=== PATIENT | female | born 1935 | race African-American/Black ===

== ENCOUNTER 2016-08-24 15:10 | Inpatient (IN) | payer MEDICARE, BC, MEDICAID ==
[2016-08-24] VITALS (8 sets, daily range): BP systolic 84–122; BP diastolic 49–70
[~2016-08-24] VITALS: Ht 162.6 cm; Wt 55.8 kg
[~2016-08-24 15:10] MED LIST: ASPIR 8181 MG ORAL
--- NOTE | 2016-08-24 15:34 | Emergency Room Report ---
History of Present Illness General Chief Complaint: Dyspnea/Respdistress Source: Medical Record Present Illness Allergies: Coded Allergies: No Known Allergies (Unverified , 12/10/15) Nursing Documentation-[facility] Past Medical History: No History, Except For Hx Hypertension: Yes - Hyperlipidemia History Of Psychiatric Problem: Yes - Paranoid Schizophrenia, Bipolar Physical Exam Vital Signs Date Time Temp Pulse Resp B/P Pulse Ox O2 Delivery O2 Flow Rate FiO2 08/24/16 15:10 102.2 125 15 85/64 85 Non-Rebreather 15.0 Procedures Intubation Intubation : Consent: Emergent Intubation Method: orotracheal Tube Size (cm): 7.0 Medications: Etomidate, Succinylcholine Breath Sounds after Intubation: equal Intubation Complications: no complications Post Intubation Xray: Yes Attempts: One Patient Tolerated: Well Complications: None Progress This patient underwent rapid sequence intubation without complication or incident. Medical Decision Making Diagnostic Impression: Primary Impression: Respiratory distress ER Course This patient presented with respiratory distress, low oxygen saturations, hypotension and findings consistent with sepsis. Please see formally history and physical. I did rapid sequence intubation without competition or incident. See my procedure note. Last Vital Signs Date Time Temp Pulse Resp B/P Pulse Ox O2 Delivery O2 Flow Rate FiO2 08/24/16 15:10 102.2 125 15 85/64 85 Non-Rebreather 15.0 ARLYN PEÑA D.O. Aug 24, 2016 15:34
--- NOTE | 2016-08-24 16:20 | Diagnostic Imaging Report ---
Indications: Intubation Technique: Portable AP chest Findings: Comparison: None Endotracheal tube placed, tip 2 cm above melissa. 6 cm multilobulated masslike opacity central aspect right lung. 7 mm nodule immediately peripheral to this. Linear density left lower lung. Aortic arch calcified mildly elongated. Otherwise, no abnormal mediastinal widening. Heart size, pulmonary vasculature within normal limits. No pleural abnormalities. Gaseous distention of stomach. IMPRESSION: Endotracheal tube in good position Right lung masses suspicious for primary lung malignancy Left lower lung subsegmental atelectasis Aortosclerosis and probable chronic hypertensive change Nonspecific gaseous distention of stomach. Consider nasogastric tube placement as clinically indicated.
[2016-08-24] MEDS ORDERED: DEPAKENE250 MG/5 M PO (16:28)
[2016-08-24] MEDS ORDERED: ASCORBIC ACID500 MG ORAL (16:28)
[2016-08-24] MEDS ORDERED: COLACE100 MG ORAL (16:28)
[2016-08-24] MEDS ORDERED: CATAPRES0.1 MG ORAL (16:28)
[2016-08-24] MEDS ORDERED: ATORVASTATIN CA20 MG ORAL (16:28)
[2016-08-24] MEDS ORDERED: FERROUS SULFAT325 MG ORAL (16:28)
[2016-08-24] MEDS ORDERED: LAMICTAL25 MG ORAL (16:30)
[2016-08-24] MEDS ORDERED: MULTIVITAMINS1 EA14 PO (16:30)
[2016-08-24] MEDS ORDERED: METOPROLOL SUCC25 MG ORAL (16:30)
[2016-08-24] MEDS ORDERED: ALUM-MAG HYDRO360 ML PO (16:30)
[2016-08-24] MEDS ORDERED: ZINC SULFATE220 M1 ORAL (16:33)
[2016-08-24] MEDS ORDERED: MIRTAZAPINE15 MG ORAL (16:33)
[2016-08-24] MEDS ORDERED: ZANTAC150 MG ORAL (16:33)
[2016-08-24] MEDS ORDERED: PRO-STAT LIQUID30 ML ORAL (16:33)
[2016-08-24] MEDS ORDERED: NUTREN 2.0250 ML PO (16:33)
[2016-08-24] MEDS ORDERED: ACETAMINOPHEN325 M1 ORAL (16:33)
[2016-08-24] MEDS ORDERED: NAMENDA5 MG ORAL (16:33)
[2016-08-24 16:40] LABS: ABG ALLEN TEST POSITIVE; ABG BASE EXCESS -6.5; ABG PCO2 23.2 mmHg (35.0-45.0)
[2016-08-24 17:14] LABS: BASOPHILS % (AUTO) 1.6 % (0.0-2.0); LYMPHOCYTES % (AUTO) 8.5 % (20.0-45.0); MEAN CORPUSCULAR HEMOGLOBIN 32.1 PG (27.0-31.0); MEAN CORPUSCULAR HGB CONC 34.9 G/DL (32.0-36.0); MEAN CORPUSCULAR VOLUME 92 FL (80-99); NEUTROPHILS % (AUTO) 74.9 % (45.0-75.0); PLATELET COUNT 222 K/UL (150-450); RED CELL DISTRIBUTION WIDTH 13.4 % (11.6-14.8); WHITE BLOOD COUNT 12.6 K/UL (4.8-10.8)
[2016-08-24] MEDS ORDERED: Acetaminophen 650 MG SUPP RECTAL ONE ×2 (17:21→18:45)
[2016-08-24 17:33] LABS: INR 1.3 (0.9-1.1); PROTHROMBIN TIME 12.8 SEC (9.30-11.50)
[2016-08-24 17:40] LABS: TROPONIN I < 0.30 ng/mL (<=0.30)
[2016-08-24 17:41] LABS: REFLEX LACTIC ACID YES OR NO YES
[2016-08-24 17:43] LABS: ALANINE AMINOTRANSFERASE 46 U/L (3-33); ALBUMIN/GLOBULIN RATIO 0.6 (1.0-2.7); ANION GAP 24 (5-15); ASPARTATE AMINO TRANSFERASE 64 U/L (5-40); CALCIUM 8.5 mg/dL (8.6-10.2); CARBON DIOXIDE 16 mEQ/L (20-30); CHLORIDE 110 mEQ/L (98-107); CREATININE 4.1 mg/dL (0.5-0.9); HEMOLYSIS 17; POTASSIUM 5.9 mEQ/L (3.4-4.9); SODIUM 150 mEQ/L (135-145); TOTAL PROTEIN 6.3 g/dL (6.6-8.7)
[2016-08-24 17:52] LABS: CKMB < 1.5 ng/mL (< 3.8)
[2016-08-24] MEDS ORDERED: NS 1000ml 1,400 ML IVLG ONE (18:15)
[2016-08-24] MEDS ORDERED: Piperacillin/Tazobactam 3.375 GM in NS 110 ML IVPB ONE (18:15)
[2016-08-24 18:20] LABS: APPEARANCE,URINE VERY CLOUDY; KETONES,URINE NEGATIVE (NEGATIVE); LEUKOCYTE ESTERASE ,URINE 3+ (NEGATIVE); NITRITE,URINE NEGATIVE (NEGATIVE); PH,URINE 8 (4.5-8.0); PROTEIN,URINE 3+ (NEGATIVE); UROBILINOGEN,URINE NORMAL MG/DL (0.0-1.0)
[2016-08-24] MEDS ORDERED: Zosyn 3.375gm inj ONE (18:21)
[2016-08-24 18:25] LABS: AMORPHOUS SEDIMENT,UR MANY /LPF; BACTERIA,URINE MANY /HPF; WBC,URINE TNTC /HPF (0 - 2)
--- NOTE | 2016-08-24 18:29 | Emergency Room Report ---
History of Present Illness General Chief Complaint: Dyspnea/Respdistress Source: Medical Record Present Illness HPI Patient presents in respiratory failure Patient's from a nursing facility There was a report that the patients breathing worsened acutely Patient is nonverbal No history is obtained from the patient Upon arrival the patient required airway intubation No reports of any recent chest pain or shortness of breath no reports of any recent diarrhea However the history of present illness is significantly limited Allergies: Coded Allergies: No Known Allergies (Unverified , 12/10/15) Patient History Limited by: medical condition Past Medical History: see triage record Pertinent Family History: unable to obtain Reviewed Nursing Documentation: PMH: Agreed, PSxH: Agreed Nursing Documentation-PMH Past Medical History: No History, Except For Hx Hypertension: Yes - Hyperlipidemia History Of Psychiatric Problem: Yes - Paranoid Schizophrenia, Bipolar Review of Systems All Other Systems: limited - Other than the ones mentioned in the history of present illness all others are reviewed however they do stay limited due to the patient's mental status Physical Exam Vital Signs Date Time Temp Pulse Resp B/P Pulse Ox O2 Delivery O2 Flow Rate FiO2 08/24/16 15:10 102.2 125 15 85/64 85 Non-Rebreather 15.0 08/24/16 15:15 100 Sp02 EP Interpretation: reviewed, abnormal - 85% which is a low oxygenation, after intubation patient has a 100 percent which is a normal oxygenation General Appearance: severe distress - respiratory distress Head: normocephalic, atraumatic Eyes: bilateral eye PERRL ENT: uvula midline, dry mucus membranes Neck: full range of motion, thyroid normal Respiratory: other - Decreased breath sounds, retractions respiratory failure Cardiovascular #1: no gallop, no JVD, no murmur, tachycardia Gastrointestinal: non tender, soft Musculoskeletal: other - patient not following commands Neurologic: other - Decreased GCS, unresponsive to stimuli Skin: normal color, no rash Lymphatic: no adenopathy Procedures Critical Care Time Critical Care Time 50 minutes for multiple re\re evaluations initial critical status Respiratory failure Multiple consultants not including any procedural time Medical Decision Making Diagnostic Impression: Primary Impression: Respiratory distress Additional Impressions: Respiratory failure Lung mass Renal failure Hyperkalemia ER Course Patient is a fairly complex patient with multiple differential to consideration including but not limited to cardiac cardiopulmonary and vascular emergencies Patient's presentation is extremity concerning X-ray reveals findings of concerning finding With carcinoma Patient's kidney function is also concerning With evidence of possible acute failure Patient is making urine and is further being aggressively IV hydrated hypokalemia is also being treated And patient admitted to ICU for further care Labs Test 08/24/16 16:30 08/24/16 16:40 08/24/16 17:30 08/24/16 19:44 Arterial Blood pH 7.444 (7.350-7.450) Arterial Blood Partial Pressure CO2 23.2 mmHg (35.0-45.0) Arterial Blood Partial Pressure O2 243.4 mmHg (75.0-100.0) Arterial Blood HCO3 15.5 mmol/L (22.0-26.0) Arterial Blood Oxygen Saturation 99.7 % (92.0-98.0) Arterial Blood Base Excess -6.5 Ed Test Positive White Blood Count 12.6 K/UL (4.8-10.8) Red Blood Count 4.50 M/UL (4.20-5.40) Hemoglobin 14.5 G/DL (12.0-16.0) Hematocrit 41.5 % (37.0-47.0) Mean Corpuscular Volume 92 FL (80-99) Mean Corpuscular Hemoglobin 32.1 PG (27.0-31.0) Mean Corpuscular Hemoglobin Concent 34.9 G/DL (32.0-36.0) Red Cell Distribution Width 13.4 % (11.6-14.8) Platelet Count 222 K/UL (150-450) Mean Platelet Volume 7.0 FL (6.5-10.1) Neutrophils (%) (Auto) 74.9 % (45.0-75.0) Lymphocytes (%) (Auto) 8.5 % (20.0-45.0) Monocytes (%) (Auto) 15.0 % (1.0-10.0) Eosinophils (%) (Auto) 0.0 % (0.0-3.0) Basophils (%) (Auto) 1.6 % (0.0-2.0) Prothrombin Time 12.8 SEC (9.30-11.50) Prothromb Time International Ratio 1.3 (0.9-1.1) Activated Partial Thromboplast Time 29 SEC (23-33) Sodium Level 150 mEQ/L (135-145) Potassium Level 5.9 mEQ/L (3.4-4.9) Chloride Level 110 mEQ/L (98-107) Carbon Dioxide Level 16 mEQ/L (20-30) Anion Gap 24 (5-15) Blood Urea Nitrogen 95 mg/dL (7-23) Creatinine 4.1 mg/dL (0.5-0.9) Estimat Glomerular Filtration Rate mL/min (>60) Glucose Level 134 mg/dL (74-106) Lactic Acid Level 5.10 mmol/L (0.66-2.22) 3.50 mmol/L (0.66-2.22) Calcium Level 8.5 mg/dL (8.6-10.2) Total Bilirubin 0.6 mg/dL (0.0-1.2) Aspartate Amino Transf (AST/SGOT) 64 U/L (5-40) Alanine Aminotransferase (ALT/SGPT) 46 U/L (3-33) Alkaline Phosphatase 48 U/L (35-104) Total Creatine Kinase 76 U/L (26-140) Creatine Kinase MB < 1.5 ng/mL (< 3.8) Creatine Kinase MB Relative Index Troponin I < 0.30 ng/mL (<=0.30) Total Protein 6.3 g/dL (6.6-8.7) Albumin 2.5 g/dL (3.5-5.2) Globulin 3.8 g/dL Albumin/Globulin Ratio 0.6 (1.0-2.7) Urine Color Pale yellow Urine Appearance Very cloudy Urine pH 8 (4.5-8.0) Urine Specific [place] 1.010 (1.005-1.035) Urine Protein 3+ (NEGATIVE) Urine Glucose (UA) Negative (NEGATIVE) Urine Ketones Negative (NEGATIVE) Urine Occult Blood 5+ (NEGATIVE) Urine Nitrite Negative (NEGATIVE) Urine Bilirubin Negative (NEGATIVE) Urine Urobilinogen Normal MG/DL (0.0-1.0) Urine Leukocyte Esterase 3+ (NEGATIVE) Urine RBC 10-15 /HPF (0 - 2) Urine WBC Tntc /HPF (0 - 2) Urine Squamous Epithelial Cells None /LPF (NONE/OCC) Urine Amorphous Sediment Many /LPF (NONE) Urine Bacteria Many /HPF (NONE) EKG Diagnostic Results Rate: normal Rhythm: NSR ST Segments: other - Nonspecific ST and T-wave changes Rhythm Strip Diag. Results EP Interpretation: yes Rate: 89 Rhythm: NSR, no PVC's, no ectopy Chest X-Ray Diagnostic Results EP Interpretation: Yes Findings: no consolidation, no effusion, no pneumothorax, other - Right-sided lung mass Number of Views: 1 Last Vital Signs Date Time Temp Pulse Resp B/P Pulse Ox O2 Delivery O2 Flow Rate FiO2 08/24/16 17:00 130 16 118/70 99 Mechanical Ventilator 130 08/24/16 16:45 50 08/24/16 15:20 10.0 08/24/16 15:10 102.2 Status: improved Disposition: ADMITTED INPATIENT Condition: Critical Referrals: LORNA WHITEHEAD (PCP) GORDY RODRIGES D.O. Aug 24, 2016 18:29
[2016-08-24] MEDS ORDERED: Sodium Polystyrene Sulfonate Enema RECTAL ONE ×2 (20:15→20:30)
[2016-08-24] MEDS ORDERED: Sodium Bicarbonate 8.4% 50ml Carp IV ONE (20:15)
[2016-08-25] VITALS (26 sets, daily range): BP systolic 83–120; BP diastolic 37–61
[2016-08-25] MEDS: DuoNeb 0.5-3(2.5)mg/3ml neb HHN SCH ×4 (02:40→19:04)
[2016-08-25] MEDS ORDERED: Vancomycin 750mg/D5W 275ml IVPB ONE ×2 (04:00)
[2016-08-25] MEDS ORDERED: Vancomycin 750mg/D5W 275ml IVPB SCH ×2 (04:00)
[2016-08-25] MEDS ORDERED: Vancomycin 750mg Inj IVPB ONE (04:06)
--- NOTE | 2016-08-25 04:38 | Consultation ---
DATE OF CONSULTATION: 08/24/2016 CARDIOLOGY CONSULTATION CONSULTING PHYSICIAN: Giuseppe Muir M.D. REQUESTING PHYSICIAN: Rajesh Franco M.D. HISTORY OF PRESENT ILLNESS: This is an 81-year-old female resides at a assisted facility and became acutely short of breath and unresponsive. This morning she was transferred to the emergency room where she was noted to be in respiratory failure. She required intubation and initiation of mechanical ventilation. She was febrile with significant rapid blood pressure noted prompting this consultation. The patient is unable to give any historical data. Records are reviewed. PAST MEDICAL HISTORY: Includes hyperlipidemia, hypertension, cerebrovascular disease, dementia, schizophrenia with bipolar disorder, and type 2 diabetes mellitus. MEDICATIONS: Medications prior to admission reviewed and reconciled. ALLERGIES: None known. SOCIAL HISTORY: No record of smoking, alcohol, or substance abuse. FAMILY HISTORY: Unknown. REVIEW OF SYSTEMS: Not obtainable from the patient, although pertinent data is outlined above based on review of records. PHYSICAL EXAMINATION: GENERAL: Orally intubated, unresponsive. VITAL SIGNS: Temperature 102.2 degrees, blood pressure 85/64, heart rate 125, and respiratory rate 15. HEENT: Temporal wasting. Pale conjunctiva. Orally intubated. NECK: Normal jugular venous pressure. LUNGS: Bilateral rhonchi. HEART: Regular rhythm rate. Normal S1 and S2. No murmur. ABDOMEN: Soft. No guarding or rebound. EXTREMITIES: Pulses are palpable, but capillary refill is decreased. There is no edema. There is no cyanosis and mottling at this time. NEUROLOGIC: The patient is unresponsive, but withdraws to painful stimuli. LABORATORY AND DIAGNOSTIC DATA: Chest x-ray reveals right lung mass. ABG, pH 7.44, 23, 243. White count 12.6, hemoglobin 14.5. Sodium 150, potassium 5.9, chloride 110, bicarbonate 16, BUN 95, creatinine 4.1. Lactic acid 5.1. Glucose 134. Troponin negative. Albumin 2.5. Urinalysis with too numerous to count white cells. EKG with sinus rhythm, nonspecific ST-T wave changes. IMPRESSION: 1. Shock. 2. Sepsis. 3. Hypovolemia. 4. Dehydration. 5. Hypernatremia. 6. Hyperchloremia. 7. Hyperkalemia. 8. Acute renal failure. 9. Right lung mass, possible malignancy. 10. Urinary tract infection. 11. Lactic acidosis. 12. Respiratory failure with hypoxia. PLAN: Condition is critical. Prognosis is guarded. ICU care. Panculture. Ventilator support. Broad-spectrum antibiotics. Hypotonic fluid hydration following initial bolus of isotonic fluids. Serial lactic acid level. DVT prophylaxis. Insulin coverage by sliding scale. Follow up laboratory studies. Giuseppe Muir M.D. DR: Adan JOB#: [id number] CC:
--- NOTE | 2016-08-25 05:49 | Emergency Room Report ---
Physical Exam Vital Signs Date Time Temp Pulse Resp B/P Pulse Ox O2 Delivery O2 Flow Rate FiO2 08/24/16 15:10 102.2 125 15 85/64 85 Non-Rebreather 15.0 08/24/16 15:15 100 Central Line Central Line : Consent: Emergent Central Line Lumen: triple Maximal Sterile Barrier Tech: yes cap, yes mask, yes sterile gown, yes sterile gloves, yes large sterile sheet, yes hand hygiene, yes chlorhexidine prep Central Line Postion: femoral (R) Complications: none Central Line Post Position: sutured, good blood return Attempts: One Patient Tolerated: Well Complications: None Progress Patient was admitted for respiratory failure and was intubated. She had sepsis. She had 2 good IV line that infiltrated. Nursing staff at trouble putting a new IV so I place a central line. This was done under sterile condition using Seldinger technique. No complication. Medical Decision Making Diagnostic Impression: Primary Impression: Respiratory distress Additional Impressions: Renal failure Respiratory failure Lung mass Hyperkalemia Last Vital Signs Date Time Temp Pulse Resp B/P Pulse Ox O2 Delivery O2 Flow Rate FiO2 08/25/16 05:26 84 17 50 08/25/16 03:56 98.4 08/25/16 02:57 100 Mechanical Ventilator 08/25/16 02:00 105/50 08/24/16 15:20 10.0 Disposition: ADMITTED INPATIENT Condition: Critical Referrals: LORNA WHITEHEAD (PCP) PREM SARAVIA M.D. Aug 25, 2016 05:49
[2016-08-25] MEDS ORDERED: NovoLOG Insulin Flexpen SUBQ SCH (06:30)
[2016-08-25 06:31] LABS: REFLEX LACTIC ACID YES OR NO YES
[2016-08-25 06:36] LABS: ALANINE AMINOTRANSFERASE 53 U/L (3-33); ALBUMIN/GLOBULIN RATIO 0.7 (1.0-2.7); ANION GAP 18 (5-15); ASPARTATE AMINO TRANSFERASE 54 U/L (5-40); CALCIUM 7.6 mg/dL (8.6-10.2); CARBON DIOXIDE 20 mEQ/L (20-30); CHLORIDE 117 mEQ/L (98-107); CREATININE 2.1 mg/dL (0.5-0.9); HEMOLYSIS 8; MAGNESIUM 2.2 mg/dL (1.7-2.5); SODIUM 155 mEQ/L (135-145); TOTAL PROTEIN 4.9 g/dL (6.6-8.7)
[2016-08-25 06:41] LABS: ABG ALLEN TEST POSITIVE; ABG BASE EXCESS -4.3; ABG PCO2 29.2 mmHg (35.0-45.0)
[2016-08-25] MEDS ORDERED: Zosyn 3.375gm inj ONE (07:09)
[2016-08-25 07:12] LABS: BASOPHILS % (AUTO) 0.8 % (0.0-2.0); EOSINOPHILS % (AUTO) 0.1 % (0.0-3.0); LYMPHOCYTES % (AUTO) 8.7 % (20.0-45.0); MEAN CORPUSCULAR HEMOGLOBIN 29.5 PG (27.0-31.0); MEAN CORPUSCULAR HGB CONC 32.2 G/DL (32.0-36.0); MEAN CORPUSCULAR VOLUME 92 FL (80-99); MEAN PLATELET VOLUME 7.2 FL (6.5-10.1); MONOCYTES % (AUTO) 11.3 % (1.0-10.0); NEUTROPHILS % (AUTO) 79.1 % (45.0-75.0); PLATELET COUNT 171 K/UL (150-450); RED BLOOD COUNT 3.64 M/UL (4.20-5.40); WHITE BLOOD COUNT 11.5 K/UL (4.8-10.8)
[2016-08-25] MEDS: Piperacillin/Tazobactam 3.375 GM in NS 110 ML IVPB SCH ×2 (07:20→17:32)
[2016-08-25] MEDS ORDERED: Levophed 4mg/4mL Inj IV ONE (07:36)
[2016-08-25] MEDS: NovoLOG Insulin Flexpen SUBQ SCH ×5 (11:30→23:54)
--- NOTE | 2016-08-25 20:16 | Wound Care Consultation ---
Wound Assessment Wound Assessment #1: Wound Present on Admission: Yes New Wound: No Status Change of Wound: No Wound Location Body Site Modif: mid Wound Location Body Site: sacral Wound Type: pressure ulcer Francisco Test: Does not Francisco Pressure Ulcer Stage: III Wound Thickness: Full Thickness Wound Length: 6.0 Wound Width: 3.5 Wound Depth: 0.3 Percent of Wound [place]/Red: 100 Wound Drainage Description: Serosanguineous Wound Drainage Amount: Moderate Wound Drainage Odor: None/Absent Tissue Surrounding Wound: Erythemic Wound General Appearance: Reddened Wound Assessment #2: Wound Number: #2 Wound Present on Admission: Yes New Wound: No Status Change of Wound: No Wound Location Body Site Modif: left Wound Location Body Site: trochanter Wound Type: pressure ulcer Francisco Test: Does not Francisco Wound Thickness: Full Thickness Wound Length: 6.5 Wound Width: 3.5 Wound Depth: utd Percent of Wound Purple/Maroon: 100 Wound Drainage Amount: None Wound Drainage Odor: None/Absent Tissue Surrounding Wound: Intact Wound General Appearance: Reddened Wound Assessment #3: Wound Number: #3 Wound Present on Admission: Yes New Wound: No Status Change of Wound: No Wound Location Body Site Modif: left Wound Location Body Site: temporal region Wound Type: pressure ulcer Francisco Test: Does not Francisco Pressure Ulcer Stage: deep tissue injury Wound Thickness: Full Thickness Wound Length: 2.0 Wound Width: 2.5 Wound Depth: utd Percent of Wound Purple/Maroon: 100 Wound Drainage Amount: None Wound Drainage Odor: None/Absent Tissue Surrounding Wound: Erythemic Wound General Appearance: Reddened Wound Assessment #4: Wound Number: #4 Wound Present on Admission: Yes New Wound: No Status Change of Wound: No Wound Location Body Site Modif: left Wound Location Body Site: ischial tuberosity Wound Type: pressure ulcer Francisco Test: Does not Francisco Wound Thickness: Full Thickness - scar tissue Wound Length: 3.5 Wound Width: 3.5 Wound Depth: utd Percent of Wound [place]/Red: 100 Wound Drainage Amount: None Wound Drainage Odor: None/Absent Tissue Surrounding Wound: Indurated Wound General Appearance: Reddened Wound Assessment #5: Wound Number: #5 Wound Present on Admission: Yes New Wound: No Status Change of Wound: No Wound Location Body Site Modif: left Wound Location Body Site: ear Wound Type: pressure ulcer Francisco Test: Does not Francisco Pressure Ulcer Stage: deep tissue injury Wound Thickness: Full Thickness Wound Length: 0.5 Wound Width: 0.5 Wound Depth: utd Percent of Wound Purple/Maroon: 100 Wound Drainage Amount: None Wound Drainage Odor: None/Absent Tissue Surrounding Wound: Erythemic Wound General Appearance: Reddened Wound Assessment #6: Wound Number: #6 Wound Present on Admission: Yes New Wound: No Status Change of Wound: No Wound Location Body Site Modif: right Wound Location Body Site: ear Wound Type: pressure ulcer Francisco Test: Does not Francisco Pressure Ulcer Stage: deep tissue injury Wound Thickness: Full Thickness Wound Length: 3.0 Wound Width: 1.0 Wound Depth: utd Percent of Wound Purple/Maroon: 100 Wound Drainage Amount: None Wound Drainage Odor: None/Absent Tissue Surrounding Wound: Erythemic Wound General Appearance: Reddened Wound Comment #1 Sacral Stage III pressure ulcer #2 Left trochanter DTI pressure ulcer #3 Left temporal bone area DTI pressure ulcer #4 Left Ischial tuberosity scar tissue hard to touch #5 Left ear DTI pressure ulcer #6 Right ear DTI scar tissue Recommendation -Sacral pressure ulcer Cleanse with saline, pat dry, apply Triad cream, cover with Biatain silicon daily and PRN soiled/dislodged -Keep clean and dry -Turn and reposition -Optimize nutrition -Local wound care per protocol for DTI -Low air loss mattress -Offload both heels -Heel protector on both heels -Assess and f/u accordingly for any changes RUDI BISHOP RN Aug 25, 2016 20:16
[2016-08-25] MEDS ORDERED: Heparin 5000 units/ml inj SUBQ SCH (21:00)
--- NOTE | 2016-08-25 21:38 | History and Physical Report ---
DATE OF ADMISSION: 08/24/2016 CHIEF COMPLAINT: Respiratory failure. HISTORY OF PRESENT ILLNESS: The patient is an 81-year-old female. She has a history of depression, hypertension, hyperlipidemia, and dementia. She was transferred from a half-way facility with complaints of shortness of breath. On evaluation in the emergency room, the patient was in acute respiratory distress and was immediately intubated. She is currently on mechanical ventilatory support. She has had some low blood pressure but it improved with intravenous fluid boluses. X-rays in the emergency room was concerning for possible lung mass. PAST MEDICAL HISTORY: As above. PAST SURGICAL HISTORY: Unknown. CURRENT MEDICATIONS: Reconciled and reviewed. ALLERGIES: None. FAMILY HISTORY: Unknown. SOCIAL HISTORY: There is no known history of tobacco, ethanol, or drugs. REVIEW OF SYSTEMS: Unobtainable, she is currently intubated and poorly responsive. PHYSICAL EXAMINATION: VITAL SIGNS: Temperature 98 degrees, pulse 76, respirations 20, and blood pressure 105/40. GENERAL: The patient is well-developed, no apparent distress. She is orally intubated. NECK: Supple. There is no jugular venous distention. HEART: Regular rate and rhythm. LUNGS: Clear anteriorly. ABDOMEN: soft, nontender, nondistended. EXTREMITIES: Without clubbing, cyanosis, or edema. PERTINENT DATA: UA showed too numerous count WBCs. White count was 13,000. Hemoglobin 14, hematocrit 41, platelets of 322,000. ABG showed pH of 7.43 pCO2 of 29, pO2 148, bicarb of 18, O2 saturation 99%. Sodium is 155, potassium 3, chloride 117, bicarb 20, BUN 73, creatinine 2.1. Lactic acid level is 5. Chest x-ray shows right lung mass. ASSESSMENT: This is a unfortunate female with complaints of respiratory failure, suspect secondary to postobstructive pneumonia from a possible lung cancer. She has acute renal failure and sepsis as well as shock as well as urinary tract infection. PLAN: 1. Vent support. 2. Respiratory treatments. 3. Broad-spectrum IV antibiotics. 4. Pulmonary, cardiology, Infectious Disease consultation will be obtained. 5. DVT and stress ulcer prophylaxis. 6. We will check venous duplex of the lower extremities. 7. Continue hydration. 8. Monitor urine output. 9. Consider renal ultrasound if renal function does not improve. left with the patient's family. We are waiting a call back to update the family on the patient's critical status. She is currently critical and guarded. Rajesh Franco M.D. DR: Lashawn JOB#: [id number] CC:
[2016-08-26] VITALS (24 sets, daily range): BP systolic 97–155; BP diastolic 41–74
[2016-08-26] MEDS: DuoNeb 0.5-3(2.5)mg/3ml neb HHN SCH ×4 (01:14→19:17)
--- NOTE | 2016-08-26 02:38 | Progress Note ---
DATE: 08/25/2016 CARDIOLOGY PROGRESS NOTE SUBJECTIVE: The patient's condition remains critical. Prognosis is guarded. She remains on ventilator support. Poorly responsive. OBJECTIVE: VITAL SIGNS: Blood pressure is tenuous, on exam 95/47, pulse 80, respiratory rate 16 and afebrile. Orally intubated. LUNGS: Coarse breath sounds with rhonchi. HEART: Regular rhythm and rate. Normal S1 and S2. ABDOMEN: Soft. EXTREMITIES: Trace edema. LABORATORY AND DIAGNOSTIC DATA: White count 11.5 and hemoglobin 12.7. Sodium 135, potassium 3.0, chloride 117, bicarbonate 20, BUN 73, and creatinine 2.1. Lactic acid peaked at 5.4 and now 1.8. Magnesium 2.2. Albumin 2.1. TSH 2.6. IMPRESSION: 1. Respiratory failure. 2. Sepsis with shock. 3. Hypovolemia with dehydration. 4. Hypernatremia. 5. Hyperchloremia. 6. Hypokalemia. 7. Acute renal failure. 8. Possible lung mass. 9. Probable pneumonia. 10. Recovering lactic acidosis. 11. Urinary tract infection. PLAN: 1. Hypotonic IV fluids. 2. Replace electrolytes. 3. Broad-spectrum antibiotics. 4. Ventilator support. 5. Await final blood culture report. 6. Insulin coverage by sliding scale. 7. DVT and stress ulcer prophylaxis. 8. Continue intensive care unit care plan. 9. May need pressors for adequate response to IV fluids for distal perfusion. Giuseppe Muir M.D. DR: SUSAN JOB#: [id number] CC:
[2016-08-26] MEDS: NovoLOG Insulin Flexpen SUBQ SCH ×4 (05:35→23:43)
[2016-08-26] MEDS: Piperacillin/Tazobactam 3.375 GM in NS 110 ML IVPB SCH ×2 (05:35→18:05)
[2016-08-26 05:44] LABS: BASOPHILS % (AUTO) 0.7 % (0.0-2.0); EOSINOPHILS % (AUTO) 0.8 % (0.0-3.0); LYMPHOCYTES % (AUTO) 6.4 % (20.0-45.0); MEAN CORPUSCULAR HEMOGLOBIN 29.8 PG (27.0-31.0); MEAN CORPUSCULAR HGB CONC 32.2 G/DL (32.0-36.0); MEAN CORPUSCULAR VOLUME 93 FL (80-99); MEAN PLATELET VOLUME 7.3 FL (6.5-10.1); MONOCYTES % (AUTO) 8.5 % (1.0-10.0); NEUTROPHILS % (AUTO) 83.6 % (45.0-75.0); PLATELET COUNT 140 K/UL (150-450); RED BLOOD COUNT 3.75 M/UL (4.20-5.40); RED CELL DISTRIBUTION WIDTH 14.3 % (11.6-14.8); WHITE BLOOD COUNT 12.1 K/UL (4.8-10.8)
[2016-08-26 06:09] LABS: ALANINE AMINOTRANSFERASE 65 U/L (3-33); ALBUMIN/GLOBULIN RATIO 0.6 (1.0-2.7); ANION GAP 16 (5-15); ASPARTATE AMINO TRANSFERASE 46 U/L (5-40); CALCIUM 8.2 mg/dL (8.6-10.2); CARBON DIOXIDE 20 mEQ/L (20-30); CHLORIDE 117 mEQ/L (98-107); CREATININE 0.9 mg/dL (0.5-0.9); HEMOLYSIS 5; SODIUM 153 mEQ/L (135-145)
[2016-08-26 06:14] LABS: POTASSIUM 2.7 mEQ/L (3.4-4.9)
[2016-08-26] MEDS ORDERED: KCl 10% 40mEq/30ml liquid NG ONE (08:00)
[2016-08-26 08:19] LABS: BASOPHILS % (AUTO) 0.4 % (0.0-2.0); EOSINOPHILS % (AUTO) 0.7 % (0.0-3.0); LYMPHOCYTES % (AUTO) 7.2 % (20.0-45.0); MEAN CORPUSCULAR HEMOGLOBIN 28.9 PG (27.0-31.0); MEAN CORPUSCULAR HGB CONC 31.8 G/DL (32.0-36.0); MEAN CORPUSCULAR VOLUME 91 FL (80-99); MEAN PLATELET VOLUME 6.9 FL (6.5-10.1); MONOCYTES % (AUTO) 8.1 % (1.0-10.0); NEUTROPHILS % (AUTO) 83.7 % (45.0-75.0); PLATELET COUNT 140 K/UL (150-450); RED BLOOD COUNT 3.52 M/UL (4.20-5.40); RED CELL DISTRIBUTION WIDTH 14.2 % (11.6-14.8); WHITE BLOOD COUNT 13.3 K/UL (4.8-10.8)
[2016-08-26] MEDS ORDERED: Heparin 5000 units/ml inj IV ONE (09:00)
[2016-08-26] MEDS ORDERED: Heparin 25,000u/D5W 500ml 500 ML IV SCH (09:00)
--- NOTE | 2016-08-26 14:06 | General Progress Note ---
Assessment/Plan Problem List: (1) Pneumonia ICD Codes: J18.9 - Pneumonia, unspecified organism SNOMED: 794613499 (2) DVT (deep vein thrombosis) in ICD Codes: O22.30 - Deep phlebothrombosis in , unspecified trimester; I82.409 - Acute embolism and thrombosis of unspecified deep veins of unspecified lower extremity SNOMED: 88602706, 824916982, 955091705 (3) Hyperkalemia ICD Codes: E87.5 - Hyperkalemia SNOMED: 53136532 (4) Renal failure ICD Codes: N19 - Unspecified kidney failure SNOMED: 21427142 (5) Respiratory failure ICD Codes: J96.90 - Respiratory failure, unspecified, unspecified whether with hypoxia or hypercapnia SNOMED: 208761992 (6) Lung mass ICD Codes: R91.8 - Other nonspecific abnormal finding of lung field SNOMED: 353338854 Status: stable Assessment/Plan vent support resp rx abx ct chest heparin drip follow up cultures ngt feeds d/w dtr poc Subjective ROS Limited/Unobtainable: Yes Constitutional: Reports: malaise, weakness HEENT: Reports: no symptoms Cardiovascular: Reports: no symptoms Respiratory: Reports: no symptoms Gastrointestinal/Abdominal: Reports: no symptoms Genitourinary: Reports: no symptoms Neurologic/Psychiatric: Reports: no symptoms Endocrine: Reports: no symptoms Hematologic/Lymphatic: Reports: anemia Allergies: Coded Allergies: No Known Allergies (Unverified , 12/10/15) All Systems: reviewed and negative except above Subjective no events.doing better. awake. no pressors. renal fxn better on labs. d/w dtr at the bedside. on heparin drip fo dvt. dtr aware of history of "spot" on lung Objective Last 24 Hour Vital Signs Date Time Temp Pulse Resp B/P Pulse Ox O2 Delivery O2 Flow Rate FiO2 08/26/16 12:59 76 16 128/64 100 Mechanical Ventilator 35 08/26/16 12:42 80 16 35 08/26/16 12:00 35 08/26/16 12:00 98.4 81 17 126/61 100 Mechanical Ventilator 35 08/26/16 12:00 81 08/26/16 11:00 84 15 131/63 100 Mechanical Ventilator 35 08/26/16 10:39 81 15 35 08/26/16 10:00 84 16 122/64 100 Mechanical Ventilator 35 08/26/16 09:11 84 18 35 08/26/16 09:00 86 17 117/70 100 Mechanical Ventilator 35 08/26/16 08:00 90 08/26/16 08:00 97.8 89 17 111/53 100 Mechanical Ventilator 35 08/26/16 08:00 35 08/26/16 07:25 77 16 100 Mechanical Ventilator 08/26/16 07:15 76 16 100 Mechanical Ventilator 35 08/26/16 07:14 78 16 35 08/26/16 07:00 77 14 145/59 100 Mechanical Ventilator 35 08/26/16 06:00 81 20 151/62 100 Mechanical Ventilator 35 08/26/16 05:05 85 18 35 08/26/16 05:00 84 18 145/64 96 Mechanical Ventilator 35 08/26/16 04:00 83 08/26/16 04:00 97.6 83 16 150/74 100 Mechanical Ventilator 35 08/26/16 04:00 35 08/26/16 03:17 84 18 35 08/26/16 03:00 85 16 148/64 99 Mechanical Ventilator 35 08/26/16 02:00 86 14 116/45 99 Mechanical Ventilator 35 08/26/16 01:23 68 16 100 Mechanical Ventilator 40 08/26/16 01:15 66 14 100 Mechanical Ventilator 35 08/26/16 01:14 66 14 35 08/26/16 01:00 65 14 128/52 97 Mechanical Ventilator 35 08/26/16 00:00 35 08/26/16 00:00 97.4 71 14 126/48 99 Mechanical Ventilator 35 08/26/16 00:00 68 08/25/16 23:10 74 14 35 08/25/16 23:00 73 14 117/46 100 Mechanical Ventilator 35 08/25/16 22:00 72 14 113/49 100 Mechanical Ventilator 35 08/25/16 21:10 75 19 35 08/25/16 21:00 76 14 99/47 99 Mechanical Ventilator 35 08/25/16 20:00 97.7 80 16 91/47 99 Mechanical Ventilator 35 08/25/16 20:00 79 08/25/16 20:00 35 08/25/16 19:13 75 15 100 Mechanical Ventilator 40 08/25/16 19:03 74 14 99 Mechanical Ventilator 35 08/25/16 19:01 74 14 35 08/25/16 19:00 80 16 109/42 98 Mechanical Ventilator 35 08/25/16 18:04 78 16 120/42 99 Mechanical Ventilator 50 08/25/16 17:10 74 15 35 08/25/16 17:00 78 16 88/38 99 Mechanical Ventilator 50 08/25/16 16:00 98.0 77 16 91/37 100 Mechanical Ventilator 50 08/25/16 16:00 35 08/25/16 16:00 74 08/25/16 15:00 76 16 90/38 99 Mechanical Ventilator 50 08/25/16 14:52 75 17 35 Intake and Output 08/25/16 08/26/16 19:00 07:00 Intake Total 1540.0 ml 1596.2 ml Output Total 1300 ml 915 ml Balance 240.0 ml 681.2 ml IV Total 1540.0 ml 1596.2 ml Output Urine Total 1300 ml 915 ml Laboratory Tests 08/25/16 18:30: Lactic Acid Level 1.80 08/26/16 05:15: White Blood Count 12.1H, Red Blood Count 3.75L, Hemoglobin 11.2L, Hematocrit 34.7L, Mean Corpuscular Volume 93, Mean Corpuscular Hemoglobin 29.8, Mean Corpuscular Hemoglobin Concent 32.2, Red Cell Distribution Width 14.3, Platelet Count 140L, Mean Platelet Volume 7.3, Neutrophils (%) (Auto) 83.6H, Lymphocytes (%) (Auto) 6.4L, Monocytes (%) (Auto) 8.5, Eosinophils (%) (Auto) 0.8, Basophils (%) (Auto) 0.7, Sodium Level 153H, Potassium Level 2.7*L, Chloride Level 117H, Carbon Dioxide Level 20, Anion Gap 16H, Blood Urea Nitrogen 47#H, Creatinine 0.9#, Estimat Glomerular Filtration Rate , Glucose Level 86, Calcium Level 8.2L, Total Bilirubin 0.4, Aspartate Amino Transf (AST/SGOT) 46H, Alanine Aminotransferase (ALT/SGPT) 65H, Alkaline Phosphatase 54, Total Protein 5.0L, Albumin 2.0L, Globulin 3.0, Albumin/Globulin Ratio 0.6L 08/26/16 07:50: White Blood Count 13.3H, Red Blood Count 3.52L, Hemoglobin 10.2L, Hematocrit 32.0L, Mean Corpuscular Volume 91, Mean Corpuscular Hemoglobin 28.9, Mean Corpuscular Hemoglobin Concent 31.8L, Red Cell Distribution Width 14.2, Platelet Count 140L, Mean Platelet Volume 6.9, Neutrophils (%) (Auto) 83.7H, Lymphocytes (%) (Auto) 7.2L, Monocytes (%) (Auto) 8.1, Eosinophils (%) (Auto) 0.7, Basophils (%) (Auto) 0.4, Activated Partial Thromboplast Time 35H Height (Feet): 5 Height (Inches): 4.00 Weight (Pounds): 124 General Appearance: WD/WN, alert, confused Neck: supple Cardiovascular: regular rhythm Respiratory/Chest: normal breath sounds Abdomen: normal bowel sounds, non tender, soft, no organomegaly Edema: no edema noted Arm (L), no edema noted Arm (R), no edema noted Leg (L), no edema noted Leg (R), no edema noted Pedal (L), no edema noted Pedal (R), no edema noted Generalized JUSTIN IRVIN Aug 26, 2016 14:05
[2016-08-26] MEDS ORDERED: 1/2 NS 1000ml IV ONE ×2 (14:16→15:06)
--- NOTE | 2016-08-26 14:43 | Diagnostic Imaging Report ---
Indication: Dyspnea Technique: One view of the chest Comparison: 08/24/2016 Findings: Interim placement of a nasogastric tube, tip of which projects at the level of the gastric fundus. There is decreased gas within the stomach Interim retraction of endotracheal tube, tip now approximately 4 cm above the melissa. Large right perihilar mass is again demonstrated. There is increasing atelectasis at the left lung base and possibly a small amount of pleural fluid developing. The heart size is normal. There is tortuous and calcified Impression: Improved position of endotracheal tube Interim nasogastric placement, satisfactory Increased left basilar atelectasis. Possible small developing pleural effusion Right perihilar mass is again demonstrated
[2016-08-26] MEDS ORDERED: Tubing IV Secondary IV ONE (15:06)
--- NOTE | 2016-08-26 17:58 | Consultation ---
DATE OF CONSULTATION: 08/26/2016 PULMONARY CONSULTATION REFERRING PHYSICIAN: Rajesh Franco M.D. REASON FOR CONSULTATION: Respiratory failure. HISTORY OF PRESENT ILLNESS: The patient is an 81-year-old female who resented with respiratory failure. The patient presents from a snf facility complaining of acute respiratory distress. In the emergency room, the patient required intubation. The patient is unable to give any history. The patient also noted with hypotension. The patient treated accordingly with IV antibiotics and admitted to ICU. I was consulted to evaluate further and care discussed with nursing staff as well as RT. The patient's findings discussed and reviewed. The patient's [facility] chart was reviewed. PAST MEDICAL HISTORY: Notable for depression, hypertension, hyperlipidemia, and dementia. MEDICATIONS: Reviewed. ALLERGIES: Reviewed. SOCIAL HISTORY: Nonsmoker and nondrinker. custodial patient. FAMILY HISTORY: Not available. REVIEW OF SYSTEMS: Unavailable. PHYSICAL EXAMINATION: GENERAL: The patient is well appearing female. The patient is withdrawn and sedated. VITAL SIGNS: Blood pressure 111/53, respiratory rate 17, saturation 100%, temperature 97.8 degrees, and heart rate is 90. HEENT: Negative. NECK: Supple. The patient is orally intubated. LUNGS: Coarse breath sounds. Symmetric. CARDIAC: S1, S1 slightly irregular without murmurs, rubs, or gallops. ABDOMEN: Soft. Feeding tube in place. No hepatosplenomegaly. EXTREMITIES: No cyanosis or clubbing. There is trace edema. NEUROLOGIC: The patient is responsive, but sedated. LABORATORY AND DIAGNOSTIC DATA: White cell count 13.3, hemoglobin 10.2, hematocrit 32 and platelets 140,000. Chemistry is noted, potassium 3.7 and replaced, BUN 47 and creatinine 0.9. Albumin is 2. Arterial blood gases, 7.43, 29, 48, and 19. X-rays noted and reviewed. IMPRESSION: 1. Respiratory failure. 2. Metabolic acidosis. 3. Evidence of adequate compensation with respiratory alkalosis. 4. Right lung mass, possibly malignancy. 5. Left lower lobe atelectasis. 6. Severe protein-calorie malnutrition. 7. Possible sepsis and shock. 8. Possible postobstructive pneumonia. 9. Acute renal failure. 10. Possible urinary tract infection. RECOMMENDATIONS: Ventilatory management. Monitor clinically . Consider CT of the chest if able. At present no evidence of atelectasis, but there is certainly a 6 cm multilobulated mass like opacity in the central aspect of the right lung. We will discuss with the primary physician as well as with the family as to the plan of care and aggressiveness of care and plan for any type of intervention and if malignancy is found, plan to any type of chemotherapeutic and oncological intervention. Prognosis appears to be fairly poor, but to follow clinically. Gordon Almodovar M.D. DR: FRANDY JOB#: [id number] CC:
[2016-08-26] MEDS: Heparin 25,000u/D5W 500ml 500 ML IV SCH (19:32)
--- NOTE | 2016-08-26 23:17 | Consultation ---
DATE OF CONSULTATION: 08/26/2016 INFECTIOUS DISEASE CONSULTATION This consult is for coverage of Dr. Rose. PRIMARY ATTENDING PHYSICIAN: Giuseppe Muir M.D. REASON FOR CONSULT: Gram-negative sepsis. HISTORY OF PRESENT ILLNESS: The patient is an 81-year-old female, who is a [facility] resident admitted on 08/24/2016 in a state of distress and had decrease in O2 saturation, and hypertension. The patient was intubated in the ER and transferred to ICU. It was found that the patient had acute renal failure. Chest x-ray also showed right lung mass. Blood culture from the day of admission grew gram-negative jerry. PAST MEDICAL HISTORY: Significant for psychiatric disorders, schizophrenia, depression, hypertension, and dyslipidemia. MEDICATIONS: Heparin, insulin, Zosyn, vancomycin, DuoNeb inhaler. ALLERGIES: No known drug allergy. SOCIAL HISTORY: No other history obtainable by the patient. PHYSICAL EXAMINATION: VITAL SIGNS: Temperature 98.4 degrees. The patient had a temperature of 102.2 degrees at the time of admission, pulse 76, blood pressure 128/64. GENERAL APPEARANCE: Opens his eyes. HEAD AND NECK: Orally intubated. HEART: Regular. LUNGS: Clear. The patient is on a mechanical ventilator. There is decreased sound on the right side. ABDOMEN: Soft. EXTREMITIES: No edema. LABORATORY AND DIAGNOSTIC DATA: WBC 13.3, hemoglobin 10.2, hematocrit 32, and platelets 140,000. Sodium 153, potassium 2.7, chloride 117, bicarbonate 20, BUN 47, and creatinine 0.9. AST and ALT are slightly low at 46 and 65 respectively. The patient had lactic acidosis that is improving. UA showed WBC too numerous to count, RBC 10-15, leukocyte esterase 3+, nitrites negative. Blood gas shows decreased pCO2 to 29.2, pO2 is 48. Blood cultures x2 with gram-negative jerry. MRSA screen negative. VRE screen negative. Urine culture is pending. Chest x-ray shows right lung mass. Venous ultrasound of the legs show bilateral deep venous thrombosis. IMPRESSION: Gram-negative sepsis. The patient had early septic shock that responded to IV hydration. The patient had pyuria, likely UTI, had a lung mass, cannot rule out pneumonia, acute renal failure that is improving, acute respiratory failure, deep venous thrombosis of both legs. RECOMMENDATION: Continue with Zosyn. We will discontinue vancomycin. Study of abdominal ultrasound, study of sputum culture. I thank Dr. Muir and Dr. Franco for involving me in the care of this patient. Rylan Santo M.D. DR: Carmen JOB#: [id number] CC:
--- NOTE | 2016-08-26 23:58 | Progress Note ---
DATE: 08/26/2016 CARDIOLOGY PROGRESS NOTE SUBJECTIVE: The patient remains on ventilator support. Blood pressure parameters have improved. She is off pressors. Blood cultures are positive for gram-negative rods. OBJECTIVE: VITAL SIGNS: Blood pressure 128/64, pulse 76, and respirations 16. NECK: Supple. LUNGS: With coarse breath sounds. CARDIAC: Regular rhythm and rate. Normal S1 and S2. ABDOMEN: Soft. EXTREMITIES: Trace edema. LABORATORY AND DIAGNOSTIC DATA: Venous duplex positive for bilateral DVT. White count 13.3 and hemoglobin 10.2. Sodium 153, potassium 3.7, bicarbonate 20, BUN 47, creatinine 0.9, and chloride 117. Albumin 2.0. Chest x-ray today is notable for left basilar atelectasis with small effusion and right perihilar mass. IMPRESSION: 1. Respiratory failure. 2. Right lung mass. 3. Healthcare-acquired pneumonia with small pleural effusion. 4. Sepsis with recovered shock. 5. Gram negative sepsis. 6. Urinary tract infection. 7. Bilateral lower extremity deep venous thrombosis. 8. Acute myocardial ischemia, resolved. 9. Lactic acidosis, resolved. 10. Hypovolemia with dehydration and hypernatremia, improved. 11. Hyperchloremia, improving. 12. Hypokalemia, persisting. PLAN: 1. Hypotonic IV fluids. 2. Potassium replacement. 3. Recheck magnesium and IV antibiotics. 4. Await final blood culture results. 5. A full dose anticoagulation. 6. Stress ulcer prophylaxis. 7. Wean as able. Giuseppe Muir M.D. DR: KILO JOB#: [id number] CC:
[2016-08-27] VITALS (25 sets, daily range): BP systolic 101–149; BP diastolic 45–87
[2016-08-27] MEDS: DuoNeb 0.5-3(2.5)mg/3ml neb HHN SCH ×4 (01:11→18:54)
[2016-08-27 05:30] LABS: ALANINE AMINOTRANSFERASE 58 U/L (3-33); ALBUMIN/GLOBULIN RATIO 0.7 (1.0-2.7); ANION GAP 15 (5-15); ASPARTATE AMINO TRANSFERASE 38 U/L (5-40); CALCIUM 7.8 mg/dL (8.6-10.2); CARBON DIOXIDE 21 mEQ/L (20-30); CHLORIDE 117 mEQ/L (98-107); CREATININE 0.5 mg/dL (0.5-0.9); HEMOLYSIS 2; MAGNESIUM 1.9 mg/dL (1.7-2.5); POTASSIUM 2.9 mEQ/L (3.4-4.9); SODIUM 153 mEQ/L (135-145); TOTAL PROTEIN 4.8 g/dL (6.6-8.7)
[2016-08-27 05:33] LABS: MEAN CORPUSCULAR HEMOGLOBIN 29.5 PG (27.0-31.0); MEAN CORPUSCULAR HGB CONC 32.6 G/DL (32.0-36.0); MEAN CORPUSCULAR VOLUME 91 FL (80-99); MEAN PLATELET VOLUME 7.9 FL (6.5-10.1); PLATELET COUNT 138 K/UL (150-450); RED BLOOD COUNT 3.35 M/UL (4.20-5.40); RED CELL DISTRIBUTION WIDTH 14.1 % (11.6-14.8); WHITE BLOOD COUNT 12.4 K/UL (4.8-10.8)
[2016-08-27] MEDS: NovoLOG Insulin Flexpen SUBQ SCH ×4 (05:47→23:52)
[2016-08-27] MEDS: Piperacillin/Tazobactam 3.375 GM in NS 110 ML IVPB SCH ×2 (06:13→17:23)
[2016-08-27] MEDS ORDERED: KCl 10% 40mEq/30ml liquid GT ONE (07:30)
[2016-08-27 08:15] LABS: ANISOCYTOSIS 1+; BAND NEUTROPHILS % (MANUAL) 0 % (0-8); BASOPHILS % (MANUAL) 0 % (0-2); EOSINOPHILS % (MANUAL) 2 % (0-3); HYPOCHROMASIA 2+; LYMPHOCYTES % (MANUAL) 3 % (20-45); NEUTROPHILS % (MANUAL) 87 % (45-75); PLATELET ESTIMATE DECREASED; PLATELET MORPHOLOGY NORMAL; TOTAL CELLS COUNTED 100
--- NOTE | 2016-08-27 08:32 | Diagnostic Imaging Report ---
Clinical Indication: Coarse breath sounds with rhonchi. Chest mass on chest radiograph Technique: Spiral acquisitions obtained through the chest. No IV contrast utilized, per referring physician request. Multiplanar reconstructions generated. Total dose length product 448 mGycm. CTDIvol(s) 13 mGy. Dose reduction achieved using automated exposure control Comparison: Chest radiographic earlier the same day Findings:There is a large right perihilar mass, involving the posterior right upper lobe. This measures 5.5 cm transverse by 6 cm AP by 5.4 cm craniocaudad. There is some high attenuation peripheral to it, probably representing postobstructive infiltrate but mass extending to the chest wall cannot be excluded. There are also at least 2 small satellite nodules. There is a small right pleural effusion. There is also trace pleural fluid on the left. There is bilateral lower lobe bronchial wall thickening. There is dependent atelectasis of the posterior right upper lobe, as well is likely some associated consolidation. There may be some interstitial infiltrates at both lung bases. Small irregular focus is seen in the medial left upper lobe adjacent to the pulmonary artery, may reflect some scarring, less likely neoplasm. No definite mediastinal or hilar adenopathy demonstrated. There is an endotracheal tube in place, tip terminating just above the melissa. There is a nasogastric tube in place, tip terminating at the level gastric body. The esophagus is otherwise unremarkable. No definite mediastinal or hilar mass or adenopathy. The included portions of the thyroid are unremarkable. No axillary or chest wall mass or adenopathy. The bones are unremarkable. The included upper bowel anatomy demonstrates diffuse bulkiness of the left adrenal and possibly a 15 mm mass. This is not well demonstrated, however. Impression: 5.5 x 6 x 5.4 cm right perihilar mass, within the posterior right upper lobe, with satellite nodules and possibly some adjacent postobstructive pneumonia. Appearance highly suspicious for primary pulmonary malignancy Bilateral basilar pulmonary parenchymal interstitial infiltrates, nonspecific as regards etiology Small bilateral pleural effusions Small focus of scarring versus, less likely, neoplasm in the medial left upper lobe No definite adenopathy. However, evaluation for such is limited in the absence of IV contrast Endotracheal tube in place, tip just above the melissa. Satisfactory position of nasogastric tube Possible 15 mm left adrenal mass nonspecific, could indicate a metastatic lesion. The CT scanner at [facility] is accredited by the [employer] and the scans are performed using protocols designed to limit radiation exposure to as low as reasonably achievable to attain images of sufficient resolution adequate for diagnostic evaluation.
[2016-08-27] MEDS ORDERED: NS 275ml ONE (09:54)
[2016-08-27] MEDS ORDERED: Tubing IV Secondary IV ONE (09:54)
[2016-08-27] MEDS ORDERED: 1/2 NS 1000ml IV ONE (09:54)
--- NOTE | 2016-08-27 11:32 | Infectious Diseases Prog Note ---
Assessment/Plan Assessment/Plan antibiotics : zosyn A 1. proteus sepsis 2. gram negative UTI 3. postobstructive pneumonia 4. leucocytosis improving 5. respiratory failure 6. lung mass P 1. continue zosyn 2. will follow up cultures Subjective ROS Limited/Unobtainable: Yes Allergies: Coded Allergies: No Known Allergies (Unverified , 12/10/15) Objective Vital Signs Last 24 Hour Vital Signs Date Time Temp Pulse Resp B/P Pulse Ox O2 Delivery O2 Flow Rate FiO2 08/27/16 11:20 87 16 35 08/27/16 10:00 92 18 132/58 99 Mechanical Ventilator 35 08/27/16 09:05 91 18 35 08/27/16 09:00 93 16 129/64 99 Mechanical Ventilator 35 08/27/16 08:00 35 08/27/16 08:00 98.6 100 18 119/53 99 Mechanical Ventilator 35 08/27/16 08:00 98 08/27/16 07:10 74 16 100 Mechanical Ventilator 35 08/27/16 07:05 75 16 35 08/27/16 07:05 75 16 100 Mechanical Ventilator 35 08/27/16 07:00 74 18 134/58 99 Mechanical Ventilator 35 08/27/16 06:00 77 18 119/53 99 Mechanical Ventilator 35 08/27/16 05:10 85 18 35 08/27/16 05:00 84 17 144/63 99 Mechanical Ventilator 35 08/27/16 04:00 35 08/27/16 04:00 98.9 86 17 140/74 99 Mechanical Ventilator 35 08/27/16 04:00 94 08/27/16 03:26 87 18 35 08/27/16 03:00 89 17 113/52 99 Mechanical Ventilator 35 08/27/16 02:00 90 17 126/51 99 Mechanical Ventilator 35 08/27/16 01:20 80 16 99 Mechanical Ventilator 35 08/27/16 01:10 79 16 99 Mechanical Ventilator 35 08/27/16 01:09 79 16 35 08/27/16 01:00 82 18 116/54 99 Mechanical Ventilator 35 08/27/16 00:00 99.1 80 16 101/45 99 Mechanical Ventilator 35 08/27/16 00:00 35 08/27/16 00:00 86 08/26/16 23:15 86 23 35 08/26/16 23:00 93 17 127/54 99 Mechanical Ventilator 35 08/26/16 22:00 87 17 117/59 99 Mechanical Ventilator 35 08/26/16 21:14 88 17 35 08/26/16 21:00 89 17 97/46 99 Mechanical Ventilator 35 08/26/16 20:00 93 08/26/16 20:00 35 08/26/16 20:00 98.9 94 16 115/47 98 Mechanical Ventilator 35 08/26/16 19:23 81 16 100 Mechanical Ventilator 35 08/26/16 19:16 79 16 99 Mechanical Ventilator 35 08/26/16 19:14 79 16 35 08/26/16 19:00 79 19 114/41 99 Mechanical Ventilator 35 08/26/16 18:00 84 18 127/55 100 Mechanical Ventilator 35 08/26/16 17:14 86 17 35 08/26/16 17:00 87 17 115/55 100 Mechanical Ventilator 35 08/26/16 16:00 35 08/26/16 16:00 94 08/26/16 16:00 98.6 91 16 109/55 99 Mechanical Ventilator 35 08/26/16 15:00 94 19 109/52 99 Mechanical Ventilator 35 08/26/16 14:31 77 18 35 08/26/16 14:12 78 18 100 Mechanical Ventilator 08/26/16 14:02 77 18 100 Mechanical Ventilator 35 08/26/16 14:00 86 14 155/66 100 Mechanical Ventilator 35 08/26/16 12:59 76 16 128/64 100 Mechanical Ventilator 35 08/26/16 12:42 80 16 35 08/26/16 12:00 35 08/26/16 12:00 98.4 81 17 126/61 100 Mechanical Ventilator 35 08/26/16 12:00 81 Height (Feet): 5 Height (Inches): 4.00 Weight (Pounds): 124 HEENT: other - intubated Respiratory/Chest: lungs clear Cardiovascular: normal rate, regular rhythm, no gallop/murmur Abdomen: soft, non tender Extremities: no edema, other - right groin catheter Microbiology Date/Time Source Procedure Growth Status 08/24/16 16:55 Blood Blood Culture - Final Proteus Mirabilis Complete 08/24/16 16:40 Blood Blood Culture - Final Proteus Mirabilis Complete 08/26/16 09:00 Sputum Gram Stain - Final Resulted 08/26/16 09:00 Sputum Sputum Culture Pending Resulted 08/25/16 03:15 Nasal Nares MRSA Culture - Final NO METHICILLIN RESISTANT STAPH AUREUS... Complete 08/24/16 18:25 Nasal Nares MRSA Culture - Final NO METHICILLIN RESISTANT STAPH AUREUS... Complete 08/24/16 17:30 Urine,Clean Catch Urine Culture - Preliminary Gram Negative Bacillus 1 Gram Negative Bacillus 2 Resulted 08/25/16 03:15 Rectum VRE Culture - Final NO VANCOMYCIN RESISTANT ENTEROCOCCUS ... Complete 08/24/16 18:25 Rectum VRE Culture - Final NO VANCOMYCIN RESISTANT ENTEROCOCCUS ... Complete Laboratory Tests Test 08/26/16 17:30 08/27/16 01:30 08/27/16 03:26 Activated Partial Thromboplast Time 116 SEC (23-33) H 70 SEC (23-33) H White Blood Count 12.4 K/UL (4.8-10.8) H Red Blood Count 3.35 M/UL (4.20-5.40) L Hemoglobin 9.9 G/DL (12.0-16.0) L Hematocrit 30.4 % (37.0-47.0) L Mean Corpuscular Volume 91 FL (80-99) Mean Corpuscular Hemoglobin 29.5 PG (27.0-31.0) Mean Corpuscular Hemoglobin Concent 32.6 G/DL (32.0-36.0) Red Cell Distribution Width 14.1 % (11.6-14.8) Platelet Count 138 K/UL (150-450) L Mean Platelet Volume 7.9 FL (6.5-10.1) Neutrophils (%) (Auto) % (45.0-75.0) Lymphocytes (%) (Auto) % (20.0-45.0) Monocytes (%) (Auto) % (1.0-10.0) Eosinophils (%) (Auto) % (0.0-3.0) Basophils (%) (Auto) % (0.0-2.0) Differential Total Cells Counted 100 Neutrophils % (Manual) 87 % (45-75) H Lymphocytes % (Manual) 3 % (20-45) L Monocytes % (Manual) 8 % (1-10) Eosinophils % (Manual) 2 % (0-3) Basophils % (Manual) 0 % (0-2) Band Neutrophils 0 % (0-8) Platelet Estimate Decreased L Platelet Morphology Normal Hypochromasia 2+ Anisocytosis 1+ Sodium Level 153 mEQ/L (135-145) H Potassium Level 2.9 mEQ/L (3.4-4.9) L Chloride Level 117 mEQ/L (98-107) H Carbon Dioxide Level 21 mEQ/L (20-30) Anion Gap 15 (5-15) Blood Urea Nitrogen 26 mg/dL (7-23) H Creatinine 0.5 mg/dL (0.5-0.9) Estimat Glomerular Filtration Rate mL/min (>60) Glucose Level 138 mg/dL (74-106) H Calcium Level 7.8 mg/dL (8.6-10.2) L Magnesium Level 1.9 mg/dL (1.7-2.5) Total Bilirubin 0.3 mg/dL (0.0-1.2) Aspartate Amino Transf (AST/SGOT) 38 U/L (5-40) Alanine Aminotransferase (ALT/SGPT) 58 U/L (3-33) H Alkaline Phosphatase 66 U/L (35-104) Total Protein 4.8 g/dL (6.6-8.7) L Albumin 2.0 g/dL (3.5-5.2) L Globulin 2.8 g/dL Albumin/Globulin Ratio 0.7 (1.0-2.7) L SHANNON GO Aug 27, 2016 11:32
[2016-08-27] MEDS ORDERED: Heparin 2000 units/Ns 1000ml INJ ONE (12:00)
[2016-08-27] MEDS ORDERED: Lidocaine 1% Plain 30 ml INJ ONE (12:00)
[2016-08-27] MEDS ORDERED: Sodium Bicarbonate 8.4% 50ml Carp IV ONE (12:00)
[2016-08-27 13:26] LABS: INR 1.2 (0.9-1.1)
[2016-08-27 13:36] LABS: ABG ALLEN TEST POSITIVE; ABG BASE EXCESS -1.7; ABG PCO2 27.4 mmHg (35.0-45.0)
[2016-08-27] MEDS: Heparin 25,000u/D5W 500ml 500 ML IV SCH (16:35)
--- NOTE | 2016-08-27 16:44 | Diagnostic Imaging Report ---
Indication: Line placement Comparison: 08/26/16 A single view chest radiograph was obtained. Findings: Left PICC line is noted. The tip is projected over the SVC. The very tip of the catheter may be deflected on the wall and we will reposition the catheter. No change otherwise compared to the previous day. Other tubes and lines are satisfactory. Impression: The PICC line tip is slightly curled and will be repositioned.
--- NOTE | 2016-08-27 17:27 | Diagnostic Imaging Report ---
APPROVED REPORT CPT Code: 66482 Present Symptoms Shortness of breath Comments: HX RESPIRATORY DISTRESS, CHG, PACEMAKER, DIABETES. RIGHT LEG: Venous imaging reveals acute thrombus in the distal superficial femoral vein. Remainder of the deep venous system within normal limits. No evidence of thrombus in the calf veins. Greater saphenous vein also within normal limits. LEFT LEG: Venous imaging reveals acute thrombus in the distal superficial femoral and proximal popliteal veins. The posterior tibial vein is also occluded. Remainder of the deep venous system within normal limits. Greater saphenous vein also within normal limits. TOMI Ross was notified of abnormal results at 18:30 hrs.
--- NOTE | 2016-08-27 17:46 | Critical Care Progress Note ---
Assessment/Plan Assessment/Plan IMPRESSION: 1. Respiratory failure. 2. Metabolic acidosis. 3. Evidence of adequate compensation with respiratory alkalosis. 4. Right lung mass, possibly malignancy. 5. Left lower lobe atelectasis. 6. Severe protein-calorie malnutrition. 7. Possible sepsis and shock. 8. Possible postobstructive pneumonia. 9. Acute renal failure. 10. Possible urinary tract infection. PLAN wean extubate taper oxygen antibiotics supportive care monitor fluid status nutrition maintain meds needs ongoing ICU care reviewed and discussed medications/laboratory data/nursing notes/ICU care reviewed in detail note reviewed and edited care discussed with RN and RT ICU time spent 36 minutes Critical Care - Subjective Interval Events: stable on CPAP extubation order given patient seen earlier ROS Limited/Unobtainable: Yes Condition: critical EKG Rhythm: Sinus Rhythm Residuals: minimal Tube Feeding Tolerated: yes I&O: Intake and Output 08/26/16 08/27/16 19:00 07:00 Intake Total 1442.50 ml 1464.984 ml Output Total 1010 ml 1040 ml Balance 432.50 ml 424.984 ml Intake Free Water 90 ml IV Total 1212.50 ml 1184.984 ml Tube Feeding 80 ml 280 ml Other 60 ml Output Urine Total 1010 ml 1040 ml Critical Care - Objective ET-Tube: 7.0 ET Position: 22 Last 24 Hour Vital Signs Date Time Temp Pulse Resp B/P Pulse Ox O2 Delivery O2 Flow Rate FiO2 08/27/16 17:00 78 19 131/63 99 Nasal Cannula 2.0 08/27/16 16:00 98.7 87 28 120/59 98 Mechanical Ventilator 35 08/27/16 16:00 78 08/27/16 16:00 35 08/27/16 15:15 80 16 30 08/27/16 15:00 84 22 149/79 99 Mechanical Ventilator 35 08/27/16 14:00 82 15 143/66 98 Mechanical Ventilator 35 08/27/16 13:35 84 15 100 Mechanical Ventilator 35 08/27/16 13:30 85 17 100 Mechanical Ventilator 35 08/27/16 13:05 85 17 35 08/27/16 13:00 86 16 133/62 99 Mechanical Ventilator 35 08/27/16 12:00 98.4 89 18 131/64 100 Mechanical Ventilator 35 08/27/16 12:00 35 08/27/16 12:00 88 08/27/16 11:20 87 16 35 08/27/16 11:00 92 15 143/62 100 Mechanical Ventilator 35 08/27/16 10:00 92 18 132/58 99 Mechanical Ventilator 35 08/27/16 09:05 91 18 35 08/27/16 09:00 93 16 129/64 99 Mechanical Ventilator 35 08/27/16 08:00 35 08/27/16 08:00 98.6 100 18 119/53 99 Mechanical Ventilator 35 08/27/16 08:00 98 08/27/16 07:10 74 16 100 Mechanical Ventilator 35 08/27/16 07:05 75 16 35 08/27/16 07:05 75 16 100 Mechanical Ventilator 35 08/27/16 07:00 74 18 134/58 99 Mechanical Ventilator 35 08/27/16 06:00 77 18 119/53 99 Mechanical Ventilator 35 08/27/16 05:10 85 18 35 08/27/16 05:00 84 17 144/63 99 Mechanical Ventilator 35 08/27/16 04:00 35 08/27/16 04:00 98.9 86 17 140/74 99 Mechanical Ventilator 35 08/27/16 04:00 94 08/27/16 03:26 87 18 35 08/27/16 03:00 89 17 113/52 99 Mechanical Ventilator 35 08/27/16 02:00 90 17 126/51 99 Mechanical Ventilator 35 08/27/16 01:20 80 16 99 Mechanical Ventilator 35 08/27/16 01:10 79 16 99 Mechanical Ventilator 35 08/27/16 01:09 79 16 35 08/27/16 01:00 82 18 116/54 99 Mechanical Ventilator 35 08/27/16 00:00 99.1 80 16 101/45 99 Mechanical Ventilator 35 08/27/16 00:00 35 08/27/16 00:00 86 08/26/16 23:15 86 23 35 08/26/16 23:00 93 17 127/54 99 Mechanical Ventilator 35 08/26/16 22:00 87 17 117/59 99 Mechanical Ventilator 35 08/26/16 21:14 88 17 35 08/26/16 21:00 89 17 97/46 99 Mechanical Ventilator 35 08/26/16 20:00 93 08/26/16 20:00 35 08/26/16 20:00 98.9 94 16 115/47 98 Mechanical Ventilator 35 08/26/16 19:23 81 16 100 Mechanical Ventilator 35 08/26/16 19:16 79 16 99 Mechanical Ventilator 35 08/26/16 19:14 79 16 35 08/26/16 19:00 79 19 114/41 99 Mechanical Ventilator 35 08/26/16 18:00 84 18 127/55 100 Mechanical Ventilator 35 Labs: Labs Test 08/24/16 19:44 08/25/16 05:45 08/25/16 06:35 08/25/16 06:40 Lactic Acid Level 3.50 mmol/L (0.66-2.22) 2.60 mmol/L (0.66-2.22) Sodium Level 155 mEQ/L (135-145) Potassium Level 3.0 mEQ/L (3.4-4.9) Chloride Level 117 mEQ/L (98-107) Carbon Dioxide Level 20 mEQ/L (20-30) Anion Gap 18 (5-15) Blood Urea Nitrogen 73 mg/dL (7-23) Creatinine 2.1 mg/dL (0.5-0.9) Estimat Glomerular Filtration Rate mL/min (>60) Glucose Level 116 mg/dL (74-106) Calcium Level 7.6 mg/dL (8.6-10.2) Magnesium Level 2.2 mg/dL (1.7-2.5) Total Bilirubin 0.3 mg/dL (0.0-1.2) Aspartate Amino Transf (AST/SGOT) 54 U/L (5-40) Alanine Aminotransferase (ALT/SGPT) 53 U/L (3-33) Alkaline Phosphatase 38 U/L (35-104) Total Protein 4.9 g/dL (6.6-8.7) Albumin 2.1 g/dL (3.5-5.2) Globulin 2.8 g/dL Albumin/Globulin Ratio 0.7 (1.0-2.7) Thyroid Stimulating Hormone (TSH) 2.610 uIU/mL (0.300-4.500) Arterial Blood pH 7.430 (7.350-7.450) Arterial Blood Partial Pressure CO2 29.2 mmHg (35.0-45.0) Arterial Blood Partial Pressure O2 148.4 mmHg (75.0-100.0) Arterial Blood HCO3 18.9 mmol/L (22.0-26.0) Arterial Blood Oxygen Saturation 99.6 % (92.0-98.0) Arterial Blood Base Excess -4.3 Ed Test Positive White Blood Count 11.5 K/UL (4.8-10.8) Red Blood Count 3.64 M/UL (4.20-5.40) Hemoglobin 10.7 G/DL (12.0-16.0) Hematocrit 33.3 % (37.0-47.0) Mean Corpuscular Volume 92 FL (80-99) Mean Corpuscular Hemoglobin 29.5 PG (27.0-31.0) Mean Corpuscular Hemoglobin Concent 32.2 G/DL (32.0-36.0) Red Cell Distribution Width 14.0 % (11.6-14.8) Platelet Count 171 K/UL (150-450) Mean Platelet Volume 7.2 FL (6.5-10.1) Neutrophils (%) (Auto) 79.1 % (45.0-75.0) Lymphocytes (%) (Auto) 8.7 % (20.0-45.0) Monocytes (%) (Auto) 11.3 % (1.0-10.0) Eosinophils (%) (Auto) 0.1 % (0.0-3.0) Basophils (%) (Auto) 0.8 % (0.0-2.0) Test 08/25/16 10:55 08/25/16 18:30 08/26/16 05:15 08/26/16 07:50 Lactic Acid Level 5.40 mmol/L (0.66-2.22) 1.80 mmol/L (0.66-2.22) White Blood Count 12.1 K/UL (4.8-10.8) 13.3 K/UL (4.8-10.8) Red Blood Count 3.75 M/UL (4.20-5.40) 3.52 M/UL (4.20-5.40) Hemoglobin 11.2 G/DL (12.0-16.0) 10.2 G/DL (12.0-16.0) Hematocrit 34.7 % (37.0-47.0) 32.0 % (37.0-47.0) Mean Corpuscular Volume 93 FL (80-99) 91 FL (80-99) Mean Corpuscular Hemoglobin 29.8 PG (27.0-31.0) 28.9 PG (27.0-31.0) Mean Corpuscular Hemoglobin Concent 32.2 G/DL (32.0-36.0) 31.8 G/DL (32.0-36.0) Red Cell Distribution Width 14.3 % (11.6-14.8) 14.2 % (11.6-14.8) Platelet Count 140 K/UL (150-450) 140 K/UL (150-450) Mean Platelet Volume 7.3 FL (6.5-10.1) 6.9 FL (6.5-10.1) Neutrophils (%) (Auto) 83.6 % (45.0-75.0) 83.7 % (45.0-75.0) Lymphocytes (%) (Auto) 6.4 % (20.0-45.0) 7.2 % (20.0-45.0) Monocytes (%) (Auto) 8.5 % (1.0-10.0) 8.1 % (1.0-10.0) Eosinophils (%) (Auto) 0.8 % (0.0-3.0) 0.7 % (0.0-3.0) Basophils (%) (Auto) 0.7 % (0.0-2.0) 0.4 % (0.0-2.0) Sodium Level 153 mEQ/L (135-145) Potassium Level 2.7 mEQ/L (3.4-4.9) Chloride Level 117 mEQ/L (98-107) Carbon Dioxide Level 20 mEQ/L (20-30) Anion Gap 16 (5-15) Blood Urea Nitrogen 47 mg/dL (7-23) Creatinine 0.9 mg/dL (0.5-0.9) Estimat Glomerular Filtration Rate mL/min (>60) Glucose Level 86 mg/dL (74-106) Calcium Level 8.2 mg/dL (8.6-10.2) Total Bilirubin 0.4 mg/dL (0.0-1.2) Aspartate Amino Transf (AST/SGOT) 46 U/L (5-40) Alanine Aminotransferase (ALT/SGPT) 65 U/L (3-33) Alkaline Phosphatase 54 U/L (35-104) Total Protein 5.0 g/dL (6.6-8.7) Albumin 2.0 g/dL (3.5-5.2) Globulin 3.0 g/dL Albumin/Globulin Ratio 0.6 (1.0-2.7) Activated Partial Thromboplast Time 35 SEC (23-33) Test 08/26/16 17:30 08/27/16 01:30 08/27/16 03:26 08/27/16 12:10 Activated Partial Thromboplast Time 116 SEC (23-33) 70 SEC (23-33) 57 SEC (23-33) White Blood Count 12.4 K/UL (4.8-10.8) Red Blood Count 3.35 M/UL (4.20-5.40) Hemoglobin 9.9 G/DL (12.0-16.0) Hematocrit 30.4 % (37.0-47.0) Mean Corpuscular Volume 91 FL (80-99) Mean Corpuscular Hemoglobin 29.5 PG (27.0-31.0) Mean Corpuscular Hemoglobin Concent 32.6 G/DL (32.0-36.0) Red Cell Distribution Width 14.1 % (11.6-14.8) Platelet Count 138 K/UL (150-450) Mean Platelet Volume 7.9 FL (6.5-10.1) Neutrophils (%) (Auto) % (45.0-75.0) Lymphocytes (%) (Auto) % (20.0-45.0) Monocytes (%) (Auto) % (1.0-10.0) Eosinophils (%) (Auto) % (0.0-3.0) Basophils (%) (Auto) % (0.0-2.0) Differential Total Cells Counted 100 Neutrophils % (Manual) 87 % (45-75) Lymphocytes % (Manual) 3 % (20-45) Monocytes % (Manual) 8 % (1-10) Eosinophils % (Manual) 2 % (0-3) Basophils % (Manual) 0 % (0-2) Band Neutrophils 0 % (0-8) Platelet Estimate Decreased Platelet Morphology Normal Hypochromasia 2+ Anisocytosis 1+ Sodium Level 153 mEQ/L (135-145) Potassium Level 2.9 mEQ/L (3.4-4.9) Chloride Level 117 mEQ/L (98-107) Carbon Dioxide Level 21 mEQ/L (20-30) Anion Gap 15 (5-15) Blood Urea Nitrogen 26 mg/dL (7-23) Creatinine 0.5 mg/dL (0.5-0.9) Estimat Glomerular Filtration Rate mL/min (>60) Glucose Level 138 mg/dL (74-106) Calcium Level 7.8 mg/dL (8.6-10.2) Magnesium Level 1.9 mg/dL (1.7-2.5) Total Bilirubin 0.3 mg/dL (0.0-1.2) Aspartate Amino Transf (AST/SGOT) 38 U/L (5-40) Alanine Aminotransferase (ALT/SGPT) 58 U/L (3-33) Alkaline Phosphatase 66 U/L (35-104) Total Protein 4.8 g/dL (6.6-8.7) Albumin 2.0 g/dL (3.5-5.2) Globulin 2.8 g/dL Albumin/Globulin Ratio 0.7 (1.0-2.7) Prothrombin Time 12.0 SEC (9.30-11.50) Prothromb Time International Ratio 1.2 (0.9-1.1) Test 08/27/16 13:30 Arterial Blood pH 7.496 (7.350-7.450) Arterial Blood Partial Pressure CO2 27.4 mmHg (35.0-45.0) Arterial Blood Partial Pressure O2 149.0 mmHg (75.0-100.0) Arterial Blood HCO3 20.7 mmol/L (22.0-26.0) Arterial Blood Oxygen Saturation 99.8 % (92.0-98.0) Arterial Blood Base Excess -1.7 Ed Test Positive Objective: GENERAL: The patient is well appearing female. The patient is withdrawn and altered HEENT: Negative. NECK: Supple. The patient is orally intubated. LUNGS: Coarse breath sounds. Symmetric. no wheeze CARDIAC: S1, S1 slightly irregular without murmurs, rubs, or gallops. ABDOMEN: Soft. Feeding tube in place. No hepatosplenomegaly. EXTREMITIES: No cyanosis or clubbing. There is trace edema. NEUROLOGIC: The patient is responsive, but remains altered reviewed and edited Micro: Microbiology Date/Time Source Procedure Growth Status 08/26/16 09:00 Sputum Gram Stain - Final Resulted 08/26/16 09:00 Sputum Sputum Culture Pending Resulted 08/25/16 03:15 Nasal Nares MRSA Culture - Final NO METHICILLIN RESISTANT STAPH AUREUS... Complete 08/24/16 18:25 Nasal Nares MRSA Culture - Final NO METHICILLIN RESISTANT STAPH AUREUS... Complete 08/25/16 03:15 Rectum VRE Culture - Final NO VANCOMYCIN RESISTANT ENTEROCOCCUS ... Complete 08/24/16 18:25 Rectum VRE Culture - Final NO VANCOMYCIN RESISTANT ENTEROCOCCUS ... Complete Accucheck: 136 MARI JUAN Aug 27, 2016 17:46
--- NOTE | 2016-08-27 22:38 | Progress Note ---
DATE: 08/27/2016 CARDIOLOGY PROGRESS NOTE SUBJECTIVE: The patient remains in the intensive care unit. PICC line is planned. OBJECTIVE: VITAL SIGNS: Blood pressure 143/66, pulse 82, and respirations 15. HEENT: The patient is orally intubated and mechanically ventilated. LUNGS: Bilateral breath sounds. Scattered rhonchi. HEART: Regular rhythm and rate. Normal S1 and S2. ABDOMEN: Soft. EXTREMITIES: Trace edema. LABORATORY DATA: White count 12.4 and hemoglobin 9.9. ABG, pH 7.49, pCO2 27, and pO2 149. Sodium 153, potassium 2.9, chloride 117, bicarb 21, BUN 26, and creatinine 0.5. Albumin 2.0. Magnesium 1.9. IMPRESSION: 1. Respiratory failure. 2. Sepsis. 3. Urinary tract infection. 4. Recovered shock. 5. Metabolic acidosis. 6. Recovered lactic acidosis. 7. Severe dehydration. 8. Hypernatremia. 9. Hypovolemia. 10. Type 2 diabetes mellitus. 11. Bilateral lower extremity deep venous thrombosis. PLAN: 1. Central venous access. 2. Full anticoagulation. 3. Hypotonic fluid hydration. 4. Antimicrobials per Infectious Disease toy consultant. 5. Stress ulcer prophylaxis. 6. Replace electrolytes as needed. 7. Remains in critical condition and guarded prognosis. Giuseppe Muir M.D. DR: KILO JOB#: [id number] CC:
[2016-08-28] VITALS (20 sets, daily range): BP systolic 117–163; BP diastolic 60–98
[2016-08-28] MEDS: DuoNeb 0.5-3(2.5)mg/3ml neb HHN SCH ×4 (00:44→19:24)
[2016-08-28] MEDS: Heparin 25,000u/D5W 500ml 500 ML IV SCH ×3 (01:23→15:25)
[2016-08-28] MEDS ORDERED: Heparin 5000 units/ml inj IV ONE ×2 (01:30→10:15)
[2016-08-28 05:33] LABS: ALANINE AMINOTRANSFERASE 49 U/L (3-33); ALBUMIN/GLOBULIN RATIO 0.7 (1.0-2.7); ANION GAP 14 (5-15); ASPARTATE AMINO TRANSFERASE 25 U/L (5-40); CALCIUM 7.8 mg/dL (8.6-10.2); CARBON DIOXIDE 23 mEQ/L (20-30); CHLORIDE 112 mEQ/L (98-107); CREATININE 0.5 mg/dL (0.5-0.9); HEMOLYSIS 9; POTASSIUM 3.2 mEQ/L (3.4-4.9); SODIUM 149 mEQ/L (135-145); TOTAL PROTEIN 4.8 g/dL (6.6-8.7)
[2016-08-28] MEDS: Piperacillin/Tazobactam 3.375 GM in NS 110 ML IVPB SCH ×2 (06:00→21:48)
[2016-08-28] MEDS: NovoLOG Insulin Flexpen SUBQ SCH ×3 (06:00→18:00)
[2016-08-28] MEDS ORDERED: KCl 10% 40mEq/30ml liquid NG ONE (08:30)
--- NOTE | 2016-08-28 08:34 | General Progress Note ---
Assessment/Plan Problem List: (1) Pneumonia ICD Codes: J18.9 - Pneumonia, unspecified organism SNOMED: 372671799 (2) DVT (deep vein thrombosis) in ICD Codes: O22.30 - Deep phlebothrombosis in , unspecified trimester; I82.409 - Acute embolism and thrombosis of unspecified deep veins of unspecified lower extremity SNOMED: 71627157, 909871317, 972820662 (3) Hyperkalemia ICD Codes: E87.5 - Hyperkalemia SNOMED: 96340411 (4) Renal failure ICD Codes: N19 - Unspecified kidney failure SNOMED: 49463942 (5) Respiratory failure ICD Codes: J96.90 - Respiratory failure, unspecified, unspecified whether with hypoxia or hypercapnia SNOMED: 649674693 (6) Lung mass ICD Codes: R91.8 - Other nonspecific abnormal finding of lung field SNOMED: 205609433 Status: stable, progressing Assessment/Plan swallow eval resp rx abx heparin drip follow up cultures ngt feeds ?biopsy ?CT surgery eval d/w dtr poc Subjective ROS Limited/Unobtainable: No Constitutional: Reports: malaise, weakness HEENT: Reports: no symptoms Cardiovascular: Reports: no symptoms Respiratory: Reports: no symptoms Gastrointestinal/Abdominal: Reports: no symptoms Genitourinary: Reports: no symptoms Neurologic/Psychiatric: Reports: pre-existing deficit Endocrine: Reports: no symptoms Hematologic/Lymphatic: Reports: no symptoms Allergies: Coded Allergies: No Known Allergies (Unverified , 12/10/15) All Systems: reviewed and negative except above Subjective no events.extubated. doing better. awake. no pressors. renal fxn better on labs. d/w dtr at the bedside. on heparin drip fo dvt. dtr aware of history of "spot" on lung ct chest with 5cm mass Objective Last 24 Hour Vital Signs Date Time Temp Pulse Resp B/P Pulse Ox O2 Delivery O2 Flow Rate FiO2 08/28/16 08:00 76 08/28/16 08:00 98.5 98 15 117/68 95 Nasal Cannula 2.0 08/28/16 07:00 77 20 158/78 100 Nasal Cannula 2.0 08/28/16 06:00 78 16 140/64 100 Nasal Cannula 2.0 08/28/16 05:00 73 14 155/68 99 Nasal Cannula 2.0 08/28/16 04:00 79 08/28/16 04:00 98.2 78 19 145/67 98 Nasal Cannula 2.0 08/28/16 03:00 77 19 148/72 98 Nasal Cannula 2.0 08/28/16 02:00 90 14 129/61 98 Nasal Cannula 2.0 08/28/16 01:00 85 16 152/98 100 Nasal Cannula 2.0 08/28/16 01:00 88 16 100 Nasal Cannula 2.0 28 08/28/16 00:44 72 16 99 Nasal Cannula 2.0 28 08/28/16 00:44 28 08/28/16 00:00 76 08/28/16 00:00 98.8 73 11 152/70 100 Nasal Cannula 2.0 08/27/16 23:00 82 13 126/87 98 Nasal Cannula 2.0 08/27/16 22:00 76 13 136/67 99 Nasal Cannula 2.0 08/27/16 21:00 76 12 117/54 99 Nasal Cannula 2.0 08/27/16 20:00 92 08/27/16 20:00 98.6 89 16 127/62 98 Nasal Cannula 2.0 08/27/16 19:04 81 18 99 Nasal Cannula 2.0 28 08/27/16 19:00 76 17 132/60 100 Nasal Cannula 2.0 08/27/16 18:55 Nasal Cannula 2.0 08/27/16 18:54 28 08/27/16 18:54 99 Nasal Cannula 2.0 28 08/27/16 18:52 77 17 99 Nasal Cannula 2.0 28 08/27/16 18:00 78 22 130/63 98 Nasal Cannula 2.0 08/27/16 17:00 78 19 131/63 99 Nasal Cannula 2.0 08/27/16 16:40 97 Nasal Cannula 2.0 28 08/27/16 16:20 Nasal Cannula 2.0 28 08/27/16 16:00 98.7 87 28 120/59 98 Mechanical Ventilator 35 08/27/16 16:00 78 08/27/16 16:00 35 08/27/16 15:15 80 16 30 08/27/16 15:00 84 22 149/79 99 Mechanical Ventilator 35 08/27/16 14:00 82 15 143/66 98 Mechanical Ventilator 35 08/27/16 13:35 84 15 100 Mechanical Ventilator 35 08/27/16 13:30 85 17 100 Mechanical Ventilator 35 08/27/16 13:05 85 17 35 08/27/16 13:00 86 16 133/62 99 Mechanical Ventilator 35 08/27/16 12:00 98.4 89 18 131/64 100 Mechanical Ventilator 35 08/27/16 12:00 35 08/27/16 12:00 88 08/27/16 11:20 87 16 35 08/27/16 11:00 92 15 143/62 100 Mechanical Ventilator 35 08/27/16 10:00 92 18 132/58 99 Mechanical Ventilator 35 08/27/16 09:05 91 18 35 08/27/16 09:00 93 16 129/64 99 Mechanical Ventilator 35 Intake and Output 08/27/16 08/28/16 19:00 07:00 Intake Total 1949.94 ml 1585.635 ml Output Total 1045 ml 1035 ml Balance 904.94 ml 550.635 ml Intake Free Water 300 ml 250 ml IV Total 1439.94 ml 1155.635 ml Tube Feeding 180 ml 180 ml Other 30 ml Output Urine Total 1045 ml 1035 ml Laboratory Tests 08/27/16 12:10: Prothrombin Time 12.0H, Prothromb Time International Ratio 1.2H, Activated Partial Thromboplast Time 57H 08/27/16 13:30: Arterial Blood pH 7.496H, Arterial Blood Partial Pressure CO2 27.4L, Arterial Blood Partial Pressure O2 149.0H, Arterial Blood HCO3 20.7L, Arterial Blood Oxygen Saturation 99.8H, Arterial Blood Base Excess -1.7, Ed Test Positive 08/28/16 00:00: Activated Partial Thromboplast Time 53H 08/28/16 04:00: Sodium Level 149H, Potassium Level 3.2L, Chloride Level 112H, Carbon Dioxide Level 23, Anion Gap 14, Blood Urea Nitrogen 14, Creatinine 0.5, Estimat Glomerular Filtration Rate , Glucose Level 211H, Calcium Level 7.8L, Total Bilirubin 0.4, Aspartate Amino Transf (AST/SGOT) 25, Alanine Aminotransferase ( ALT/SGPT) 49H, Alkaline Phosphatase 71, Total Protein 4.8L, Albumin 2.0L, Globulin 2.8, Albumin/Globulin Ratio 0.7L Height (Feet): 5 Height (Inches): 4.00 Weight (Pounds): 124 Objective General Appearance: WD/WN, alert, confused Neck: supple Cardiovascular: regular rhythm Respiratory/Chest: normal breath sounds Abdomen: normal bowel sounds, non tender, soft, no organomegaly Edema: no edema noted Arm (L), no edema noted Arm (R), no edema noted Leg (L), no edema noted Leg (R), no edema noted Pedal (L), no edema noted Pedal (R), no edema noted Generalized JUSTIN IRVIN Aug 28, 2016 08:34
--- NOTE | 2016-08-28 08:35 | General Progress Note ---
Assessment/Plan Problem List: (1) Pneumonia ICD Codes: J18.9 - Pneumonia, unspecified organism SNOMED: 540218593 (2) DVT (deep vein thrombosis) in ICD Codes: O22.30 - Deep phlebothrombosis in , unspecified trimester; I82.409 - Acute embolism and thrombosis of unspecified deep veins of unspecified lower extremity SNOMED: 24749466, 857147466, 684221331 (3) Hyperkalemia ICD Codes: E87.5 - Hyperkalemia SNOMED: 12202416 (4) Renal failure ICD Codes: N19 - Unspecified kidney failure SNOMED: 31556706 (5) Respiratory failure ICD Codes: J96.90 - Respiratory failure, unspecified, unspecified whether with hypoxia or hypercapnia SNOMED: 259365560 (6) Lung mass ICD Codes: R91.8 - Other nonspecific abnormal finding of lung field SNOMED: 305936668 Status: stable Assessment/Plan wean vent resp rx abx heparin drip follow up cultures ngt feeds ?biopsy ?CT surgery eval d/w dtr poc Subjective Date patient seen: Aug 27, 2016 ROS Limited/Unobtainable: Yes Constitutional: Reports: no symptoms HEENT: Reports: no symptoms Cardiovascular: Reports: no symptoms Respiratory: Reports: shortness of breath Gastrointestinal/Abdominal: Reports: no symptoms Genitourinary: Reports: no symptoms Neurologic/Psychiatric: Reports: no symptoms Endocrine: Reports: no symptoms Allergies: Coded Allergies: No Known Allergies (Unverified , 12/10/15) All Systems: reviewed and negative except above Subjective remains intubated doing better. awake. no pressors. renal fxn better on labs. d/ w dtr at the bedside. on heparin drip fo dvt. dtr aware of history of "spot" on lung ct chest with 5cm mass Objective Last 24 Hour Vital Signs Date Time Temp Pulse Resp B/P Pulse Ox O2 Delivery O2 Flow Rate FiO2 08/28/16 08:00 76 08/28/16 08:00 98.5 98 15 117/68 95 Nasal Cannula 2.0 08/28/16 07:00 77 20 158/78 100 Nasal Cannula 2.0 08/28/16 06:00 78 16 140/64 100 Nasal Cannula 2.0 08/28/16 05:00 73 14 155/68 99 Nasal Cannula 2.0 08/28/16 04:00 79 08/28/16 04:00 98.2 78 19 145/67 98 Nasal Cannula 2.0 08/28/16 03:00 77 19 148/72 98 Nasal Cannula 2.0 08/28/16 02:00 90 14 129/61 98 Nasal Cannula 2.0 08/28/16 01:00 85 16 152/98 100 Nasal Cannula 2.0 08/28/16 01:00 88 16 100 Nasal Cannula 2.0 08/28/16 00:44 72 16 99 Nasal Cannula 2.0 28 08/28/16 00:44 28 08/28/16 00:00 76 08/28/16 00:00 98.8 73 11 152/70 100 Nasal Cannula 2.0 08/27/16 23:00 82 13 126/87 98 Nasal Cannula 2.0 08/27/16 22:00 76 13 136/67 99 Nasal Cannula 2.0 08/27/16 21:00 76 12 117/54 99 Nasal Cannula 2.0 08/27/16 20:00 92 08/27/16 20:00 98.6 89 16 127/62 98 Nasal Cannula 2.0 08/27/16 19:04 81 18 99 Nasal Cannula 2.0 08/27/16 19:00 76 17 132/60 100 Nasal Cannula 2.0 08/27/16 18:55 Nasal Cannula 2.0 08/27/16 18:54 28 08/27/16 18:54 99 Nasal Cannula 2.0 08/27/16 18:52 77 17 99 Nasal Cannula 2.0 08/27/16 18:00 78 22 130/63 98 Nasal Cannula 2.0 08/27/16 17:00 78 19 131/63 99 Nasal Cannula 2.0 08/27/16 16:40 97 Nasal Cannula 2.0 28 08/27/16 16:20 Nasal Cannula 2.0 28 08/27/16 16:00 98.7 87 28 120/59 98 Mechanical Ventilator 35 08/27/16 16:00 78 08/27/16 16:00 35 08/27/16 15:15 80 16 30 08/27/16 15:00 84 22 149/79 99 Mechanical Ventilator 35 08/27/16 14:00 82 15 143/66 98 Mechanical Ventilator 35 08/27/16 13:35 84 15 100 Mechanical Ventilator 35 08/27/16 13:30 85 17 100 Mechanical Ventilator 35 08/27/16 13:05 85 17 35 08/27/16 13:00 86 16 133/62 99 Mechanical Ventilator 35 08/27/16 12:00 98.4 89 18 131/64 100 Mechanical Ventilator 35 08/27/16 12:00 35 08/27/16 12:00 88 08/27/16 11:20 87 16 35 08/27/16 11:00 92 15 143/62 100 Mechanical Ventilator 35 08/27/16 10:00 92 18 132/58 99 Mechanical Ventilator 35 08/27/16 09:05 91 18 35 08/27/16 09:00 93 16 129/64 99 Mechanical Ventilator 35 Intake and Output 08/27/16 08/28/16 19:00 07:00 Intake Total 1949.94 ml 1585.635 ml Output Total 1045 ml 1035 ml Balance 904.94 ml 550.635 ml Intake Free Water 300 ml 250 ml IV Total 1439.94 ml 1155.635 ml Tube Feeding 180 ml 180 ml Other 30 ml Output Urine Total 1045 ml 1035 ml Laboratory Tests 08/27/16 12:10: Prothrombin Time 12.0H, Prothromb Time International Ratio 1.2H, Activated Partial Thromboplast Time 57H 08/27/16 13:30: Arterial Blood pH 7.496H, Arterial Blood Partial Pressure CO2 27.4L, Arterial Blood Partial Pressure O2 149.0H, Arterial Blood HCO3 20.7L, Arterial Blood Oxygen Saturation 99.8H, Arterial Blood Base Excess -1.7, Ed Test Positive 08/28/16 00:00: Activated Partial Thromboplast Time 53H 08/28/16 04:00: Sodium Level 149H, Potassium Level 3.2L, Chloride Level 112H, Carbon Dioxide Level 23, Anion Gap 14, Blood Urea Nitrogen 14, Creatinine 0.5, Estimat Glomerular Filtration Rate , Glucose Level 211H, Calcium Level 7.8L, Total Bilirubin 0.4, Aspartate Amino Transf (AST/SGOT) 25, Alanine Aminotransferase ( ALT/SGPT) 49H, Alkaline Phosphatase 71, Total Protein 4.8L, Albumin 2.0L, Globulin 2.8, Albumin/Globulin Ratio 0.7L Height (Feet): 5 Height (Inches): 4.00 Weight (Pounds): 124 Objective General Appearance: WD/WN, alert, confused Neck: supple Cardiovascular: regular rhythm Respiratory/Chest: normal breath sounds Abdomen: normal bowel sounds, non tender, soft, no organomegaly Edema: no edema noted Arm (L), no edema noted Arm (R), no edema noted Leg (L), no edema noted Leg (R), no edema noted Pedal (L), no edema noted Pedal (R), no edema noted Generalized JUSTIN IRVIN Aug 28, 2016 08:35
--- NOTE | 2016-08-28 09:29 | Diagnostic Imaging Report ---
Indication: Elevated renal function tests, elevated liver function tests, elevated alkaline phosphatase Technique: Hull-scale and duplex images of the upper abdomen were obtained Comparison: None Findings: Gallbladder is unremarkable, without stones, wall thickening, nor pericholecystic fluid. Common bile duct measures 5 mm in diameter. No intrahepatic biliary ductal dilatation. Liver demonstrates normal echogenicity, no focal abnormality. Portal vein and hepatic veins are patent. Pancreas is unremarkable. Spleen is unremarkable. Left kidney measures 12.4 cm in length. Right kidney measures 11.2 cm length. Both kidneys demonstrate normal echogenicity. There is mild bilateral hydronephrosis. There is a Jones catheter within the bladder which is empty. Debris is noted within the renal collecting systems. No focal renal parenchymal abnormality . Non-aneurysmal abdominal aorta . There is trace right pleural fluid Impression: Mild bilateral hydronephrosis, etiology of obstruction not demonstrated. Debris within the renal collecting systems is nonspecific, could indicate pyelonephritis Jones catheter within empty bladder Trace right pleural effusion, also described on recent chest CT Negative for gallstones or dilated ducts
--- NOTE | 2016-08-28 10:51 | Diagnostic Imaging Report ---
Indication: Status post repositioning of PICC Technique: One view of the chest Comparison: 08/27/2016 Findings: Interim straightening of the tip of the previously kinked PICC, post slight retraction, tip configuration and position now acceptable in the mid superior vena cava. Right lung mass remains. Stable satisfactory position of nasogastric tube. There may be some persistent consolidation at the left lung base. Impression: Improved and now satisfactory position of previously kinked PICC. Other stable findings as described
--- NOTE | 2016-08-28 10:56 | Diagnostic Imaging Report ---
Indication: Status post nasogastric tube placement Technique: Supine view of the abdomen Comparison: none Findings: There is arterial line versus central venous catheter in the right groin. There is a nasogastric tube in place, tip of which projects at level of the gastric body antrum junction. Bowel gas pattern is unremarkable. Calcified uterine fibroids are demonstrated. Impression: Satisfactory nasogastric intubation Other findings as noted
[2016-08-28 11:04] LABS: ABG ALLEN TEST POSITIVE; ABG BASE EXCESS -1.4; ABG PCO2 30.8 mmHg (35.0-45.0)
--- NOTE | 2016-08-28 11:30 | Infectious Diseases Prog Note ---
"Assessment/Plan Assessment/Plan antibiotics : zosyn A 1. proteus sepsis secondary to UTI 2. proteus | providencia UTI 3. postobstructive gram negative pneumonia 4. leucocytosis improving 5. respiratory failure resolved 6. lung mass P 1. continue zosyn 2. will follow up cultures Subjective ROS Limited/Unobtainable: Yes Allergies: Coded Allergies: No Known Allergies (Unverified , 12/10/15) Objective Vital Signs Last 24 Hour Vital Signs Date Time Temp Pulse Resp B/P Pulse Ox O2 Delivery O2 Flow Rate FiO2 08/28/16 10:00 74 16 148/67 98 Nasal Cannula 2.0 08/28/16 08:59 92 18 137/60 98 Nasal Cannula 2.0 08/28/16 08:00 76 08/28/16 08:00 98.5 98 15 117/68 95 Nasal Cannula 2.0 08/28/16 07:00 77 20 158/78 100 Nasal Cannula 2.0 08/28/16 06:00 78 16 140/64 100 Nasal Cannula 2.0 08/28/16 05:00 73 14 155/68 99 Nasal Cannula 2.0 08/28/16 04:00 79 08/28/16 04:00 98.2 78 19 145/67 98 Nasal Cannula 2.0 08/28/16 03:00 77 19 148/72 98 Nasal Cannula 2.0 08/28/16 02:00 90 14 129/61 98 Nasal Cannula 2.0 08/28/16 01:00 85 16 152/98 100 Nasal Cannula 2.0 08/28/16 01:00 88 16 100 Nasal Cannula 2.0 08/28/16 00:44 72 16 99 Nasal Cannula 2.0 08/28/16 00:44 28 08/28/16 00:00 76 08/28/16 00:00 98.8 73 11 152/70 100 Nasal Cannula 2.0 08/27/16 23:00 82 13 126/87 98 Nasal Cannula 2.0 08/27/16 22:00 76 13 136/67 99 Nasal Cannula 2.0 08/27/16 21:00 76 12 117/54 99 Nasal Cannula 2.0 08/27/16 20:00 92 08/27/16 20:00 98.6 89 16 127/62 98 Nasal Cannula 2.0 08/27/16 19:04 81 18 99 Nasal Cannula 2.0 08/27/16 19:00 76 17 132/60 100 Nasal Cannula 2.0 08/27/16 18:55 Nasal Cannula 2.0 08/27/16 18:54 28 08/27/16 18:54 99 Nasal Cannula 2.0 08/27/16 18:52 77 17 99 Nasal Cannula 2.0 28 08/27/16 18:00 78 22 130/63 98 Nasal Cannula 2.0 08/27/16 17:00 78 19 131/63 99 Nasal Cannula 2.0 08/27/16 16:40 97 Nasal Cannula 2.0 28 08/27/16 16:20 Nasal Cannula 2.0 28 08/27/16 16:00 98.7 87 28 120/59 98 Mechanical Ventilator 35 08/27/16 16:00 78 08/27/16 16:00 35 08/27/16 15:15 80 16 30 08/27/16 15:00 84 22 149/79 99 Mechanical Ventilator 35 08/27/16 14:00 82 15 143/66 98 Mechanical Ventilator 35 08/27/16 13:35 84 15 100 Mechanical Ventilator 35 08/27/16 13:30 85 17 100 Mechanical Ventilator 35 08/27/16 13:05 85 17 35 08/27/16 13:00 86 16 133/62 99 Mechanical Ventilator 35 08/27/16 12:00 98.4 89 18 131/64 100 Mechanical Ventilator 35 08/27/16 12:00 35 08/27/16 12:00 88 Height (Feet): 5 Height (Inches): 4.00 Weight (Pounds): 124 Respiratory/Chest: lungs clear Cardiovascular: normal rate, regular rhythm, no gallop/murmur Abdomen: soft, non tender Extremities: no edema, other - left arm PICC line, right groin catheter Microbiology Date/Time Source Procedure Growth Status 08/26/16 09:00 Sputum Gram Stain - Final Resulted 08/26/16 09:00 Sputum Culture - Preliminary Gram Negative Rob Resulted Laboratory Tests Test 08/27/16 12:10 08/27/16 13:30 08/28/16 00:00 08/28/16 04:00 Prothrombin Time 12.0 SEC (9.30-11.50) H Prothromb Time International Ratio 1.2 (0.9-1.1) H Activated Partial Thromboplast Time 57 SEC (23-33) H 53 SEC (23-33) H Arterial Blood pH 7.496 (7.350-7.450) Arterial Blood Partial Pressure CO2 27.4 mmHg (35.0-45.0) L Arterial Blood Partial Pressure O2 149.0 mmHg (75.0-100.0) H Arterial Blood HCO3 20.7 mmol/L (22.0-26.0) L Arterial Blood Oxygen Saturation 99.8 % (92.0-98.0) H Arterial Blood Base Excess -1.7 Ed Test Positive Sodium Level 149 mEQ/L (135-145) H Potassium Level 3.2 mEQ/L (3.4-4.9) L Chloride Level 112 mEQ/L (98-107) H Carbon Dioxide Level 23 mEQ/L (20-30) Anion Gap 14 (5-15) Blood Urea Nitrogen 14 mg/dL (7-23) Creatinine 0.5 mg/dL (0.5-0.9) Estimat Glomerular Filtration Rate mL/min (>60) Glucose Level 211 mg/dL (74-106) H Calcium Level 7.8 mg/dL (8.6-10.2) L Total Bilirubin 0.4 mg/dL (0.0-1.2) Aspartate Amino Transf (AST/SGOT) 25 U/L (5-40) Alanine Aminotransferase (ALT/SGPT) 49 U/L (3-33) H Alkaline Phosphatase 71 U/L (35-104) Total Protein 4.8 g/dL (6.6-8.7) L Albumin 2.0 g/dL (3.5-5.2) L Globulin 2.8 g/dL Albumin/Globulin Ratio 0.7 (1.0-2.7) L Test 08/28/16 07:30 08/28/16 10:57 Activated Partial Thromboplast Time 47 SEC (23-33) H Arterial Blood pH 7.466 (7.350-7.450) Arterial Blood Partial Pressure CO2 30.8 mmHg (35.0-45.0) L Arterial Blood Partial Pressure O2 80.9 mmHg (75.0-100.0) Arterial Blood HCO3 21.7 mmol/L (22.0-26.0) L Arterial Blood Oxygen Saturation 95.6 % (92.0-98.0) Arterial Blood Base Excess -1.4 Ed Test Positive SHANNON GO Aug 28, 2016 11:30"
[2016-08-28] MEDS ORDERED: Piperacillin/Tazobactam 3.375 GM in NS 110 ML IVPB SCH (14:00)
--- NOTE | 2016-08-28 16:58 | Critical Care Progress Note ---
Assessment/Plan Assessment/Plan IMPRESSION: 1. Respiratory failure. 2. Metabolic acidosis. 3. Evidence of adequate compensation with respiratory alkalosis. 4. Right lung mass, possibly malignancy. 5. Left lower lobe atelectasis. 6. Severe protein-calorie malnutrition. 7. Possible sepsis and shock. 8. Possible postobstructive pneumonia. 9. Acute renal failure. 10. Possible urinary tract infection. PLAN weaned off and stable extubated and oxygen needs minimal taper oxygen as able antibiotics supportive care monitor fluid status and avoid positive fluid balance nutrition maintain meds possible transition out of ICU care reviewed and discussed medications/laboratory data/nursing notes/ICU care reviewed in detail note reviewed and edited care discussed with RN and RT ICU time spent 36 minutes Critical Care - Subjective Interval Events: stable and off the ventilator on NC oxygen no distress remains ill ROS Limited/Unobtainable: Yes Condition: critical EKG Rhythm: Sinus Rhythm Residuals: minimal Tube Feeding Tolerated: yes I&O: Intake and Output 08/27/16 08/28/16 19:00 07:00 Intake Total 1949.94 ml 1585.635 ml Output Total 1045 ml 1035 ml Balance 904.94 ml 550.635 ml Intake Free Water 300 ml 250 ml IV Total 1439.94 ml 1155.635 ml Tube Feeding 180 ml 180 ml Other 30 ml Output Urine Total 1045 ml 1035 ml Critical Care - Objective ET-Tube: 7.0 ET Position: 22 Last 24 Hour Vital Signs Date Time Temp Pulse Resp B/P Pulse Ox O2 Delivery O2 Flow Rate FiO2 08/28/16 16:00 94 08/28/16 16:00 98.3 93 18 124/64 100 Nasal Cannula 2.0 08/28/16 15:00 96 21 129/66 97 Nasal Cannula 2.0 08/28/16 14:00 98 20 146/84 97 Nasal Cannula 2.0 08/28/16 13:10 81 20 100 Nasal Cannula 2.0 28 08/28/16 13:05 80 18 99 Nasal Cannula 2.0 28 08/28/16 13:00 74 20 148/76 100 Nasal Cannula 2.0 08/28/16 12:00 79 08/28/16 12:00 98.5 78 17 163/79 100 Nasal Cannula 2.0 08/28/16 11:00 77 20 148/66 99 Nasal Cannula 2.0 08/28/16 10:00 74 16 148/67 98 Nasal Cannula 2.0 08/28/16 08:59 92 18 137/60 98 Nasal Cannula 2.0 08/28/16 08:00 76 08/28/16 08:00 98.5 98 15 117/68 95 Nasal Cannula 2.0 08/28/16 07:25 78 16 100 Nasal Cannula 2.0 28 08/28/16 07:25 98 Nasal Cannula 2.0 28 08/28/16 07:20 Nasal Cannula 2.0 28 08/28/16 07:20 77 18 99 Nasal Cannula 2.0 28 08/28/16 07:00 77 20 158/78 100 Nasal Cannula 2.0 08/28/16 06:00 78 16 140/64 100 Nasal Cannula 2.0 08/28/16 05:00 73 14 155/68 99 Nasal Cannula 2.0 08/28/16 04:00 79 08/28/16 04:00 98.2 78 19 145/67 98 Nasal Cannula 2.0 08/28/16 03:00 77 19 148/72 98 Nasal Cannula 2.0 08/28/16 02:00 90 14 129/61 98 Nasal Cannula 2.0 08/28/16 01:00 85 16 152/98 100 Nasal Cannula 2.0 08/28/16 01:00 88 16 100 Nasal Cannula 2.0 08/28/16 00:44 72 16 99 Nasal Cannula 2.0 08/28/16 00:44 28 08/28/16 00:00 76 08/28/16 00:00 98.8 73 11 152/70 100 Nasal Cannula 2.0 08/27/16 23:00 82 13 126/87 98 Nasal Cannula 2.0 08/27/16 22:00 76 13 136/67 99 Nasal Cannula 2.0 08/27/16 21:00 76 12 117/54 99 Nasal Cannula 2.0 08/27/16 20:00 92 08/27/16 20:00 98.6 89 16 127/62 98 Nasal Cannula 2.0 08/27/16 19:04 81 18 99 Nasal Cannula 2.0 28 08/27/16 19:00 76 17 132/60 100 Nasal Cannula 2.0 08/27/16 18:55 Nasal Cannula 2.0 28 08/27/16 18:54 28 08/27/16 18:54 99 Nasal Cannula 2.0 28 08/27/16 18:52 77 17 99 Nasal Cannula 2.0 28 08/27/16 18:00 78 22 130/63 98 Nasal Cannula 2.0 08/27/16 17:00 78 19 131/63 99 Nasal Cannula 2.0 Labs: Laboratory Tests Test 08/28/16 00:00 08/28/16 04:00 08/28/16 07:30 08/28/16 10:57 Activated Partial Thromboplast Time 53 SEC (23-33) H 47 SEC (23-33) H Sodium Level 149 mEQ/L (135-145) H Potassium Level 3.2 mEQ/L (3.4-4.9) L Chloride Level 112 mEQ/L (98-107) H Carbon Dioxide Level 23 mEQ/L (20-30) Anion Gap 14 (5-15) Blood Urea Nitrogen 14 mg/dL (7-23) Creatinine 0.5 mg/dL (0.5-0.9) Estimat Glomerular Filtration Rate mL/min (>60) Glucose Level 211 mg/dL (74-106) H Calcium Level 7.8 mg/dL (8.6-10.2) L Total Bilirubin 0.4 mg/dL (0.0-1.2) Aspartate Amino Transf (AST/SGOT) 25 U/L (5-40) Alanine Aminotransferase (ALT/SGPT) 49 U/L (3-33) H Alkaline Phosphatase 71 U/L (35-104) Total Protein 4.8 g/dL (6.6-8.7) L Albumin 2.0 g/dL (3.5-5.2) L Globulin 2.8 g/dL Albumin/Globulin Ratio 0.7 (1.0-2.7) L Arterial Blood pH 7.466 (7.350-7.450) Arterial Blood Partial Pressure CO2 30.8 mmHg (35.0-45.0) L Arterial Blood Partial Pressure O2 80.9 mmHg (75.0-100.0) Arterial Blood HCO3 21.7 mmol/L (22.0-26.0) L Arterial Blood Oxygen Saturation 95.6 % (92.0-98.0) Arterial Blood Base Excess -1.4 Ed Test Positive Objective: GENERAL: The patient is well appearing female. The patient is withdrawn and altered HEENT: Negative. NECK: Supple. The patient is off the ventilator LUNGS: Coarse breath sounds. Symmetric. no wheeze CARDIAC: S1, S1 slightly irregular without murmurs, rubs, or gallops. ABDOMEN: Soft. Feeding tube in place. No hepatosplenomegaly. EXTREMITIES: No cyanosis or clubbing. There is trace edema. NEUROLOGIC: The patient is responsive, nonfocal reviewed and edited Micro: Microbiology Date/Time Source Procedure Growth Status 08/26/16 09:00 Sputum Gram Stain - Final Resulted 08/26/16 09:00 Sputum Culture - Preliminary Gram Negative Rob Resulted Accucheck: 186 MARI JUAN Aug 28, 2016 16:58
[2016-08-28] MEDS ORDERED: Heparin 25,000u/D5W 500ml 500 ML IV SCH ×2 (19:45)
[2016-08-29 00:05] VITALS: BP 144/82
[2016-08-29] MEDS: NovoLOG Insulin Flexpen SUBQ SCH ×5 (00:10→23:45)
[2016-08-29] MEDS: DuoNeb 0.5-3(2.5)mg/3ml neb HHN SCH ×4 (01:39→19:11)
[2016-08-29] MEDS ORDERED: Heparin 5000 units/ml inj IV ONE (03:45)
[2016-08-29] MEDS: Heparin 25,000u/D5W 500ml 500 ML IV SCH ×2 (03:46→13:26)
[2016-08-29 04:03] VITALS: BP 141/74
[2016-08-29 06:03] LABS: ALANINE AMINOTRANSFERASE 47 U/L (3-33); ALBUMIN/GLOBULIN RATIO 0.7 (1.0-2.7); ASPARTATE AMINO TRANSFERASE 24 U/L (5-40); CALCIUM 7.5 mg/dL (8.6-10.2); CARBON DIOXIDE 27 mEQ/L (20-30); CHLORIDE 103 mEQ/L (98-107); CREATININE 0.4 mg/dL (0.5-0.9); HEMOLYSIS 3; SODIUM 143 mEQ/L (135-145); TOTAL PROTEIN 4.9 g/dL (6.6-8.7)
[2016-08-29] MEDS: Piperacillin/Tazobactam 3.375 GM in NS 110 ML IVPB SCH (06:06)
[2016-08-29 06:11] LABS: ANION GAP 13 (5-15)
[2016-08-29 06:48] LABS: POTASSIUM 2.7 mEQ/L (3.4-4.9)
[2016-08-29 08:03] VITALS: BP 137/74
--- NOTE | 2016-08-29 08:13 | Infectious Diseases Prog Note ---
Assessment/Plan Assessment/Plan A: 1. Proteus sepsis secondary to UTI 2. Proteus , Providencia UTI 3. postobstructive pneumonia with Klebsiella 4. leucocytosis improving 5. respiratory failure resolved 6. lung mass P 1. change Zosyn to Rocephin Subjective ROS Limited/Unobtainable: Yes Allergies: Coded Allergies: No Known Allergies (Unverified , 12/10/15) Objective Vital Signs Last 24 Hour Vital Signs Date Time Temp Pulse Resp B/P Pulse Ox O2 Delivery O2 Flow Rate FiO2 08/29/16 08:03 97.9 67 18 137/74 87 Nasal Cannula 08/29/16 07:15 86 18 99 Nasal Cannula 2.0 28 08/29/16 07:10 85 18 96 Nasal Cannula 2.0 28 08/29/16 07:10 Nasal Cannula 2.0 28 08/29/16 07:10 96 Nasal Cannula 2.0 28 08/29/16 04:03 98.1 91 18 141/74 99 Nasal Cannula 2.0 08/29/16 04:00 90 08/29/16 01:52 82 18 99 Nasal Cannula 2.0 28 08/29/16 01:41 80 18 97 Nasal Cannula 2.0 28 08/29/16 00:05 97.7 86 19 144/82 98 Nasal Cannula 2.0 08/29/16 00:00 85 08/28/16 20:00 83 08/28/16 20:00 98.1 100 20 125/77 97 Nasal Cannula 2.0 08/28/16 19:30 83 18 99 Nasal Cannula 2.0 28 08/28/16 19:19 Nasal Cannula 2.0 28 08/28/16 19:19 81 20 97 Nasal Cannula 2.0 28 08/28/16 19:19 97 Nasal Cannula 2.0 28 08/28/16 18:00 87 22 140/69 99 Nasal Cannula 2.0 08/28/16 17:00 86 21 126/67 98 Nasal Cannula 2.0 08/28/16 16:00 94 08/28/16 16:00 98.3 93 18 124/64 100 Nasal Cannula 2.0 08/28/16 15:00 96 21 129/66 97 Nasal Cannula 2.0 08/28/16 14:00 98 20 146/84 97 Nasal Cannula 2.0 08/28/16 13:10 81 20 100 Nasal Cannula 2.0 28 08/28/16 13:05 80 18 99 Nasal Cannula 2.0 28 08/28/16 13:00 74 20 148/76 100 Nasal Cannula 2.0 08/28/16 12:00 79 08/28/16 12:00 98.5 78 17 163/79 100 Nasal Cannula 2.0 08/28/16 11:00 77 20 148/66 99 Nasal Cannula 2.0 08/28/16 10:00 74 16 148/67 98 Nasal Cannula 2.0 08/28/16 08:59 92 18 137/60 98 Nasal Cannula 2.0 Height (Feet): 5 Height (Inches): 4.00 Weight (Pounds): 124 General Appearance: no acute distress HEENT: mucous membranes moist Respiratory/Chest: lungs clear Cardiovascular: normal rate Abdomen: other - NG tube Extremities: other - edema more in arms Neurologic/Psychiatric: other - awake Microbiology Date/Time Source Procedure Growth Status 08/26/16 09:00 Sputum Gram Stain - Final Complete 08/26/16 09:00 Sputum Culture - Final Klebsiella Pneumoniae Complete Laboratory Tests Test 08/28/16 10:57 08/28/16 18:00 08/29/16 01:55 08/29/16 04:20 Arterial Blood pH 7.466 (7.350-7.450) Arterial Blood Partial Pressure CO2 30.8 mmHg (35.0-45.0) L Arterial Blood Partial Pressure O2 80.9 mmHg (75.0-100.0) Arterial Blood HCO3 21.7 mmol/L (22.0-26.0) L Arterial Blood Oxygen Saturation 95.6 % (92.0-98.0) Arterial Blood Base Excess -1.4 Ed Test Positive Activated Partial Thromboplast Time 161 SEC (23-33) *H 55 SEC (23-33) H Sodium Level 143 mEQ/L (135-145) Potassium Level 2.7 mEQ/L (3.4-4.9) *L Chloride Level 103 mEQ/L (98-107) Carbon Dioxide Level 27 mEQ/L (20-30) Anion Gap 13 (5-15) Blood Urea Nitrogen 13 mg/dL (7-23) Creatinine 0.4 mg/dL (0.5-0.9) L Estimat Glomerular Filtration Rate mL/min (>60) Glucose Level 202 mg/dL (74-106) H Calcium Level 7.5 mg/dL (8.6-10.2) L Total Bilirubin 0.4 mg/dL (0.0-1.2) Aspartate Amino Transf (AST/SGOT) 24 U/L (5-40) Alanine Aminotransferase (ALT/SGPT) 47 U/L (3-33) H Alkaline Phosphatase 82 U/L (35-104) Total Protein 4.9 g/dL (6.6-8.7) L Albumin 2.1 g/dL (3.5-5.2) L Globulin 2.8 g/dL Albumin/Globulin Ratio 0.7 (1.0-2.7) L Current Medications Medications (Trade) Dose Ordered Sig/Aaron Route PRN Reason Start Time Stop Time Status Last Admin Dose Admin Acetaminophen (Tylenol) 650 mg Q4H PRN ORAL T>100.5/HEADACHE 08/28/16 19:00 09/27/16 18:59 Albuterol/ Ipratropium 3 ml 3 ml Q6HRT HHN 08/28/16 19:00 09/02/16 18:59 08/29/16 07:45 Dextrose 1,000 ml @ 75 mls/hr [id number] IV 08/28/16 19:00 09/27/16 18:59 08/29/16 07:09 Dextrose (Dextrose 50%) STAT PRN IV Hypoglycemia 08/28/16 19:00 09/27/16 18:59 Heparin Sodium/ Dextrose (Heparin) 500 ml @ 21.373 mls/ hr adjust per protocol IV 08/29/16 03:36 09/27/16 19:44 08/29/16 03:46 Insulin Aspart (NovoLOG) EVERY 6 HOURS SUBQ 08/29/16 00:00 09/28/16 00:00 08/29/16 06:21 Piperacillin Sod/ Tazobactam Sod/ Sodium Chloride (Zosyn/Sodium Chloride) 110 ml @ 27.5 mls/hr Q8HR IVPB 08/28/16 22:00 09/04/16 21:59 08/29/16 06:06 LARISSA OATES Aug 29, 2016 08:13
--- NOTE | 2016-08-29 08:43 | General Progress Note ---
Assessment/Plan Problem List: (1) Pneumonia ICD Codes: J18.9 - Pneumonia, unspecified organism SNOMED: 373260357 (2) DVT (deep vein thrombosis) in ICD Codes: O22.30 - Deep phlebothrombosis in , unspecified trimester; I82.409 - Acute embolism and thrombosis of unspecified deep veins of unspecified lower extremity SNOMED: 49042544, 021992828, 916293384 (3) Hyperkalemia ICD Codes: E87.5 - Hyperkalemia SNOMED: 62464603 (4) Renal failure ICD Codes: N19 - Unspecified kidney failure SNOMED: 88142388 (5) Respiratory failure ICD Codes: J96.90 - Respiratory failure, unspecified, unspecified whether with hypoxia or hypercapnia SNOMED: 526874071 (6) Lung mass ICD Codes: R91.8 - Other nonspecific abnormal finding of lung field SNOMED: 098600681 Status: stable, progressing Assessment/Plan o2 resp rx abx heparin drip follow up cultures ngt feeds await swallow eval ?biopsy ?CT surgery eval d/w dtr poc Subjective ROS Limited/Unobtainable: No Constitutional: Reports: malaise, weakness HEENT: Reports: no symptoms Cardiovascular: Reports: no symptoms Respiratory: Reports: cough, shortness of breath Gastrointestinal/Abdominal: Reports: no symptoms Genitourinary: Reports: no symptoms Neurologic/Psychiatric: Reports: pre-existing deficit Endocrine: Reports: no symptoms Hematologic/Lymphatic: Reports: anemia Allergies: Coded Allergies: No Known Allergies (Unverified , 12/10/15) All Systems: reviewed and negative except above Subjective transferred to [facility]. no events. awake. denies sob. currently getting resp rx. Objective Last 24 Hour Vital Signs Date Time Temp Pulse Resp B/P Pulse Ox O2 Delivery O2 Flow Rate FiO2 08/29/16 08:03 97.9 67 18 137/74 87 Nasal Cannula 08/29/16 07:15 86 18 99 Nasal Cannula 2.0 28 08/29/16 07:10 85 18 96 Nasal Cannula 2.0 28 08/29/16 07:10 Nasal Cannula 2.0 28 08/29/16 07:10 96 Nasal Cannula 2.0 28 08/29/16 04:03 98.1 91 18 141/74 99 Nasal Cannula 2.0 08/29/16 04:00 90 08/29/16 01:52 82 18 99 Nasal Cannula 2.0 28 08/29/16 01:41 80 18 97 Nasal Cannula 2.0 28 08/29/16 00:05 97.7 86 19 144/82 98 Nasal Cannula 2.0 08/29/16 00:00 85 08/28/16 20:00 83 08/28/16 20:00 98.1 100 20 125/77 97 Nasal Cannula 2.0 08/28/16 19:30 83 18 99 Nasal Cannula 2.0 28 08/28/16 19:19 Nasal Cannula 2.0 28 08/28/16 19:19 81 20 97 Nasal Cannula 2.0 08/28/16 19:19 97 Nasal Cannula 2.0 28 08/28/16 18:00 87 22 140/69 99 Nasal Cannula 2.0 08/28/16 17:00 86 21 126/67 98 Nasal Cannula 2.0 08/28/16 16:00 94 08/28/16 16:00 98.3 93 18 124/64 100 Nasal Cannula 2.0 08/28/16 15:00 96 21 129/66 97 Nasal Cannula 2.0 08/28/16 14:00 98 20 146/84 97 Nasal Cannula 2.0 08/28/16 13:10 81 20 100 Nasal Cannula 2.0 28 08/28/16 13:05 80 18 99 Nasal Cannula 2.0 28 08/28/16 13:00 74 20 148/76 100 Nasal Cannula 2.0 08/28/16 12:00 79 08/28/16 12:00 98.5 78 17 163/79 100 Nasal Cannula 2.0 08/28/16 11:00 77 20 148/66 99 Nasal Cannula 2.0 08/28/16 10:00 74 16 148/67 98 Nasal Cannula 2.0 08/28/16 08:59 92 18 137/60 98 Nasal Cannula 2.0 Intake and Output 08/28/16 08/29/16 19:00 07:00 Intake Total 2122.653 ml 1809.02 ml Output Total 1345 ml 2300 ml Balance 777.653 ml -490.98 ml Intake Free Water 300 ml 150 ml IV Total 1282.653 ml 1059.02 ml Tube Feeding 540 ml 600 ml Output Urine Total 1345 ml 2300 ml Laboratory Tests 08/28/16 10:57: Arterial Blood pH 7.466H, Arterial Blood Partial Pressure CO2 30.8L, Arterial Blood Partial Pressure O2 80.9, Arterial Blood HCO3 21.7L, Arterial Blood Oxygen Saturation 95.6, Arterial Blood Base Excess -1.4, Ed Test Positive 08/28/16 18:00: Activated Partial Thromboplast Time 161*H 08/29/16 01:55: Activated Partial Thromboplast Time 55H 08/29/16 04:20: Sodium Level 143, Potassium Level 2.7*L, Chloride Level 103, Carbon Dioxide Level 27, Anion Gap 13, Blood Urea Nitrogen 13, Creatinine 0.4L, Estimat Glomerular Filtration Rate , Glucose Level 202H, Calcium Level 7.5L, Total Bilirubin 0.4, Aspartate Amino Transf (AST/SGOT) 24, Alanine Aminotransferase ( ALT/SGPT) 47H, Alkaline Phosphatase 82, Total Protein 4.9L, Albumin 2.1L, Globulin 2.8, Albumin/Globulin Ratio 0.7L Height (Feet): 5 Height (Inches): 4.00 Weight (Pounds): 124 General Appearance: WD/WN, alert Neck: supple Cardiovascular: regular rhythm Respiratory/Chest: rhonchi - bilaterally Abdomen: normal bowel sounds, non tender, soft, no organomegaly Edema: no edema noted Arm (L), no edema noted Arm (R), no edema noted Leg (L), no edema noted Leg (R), no edema noted Pedal (L), no edema noted Pedal (R), no edema noted Generalized Objective General Appearance: WD/WN, alert, confused Neck: supple Cardiovascular: regular rhythm Respiratory/Chest: normal breath sounds Abdomen: normal bowel sounds, non tender, soft, no organomegaly Edema: no edema noted Arm (L), no edema noted Arm (R), no edema noted Leg (L), no edema noted Leg (R), no edema noted Pedal (L), no edema noted Pedal (R), no edema noted Generalized JUSTIN IRVIN Aug 29, 2016 08:43
[2016-08-29] MEDS ORDERED: KCl 10% 40mEq/30ml liquid NG ONE ×2 (09:00→18:00)
[2016-08-29] MEDS ORDERED: NS 275ml ONE ×2 (09:50→09:53)
[2016-08-29] MEDS ORDERED: Tubing IV Secondary IV ONE (09:53)
[2016-08-29 12:01] VITALS: BP 134/71
[2016-08-29] MEDS: cefTRIAXone 2 GM in D5W 110 ML IVPB SCH (13:29)
[2016-08-29 16:14] VITALS: BP 128/65
--- NOTE | 2016-08-29 18:13 | Critical Care Progress Note ---
Assessment/Plan Assessment/Plan IMPRESSION: 1. Respiratory failure. 2. Metabolic acidosis. 3. Evidence of adequate compensation with respiratory alkalosis. 4. Right lung mass, possibly malignancy. 5. Left lower lobe atelectasis. 6. Severe protein-calorie malnutrition. 7. Possible sepsis and shock. 8. Possible postobstructive pneumonia. 9. Acute renal failure. 10. Possible urinary tract infection. PLAN RANDELL care extubated and oxygen needs minimal taper oxygen as able antibiotics per ID supportive care monitor fluid status and avoid positive fluid balance nutrition maintain meds too ill for any malignancy work up reviewed and discussed medications/laboratory data/nursing notes reviewed in detail note reviewed and edited care discussed with RN and RT Critical Care - Subjective Interval Events: t/f out of ICU care noted nad ROS Limited/Unobtainable: Yes Condition: improving EKG Rhythm: Sinus Rhythm I&O: Intake and Output 08/28/16 08/29/16 19:00 07:00 Intake Total 2122.653 ml 1830.32 ml Output Total 1345 ml 2300 ml Balance 777.653 ml -469.68 ml Intake Free Water 300 ml 150 ml IV Total 1282.653 ml 1080.32 ml Tube Feeding 540 ml 600 ml Output Urine Total 1345 ml 2300 ml Critical Care - Objective ET-Tube: 7.0 ET Position: 22 Last 24 Hour Vital Signs Date Time Temp Pulse Resp B/P Pulse Ox O2 Delivery O2 Flow Rate FiO2 08/29/16 16:14 98.1 69 19 128/65 87 Nasal Cannula 08/29/16 15:57 98 08/29/16 13:29 107 20 97 Nasal Cannula 2.0 08/29/16 13:29 99 20 96 Nasal Cannula 2.0 08/29/16 12:01 97.8 72 19 134/71 88 Nasal Cannula 08/29/16 11:47 85 08/29/16 08:03 97.9 67 18 137/74 87 Nasal Cannula 08/29/16 08:00 87 08/29/16 07:15 86 18 99 Nasal Cannula 2.0 28 08/29/16 07:10 85 18 96 Nasal Cannula 2.0 28 08/29/16 07:10 Nasal Cannula 2.0 28 08/29/16 07:10 96 Nasal Cannula 2.0 08/29/16 04:03 98.1 91 18 141/74 99 Nasal Cannula 2.0 08/29/16 04:00 90 08/29/16 01:52 82 18 99 Nasal Cannula 2.0 08/29/16 01:41 80 18 97 Nasal Cannula 2.0 08/29/16 00:05 97.7 86 19 144/82 98 Nasal Cannula 2.0 08/29/16 00:00 85 08/28/16 20:00 83 08/28/16 20:00 98.1 100 20 125/77 97 Nasal Cannula 2.0 08/28/16 19:30 83 18 99 Nasal Cannula 2.0 28 08/28/16 19:19 Nasal Cannula 2.0 08/28/16 19:19 81 20 97 Nasal Cannula 2.0 08/28/16 19:19 97 Nasal Cannula 2.0 28 Labs: Labs Test 08/27/16 01:30 08/27/16 03:26 08/27/16 12:10 08/27/16 13:30 Activated Partial Thromboplast Time 70 SEC (23-33) 57 SEC (23-33) White Blood Count 12.4 K/UL (4.8-10.8) Red Blood Count 3.35 M/UL (4.20-5.40) Hemoglobin 9.9 G/DL (12.0-16.0) Hematocrit 30.4 % (37.0-47.0) Mean Corpuscular Volume 91 FL (80-99) Mean Corpuscular Hemoglobin 29.5 PG (27.0-31.0) Mean Corpuscular Hemoglobin Concent 32.6 G/DL (32.0-36.0) Red Cell Distribution Width 14.1 % (11.6-14.8) Platelet Count 138 K/UL (150-450) Mean Platelet Volume 7.9 FL (6.5-10.1) Neutrophils (%) (Auto) % (45.0-75.0) Lymphocytes (%) (Auto) % (20.0-45.0) Monocytes (%) (Auto) % (1.0-10.0) Eosinophils (%) (Auto) % (0.0-3.0) Basophils (%) (Auto) % (0.0-2.0) Differential Total Cells Counted 100 Neutrophils % (Manual) 87 % (45-75) Lymphocytes % (Manual) 3 % (20-45) Monocytes % (Manual) 8 % (1-10) Eosinophils % (Manual) 2 % (0-3) Basophils % (Manual) 0 % (0-2) Band Neutrophils 0 % (0-8) Platelet Estimate Decreased Platelet Morphology Normal Hypochromasia 2+ Anisocytosis 1+ Sodium Level 153 mEQ/L (135-145) Potassium Level 2.9 mEQ/L (3.4-4.9) Chloride Level 117 mEQ/L (98-107) Carbon Dioxide Level 21 mEQ/L (20-30) Anion Gap 15 (5-15) Blood Urea Nitrogen 26 mg/dL (7-23) Creatinine 0.5 mg/dL (0.5-0.9) Estimat Glomerular Filtration Rate mL/min (>60) Glucose Level 138 mg/dL (74-106) Calcium Level 7.8 mg/dL (8.6-10.2) Magnesium Level 1.9 mg/dL (1.7-2.5) Total Bilirubin 0.3 mg/dL (0.0-1.2) Aspartate Amino Transf (AST/SGOT) 38 U/L (5-40) Alanine Aminotransferase (ALT/SGPT) 58 U/L (3-33) Alkaline Phosphatase 66 U/L (35-104) Total Protein 4.8 g/dL (6.6-8.7) Albumin 2.0 g/dL (3.5-5.2) Globulin 2.8 g/dL Albumin/Globulin Ratio 0.7 (1.0-2.7) Prothrombin Time 12.0 SEC (9.30-11.50) Prothromb Time International Ratio 1.2 (0.9-1.1) Arterial Blood pH 7.496 (7.350-7.450) Arterial Blood Partial Pressure CO2 27.4 mmHg (35.0-45.0) Arterial Blood Partial Pressure O2 149.0 mmHg (75.0-100.0) Arterial Blood HCO3 20.7 mmol/L (22.0-26.0) Arterial Blood Oxygen Saturation 99.8 % (92.0-98.0) Arterial Blood Base Excess -1.7 Ed Test Positive Test 08/28/16 00:00 08/28/16 04:00 08/28/16 07:30 08/28/16 10:57 Activated Partial Thromboplast Time 53 SEC (23-33) 47 SEC (23-33) Sodium Level 149 mEQ/L (135-145) Potassium Level 3.2 mEQ/L (3.4-4.9) Chloride Level 112 mEQ/L (98-107) Carbon Dioxide Level 23 mEQ/L (20-30) Anion Gap 14 (5-15) Blood Urea Nitrogen 14 mg/dL (7-23) Creatinine 0.5 mg/dL (0.5-0.9) Estimat Glomerular Filtration Rate mL/min (>60) Glucose Level 211 mg/dL (74-106) Calcium Level 7.8 mg/dL (8.6-10.2) Total Bilirubin 0.4 mg/dL (0.0-1.2) Aspartate Amino Transf (AST/SGOT) 25 U/L (5-40) Alanine Aminotransferase (ALT/SGPT) 49 U/L (3-33) Alkaline Phosphatase 71 U/L (35-104) Total Protein 4.8 g/dL (6.6-8.7) Albumin 2.0 g/dL (3.5-5.2) Globulin 2.8 g/dL Albumin/Globulin Ratio 0.7 (1.0-2.7) Arterial Blood pH 7.466 (7.350-7.450) Arterial Blood Partial Pressure CO2 30.8 mmHg (35.0-45.0) Arterial Blood Partial Pressure O2 80.9 mmHg (75.0-100.0) Arterial Blood HCO3 21.7 mmol/L (22.0-26.0) Arterial Blood Oxygen Saturation 95.6 % (92.0-98.0) Arterial Blood Base Excess -1.4 Ed Test Positive Test 08/28/16 18:00 08/29/16 01:55 08/29/16 04:20 08/29/16 10:00 Activated Partial Thromboplast Time 161 SEC (23-33) 55 SEC (23-33) 79 SEC (23-33) Sodium Level 143 mEQ/L (135-145) Potassium Level 2.7 mEQ/L (3.4-4.9) Chloride Level 103 mEQ/L (98-107) Carbon Dioxide Level 27 mEQ/L (20-30) Anion Gap 13 (5-15) Blood Urea Nitrogen 13 mg/dL (7-23) Creatinine 0.4 mg/dL (0.5-0.9) Estimat Glomerular Filtration Rate mL/min (>60) Glucose Level 202 mg/dL (74-106) Calcium Level 7.5 mg/dL (8.6-10.2) Total Bilirubin 0.4 mg/dL (0.0-1.2) Aspartate Amino Transf (AST/SGOT) 24 U/L (5-40) Alanine Aminotransferase (ALT/SGPT) 47 U/L (3-33) Alkaline Phosphatase 82 U/L (35-104) Total Protein 4.9 g/dL (6.6-8.7) Albumin 2.1 g/dL (3.5-5.2) Globulin 2.8 g/dL Albumin/Globulin Ratio 0.7 (1.0-2.7) Objective: GENERAL: The patient is well appearing female. The patient is altered HEENT: Negative. NECK: Supple. The patient is without meningismus LUNGS: Coarse breath sounds. Symmetric. no wheeze CARDIAC: S1, S1 slightly irregular without murmurs, rubs, or gallops. ABDOMEN: Soft. Feeding tube in place. No hepatosplenomegaly. EXTREMITIES: No cyanosis or clubbing. There is trace edema. NEUROLOGIC: The patient is responsive, nonfocal reviewed and edited Accucheck: 168 MARI JUAN Aug 29, 2016 18:13
[2016-08-29 20:02] VITALS: BP 124/67
[2016-08-30] VITALS: BP 144/67
[2016-08-30] MEDS ORDERED: KCl 10% 20 mEq/15ml liquid NG ONE (01:00)
[2016-08-30] MEDS: DuoNeb 0.5-3(2.5)mg/3ml neb HHN SCH ×4 (01:07→19:23)
[2016-08-30 04:00] VITALS: BP 129/77
[2016-08-30 05:05] LABS: BASOPHILS % (AUTO) 0.5 % (0.0-2.0); EOSINOPHILS % (AUTO) 3.1 % (0.0-3.0); LYMPHOCYTES % (AUTO) 16.1 % (20.0-45.0); MEAN CORPUSCULAR HEMOGLOBIN 29.1 PG (27.0-31.0); MEAN CORPUSCULAR HGB CONC 32.3 G/DL (32.0-36.0); MEAN CORPUSCULAR VOLUME 90 FL (80-99); MEAN PLATELET VOLUME 7.9 FL (6.5-10.1); MONOCYTES % (AUTO) 12.5 % (1.0-10.0); NEUTROPHILS % (AUTO) 67.8 % (45.0-75.0); PLATELET COUNT 164 K/UL (150-450); RED BLOOD COUNT 3.19 M/UL (4.20-5.40); WHITE BLOOD COUNT 12.5 K/UL (4.8-10.8)
[2016-08-30 05:26] LABS: ALANINE AMINOTRANSFERASE 41 U/L (3-33); ALBUMIN/GLOBULIN RATIO 0.6 (1.0-2.7); ANION GAP 11 (5-15); ASPARTATE AMINO TRANSFERASE 22 U/L (5-40); CALCIUM 7.7 mg/dL (8.6-10.2); CARBON DIOXIDE 29 mEQ/L (20-30); CHLORIDE 101 mEQ/L (98-107); CREATININE 0.4 mg/dL (0.5-0.9); HEMOLYSIS 5; MAGNESIUM 1.6 mg/dL (1.7-2.5); POTASSIUM 3.5 mEQ/L (3.4-4.9); SODIUM 141 mEQ/L (135-145)
--- NOTE | 2016-08-30 05:48 | Progress Note ---
DATE: 08/29/2016 CARDIOLOGY PROGRESS NOTE SUBJECTIVE: The patient has been extubated. She is on minimal oxygen and in no respiratory distress. OBJECTIVE: VITAL SIGNS: Blood pressure 128/65, heart rate 69, and respiratory rate 19. GENERAL: Afebrile. HEENT: Conjunctivae are pink. NECK: Supple. LUNGS: With coarse breath sounds. Rhonchi at the right. CARDIAC: Regular rhythm and rate. Normal S1 and S2 with a fourth heart sound. ABDOMEN: Soft and nontender. EXTREMITIES: With trace dependent edema. LABORATORY AND DIAGNOSTIC DATA: Sodium 143, potassium 2.7, bicarbonate 27, BUN 13, and creatinine 0.4. Albumin is 2.1. Sputum culture is positive for Klebsiella. Urine culture is positive for Proteus and Providencia. IMPRESSION: 1. Status post respiratory failure. 2. Hypokalemia. 3. Lung mass. 4. Healthcare-acquired pneumonia. 5. Urinary tract infection, recovered. 6. Sepsis with shock. 7. Bilateral deep venous thrombosis. PLAN: 1. Full anticoagulation. 2. Bronchodilators. 3. Respiratory hygiene. 4. Antimicrobials per Infectious Disease event management consultant. 5. Replace potassium. 6. Check magnesium. 7. Aspiration precautions. 8. Negative fluid. 9. Balance with diuresis, based on clinical parameters and trending of natriuretic peptide assay. 10. Follow up chest x-rays will be obtained as well. Giuseppe Muir M.D. DR: BURKE JOB#: [id number] CC:
[2016-08-30] MEDS: NovoLOG Insulin Flexpen SUBQ SCH ×3 (06:10→17:48)
[2016-08-30 08:00] VITALS: BP_SYST 100; BP_SYST 112; BP_DIAS 53; BP_DIAS 55
--- NOTE | 2016-08-30 08:55 | Infectious Diseases Prog Note ---
Assessment/Plan Assessment/Plan A: 1. Proteus sepsis secondary to UTI 2. Proteus , Providencia UTI 3. postobstructive pneumonia with Klebsiella 4. leucocytosis improving 5. respiratory failure resolved 6. lung mass P 1. continue Rocephin Subjective ROS Limited/Unobtainable: Yes Allergies: Coded Allergies: No Known Allergies (Unverified , 12/10/15) Objective Vital Signs Last 24 Hour Vital Signs Date Time Temp Pulse Resp B/P Pulse Ox O2 Delivery O2 Flow Rate FiO2 08/30/16 08:07 88 08/30/16 07:38 87 18 100 Nasal Cannula 3.0 32 08/30/16 07:29 86 18 99 Nasal Cannula 3.0 32 08/30/16 07:29 100 Nasal Cannula 3.0 32 08/30/16 07:29 Nasal Cannula 3.0 32 08/30/16 04:00 89 08/30/16 04:00 96.4 90 19 129/77 98 Nasal Cannula 08/30/16 01:20 94 18 97 Nasal Cannula 3.0 32 08/30/16 01:07 94 18 97 Nasal Cannula 3.0 32 08/30/16 00:00 98.1 121 20 144/67 98 08/30/16 00:00 91 08/29/16 20:02 98.4 67 17 124/67 98 Nasal Cannula 2.0 08/29/16 20:00 109 08/29/16 19:20 98 18 97 Nasal Cannula 3.0 32 08/29/16 19:11 97 18 97 Nasal Cannula 3.0 32 08/29/16 19:11 95 Nasal Cannula 3.0 32 08/29/16 19:11 Nasal Cannula 3.0 32 08/29/16 16:14 98.1 69 19 128/65 87 Nasal Cannula 08/29/16 15:57 98 08/29/16 13:29 107 20 97 Nasal Cannula 2.0 28 08/29/16 13:29 99 20 96 Nasal Cannula 2.0 28 08/29/16 12:01 97.8 72 19 134/71 88 Nasal Cannula 08/29/16 11:47 85 Height (Feet): 5 Height (Inches): 4.00 Weight (Pounds): 124 HEENT: mucous membranes moist Respiratory/Chest: lungs clear Cardiovascular: normal rate Abdomen: soft, non tender, other - NG tube Extremities: other - edema of arms, left arm PICC line Neurologic/Psychiatric: alert, responsive Laboratory Tests Test 08/29/16 10:00 08/30/16 04:00 Activated Partial Thromboplast Time 79 SEC (23-33) H 68 SEC (23-33) H White Blood Count 12.5 K/UL (4.8-10.8) H Red Blood Count 3.19 M/UL (4.20-5.40) L Hemoglobin 9.3 G/DL (12.0-16.0) L Hematocrit 28.7 % (37.0-47.0) L Mean Corpuscular Volume 90 FL (80-99) Mean Corpuscular Hemoglobin 29.1 PG (27.0-31.0) Mean Corpuscular Hemoglobin Concent 32.3 G/DL (32.0-36.0) Red Cell Distribution Width 14.0 % (11.6-14.8) Platelet Count 164 K/UL (150-450) Mean Platelet Volume 7.9 FL (6.5-10.1) Neutrophils (%) (Auto) 67.8 % (45.0-75.0) Lymphocytes (%) (Auto) 16.1 % (20.0-45.0) L Monocytes (%) (Auto) 12.5 % (1.0-10.0) H Eosinophils (%) (Auto) 3.1 % (0.0-3.0) H Basophils (%) (Auto) 0.5 % (0.0-2.0) Sodium Level 141 mEQ/L (135-145) Potassium Level 3.5 mEQ/L (3.4-4.9) Chloride Level 101 mEQ/L (98-107) Carbon Dioxide Level 29 mEQ/L (20-30) Anion Gap 11 (5-15) Blood Urea Nitrogen 10 mg/dL (7-23) Creatinine 0.4 mg/dL (0.5-0.9) L Estimat Glomerular Filtration Rate mL/min (>60) Glucose Level 198 mg/dL (74-106) H Calcium Level 7.7 mg/dL (8.6-10.2) L Magnesium Level 1.6 mg/dL (1.7-2.5) L Total Bilirubin 0.3 mg/dL (0.0-1.2) Aspartate Amino Transf (AST/SGOT) 22 U/L (5-40) Alanine Aminotransferase (ALT/SGPT) 41 U/L (3-33) H Alkaline Phosphatase 75 U/L (35-104) Pro-B-Type Natriuretic Peptide 2642 pg/mL (0-450) H Total Protein 5.0 g/dL (6.6-8.7) L Albumin 2.0 g/dL (3.5-5.2) L Globulin 3.0 g/dL Albumin/Globulin Ratio 0.6 (1.0-2.7) L Current Medications Medications (Trade) Dose Ordered Sig/Aaron Route PRN Reason Start Time Stop Time Status Last Admin Dose Admin Acetaminophen (Tylenol) 650 mg Q4H PRN ORAL T>100.5/HEADACHE 08/28/16 19:00 09/27/16 18:59 Albuterol/ Ipratropium 3 ml 3 ml Q6HRT HHN 08/28/16 19:00 09/02/16 18:59 08/30/16 07:28 Ceftriaxone Sodium/Dextrose (Rocephin/D5W) 110 ml @ 220 mls/hr Q24H IVPB 08/29/16 14:00 09/05/16 13:59 08/29/16 13:29 Dextrose (D5W 1000ml) 1,000 ml @ 75 mls/hr [id number] IV 08/28/16 19:00 09/27/16 18:59 08/29/16 21:10 Dextrose (Dextrose 50%) STAT PRN IV Hypoglycemia 08/28/16 19:00 09/27/16 18:59 Heparin Sodium/ Dextrose 500 ml @ 21.373 mls/ hr adjust per protocol IV 08/29/16 03:36 09/27/16 19:44 08/29/16 13:26 Insulin Aspart (NovoLOG) EVERY 6 HOURS SUBQ 08/29/16 00:00 09/28/16 00:00 08/30/16 06:10 LARISSA OATES August 30, 2016 08:55
--- NOTE | 2016-08-30 09:03 | Critical Care Progress Note ---
Assessment/Plan Assessment/Plan IMPRESSION: 1. Respiratory failure. 2. Metabolic acidosis. 3. Evidence of adequate compensation with respiratory alkalosis. 4. Right lung mass, possibly malignancy. 5. Left lower lobe atelectasis. 6. Severe protein-calorie malnutrition. 7. Possible sepsis and shock. 8. Possible postobstructive pneumonia. 9. Acute renal failure. 10. Possible urinary tract infection. PLAN RANDELL care stable off the ventilator taper oxygen as able antibiotics per ID and monitor supportive care monitor fluid status nutrition maintain meds too ill for any malignancy work up reviewed and discussed defer work up once improved would need biopsy ? bronch medications/laboratory data/nursing notes reviewed in detail note reviewed and edited care discussed with RN and RT Critical Care - Subjective ROS Limited/Unobtainable: Yes Condition: improving EKG Rhythm: Sinus Rhythm I&O: Intake and Output 08/29/16 08/30/16 19:00 07:00 Intake Total 1954.4 ml 1734.3 ml Output Total 1500 ml 2075 ml Balance 454.4 ml -340.7 ml Intake Free Water 150 ml 200 ml IV Total 1204.4 ml 984.3 ml Tube Feeding 600 ml 550 ml Output Urine Total 1500 ml 2075 ml # Bowel Movements 1 Critical Care - Objective ET-Tube: 7.0 ET Position: 22 Last 24 Hour Vital Signs Date Time Temp Pulse Resp B/P Pulse Ox O2 Delivery O2 Flow Rate FiO2 08/30/16 08:07 88 08/30/16 07:38 87 18 100 Nasal Cannula 3.0 32 08/30/16 07:29 86 18 99 Nasal Cannula 3.0 32 08/30/16 07:29 100 Nasal Cannula 3.0 32 08/30/16 07:29 Nasal Cannula 3.0 32 08/30/16 04:00 89 08/30/16 04:00 96.4 90 19 129/77 98 Nasal Cannula 08/30/16 01:20 94 18 97 Nasal Cannula 3.0 32 08/30/16 01:07 94 18 97 Nasal Cannula 3.0 32 08/30/16 00:00 98.1 121 20 144/67 98 08/30/16 00:00 91 08/29/16 20:02 98.4 67 17 124/67 98 Nasal Cannula 2.0 08/29/16 20:00 109 08/29/16 19:20 98 18 97 Nasal Cannula 3.0 32 08/29/16 19:11 97 18 97 Nasal Cannula 3.0 32 08/29/16 19:11 95 Nasal Cannula 3.0 32 08/29/16 19:11 Nasal Cannula 3.0 32 08/29/16 16:14 98.1 69 19 128/65 87 Nasal Cannula 08/29/16 15:57 98 08/29/16 13:29 107 20 97 Nasal Cannula 2.0 28 08/29/16 13:29 99 20 96 Nasal Cannula 2.0 28 08/29/16 12:01 97.8 72 19 134/71 88 Nasal Cannula 08/29/16 11:47 85 Labs: Laboratory Tests Test 08/29/16 10:00 08/30/16 04:00 Activated Partial Thromboplast Time 79 SEC (23-33) H 68 SEC (23-33) H White Blood Count 12.5 K/UL (4.8-10.8) H Red Blood Count 3.19 M/UL (4.20-5.40) L Hemoglobin 9.3 G/DL (12.0-16.0) L Hematocrit 28.7 % (37.0-47.0) L Mean Corpuscular Volume 90 FL (80-99) Mean Corpuscular Hemoglobin 29.1 PG (27.0-31.0) Mean Corpuscular Hemoglobin Concent 32.3 G/DL (32.0-36.0) Red Cell Distribution Width 14.0 % (11.6-14.8) Platelet Count 164 K/UL (150-450) Mean Platelet Volume 7.9 FL (6.5-10.1) Neutrophils (%) (Auto) 67.8 % (45.0-75.0) Lymphocytes (%) (Auto) 16.1 % (20.0-45.0) L Monocytes (%) (Auto) 12.5 % (1.0-10.0) H Eosinophils (%) (Auto) 3.1 % (0.0-3.0) H Basophils (%) (Auto) 0.5 % (0.0-2.0) Sodium Level 141 mEQ/L (135-145) Potassium Level 3.5 mEQ/L (3.4-4.9) Chloride Level 101 mEQ/L (98-107) Carbon Dioxide Level 29 mEQ/L (20-30) Anion Gap 11 (5-15) Blood Urea Nitrogen 10 mg/dL (7-23) Creatinine 0.4 mg/dL (0.5-0.9) L Estimat Glomerular Filtration Rate mL/min (>60) Glucose Level 198 mg/dL (74-106) H Calcium Level 7.7 mg/dL (8.6-10.2) L Magnesium Level 1.6 mg/dL (1.7-2.5) L Total Bilirubin 0.3 mg/dL (0.0-1.2) Aspartate Amino Transf (AST/SGOT) 22 U/L (5-40) Alanine Aminotransferase (ALT/SGPT) 41 U/L (3-33) H Alkaline Phosphatase 75 U/L (35-104) Pro-B-Type Natriuretic Peptide 2642 pg/mL (0-450) H Total Protein 5.0 g/dL (6.6-8.7) L Albumin 2.0 g/dL (3.5-5.2) L Globulin 3.0 g/dL Albumin/Globulin Ratio 0.6 (1.0-2.7) L Objective: GENERAL: The patient is well appearing female. The patient is altered HEENT: Negative. NECK: Supple. The patient is without meningismus LUNGS: Coarse breath sounds. Symmetric. no wheeze or change CARDIAC: S1, S1 irregular without murmurs, rubs, or gallops. ABDOMEN: Soft. Feeding tube in place. No hepatosplenomegaly. EXTREMITIES: No cyanosis or clubbing. There is trace edema. NEUROLOGIC: The patient is responsive, nonfocal reviewed and edited Accucheck: 180 MARI JUAN August 30, 2016 09:03
[2016-08-30] MEDS: Heparin 25,000u/D5W 500ml 500 ML IV SCH (11:27)
[2016-08-30 12:00] VITALS: BP 122/78
--- NOTE | 2016-08-30 12:51 | Anethesia Preoperative Eval ---
Anesthesia Pre-op PMH/ROS General Date of Evaluation: August 30, 2016 Time of Evaluation: 12:19 Anesthesiologist: Melyssa ASA Score: ASA 4 Mallampati Score Class I : Soft palate, uvula, fauces, pillars visible Class II: Soft palate, uvula, fauces visible Class III: Soft palate, base of uvula visible Class IV: Only hard plate visible Mallampati Classification: Class II Surgeon: [place] Diagnosis: Ventilatory Failure Surgical Procedure: VATS, Bronchoscopy Anesthesia History: none Family History: no anesthesia problems Allergies: Coded Allergies: No Known Allergies (Unverified , 12/10/15) Medications: see eMAR Past Medical History Cardiovascular: Reports: HTN, other - HL, CHF Pulmonary: Reports: other - Encephalitis Neurologic/Psychiatric: Reports: depression/anxiety, other - Bipolar Endocrine: Reports: DM Hematology/Immune: Reports: anemia Anesthesia Pre-op Phys. Exam Physician Exam Last Vital Signs Date Time Temp Pulse Resp B/P Pulse Ox O2 Delivery O2 Flow Rate FiO2 08/30/16 11:27 84 08/30/16 08:00 98.1 20 112/55 100 Nasal Cannula 08/30/16 07:38 3.0 32 Constitutional: NAD Neurologic: CN 2-12 intact Cardiovascular: RRR Respiratory: CTA Gastrointestinal: S/NT/ND Airway Exam Mallampati Score: Class II MO: limited ROM: limited Teeth: missing, intact Anesthesia Pre-op A/P Labs Hematology Test 08/30/16 04:00 White Blood Count 12.5 K/UL (4.8-10.8) H Red Blood Count 3.19 M/UL (4.20-5.40) L Hemoglobin 9.3 G/DL (12.0-16.0) L Hematocrit 28.7 % (37.0-47.0) L Mean Corpuscular Volume 90 FL (80-99) Mean Corpuscular Hemoglobin 29.1 PG (27.0-31.0) Mean Corpuscular Hemoglobin Concent 32.3 G/DL (32.0-36.0) Red Cell Distribution Width 14.0 % (11.6-14.8) Platelet Count 164 K/UL (150-450) Mean Platelet Volume 7.9 FL (6.5-10.1) Neutrophils (%) (Auto) 67.8 % (45.0-75.0) Lymphocytes (%) (Auto) 16.1 % (20.0-45.0) L Monocytes (%) (Auto) 12.5 % (1.0-10.0) H Eosinophils (%) (Auto) 3.1 % (0.0-3.0) H Basophils (%) (Auto) 0.5 % (0.0-2.0) Coagulation Test 08/30/16 04:00 Activated Partial Thromboplast Time 68 SEC (23-33) H Chemistry Test 08/30/16 04:00 Sodium Level 141 mEQ/L (135-145) Potassium Level 3.5 mEQ/L (3.4-4.9) Chloride Level 101 mEQ/L (98-107) Carbon Dioxide Level 29 mEQ/L (20-30) Anion Gap 11 (5-15) Blood Urea Nitrogen 10 mg/dL (7-23) Creatinine 0.4 mg/dL (0.5-0.9) L Estimat Glomerular Filtration Rate mL/min (>60) Glucose Level 198 mg/dL (74-106) H Calcium Level 7.7 mg/dL (8.6-10.2) L Magnesium Level 1.6 mg/dL (1.7-2.5) L Total Bilirubin 0.3 mg/dL (0.0-1.2) Aspartate Amino Transf (AST/SGOT) 22 U/L (5-40) Alanine Aminotransferase (ALT/SGPT) 41 U/L (3-33) H Alkaline Phosphatase 75 U/L (35-104) Pro-B-Type Natriuretic Peptide 2642 pg/mL (0-450) H Total Protein 5.0 g/dL (6.6-8.7) L Albumin 2.0 g/dL (3.5-5.2) L Globulin 3.0 g/dL Albumin/Globulin Ratio 0.6 (1.0-2.7) L Risk Assessment & Plan Assessment: ASA 4 Plan: GA Status Change Before Surgery: No Pre-Antibiotics Drug: Phoenix Roman MD August 30, 2016 12:51
[2016-08-30] MEDS: cefTRIAXone 2 GM in D5W 110 ML IVPB SCH (13:38)
--- NOTE | 2016-08-30 14:12 | General Progress Note ---
Assessment/Plan Problem List: (1) Pneumonia ICD Codes: J18.9 - Pneumonia, unspecified organism SNOMED: 828857764 (2) DVT (deep vein thrombosis) in ICD Codes: O22.30 - Deep phlebothrombosis in , unspecified trimester; I82.409 - Acute embolism and thrombosis of unspecified deep veins of unspecified lower extremity SNOMED: 04848859, 993472351, 766784228 (3) Hyperkalemia ICD Codes: E87.5 - Hyperkalemia SNOMED: 75738672 (4) Renal failure ICD Codes: N19 - Unspecified kidney failure SNOMED: 64441685 (5) Respiratory failure ICD Codes: J96.90 - Respiratory failure, unspecified, unspecified whether with hypoxia or hypercapnia SNOMED: 382579666 (6) Lung mass ICD Codes: R91.8 - Other nonspecific abnormal finding of lung field SNOMED: 233733713 Status: stable Assessment/Plan o2 resp rx abx heparin drip follow up cultures ngt feeds await swallow eval ?biopsy ?CT surgery eval d/w dtr poc Subjective ROS Limited/Unobtainable: No Constitutional: Reports: malaise, weakness HEENT: Reports: no symptoms Cardiovascular: Reports: no symptoms Respiratory: Reports: cough Gastrointestinal/Abdominal: Reports: difficulty swallowing Genitourinary: Reports: no symptoms Neurologic/Psychiatric: Reports: no symptoms Endocrine: Reports: no symptoms Hematologic/Lymphatic: Reports: no symptoms Allergies: Coded Allergies: No Known Allergies (Unverified , 12/10/15) All Systems: reviewed and negative except above Subjective in [place]. no events. awake. denies sob. more alert. stil confused. able to follow commands Objective Last 24 Hour Vital Signs Date Time Temp Pulse Resp B/P Pulse Ox O2 Delivery O2 Flow Rate FiO2 08/30/16 13:37 89 18 100 Nasal Cannula 3.0 32 08/30/16 13:29 80 18 98 Nasal Cannula 3.0 32 08/30/16 11:27 84 08/30/16 08:07 88 08/30/16 08:00 98.1 92 20 112/55 100 Nasal Cannula 08/30/16 07:38 87 18 100 Nasal Cannula 3.0 32 08/30/16 07:29 86 18 99 Nasal Cannula 3.0 32 08/30/16 07:29 100 Nasal Cannula 3.0 32 08/30/16 07:29 Nasal Cannula 3.0 32 08/30/16 04:00 89 08/30/16 04:00 96.4 90 19 129/77 98 Nasal Cannula 08/30/16 01:20 94 18 97 Nasal Cannula 3.0 32 08/30/16 01:07 94 18 97 Nasal Cannula 3.0 32 08/30/16 00:00 98.1 121 20 144/67 98 08/30/16 00:00 91 08/29/16 20:02 98.4 67 17 124/67 98 Nasal Cannula 2.0 08/29/16 20:00 109 08/29/16 19:20 98 18 97 Nasal Cannula 3.0 32 08/29/16 19:11 97 18 97 Nasal Cannula 3.0 32 08/29/16 19:11 95 Nasal Cannula 3.0 32 08/29/16 19:11 Nasal Cannula 3.0 32 08/29/16 16:14 98.1 69 19 128/65 87 Nasal Cannula 08/29/16 15:57 98 Intake and Output 08/29/16 08/30/16 19:00 07:00 Intake Total 1954.4 ml 1734.3 ml Output Total 1500 ml 2075 ml Balance 454.4 ml -340.7 ml Intake Free Water 150 ml 200 ml IV Total 1204.4 ml 984.3 ml Tube Feeding 600 ml 550 ml Output Urine Total 1500 ml 2075 ml # Bowel Movements 1 Laboratory Tests 08/30/16 04:00: White Blood Count 12.5H, Red Blood Count 3.19L, Hemoglobin 9.3L, Hematocrit 28.7L, Mean Corpuscular Volume 90, Mean Corpuscular Hemoglobin 29.1, Mean Corpuscular Hemoglobin Concent 32.3, Red Cell Distribution Width 14.0, Platelet Count 164, Mean Platelet Volume 7.9, Neutrophils (%) (Auto) 67.8, Lymphocytes (% ) (Auto) 16.1L, Monocytes (%) (Auto) 12.5H, Eosinophils (%) (Auto) 3.1H, Basophils (%) (Auto) 0.5, Activated Partial Thromboplast Time 68H, Sodium Level 141, Potassium Level 3.5, Chloride Level 101, Carbon Dioxide Level 29, Anion Gap 11, Blood Urea Nitrogen 10, Creatinine 0.4L, Estimat Glomerular Filtration Rate , Glucose Level 198H, Calcium Level 7.7L, Magnesium Level 1.6L, Total Bilirubin 0.3, Aspartate Amino Transf (AST/SGOT) 22, Alanine Aminotransferase ( ALT/SGPT) 41H, Alkaline Phosphatase 75, Pro-B-Type Natriuretic Peptide 2642H, Total Protein 5.0L, Albumin 2.0L, Globulin 3.0, Albumin/Globulin Ratio 0.6L Height (Feet): 5 Height (Inches): 4.00 Weight (Pounds): 124 Objective General Appearance: WD/WN, alert, confused Neck: supple Cardiovascular: regular rhythm Respiratory/Chest: normal breath sounds Abdomen: normal bowel sounds, non tender, soft, no organomegaly Edema: no edema noted Arm (L), no edema noted Arm (R), no edema noted Leg (L), no edema noted Leg (R), no edema noted Pedal (L), no edema noted Pedal (R), no edema noted Generalized JUSTIN IRVIN August 30, 2016 14:12
[2016-08-30 16:00] VITALS: BP 138/60
[2016-08-30 20:42] VITALS: BP 124/59
[2016-08-30] MEDS ORDERED: Heparin 25,000u/D5W 500ml 500 ML IV SCH ×2 (22:00)
--- NOTE | 2016-08-30 23:58 | Consultation ---
DATE OF CONSULTATION: 08/30/2016 SURGEON: Rod Haynes M.D., Thoracic Surgery. REFERRING PHYSICIAN: Gordon Almodovar M.D. HISTORY OF PRESENT ILLNESS: The patient is an 81-year-old female at a [facility] home facility who was admitted to [facility] with acute respiratory failure requiring intubation. She subsequently was extubated and underwent a chest CT scan which demonstrated a right hilar mass with satellite nodule suspicious for underlying malignancy. Thoracic surgery was then consulted for further evaluation. PAST MEDICAL HISTORY: Notable for, 1. Hypertension. 2. Diabetes. 3. Cerebrovascular disease. 4. Hyperlipidemia. 5. Dementia. 6. Schizophrenia with bipolar disorder. PAST SURGICAL HISTORY: None. MEDICATIONS: Reviewed. ALLERGIES: The patient has no known drug allergies. SOCIAL HISTORY: Noncontributory. The patient has had a 30 to 35 pack years of smoking history. No alcohol or illicit drug use. FAMILY HISTORY: Noncontributory. PHYSICAL EXAMINATION: GENERAL: She is noted to be afebrile. VITAL SIGNS: Her vitals are within normal limits. CARDIAC: Regular rate and rhythm. No gallops or murmur. RESPIRATORY: Clear to auscultation. On the left with some decreased sounds and crackles noted on the right. ABDOMEN: Soft, nondistended, nontender with normoactive bowel sounds. EXTREMITIES: No evidence of cyanosis, clubbing, or edema. LABORATORY AND DIAGNOSTIC DATA: Laboratory study performed on 08/30/2016 showed WBC of 12.5, hemoglobin 9.3, hematocrit of 28.7, and platelet count of 164,000. Sodium is 145, potassium 3.5, chloride 101, bicarb 29, BUN 10, creatinine 0.4, and glucose 198. A chest CT scan was performed on 08/26/2016 demonstrated a 6 x 5 right hilar mass with satellite nodules and associated with pleural effusion. ASSESSMENT AND PLAN: This is an 81-year-old, -[place] female, who was found to have a right hilar mass associated with pleural effusion. The patient was evaluated at bedside. After reviewing her clinical database, I recommend that she undergo a right video-assisted thoracoscopic surgery with a tissue biopsy as well as pleurodesis. The risks and benefits of the proposed operation were explained to the patient's family in detail and they understood and wished to proceed without reservation. All questions were answered to their satisfaction. I want to thank you for referring this patient to my attention. If there are any questions in regards to this patient's clinical care, please do not hesitate to contact me. Nguyen M.D. DR: Zenaida JOB#: [id number] CC: LAUREN
[2016-08-31] VITALS (22 sets, daily range): BP systolic 79–138; BP diastolic 40–90
[2016-08-31] MEDS: DuoNeb 0.5-3(2.5)mg/3ml neb HHN SCH ×2 (01:46→07:30)
--- NOTE | 2016-08-31 05:38 | Progress Note ---
DATE: 08/30/2016 CARDIOLOGY PROGRESS NOTE SUBJECTIVE: The patient is on nasal oxygen, in no distress following relatively prolonged course of respiratory failure. She surgery consultation on VATS was recommended. OBJECTIVE: VITAL SIGNS: Blood pressure 138/90, pulse 92, respirations 18, and afebrile. GENERAL: Monitored rhythm is sinus and sinus tachycardia. LUNGS: Rhonchi and diminished breath sounds, right greater than left. HEART: Regular rhythm and rate. Normal S1, S2 with a fourth heart sound. ABDOMEN: Soft. G-tube is intact. EXTREMITIES: Trace dependent edema. LABORATORY DATA: White count 12.5, hemoglobin 9.3. Sodium 141, potassium 3.5, bicarbonate 29, BUN 10, and creatinine 0.4. Magnesium 1.6. Pro-natriuretic peptide is 2600. Albumin is 3.0. IMPRESSION: 1. Lung mass. 2. Acute bilateral deep venous thrombosis of the lower extremities. 3. Status post respiratory failure. 4. Postobstructive pneumonia. 5. Hypertensive heart disease. 6. Acute and chronic diastolic congestive heart failure. 7. Hypomagnesemia. 8. Insulin-requiring diabetes mellitus. PLAN: 1. VATS procedure plans. 2. Full anticoagulation. 3. Antimicrobials. 4. IV magnesium. 5. Cautious diuresis. 6. We will follow. 7. The patient is high risk. Giuseppe Muir M.D. DR: Kevin JOB#: [id number] CC:
[2016-08-31] MEDS: NovoLOG Insulin Flexpen SUBQ SCH ×4 (06:00→17:23)
[2016-08-31] MEDS ORDERED: Bupivacaine 0.5% Inj 30 ml vial INJ ONE (06:41)
[2016-08-31] MEDS ORDERED: Lidocaine 1% Plain 30 ml INJ ONE (06:41)
[2016-08-31 06:49] LABS: BASOPHILS % (AUTO) 0.6 % (0.0-2.0); EOSINOPHILS % (AUTO) 1.9 % (0.0-3.0); LYMPHOCYTES % (AUTO) 17.5 % (20.0-45.0); MEAN CORPUSCULAR HEMOGLOBIN 28.9 PG (27.0-31.0); MEAN CORPUSCULAR HGB CONC 32.8 G/DL (32.0-36.0); MEAN CORPUSCULAR VOLUME 88 FL (80-99); MONOCYTES % (AUTO) 9.6 % (1.0-10.0); NEUTROPHILS % (AUTO) 70.5 % (45.0-75.0); PLATELET COUNT 200 K/UL (150-450); RED BLOOD COUNT 3.07 M/UL (4.20-5.40); RED CELL DISTRIBUTION WIDTH 13.3 % (11.6-14.8); WHITE BLOOD COUNT 13.8 K/UL (4.8-10.8)
[2016-08-31 06:59] LABS: INR 1.1 (0.9-1.1); PROTHROMBIN TIME 11.1 SEC (9.30-11.50)
[2016-08-31 07:00] LABS: ANION GAP 10 (5-15); CARBON DIOXIDE 30 mEQ/L (20-30); CHLORIDE 100 mEQ/L (98-107); CREATININE 0.3 mg/dL (0.5-0.9); HEMOLYSIS 0; POTASSIUM 3.2 mEQ/L (3.4-4.9); SODIUM 140 mEQ/L (135-145)
[2016-08-31] MEDS ORDERED: NS Irrig 4000ml IRRIG ONE (07:00)
[2016-08-31] MEDS ORDERED: Zemuron 50mg/5ml Inj IV ONE (07:00)
[2016-08-31] MEDS ORDERED: LR 1000ml ONE (07:00)
[2016-08-31] MEDS ORDERED: Sterile Water Irrig 1000ml IRRIG ONE (07:00)
[2016-08-31] MEDS ORDERED: Midazolam 2mg/2ml Inj ONE (07:00)
[2016-08-31] MEDS ORDERED: Propofol 10mg/ml 100ml btl IV ONE (07:00)
[2016-08-31] MEDS ORDERED: fentaNYL 100 mcg/2 mL IV ONE (07:00)
[2016-08-31] MEDS ORDERED: Lidocaine 1% MPF 10mg/ml 5ml ONE (07:00)
[2016-08-31] MEDS ORDERED: LR 1000ml 1,000 ML IVLG SCH (07:14)
[2016-08-31] MEDS ORDERED: Hydromorphone 0.5mg/0.5ml inj IVP PRN (07:15)
[2016-08-31] MEDS ORDERED: Atropine Inj 1mg/10ml Syr IV PRN (07:15)
[2016-08-31] MEDS ORDERED: Sterile Talc Powder 4gm spray IPLEURAL ONE (07:15)
[2016-08-31] MEDS ORDERED: Ketorolac 60mg Inj IV PRN (07:15)
[2016-08-31] MEDS ORDERED: LORazepam Inj 2mg/ml 1ml IV PRN (07:15)
[2016-08-31] MEDS ORDERED: Metoclopramide 10mg/2ml Inj IVP PRN (07:15)
[2016-08-31] MEDS ORDERED: Oxycodone/Acetaminophen 5-325 ORAL PRN (07:15)
[2016-08-31] MEDS ORDERED: Norco 5mg/325mg tab ORAL PRN (07:15)
[2016-08-31] MEDS ORDERED: Meperidine 25mg/0.5ml Inj IV PRN (07:15)
[2016-08-31] MEDS ORDERED: Ketorolac 30mg Inj IV PRN (07:15)
[2016-08-31] MEDS ORDERED: fentaNYL 100 mcg/2 mL IV PRN (07:15)
[2016-08-31] MEDS ORDERED: Norco 7.5mg/325mg tab ORAL PRN (07:15)
[2016-08-31] MEDS ORDERED: DiphenhydrAMINE 50mg/ml Inj IVP PRN (07:15)
[2016-08-31] MEDS ORDERED: Midazolam 2mg/2ml Inj IVP PRN (07:15)
--- NOTE | 2016-08-31 07:37 | Pre-Procedure Note/Attestation ---
Pre-Procedure Note/Attestation Complete Prior to Procedure Planned Procedure: right Procedure Narrative: Bronchoscopy, right exploratory video-assisted thoracoscopic surgery Indications for Procedure Pre-Operative Diagnosis: Right hilar mass with effusion Attestation I attest that I discussed the nature of the procedure; its benefits; risks and complications; and alternatives (and the risks and benefits of such alternatives ), prior to the procedure, with the patient (or the patient's legal apprenticeship representative). I attest that, if there was a reasonable possibility of needing a blood transfusion, the patient (or the patient's legal apprenticeship representative) was given the [facility] standardized written summary, pursuant to the [place] Blood Safety Act ([place] Health and Safety Code # 1645, as amended). I attest that I re-evaluated the patient just prior to the surgery and that there has been no change in the patient's H&P, except as documented below: RAZA NEWMAN M.D. August 31, 2016 07:37
[2016-08-31] MEDS ORDERED: Acetaminophen (Non formulary) 100 ML IV ONE (08:00)
--- NOTE | 2016-08-31 08:39 | Critical Care Progress Note ---
Assessment/Plan Assessment/Plan IMPRESSION: 1. Respiratory failure. 2. Metabolic acidosis. 3. Evidence of adequate compensation with respiratory alkalosis. 4. Right lung mass, possibly malignancy. 5. Left lower lobe atelectasis. 6. Severe protein-calorie malnutrition. 7. Possible sepsis and shock. 8. Possible postobstructive pneumonia. 9. Acute renal failure. 10. Possible urinary tract infection. PLAN RANDELL care stable off the ventilator taper oxygen as able antibiotics per ID and monitor supportive care monitor fluid status nutrition maintain meds plan for thoracic surgery and biopsy; family wants evaluation and therapy will need oncology follow up reviewed and discussed d/w Dr. Franco and thoracic surgery medications/laboratory data/nursing notes reviewed in detail note reviewed and edited care discussed with RN and RT Critical Care - Subjective Interval Events: no distress care noted and reviewed ROS Limited/Unobtainable: Yes Condition: improving EKG Rhythm: Sinus Rhythm I&O: Intake and Output 08/30/16 08/31/16 19:00 07:00 Intake Total 1905.9 ml 1263.9 ml Output Total 1600 ml 1300 ml Balance 305.9 ml -36.1 ml Intake Free Water 150 ml 150 ml IV Total 1155.9 ml 913.9 ml Tube Feeding 600 ml 200 ml Output Urine Total 1600 ml 1300 ml Critical Care - Objective ET-Tube: 7.0 ET Position: 22 Last 24 Hour Vital Signs Date Time Temp Pulse Resp B/P Pulse Ox O2 Delivery O2 Flow Rate FiO2 08/31/16 07:30 Nasal Cannula 2.0 08/31/16 07:30 96 Nasal Cannula 3.0 08/31/16 07:30 Nasal Cannula 2.0 08/31/16 07:30 Nasal Cannula 3.0 08/31/16 04:00 98.1 95 20 123/74 95 Room Air 08/31/16 04:00 93 08/31/16 02:55 102 08/31/16 01:54 84 20 98 Nasal Cannula 2.0 28 08/31/16 01:45 82 20 96 Nasal Cannula 2.0 28 08/31/16 00:00 97.7 92 18 138/90 96 Room Air 08/31/16 00:00 93 08/30/16 20:42 98.2 102 20 124/59 97 Nasal Cannula 3.0 08/30/16 20:00 101 08/30/16 19:40 84 20 98 Nasal Cannula 3.0 32 08/30/16 19:22 96 Nasal Cannula 3.0 32 08/30/16 19:22 Nasal Cannula 3.0 32 08/30/16 19:22 86 20 96 Nasal Cannula 3.0 32 08/30/16 16:13 82 08/30/16 16:00 97.9 89 24 138/60 98 Nasal Cannula 08/30/16 13:37 89 18 100 Nasal Cannula 3.0 32 08/30/16 13:29 80 18 98 Nasal Cannula 3.0 32 08/30/16 12:00 97.7 87 22 122/78 100 Nasal Cannula 3.0 08/30/16 11:27 84 Labs: Labs Test 08/28/16 10:57 08/28/16 18:00 08/29/16 01:55 08/29/16 04:20 Arterial Blood pH 7.466 (7.350-7.450) Arterial Blood Partial Pressure CO2 30.8 mmHg (35.0-45.0) Arterial Blood Partial Pressure O2 80.9 mmHg (75.0-100.0) Arterial Blood HCO3 21.7 mmol/L (22.0-26.0) Arterial Blood Oxygen Saturation 95.6 % (92.0-98.0) Arterial Blood Base Excess -1.4 Ed Test Positive Activated Partial Thromboplast Time 161 SEC (23-33) 55 SEC (23-33) Sodium Level 143 mEQ/L (135-145) Potassium Level 2.7 mEQ/L (3.4-4.9) Chloride Level 103 mEQ/L (98-107) Carbon Dioxide Level 27 mEQ/L (20-30) Anion Gap 13 (5-15) Blood Urea Nitrogen 13 mg/dL (7-23) Creatinine 0.4 mg/dL (0.5-0.9) Estimat Glomerular Filtration Rate mL/min (>60) Glucose Level 202 mg/dL (74-106) Calcium Level 7.5 mg/dL (8.6-10.2) Total Bilirubin 0.4 mg/dL (0.0-1.2) Aspartate Amino Transf (AST/SGOT) 24 U/L (5-40) Alanine Aminotransferase (ALT/SGPT) 47 U/L (3-33) Alkaline Phosphatase 82 U/L (35-104) Total Protein 4.9 g/dL (6.6-8.7) Albumin 2.1 g/dL (3.5-5.2) Globulin 2.8 g/dL Albumin/Globulin Ratio 0.7 (1.0-2.7) Test 08/29/16 10:00 08/30/16 04:00 08/31/16 06:20 Activated Partial Thromboplast Time 79 SEC (23-33) 68 SEC (23-33) 33 SEC (23-33) White Blood Count 12.5 K/UL (4.8-10.8) 13.8 K/UL (4.8-10.8) Red Blood Count 3.19 M/UL (4.20-5.40) 3.07 M/UL (4.20-5.40) Hemoglobin 9.3 G/DL (12.0-16.0) 8.8 G/DL (12.0-16.0) Hematocrit 28.7 % (37.0-47.0) 27.0 % (37.0-47.0) Mean Corpuscular Volume 90 FL (80-99) 88 FL (80-99) Mean Corpuscular Hemoglobin 29.1 PG (27.0-31.0) 28.9 PG (27.0-31.0) Mean Corpuscular Hemoglobin Concent 32.3 G/DL (32.0-36.0) 32.8 G/DL (32.0-36.0) Red Cell Distribution Width 14.0 % (11.6-14.8) 13.3 % (11.6-14.8) Platelet Count 164 K/UL (150-450) 200 K/UL (150-450) Mean Platelet Volume 7.9 FL (6.5-10.1) 7.0 FL (6.5-10.1) Neutrophils (%) (Auto) 67.8 % (45.0-75.0) 70.5 % (45.0-75.0) Lymphocytes (%) (Auto) 16.1 % (20.0-45.0) 17.5 % (20.0-45.0) Monocytes (%) (Auto) 12.5 % (1.0-10.0) 9.6 % (1.0-10.0) Eosinophils (%) (Auto) 3.1 % (0.0-3.0) 1.9 % (0.0-3.0) Basophils (%) (Auto) 0.5 % (0.0-2.0) 0.6 % (0.0-2.0) Sodium Level 141 mEQ/L (135-145) 140 mEQ/L (135-145) Potassium Level 3.5 mEQ/L (3.4-4.9) 3.2 mEQ/L (3.4-4.9) Chloride Level 101 mEQ/L (98-107) 100 mEQ/L (98-107) Carbon Dioxide Level 29 mEQ/L (20-30) 30 mEQ/L (20-30) Anion Gap 11 (5-15) 10 (5-15) Blood Urea Nitrogen 10 mg/dL (7-23) 12 mg/dL (7-23) Creatinine 0.4 mg/dL (0.5-0.9) 0.3 mg/dL (0.5-0.9) Estimat Glomerular Filtration Rate mL/min (>60) mL/min (>60) Glucose Level 198 mg/dL (74-106) 144 mg/dL (74-106) Calcium Level 7.7 mg/dL (8.6-10.2) 8.0 mg/dL (8.6-10.2) Magnesium Level 1.6 mg/dL (1.7-2.5) 2.4 mg/dL (1.7-2.5) Total Bilirubin 0.3 mg/dL (0.0-1.2) Aspartate Amino Transf (AST/SGOT) 22 U/L (5-40) Alanine Aminotransferase (ALT/SGPT) 41 U/L (3-33) Alkaline Phosphatase 75 U/L (35-104) Pro-B-Type Natriuretic Peptide 2642 pg/mL (0-450) Total Protein 5.0 g/dL (6.6-8.7) Albumin 2.0 g/dL (3.5-5.2) Globulin 3.0 g/dL Albumin/Globulin Ratio 0.6 (1.0-2.7) Prothrombin Time 11.1 SEC (9.30-11.50) Prothromb Time International Ratio 1.1 (0.9-1.1) Objective: GENERAL: The patient is well appearing female. The patient is altered HEENT: Negative. NECK: Supple. The patient is without meningismus LUNGS: symmetric breath sounds. no wheeze or change CARDIAC: S1, S1 irregular without murmurs, rubs, or gallops. ABDOMEN: Soft. Feeding tube in place. No hepatosplenomegaly. EXTREMITIES: No cyanosis or clubbing. There is trace edema. NEUROLOGIC: The patient is responsive, nonfocal reviewed and edited Accucheck: 150 MARI JUAN August 31, 2016 08:39
[2016-08-31] MEDS ORDERED: Morphine Sulfate 2mg/ml Inj IVP PRN ×2 (09:45→15:30)
[2016-08-31] MEDS ORDERED: Ketorolac 30mg Inj IM PRN ×2 (09:45→15:45)
[2016-08-31] MEDS ORDERED: Albuterol ud Inhalation ONE (09:59)
[2016-08-31] MEDS: Albuterol ud Inhalation HHN SCH ×5 (10:03→23:46)
--- NOTE | 2016-08-31 10:04 | Operative Note - PDOC ---
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 August 31, 2016 10:04
--- NOTE | 2016-08-31 10:23 | Immediate Post-Op Evaluation ---
Immediate Post-Op Evalulation Immediate Post-Op Evalulation Procedure: VATS, Bronchoscopy Date of Evaluation: August 31, 2016 Time of Evaluation: 10:31 IV Fluids: 1000 LR Blood Products: 0 Estimated Blood Loss: 50 Urinary Output: 200 Blood Pressure Systolic: 115 Blood Pressure Diastolic: 69 Pulse Rate: 93 Respiratory Rate: 20 - VENT O2 Sat by Pulse Oximetry: 99 Temperature (Fahrenheit): 97.6 Pain Score (1-10): 0 Nausea: No Vomiting: No Complications 0 Patient Status: no response, patent, none Hydration Status: adequate Dru Gram Ancef IV Given Within 1 Hr of Incision: Yes Time Given: 07:46 Phoenix Ragsdale MD August 31, 2016 10:23
[2016-08-31 10:39] LABS: BASOPHILS % (AUTO) 0.4 % (0.0-2.0); EOSINOPHILS % (AUTO) 1.8 % (0.0-3.0); LYMPHOCYTES % (AUTO) 13.9 % (20.0-45.0); MEAN CORPUSCULAR HEMOGLOBIN 29.2 PG (27.0-31.0); MEAN CORPUSCULAR HGB CONC 32.9 G/DL (32.0-36.0); MEAN CORPUSCULAR VOLUME 89 FL (80-99); MEAN PLATELET VOLUME 7.1 FL (6.5-10.1); MONOCYTES % (AUTO) 7.4 % (1.0-10.0); NEUTROPHILS % (AUTO) 76.6 % (45.0-75.0); PLATELET COUNT 202 K/UL (150-450); RED BLOOD COUNT 2.96 M/UL (4.20-5.40); RED CELL DISTRIBUTION WIDTH 13.2 % (11.6-14.8); WHITE BLOOD COUNT 16.1 K/UL (4.8-10.8)
[2016-08-31 10:52] LABS: ANION GAP 10 (5-15); CALCIUM 7.7 mg/dL (8.6-10.2); CARBON DIOXIDE 28 mEQ/L (20-30); CHLORIDE 100 mEQ/L (98-107); CREATININE 0.4 mg/dL (0.5-0.9); HEMOLYSIS 1; MAGNESIUM 2.3 mg/dL (1.7-2.5); PHOSPHORUS 3.4 mg/dL (2.5-4.8); POTASSIUM 3.1 mEQ/L (3.4-4.9); SODIUM 138 mEQ/L (135-145)
--- NOTE | 2016-08-31 10:52 | Diagnostic Imaging Report ---
Indication: Postop Comparison: 429 A single view chest radiograph was obtained. Findings: There is a small right basilar pneumothorax demonstrated. Right chest tube is noted in good position. Right pulmonary mass again noted. Left basilar atelectasis is present. There is trace left pleural fluid and a probable small right pleural effusion as well. Heart size is normal. PICC line, endotracheal tube and nasogastric tubes are satisfactory in position. Impression: Status post right thoracotomy. Chest tube noted in place. Small right basilar pneumothorax. Left basilar atelectasis. Other tubes and lines satisfactory
[2016-08-31 10:58] LABS: IONIZED CALCIUM 1.14 mmol/L (1.10-1.35)
--- NOTE | 2016-08-31 11:58 | General Progress Note ---
Assessment/Plan Problem List: (1) Pneumonia ICD Codes: J18.9 - Pneumonia, unspecified organism SNOMED: 613407737 (2) DVT (deep vein thrombosis) in ICD Codes: O22.30 - Deep phlebothrombosis in , unspecified trimester; I82.409 - Acute embolism and thrombosis of unspecified deep veins of unspecified lower extremity SNOMED: 79215512, 944395937, 615849636 (3) Hyperkalemia ICD Codes: E87.5 - Hyperkalemia SNOMED: 85325311 (4) Renal failure ICD Codes: N19 - Unspecified kidney failure SNOMED: 85668196 (5) Respiratory failure ICD Codes: J96.90 - Respiratory failure, unspecified, unspecified whether with hypoxia or hypercapnia SNOMED: 558253281 (6) Lung mass ICD Codes: R91.8 - Other nonspecific abnormal finding of lung field SNOMED: 555348130 Status: stable, progressing Assessment/Plan o2 resp rx abx heparin drip when cleared by ct surgery follow up cultures ngt feeds onc eval called guarded Subjective ROS Limited/Unobtainable: Yes Constitutional: Reports: malaise, weakness HEENT: Reports: no symptoms Cardiovascular: Reports: no symptoms Respiratory: Reports: no symptoms Gastrointestinal/Abdominal: Reports: no symptoms Genitourinary: Reports: no symptoms Neurologic/Psychiatric: Reports: no symptoms Endocrine: Reports: no symptoms Hematologic/Lymphatic: Reports: anemia Allergies: Coded Allergies: No Known Allergies (Unverified , 12/10/15) All Systems: reviewed and negative except above Subjective s/p vats, lung biopsy, wedge resention. path positive for nonsmall cell lung ca Objective Last 24 Hour Vital Signs Date Time Temp Pulse Resp B/P Pulse Ox O2 Delivery O2 Flow Rate FiO2 08/31/16 11:36 88 18 50 08/31/16 11:02 97.1 89 16 123/60 97 Mechanical Ventilator 100.0 08/31/16 10:58 97.1 89 16 123/60 97 Endotracheal Tube 100.0 08/31/16 10:58 97.1 89 16 123/60 97 Mechanical Ventilator 100.0 08/31/16 10:45 92 16 124/63 98 Mechanical Ventilator 100.0 08/31/16 10:45 92 16 124/63 98 Endotracheal Tube 100.0 08/31/16 10:44 100 08/31/16 10:35 92 10 130/66 99 Endotracheal Tube 100.0 08/31/16 10:25 92 10 125/66 100 Endotracheal Tube 100.0 08/31/16 10:23 93 20 99 08/31/16 10:20 93 10 100/60 100 Endotracheal Tube 100.0 08/31/16 10:20 96 18 98 Mechanical Ventilator 100 08/31/16 10:15 90 10 89/52 100 Endotracheal Tube 100.0 08/31/16 10:10 93 18 100 08/31/16 10:10 97.0 79 10 79/40 100 Endotracheal Tube 100.0 08/31/16 10:10 93 16 96 Mechanical Ventilator 100 08/31/16 07:30 Nasal Cannula 2.0 08/31/16 07:30 96 Nasal Cannula 3.0 08/31/16 07:30 Nasal Cannula 2.0 08/31/16 07:30 Nasal Cannula 3.0 08/31/16 04:00 98.1 95 20 123/74 95 Room Air 08/31/16 04:00 93 08/31/16 02:55 102 08/31/16 01:54 84 20 98 Nasal Cannula 2.0 28 08/31/16 01:45 82 20 96 Nasal Cannula 2.0 28 08/31/16 00:00 97.7 92 18 138/90 96 Room Air 08/31/16 00:00 93 08/30/16 20:42 98.2 102 20 124/59 97 Nasal Cannula 3.0 08/30/16 20:00 101 08/30/16 19:40 84 20 98 Nasal Cannula 3.0 32 08/30/16 19:22 96 Nasal Cannula 3.0 32 08/30/16 19:22 Nasal Cannula 3.0 32 08/30/16 19:22 86 20 96 Nasal Cannula 3.0 32 08/30/16 16:13 82 08/30/16 16:00 97.9 89 24 138/60 98 Nasal Cannula 08/30/16 13:37 89 18 100 Nasal Cannula 3.0 32 08/30/16 13:29 80 18 98 Nasal Cannula 3.0 32 08/30/16 12:00 97.7 87 22 122/78 100 Nasal Cannula 3.0 Intake and Output 08/30/16 08/31/16 19:00 07:00 Intake Total 1905.9 ml 1263.9 ml Output Total 1600 ml 1300 ml Balance 305.9 ml -36.1 ml Intake Free Water 150 ml 150 ml IV Total 1155.9 ml 913.9 ml Tube Feeding 600 ml 200 ml Output Urine Total 1600 ml 1300 ml Laboratory Tests 08/31/16 06:20: White Blood Count 13.8H, Red Blood Count 3.07L, Hemoglobin 8.8L, Hematocrit 27.0L, Mean Corpuscular Volume 88, Mean Corpuscular Hemoglobin 28.9, Mean Corpuscular Hemoglobin Concent 32.8, Red Cell Distribution Width 13.3, Platelet Count 200, Mean Platelet Volume 7.0, Neutrophils (%) (Auto) 70.5, Lymphocytes (% ) (Auto) 17.5L, Monocytes (%) (Auto) 9.6, Eosinophils (%) (Auto) 1.9, Basophils (%) (Auto) 0.6, Prothrombin Time 11.1, Prothromb Time International Ratio 1.1, Activated Partial Thromboplast Time 33, Sodium Level 140, Potassium Level 3.2L, Chloride Level 100, Carbon Dioxide Level 30, Anion Gap 10, Blood Urea Nitrogen 12, Creatinine 0.3L, Estimat Glomerular Filtration Rate , Glucose Level 144H, Calcium Level 8.0L, Magnesium Level 2.4 08/31/16 10:25: White Blood Count 16.1H, Red Blood Count 2.96L, Hemoglobin 8.6L, Hematocrit 26.2L, Mean Corpuscular Volume 89, Mean Corpuscular Hemoglobin 29.2, Mean Corpuscular Hemoglobin Concent 32.9, Red Cell Distribution Width 13.2, Platelet Count 202, Mean Platelet Volume 7.1, Neutrophils (%) (Auto) 76.6H, Lymphocytes ( %) (Auto) 13.9L, Monocytes (%) (Auto) 7.4, Eosinophils (%) (Auto) 1.8, Basophils (%) (Auto) 0.4, Sodium Level 138, Potassium Level 3.1L, Chloride Level 100, Carbon Dioxide Level 28, Anion Gap 10, Blood Urea Nitrogen 13, Creatinine 0.4L, Estimat Glomerular Filtration Rate , Glucose Level 130H, Calcium Level 7.7L, Magnesium Level 2.3, Ionized Calcium (Measured) 1.14, Phosphorus Level 3.4 08/31/16 10:30: Arterial Blood pH [Pending], Arterial Blood Partial Pressure CO2 [Pending], Arterial Blood Partial Pressure O2 [Pending], Arterial Blood HCO3 [Pending], Arterial Blood Oxygen Saturation [Pending], Arterial Blood Base Excess [Pending] , Ed Test [Pending] Height (Feet): 5 Height (Inches): 4.00 Weight (Pounds): 123 Objective General Appearance: WD/WN, alert, confused Neck: supple Cardiovascular: regular rhythm Respiratory/Chest: normal breath sounds Abdomen: normal bowel sounds, non tender, soft, no organomegaly Edema: no edema noted Arm (L), no edema noted Arm (R), no edema noted Leg (L), no edema noted Leg (R), no edema noted Pedal (L), no edema noted Pedal (R), no edema noted Generalized JUSTIN IRVIN August 31, 2016 11:58
[2016-08-31] MEDS ORDERED: D5 1/2NS w/KCl 20mEq 1,000 ML IV SCH (12:00)
--- NOTE | 2016-08-31 12:21 | Infectious Diseases Prog Note ---
"Assessment/Plan Assessment/Plan antibiotics : ceftriaxone, ancef A 1. proteus sepsis secondary to UTI 2. proteus | providencia UTI 3. postobstructive klebsiella pneumonia 4. leucocytosis increased 5. respiratory failure resolved 6. lung mass s/p bronchoscopy | VATS | wedge resection P 1. continue ceftriaxone 2. d/c ancef 3. will follow up cultures Subjective ROS Limited/Unobtainable: Yes Allergies: Coded Allergies: No Known Allergies (Unverified , 12/10/15) Objective Vital Signs Last 24 Hour Vital Signs Date Time Temp Pulse Resp B/P Pulse Ox O2 Delivery O2 Flow Rate FiO2 08/31/16 11:36 88 18 50 08/31/16 11:02 97.1 89 16 123/60 97 Mechanical Ventilator 100.0 08/31/16 10:58 97.1 89 16 123/60 97 Endotracheal Tube 100.0 08/31/16 10:58 97.1 89 16 123/60 97 Mechanical Ventilator 100.0 08/31/16 10:45 92 16 124/63 98 Mechanical Ventilator 100.0 08/31/16 10:45 92 16 124/63 98 Endotracheal Tube 100.0 08/31/16 10:44 100 08/31/16 10:35 92 10 130/66 99 Endotracheal Tube 100.0 08/31/16 10:25 92 10 125/66 100 Endotracheal Tube 100.0 08/31/16 10:23 93 20 99 08/31/16 10:20 93 10 100/60 100 Endotracheal Tube 100.0 08/31/16 10:20 96 18 98 Mechanical Ventilator 100 08/31/16 10:15 90 10 89/52 100 Endotracheal Tube 100.0 08/31/16 10:10 93 18 100 08/31/16 10:10 97.0 79 10 79/40 100 Endotracheal Tube 100.0 08/31/16 10:10 93 16 96 Mechanical Ventilator 100 08/31/16 07:30 Nasal Cannula 2.0 08/31/16 07:30 96 Nasal Cannula 3.0 08/31/16 07:30 Nasal Cannula 2.0 08/31/16 07:30 Nasal Cannula 3.0 08/31/16 04:00 98.1 95 20 123/74 95 Room Air 08/31/16 04:00 93 08/31/16 02:55 102 08/31/16 01:54 84 20 98 Nasal Cannula 2.0 28 08/31/16 01:45 82 20 96 Nasal Cannula 2.0 28 08/31/16 00:00 97.7 92 18 138/90 96 Room Air 08/31/16 00:00 93 08/30/16 20:42 98.2 102 20 124/59 97 Nasal Cannula 3.0 08/30/16 20:00 101 08/30/16 19:40 84 20 98 Nasal Cannula 3.0 32 08/30/16 19:22 96 Nasal Cannula 3.0 32 08/30/16 19:22 Nasal Cannula 3.0 32 08/30/16 19:22 86 20 96 Nasal Cannula 3.0 32 08/30/16 16:13 82 08/30/16 16:00 97.9 89 24 138/60 98 Nasal Cannula 08/30/16 13:37 89 18 100 Nasal Cannula 3.0 32 08/30/16 13:29 80 18 98 Nasal Cannula 3.0 32 Height (Feet): 5 Height (Inches): 4.00 Weight (Pounds): 123 HEENT: other - intubated Respiratory/Chest: lungs clear, other - right VATS Cardiovascular: normal rate, regular rhythm, no gallop/murmur Abdomen: soft, non tender Extremities: no edema, other - left arm PICC Laboratory Tests Test 08/31/16 06:20 08/31/16 10:25 08/31/16 10:30 White Blood Count 13.8 K/UL (4.8-10.8) H 16.1 K/UL (4.8-10.8) H Red Blood Count 3.07 M/UL (4.20-5.40) L 2.96 M/UL (4.20-5.40) L Hemoglobin 8.8 G/DL (12.0-16.0) L 8.6 G/DL (12.0-16.0) L Hematocrit 27.0 % (37.0-47.0) L 26.2 % (37.0-47.0) L Mean Corpuscular Volume 88 FL (80-99) 89 FL (80-99) Mean Corpuscular Hemoglobin 28.9 PG (27.0-31.0) 29.2 PG (27.0-31.0) Mean Corpuscular Hemoglobin Concent 32.8 G/DL (32.0-36.0) 32.9 G/DL (32.0-36.0) Red Cell Distribution Width 13.3 % (11.6-14.8) 13.2 % (11.6-14.8) Platelet Count 200 K/UL (150-450) 202 K/UL (150-450) Mean Platelet Volume 7.0 FL (6.5-10.1) 7.1 FL (6.5-10.1) Neutrophils (%) (Auto) 70.5 % (45.0-75.0) 76.6 % (45.0-75.0) H Lymphocytes (%) (Auto) 17.5 % (20.0-45.0) L 13.9 % (20.0-45.0) L Monocytes (%) (Auto) 9.6 % (1.0-10.0) 7.4 % (1.0-10.0) Eosinophils (%) (Auto) 1.9 % (0.0-3.0) 1.8 % (0.0-3.0) Basophils (%) (Auto) 0.6 % (0.0-2.0) 0.4 % (0.0-2.0) Prothrombin Time 11.1 SEC (9.30-11.50) Prothromb Time International Ratio 1.1 (0.9-1.1) Activated Partial Thromboplast Time 33 SEC (23-33) Sodium Level 140 mEQ/L (135-145) 138 mEQ/L (135-145) Potassium Level 3.2 mEQ/L (3.4-4.9) L 3.1 mEQ/L (3.4-4.9) L Chloride Level 100 mEQ/L (98-107) 100 mEQ/L (98-107) Carbon Dioxide Level 30 mEQ/L (20-30) 28 mEQ/L (20-30) Anion Gap 10 (5-15) 10 (5-15) Blood Urea Nitrogen 12 mg/dL (7-23) 13 mg/dL (7-23) Creatinine 0.3 mg/dL (0.5-0.9) L 0.4 mg/dL (0.5-0.9) L Estimat Glomerular Filtration Rate mL/min (>60) mL/min (>60) Glucose Level 144 mg/dL (74-106) H 130 mg/dL (74-106) H Calcium Level 8.0 mg/dL (8.6-10.2) L 7.7 mg/dL (8.6-10.2) L Magnesium Level 2.4 mg/dL (1.7-2.5) 2.3 mg/dL (1.7-2.5) Ionized Calcium (Measured) 1.14 mmol/L (1.10-1.35) Phosphorus Level 3.4 mg/dL (2.5-4.8) Arterial Blood pH Pending Arterial Blood Partial Pressure CO2 Pending Arterial Blood Partial Pressure O2 Pending Arterial Blood HCO3 Pending Arterial Blood Oxygen Saturation Pending Arterial Blood Base Excess Pending Ed Test Pending SHANNON GO August 31, 2016 12:21"
[2016-08-31] MEDS ORDERED: cefTRIAXone 2 GM in D5W 110 ML IVPB SCH (14:00)
[2016-08-31 14:24] LABS: ABG BASE EXCESS 3.3
[2016-08-31] MEDS ORDERED: ceFAZolin sod 1 GM in D5W 55 ML IV SCH (15:45)
[2016-08-31] MEDS: D5 1/2NS w/KCl 20mEq 1,000 ML IV SCH (16:23)
[2016-08-31] MEDS ORDERED: NS 275ml ONE (17:01)
[2016-08-31 18:22] LABS: MEAN CORPUSCULAR HEMOGLOBIN 31.6 PG (27.0-31.0); MEAN CORPUSCULAR HGB CONC 35.1 G/DL (32.0-36.0); MEAN CORPUSCULAR VOLUME 90 FL (80-99); MEAN PLATELET VOLUME 6.4 FL (6.5-10.1); PLATELET COUNT 202 K/UL (150-450); RED BLOOD COUNT 2.94 M/UL (4.20-5.40); RED CELL DISTRIBUTION WIDTH 13.3 % (11.6-14.8)
[2016-08-31 18:25] LABS: WHITE BLOOD COUNT 25.1 K/UL (4.8-10.8)
[2016-08-31 18:31] LABS: ALANINE AMINOTRANSFERASE 34 U/L (3-33); ALBUMIN/GLOBULIN RATIO 0.7 (1.0-2.7); ANION GAP 12 (5-15); ASPARTATE AMINO TRANSFERASE 21 U/L (5-40); CALCIUM 7.9 mg/dL (8.6-10.2); CARBON DIOXIDE 26 mEQ/L (20-30); CHLORIDE 97 mEQ/L (98-107); CREATININE 0.4 mg/dL (0.5-0.9); HEMOLYSIS 2; POTASSIUM 4.3 mEQ/L (3.4-4.9); SODIUM 135 mEQ/L (135-145); TOTAL PROTEIN 5.1 g/dL (6.6-8.7)
[2016-08-31 20:02] LABS: ANISOCYTOSIS 1+; BAND NEUTROPHILS % (MANUAL) 5 % (0-8); BASOPHILS % (MANUAL) 0 % (0-2); EOSINOPHILS % (MANUAL) 1 % (0-3); HYPOCHROMASIA 1+; LYMPHOCYTES % (MANUAL) 6 % (20-45); NEUTROPHILS % (MANUAL) 85 % (45-75); PLATELET ESTIMATE ADEQUATE; PLATELET MORPHOLOGY NORMAL; TOTAL CELLS COUNTED 100
--- NOTE | 2016-08-31 21:19 | Operative Note - Dictated ---
DATE OF OPERATION: 08/31/2016 SURGEON: Rod Haynes M.D., Thoracic Surgery. PREOPERATIVE DIAGNOSIS: Right upper lobe lung mass with pleural effusion. POSTOPERATIVE DIAGNOSIS: Right upper lobe non-small cell carcinoma. OPERATION PERFORMED: 1. Flexible bronchoscopy. 2. Right video-assisted thoracoscopic surgery. 3. Intrapleural pneumolysis. 4. Right upper lobe wedge resection. 5. Partial pleurectomy. 6. Control of lower lobe parenchymal air leak. 7. Talc pleurodesis. 8. Intercostal nerve block. ANESTHESIA: Double lumen general anesthesia. INDICATIONS: The patient is an 81-year-old female who was admitted to [facility] with respiratory distress. Workup including a chest CT scan demonstrated a right upper lobe mass measuring 5 x 6 cm suspicious for underlying malignancy and Thoracic Surgery was then consulted for further evaluation. The risks and benefits of the proposed operation were explained to the patient's family including, but not limited to bleeding, infection, air leak, need for blood transfusion, anesthetic complication, and less than 1%. In addition, alternatives versus no treatment options were also discussed. The patient fully understands the rationale behind the purpose of the operation. All questions answered to their satisfaction. DESCRIPTION OF PROCEDURE: After obtaining informed consent, the patient was then brought to the operating room and placed in a supine position and a surgical time-out was performed. After induction of general anesthesia, an arterial line and MADHU hose stockings were placed. The flexible bronchoscope was introduced through the endotracheal tube. The trachea and mleissa were inspected. The melissa was midline sharp. The right tracheobronchial tube down to the subsegmental level was grossly normal and no endobronchial lesions were seen. Similarly, the left mainstem bronchus was intubated and no obvious endobronchial lesions were visualized at the subsegmental level. A minimal amount of mucopurulent secretions were lavaged and suctioned clear. The bronchoscope was pulled back and removed. The patient tolerated the procedure well with oxygen saturation greater than 96% throughout the procedure. Next, the patient was then placed in a left lateral decubitus position and prepped and draped in the usual sterile fashion. The patient also received preoperative intravenous antibiotics. A 1.5 cm incision was made at the fifth intercostal space midaxillary line. Dissection was then carried down into the subcutaneous tissue. Entering into the right hemithorax uneventful. After passing of a Thoracoport as well as a video camera into the right hemithorax, a counter incision was made at the third intercostal space anteriorly. This allowed introduction of the grasper into the right hemithorax. Under direct visualization, there was noted to be numerous adhesions tethering along to the surrounding chest wall. These adhesions were then taken down using a combination of sharp and blunt electrocauterization. We then turned our attention to the right upper lobe, the effusion was evacuated and roughly 150-200 cc of effusion was submitted for cytology. The junction of the minor and major fissure was then localized. The upper lobe was then raised superiorly and a mass was seen bulging from the posterior segment of the right upper lobe. Under direct visualization, a right upper lobe wedge resection was then performed and submitted for frozen section. Frozen section was consistent with non-small cell carcinoma and final pathology await for immunohistochemical as well as genetic analysis. As such, after obtaining the diagnosis, we then proceeded to examine the parietal pleura. The parietal pleura appears to be grossly normal except for a small area in the posterior lateral region and this area was then taken down using sharp and Bovie under direct visualization and submitted off the field for permanent section to rule out pleural metastasis. At the end of the operation, we proceeded to examine for air leaks. The left lower lobe just inferior to the biopsy site appears to have an area of parenchymal air leak. This air leak was then controlled using a Bovie electrocauterization. After assuring that the right lower lobe air leak is controlled, we then proceeded to infuse into the right chest cavity with 5 grams of talc over the parietal pleura in the standard fashion. An intercostal nerve block with 40 mL of 0.25% Marcaine was then performed from the 2nd to 8th intercostal space in the usual fashion. A 28-Burkinan chest tube was inserted into the right hemothorax and directly at apex. The lung was allowed to inflate under direct visualization and the video camera was then removed. The chest tube was then connected to a suction Pleur-evac. The wound was reapproximated in two layers with 3-0 Vicryl suture and the skin was reapproximated with 4-0 Monocryl suture. Steri-Strips and dry dressing was applied. The patient tolerated the procedure well without any complication. [place] and sponges were correct at the end of the operation. The patient remained intubated and was transported to the recovery room in a satisfactory condition. ESTIMATED BLOOD LOSS: Minimal. COMPLICATIONS: None. SPECIMEN SUBMITTED: 1. Pleural effusion. 2. Right upper lobe wedge resection. 3. Parietal pleura. Nguyen M.D. DR: Suleiman JOB#: [id number] CC: LAUREN
[2016-09-01] VITALS (24 sets, daily range): BP systolic 108–138; BP diastolic 43–89
[2016-09-01] MEDS: NovoLOG Insulin Flexpen SUBQ SCH ×5 (00:33→23:55)
[2016-09-01] MEDS: Albuterol ud Inhalation HHN SCH ×6 (03:59→23:16)
[2016-09-01 05:47] LABS: MEAN CORPUSCULAR HEMOGLOBIN 29.4 PG (27.0-31.0); MEAN CORPUSCULAR HGB CONC 32.8 G/DL (32.0-36.0); MEAN CORPUSCULAR VOLUME 90 FL (80-99); PLATELET COUNT 211 K/UL (150-450); RED BLOOD COUNT 2.89 M/UL (4.20-5.40); RED CELL DISTRIBUTION WIDTH 13.5 % (11.6-14.8); WHITE BLOOD COUNT 18.3 K/UL (4.8-10.8)
[2016-09-01] MEDS: D5 1/2NS w/KCl 20mEq 1,000 ML IV SCH ×2 (06:21→11:55)
[2016-09-01 06:28] LABS: ANION GAP 7 (5-15); CALCIUM 7.5 mg/dL (8.6-10.2); CARBON DIOXIDE 26 mEQ/L (20-30); CHLORIDE 100 mEQ/L (98-107); CREATININE 0.4 mg/dL (0.5-0.9); HEMOLYSIS 0; MAGNESIUM 1.8 mg/dL (1.7-2.5); PHOSPHORUS 2.3 mg/dL (2.5-4.8); POTASSIUM 5.8 mEQ/L (3.4-4.9); SODIUM 133 mEQ/L (135-145)
[2016-09-01 07:12] LABS: IONIZED CALCIUM 1.08 mmol/L (1.10-1.35)
[2016-09-01 08:05] LABS: BAND NEUTROPHILS % (MANUAL) 0 % (0-8); BASOPHILS % (MANUAL) 0 % (0-2); EOSINOPHILS % (MANUAL) 1 % (0-3); HYPOCHROMASIA 1+; LYMPHOCYTES % (MANUAL) 12 % (20-45); NEUTROPHILS % (MANUAL) 83 % (45-75); PLATELET ESTIMATE ADEQUATE; PLATELET MORPHOLOGY NORMAL; TOTAL CELLS COUNTED 100
--- NOTE | 2016-09-01 08:26 | Critical Care Progress Note ---
Assessment/Plan Assessment/Plan IMPRESSION: 1. Respiratory failure. 2. Metabolic acidosis. 3. s/p VATS biopsy with documented lung cancer 4. Right lung mass, 5. Left lower lobe atelectasis. 6. Severe protein-calorie malnutrition. 7. s/p sepsis and shock. 8. pneumonia. 9. Acute renal failure. 10. Possible urinary tract infection. 11. chest tube PLAN ICU care back on the ventilator taper oxygen as able antibiotics per ID and monitor supportive care monitor fluid status nutrition maintain meds oncology follow up reviewed and discussed d/w Dr. Franco and thoracic surgery guarded; assess for wean in am medications/laboratory data/nursing notes/ICU care reviewed in detail note reviewed and edited care discussed with RN and RT ICU time spent 36 minutes Critical Care - Subjective Interval Events: underwent VATS biopsy now intubated nonsmall cell ca diagnosed ROS Limited/Unobtainable: Yes Condition: critical EKG Rhythm: Sinus Rhythm I&O: Intake and Output 08/31/16 09/01/16 18:59 06:59 Intake Total 2600 ml 1425 ml Output Total 755 ml 415 ml Balance 1845 ml 1010 ml IV Total 2350 ml 825 ml Tube Feeding 250 ml 600 ml Output Urine Total 555 ml 415 ml Chest Tube Drainage Total 150 ml Estimated Blood Loss 50 ml Critical Care - Objective CXR: reviewed ET-Tube: 8.0 ET Position: 22 Last 24 Hour Vital Signs Date Time Temp Pulse Resp B/P Pulse Ox O2 Delivery O2 Flow Rate FiO2 09/01/16 08:00 108 09/01/16 08:00 50 09/01/16 08:00 99.0 108 28 118/54 100 Mechanical Ventilator 50 09/01/16 07:14 104 28 100 Mechanical Ventilator 09/01/16 07:11 103 34 50 09/01/16 07:00 103 31 117/45 100 Mechanical Ventilator 80 09/01/16 07:00 103 34 100 Mechanical Ventilator 50 09/01/16 06:00 106 31 138/81 100 Mechanical Ventilator 80 09/01/16 05:19 101 28 50 09/01/16 05:00 102 30 120/51 100 Mechanical Ventilator 80 09/01/16 04:00 104 09/01/16 04:00 60 09/01/16 04:00 98.7 103 29 111/48 100 Mechanical Ventilator 80 09/01/16 03:45 104 40 100 Mechanical Ventilator 5/3/17 03:30 102 41 50 5/3/17 03:30 102 41 100 Mechanical Ventilator 50 5/3/17 03:00 100 25 110/50 100 Mechanical Ventilator 80 5/3/17 02:00 101 28 117/53 100 Mechanical Ventilator 80 5/3/17 01:51 100 23 50 5/3/17 01:00 102 26 115/48 100 Mechanical Ventilator 80 5/3/17 00:00 60 5/3/17 00:00 103 5/3/17 00:00 99.0 103 26 114/43 100 Mechanical Ventilator 80 5/2/17 23:45 102 16 100 Mechanical Ventilator 5/2/17 23:30 100 15 100 Mechanical Ventilator 50 5/2/17 23:30 100 19 50 5/2/17 23:00 101 25 107/51 100 Mechanical Ventilator 80 5/2/17 22:00 102 27 100/48 99 Mechanical Ventilator 80 5/2/17 21:24 102 31 50 5/2/17 21:00 104 24 94/53 100 Mechanical Ventilator 80 5/2/17 20:00 99.3 105 25 119/44 100 Mechanical Ventilator 80 5/2/17 20:00 105 /2/17 19:30 Mechanical Ventilator 5/2/17 19:30 Mechanical Ventilator 5/2/17 19:30 Mechanical Ventilator 5/2/17 19:30 Mechanical Ventilator 5/2/17 19:30 104 26 50 5/2/17 19:03 103 28 125/58 100 Mechanical Ventilator 60 5/2/17 18:16 60 5/2/17 18:00 106 28 97/58 100 Mechanical Ventilator 60 5/2/17 17:30 100 30 50 5/2/17 17:00 103 28 100/65 100 Mechanical Ventilator 60 5/2/17 17:00 60 5/2/17 16:00 80 5/2/17 16:00 98.2 105 24 97/69 100 Mechanical Ventilator 80 5/2/17 16:00 103 5/2/17 15:12 101 37 94 Mechanical Ventilator 100 5/2/17 15:03 98 34 96 Mechanical Ventilator 50 5/2/17 15:03 101 39 50 5/2/17 15:00 95 25 106/55 98 Mechanical Ventilator 100 5/2/17 15:00 100 5/2/17 14:00 94 18 100/89 97 Mechanical Ventilator 100 08/31/16 13:15 95 30 50 08/31/16 13:00 95 18 130/59 97 Mechanical Ventilator 50 08/31/16 13:00 50 08/31/16 12:00 94 08/31/16 12:00 97.3 94 16 122/60 97 Mechanical Ventilator 50 08/31/16 12:00 50 08/31/16 11:36 88 18 50 08/31/16 11:02 97.1 89 16 123/60 97 Mechanical Ventilator 100.0 08/31/16 10:58 97.1 89 16 123/60 97 Endotracheal Tube 100.0 08/31/16 10:58 97.1 89 16 123/60 97 Mechanical Ventilator 100.0 08/31/16 10:45 92 16 124/63 98 Mechanical Ventilator 100.0 08/31/16 10:45 92 16 124/63 98 Endotracheal Tube 100.0 08/31/16 10:44 100 08/31/16 10:35 92 10 130/66 99 Endotracheal Tube 100.0 08/31/16 10:25 92 10 125/66 100 Endotracheal Tube 100.0 08/31/16 10:23 93 20 99 08/31/16 10:20 93 10 100/60 100 Endotracheal Tube 100.0 08/31/16 10:20 96 18 98 Mechanical Ventilator 100 08/31/16 10:15 90 10 89/52 100 Endotracheal Tube 100.0 08/31/16 10:10 93 18 100 08/31/16 10:10 97.0 79 10 79/40 100 Endotracheal Tube 100.0 08/31/16 10:10 93 16 96 Mechanical Ventilator 100 Labs: Labs Test 08/29/16 10:00 08/30/16 04:00 08/31/16 06:20 08/31/16 10:25 Activated Partial Thromboplast Time 79 SEC (23-33) 68 SEC (23-33) 33 SEC (23-33) White Blood Count 12.5 K/UL (4.8-10.8) 13.8 K/UL (4.8-10.8) 16.1 K/UL (4.8-10.8) Red Blood Count 3.19 M/UL (4.20-5.40) 3.07 M/UL (4.20-5.40) 2.96 M/UL (4.20-5.40) Hemoglobin 9.3 G/DL (12.0-16.0) 8.8 G/DL (12.0-16.0) 8.6 G/DL (12.0-16.0) Hematocrit 28.7 % (37.0-47.0) 27.0 % (37.0-47.0) 26.2 % (37.0-47.0) Mean Corpuscular Volume 90 FL (80-99) 88 FL (80-99) 89 FL (80-99) Mean Corpuscular Hemoglobin 29.1 PG (27.0-31.0) 28.9 PG (27.0-31.0) 29.2 PG (27.0-31.0) Mean Corpuscular Hemoglobin Concent 32.3 G/DL (32.0-36.0) 32.8 G/DL (32.0-36.0) 32.9 G/DL (32.0-36.0) Red Cell Distribution Width 14.0 % (11.6-14.8) 13.3 % (11.6-14.8) 13.2 % (11.6-14.8) Platelet Count 164 K/UL (150-450) 200 K/UL (150-450) 202 K/UL (150-450) Mean Platelet Volume 7.9 FL (6.5-10.1) 7.0 FL (6.5-10.1) 7.1 FL (6.5-10.1) Neutrophils (%) (Auto) 67.8 % (45.0-75.0) 70.5 % (45.0-75.0) 76.6 % (45.0-75.0) Lymphocytes (%) (Auto) 16.1 % (20.0-45.0) 17.5 % (20.0-45.0) 13.9 % (20.0-45.0) Monocytes (%) (Auto) 12.5 % (1.0-10.0) 9.6 % (1.0-10.0) 7.4 % (1.0-10.0) Eosinophils (%) (Auto) 3.1 % (0.0-3.0) 1.9 % (0.0-3.0) 1.8 % (0.0-3.0) Basophils (%) (Auto) 0.5 % (0.0-2.0) 0.6 % (0.0-2.0) 0.4 % (0.0-2.0) Sodium Level 141 mEQ/L (135-145) 140 mEQ/L (135-145) 138 mEQ/L (135-145) Potassium Level 3.5 mEQ/L (3.4-4.9) 3.2 mEQ/L (3.4-4.9) 3.1 mEQ/L (3.4-4.9) Chloride Level 101 mEQ/L (98-107) 100 mEQ/L (98-107) 100 mEQ/L (98-107) Carbon Dioxide Level 29 mEQ/L (20-30) 30 mEQ/L (20-30) 28 mEQ/L (20-30) Anion Gap 11 (5-15) 10 (5-15) 10 (5-15) Blood Urea Nitrogen 10 mg/dL (7-23) 12 mg/dL (7-23) 13 mg/dL (7-23) Creatinine 0.4 mg/dL (0.5-0.9) 0.3 mg/dL (0.5-0.9) 0.4 mg/dL (0.5-0.9) Estimat Glomerular Filtration Rate mL/min (>60) mL/min (>60) mL/min (>60) Glucose Level 198 mg/dL (74-106) 144 mg/dL (74-106) 130 mg/dL (74-106) Calcium Level 7.7 mg/dL (8.6-10.2) 8.0 mg/dL (8.6-10.2) 7.7 mg/dL (8.6-10.2) Magnesium Level 1.6 mg/dL (1.7-2.5) 2.4 mg/dL (1.7-2.5) 2.3 mg/dL (1.7-2.5) Total Bilirubin 0.3 mg/dL (0.0-1.2) Aspartate Amino Transf (AST/SGOT) 22 U/L (5-40) Alanine Aminotransferase (ALT/SGPT) 41 U/L (3-33) Alkaline Phosphatase 75 U/L (35-104) Pro-B-Type Natriuretic Peptide 2642 pg/mL (0-450) Total Protein 5.0 g/dL (6.6-8.7) Albumin 2.0 g/dL (3.5-5.2) Globulin 3.0 g/dL Albumin/Globulin Ratio 0.6 (1.0-2.7) Prothrombin Time 11.1 SEC (9.30-11.50) Prothromb Time International Ratio 1.1 (0.9-1.1) Ionized Calcium (Measured) 1.14 mmol/L (1.10-1.35) Phosphorus Level 3.4 mg/dL (2.5-4.8) Test 08/31/16 10:30 08/31/16 14:10 08/31/16 18:00 09/01/16 04:46 Arterial Blood pH 7.460 (7.350-7.450) Arterial Blood Partial Pressure CO2 39.0 mmHg (35.0-45.0) Arterial Blood Partial Pressure O2 85.0 mmHg (75.0-100.0) Arterial Blood HCO3 27.2 mmol/L (22.0-26.0) Arterial Blood Oxygen Saturation 96.0 % (92.0-98.0) Arterial Blood Base Excess 3.3 Ed Test White Blood Count 25.1 K/UL (4.8-10.8) 18.3 K/UL (4.8-10.8) Red Blood Count 2.94 M/UL (4.20-5.40) 2.89 M/UL (4.20-5.40) Hemoglobin 9.3 G/DL (12.0-16.0) 8.5 G/DL (12.0-16.0) Hematocrit 26.4 % (37.0-47.0) 25.9 % (37.0-47.0) Mean Corpuscular Volume 90 FL (80-99) 90 FL (80-99) Mean Corpuscular Hemoglobin 31.6 PG (27.0-31.0) 29.4 PG (27.0-31.0) Mean Corpuscular Hemoglobin Concent 35.1 G/DL (32.0-36.0) 32.8 G/DL (32.0-36.0) Red Cell Distribution Width 13.3 % (11.6-14.8) 13.5 % (11.6-14.8) Platelet Count 202 K/UL (150-450) 211 K/UL (150-450) Mean Platelet Volume 6.4 FL (6.5-10.1) 7.0 FL (6.5-10.1) Neutrophils (%) (Auto) % (45.0-75.0) % (45.0-75.0) Lymphocytes (%) (Auto) % (20.0-45.0) % (20.0-45.0) Monocytes (%) (Auto) % (1.0-10.0) % (1.0-10.0) Eosinophils (%) (Auto) % (0.0-3.0) % (0.0-3.0) Basophils (%) (Auto) % (0.0-2.0) % (0.0-2.0) Differential Total Cells Counted 100 100 Neutrophils % (Manual) 85 % (45-75) 83 % (45-75) Lymphocytes % (Manual) 6 % (20-45) 12 % (20-45) Monocytes % (Manual) 3 % (1-10) 4 % (1-10) Eosinophils % (Manual) 1 % (0-3) 1 % (0-3) Basophils % (Manual) 0 % (0-2) 0 % (0-2) Band Neutrophils 5 % (0-8) 0 % (0-8) Platelet Estimate Adequate Adequate Platelet Morphology Normal Normal Hypochromasia 1+ 1+ Anisocytosis 1+ Sodium Level 135 mEQ/L (135-145) 133 mEQ/L (135-145) Potassium Level 4.3 mEQ/L (3.4-4.9) 5.8 mEQ/L (3.4-4.9) Chloride Level 97 mEQ/L (98-107) 100 mEQ/L (98-107) Carbon Dioxide Level 26 mEQ/L (20-30) 26 mEQ/L (20-30) Anion Gap 12 (5-15) 7 (5-15) Blood Urea Nitrogen 12 mg/dL (7-23) 11 mg/dL (7-23) Creatinine 0.4 mg/dL (0.5-0.9) 0.4 mg/dL (0.5-0.9) Estimat Glomerular Filtration Rate mL/min (>60) mL/min (>60) Glucose Level 224 mg/dL (74-106) 444 mg/dL (74-106) Calcium Level 7.9 mg/dL (8.6-10.2) 7.5 mg/dL (8.6-10.2) Total Bilirubin 0.3 mg/dL (0.0-1.2) Aspartate Amino Transf (AST/SGOT) 21 U/L (5-40) Alanine Aminotransferase (ALT/SGPT) 34 U/L (3-33) Alkaline Phosphatase 61 U/L (35-104) Total Protein 5.1 g/dL (6.6-8.7) Albumin 2.1 g/dL (3.5-5.2) Globulin 3.0 g/dL Albumin/Globulin Ratio 0.7 (1.0-2.7) Ionized Calcium (Measured) 1.08 mmol/L (1.10-1.35) Phosphorus Level 2.3 mg/dL (2.5-4.8) Magnesium Level 1.8 mg/dL (1.7-2.5) Objective: GENERAL: The patient is well appearing female. The patient is altered; intubated HEENT: Negative. NECK: Supple. The patient is without meningismus LUNGS: symmetric breath sounds. no wheeze but some scattered rhonchi CARDIAC: S1, S1 irregular without murmurs, rubs, or gallops. ABDOMEN: Soft. Feeding tube in place. No hepatosplenomegaly. no distrention EXTREMITIES: No cyanosis or clubbing. There is trace edema. NEUROLOGIC: The patient is sedated, nonfocal reviewed and edited Accucheck: MARI PHOENIX September 01, 2016 08:26
[2016-09-01] MEDS ORDERED: Sodium Polystyrene Sulfonate 15gm Powder NG ONE ×2 (08:30→09:00)
[2016-09-01 08:33] LABS: ABG PCO2 34.3 mmHg (35.0-45.0)
[2016-09-01 08:34] LABS: ABG ALLEN TEST POSITIVE; ABG BASE EXCESS 2.6
--- NOTE | 2016-09-01 08:55 | General Progress Note ---
Assessment/Plan Problem List: (1) Pneumonia ICD Codes: J18.9 - Pneumonia, unspecified organism SNOMED: 786399167 (2) DVT (deep vein thrombosis) in ICD Codes: O22.30 - Deep phlebothrombosis in , unspecified trimester; I82.409 - Acute embolism and thrombosis of unspecified deep veins of unspecified lower extremity SNOMED: 33910774, 324173172, 598573366 (3) Hyperkalemia ICD Codes: E87.5 - Hyperkalemia SNOMED: 43599739 (4) Renal failure ICD Codes: N19 - Unspecified kidney failure SNOMED: 57291540 (5) Respiratory failure ICD Codes: J96.90 - Respiratory failure, unspecified, unspecified whether with hypoxia or hypercapnia SNOMED: 423714023 (6) Lung mass ICD Codes: R91.8 - Other nonspecific abnormal finding of lung field SNOMED: 911989496 Status: stable Assessment/Plan o2 resp rx abx heparin drip when cleared by ct surgery CT management for CTS redraw lawbs- ?lab draw error follow up cultures ngt feeds onc eval called guarded Subjective ROS Limited/Unobtainable: Yes Constitutional: Reports: malaise, weakness HEENT: Reports: no symptoms Cardiovascular: Reports: no symptoms Respiratory: Reports: no symptoms Gastrointestinal/Abdominal: Reports: no symptoms Genitourinary: Reports: no symptoms Neurologic/Psychiatric: Reports: pre-existing deficit Endocrine: Reports: no symptoms Hematologic/Lymphatic: Reports: anemia Allergies: Coded Allergies: No Known Allergies (Unverified , 12/10/15) All Systems: reviewed and negative except above Subjective s/p vats, lung biopsy, wedge resention. path positive for nonsmall cell lung ca labs noted- elevated k, low na, high glucose. remains intubated. Objective Last 24 Hour Vital Signs Date Time Temp Pulse Resp B/P Pulse Ox O2 Delivery O2 Flow Rate FiO2 09/01/16 08:00 108 09/01/16 08:00 50 09/01/16 08:00 99.0 108 28 118/54 100 Mechanical Ventilator 50 09/01/16 07:14 104 28 100 Mechanical Ventilator 09/01/16 07:11 103 34 50 09/01/16 07:00 103 31 117/45 100 Mechanical Ventilator 80 5/3/17 07:00 103 34 100 Mechanical Ventilator 50 5/3/17 06:00 106 31 138/81 100 Mechanical Ventilator 80 5/3/17 05:19 101 28 50 5/3/17 05:00 102 30 120/51 100 Mechanical Ventilator 80 5/3/17 04:00 104 5/3/17 04:00 60 5/3/17 04:00 98.7 103 29 111/48 100 Mechanical Ventilator 80 5/3/17 03:45 104 40 100 Mechanical Ventilator 5/3/17 03:30 102 41 50 5/3/17 03:30 102 41 100 Mechanical Ventilator 50 5/3/17 03:00 100 25 110/50 100 Mechanical Ventilator 80 5/3/17 02:00 101 28 117/53 100 Mechanical Ventilator 80 5/3/17 01:51 100 23 50 5/3/17 01:00 102 26 115/48 100 Mechanical Ventilator 80 5/3/17 00:00 60 /3/17 00:00 103 /3/17 00:00 99.0 103 26 114/43 100 Mechanical Ventilator 80 5/2/17 23:45 102 16 100 Mechanical Ventilator 5/2/17 23:30 100 15 100 Mechanical Ventilator 50 5/2/17 23:30 100 19 50 5/2/17 23:00 101 25 107/51 100 Mechanical Ventilator 80 5/2/17 22:00 102 27 100/48 99 Mechanical Ventilator 80 5/2/17 21:24 102 31 50 5/2/17 21:00 104 24 94/53 100 Mechanical Ventilator 80 5/2/17 20:00 99.3 105 25 119/44 100 Mechanical Ventilator 80 5/2/17 20:00 105 /2/17 19:30 Mechanical Ventilator 5/2/17 19:30 Mechanical Ventilator 5/2/17 19:30 Mechanical Ventilator 5/2/17 19:30 Mechanical Ventilator 5/2/17 19:30 104 26 50 5/2/17 19:03 103 28 125/58 100 Mechanical Ventilator 60 5/2/17 18:16 60 5/2/17 18:00 106 28 97/58 100 Mechanical Ventilator 60 5/2/17 17:30 100 30 50 5/2/17 17:00 103 28 100/65 100 Mechanical Ventilator 60 5/2/17 17:00 60 5/2/17 16:00 80 5/2/17 16:00 98.2 105 24 97/69 100 Mechanical Ventilator 80 08/31/16 16:00 103 08/31/16 15:12 101 37 94 Mechanical Ventilator 100 08/31/16 15:03 98 34 96 Mechanical Ventilator 50 08/31/16 15:03 101 39 50 08/31/16 15:00 95 25 106/55 98 Mechanical Ventilator 100 08/31/16 15:00 100 08/31/16 14:00 94 18 100/89 97 Mechanical Ventilator 100 08/31/16 13:15 95 30 50 08/31/16 13:00 95 18 130/59 97 Mechanical Ventilator 50 08/31/16 13:00 50 08/31/16 12:00 94 08/31/16 12:00 97.3 94 16 122/60 97 Mechanical Ventilator 50 08/31/16 12:00 50 08/31/16 11:36 88 18 50 08/31/16 11:02 97.1 89 16 123/60 97 Mechanical Ventilator 100.0 08/31/16 10:58 97.1 89 16 123/60 97 Endotracheal Tube 100.0 08/31/16 10:58 97.1 89 16 123/60 97 Mechanical Ventilator 100.0 08/31/16 10:45 92 16 124/63 98 Mechanical Ventilator 100.0 08/31/16 10:45 92 16 124/63 98 Endotracheal Tube 100.0 08/31/16 10:44 100 08/31/16 10:35 92 10 130/66 99 Endotracheal Tube 100.0 08/31/16 10:25 92 10 125/66 100 Endotracheal Tube 100.0 08/31/16 10:23 93 20 99 08/31/16 10:20 93 10 100/60 100 Endotracheal Tube 100.0 08/31/16 10:20 96 18 98 Mechanical Ventilator 100 08/31/16 10:15 90 10 89/52 100 Endotracheal Tube 100.0 08/31/16 10:10 93 18 100 08/31/16 10:10 97.0 79 10 79/40 100 Endotracheal Tube 100.0 08/31/16 10:10 93 16 96 Mechanical Ventilator 100 Intake and Output 08/31/16 09/01/16 19:00 07:00 Intake Total 2675 ml 1437.5 ml Output Total 755 ml 535 ml Balance 1920 ml 902.5 ml IV Total 2425 ml 787.5 ml Tube Feeding 250 ml 650 ml Output Urine Total 555 ml 535 ml Chest Tube Drainage Total 150 ml Estimated Blood Loss 50 ml Laboratory Tests 08/31/16 10:25: White Blood Count 16.1H, Red Blood Count 2.96L, Hemoglobin 8.6L, Hematocrit 26.2L, Mean Corpuscular Volume 89, Mean Corpuscular Hemoglobin 29.2, Mean Corpuscular Hemoglobin Concent 32.9, Red Cell Distribution Width 13.2, Platelet Count 202, Mean Platelet Volume 7.1, Neutrophils (%) (Auto) 76.6H, Lymphocytes ( %) (Auto) 13.9L, Monocytes (%) (Auto) 7.4, Eosinophils (%) (Auto) 1.8, Basophils (%) (Auto) 0.4, Sodium Level 138, Potassium Level 3.1L, Chloride Level 100, Carbon Dioxide Level 28, Anion Gap 10, Blood Urea Nitrogen 13, Creatinine 0.4L, Estimat Glomerular Filtration Rate , Glucose Level 130H, Calcium Level 7.7L, Ionized Calcium (Measured) 1.14, Phosphorus Level 3.4, Magnesium Level 2.3 08/31/16 10:30: Arterial Blood pH [Pending], Arterial Blood Partial Pressure CO2 [Pending], Arterial Blood Partial Pressure O2 [Pending], Arterial Blood HCO3 [Pending], Arterial Blood Oxygen Saturation [Pending], Arterial Blood Base Excess [Pending] , Ed Test [Pending] 08/31/16 14:10: Arterial Blood pH 7.460H, Arterial Blood Partial Pressure CO2 39.0, Arterial Blood Partial Pressure O2 85.0, Arterial Blood HCO3 27.2H, Arterial Blood Oxygen Saturation 96.0, Arterial Blood Base Excess 3.3, Ed Test 08/31/16 18:00: White Blood Count 25.1#*H, Red Blood Count 2.94L, Hemoglobin 9.3L, Hematocrit 26.4L, Mean Corpuscular Volume 90, Mean Corpuscular Hemoglobin 31.6H, Mean Corpuscular Hemoglobin Concent 35.1, Red Cell Distribution Width 13.3, Platelet Count 202, Mean Platelet Volume 6.4L, Neutrophils (%) (Auto) , Lymphocytes (%) ( Auto) , Monocytes (%) (Auto) , Eosinophils (%) (Auto) , Basophils (%) (Auto) , Sodium Level 135, Potassium Level 4.3, Chloride Level 97L, Carbon Dioxide Level 26, Anion Gap 12, Blood Urea Nitrogen 12, Creatinine 0.4L, Estimat Glomerular Filtration Rate , Glucose Level 224H, Calcium Level 7.9L, Differential Total Cells Counted 100, Neutrophils % (Manual) 85H, Lymphocytes % (Manual) 6L, Monocytes % (Manual) 3, Eosinophils % (Manual) 1, Basophils % (Manual) 0, Band Neutrophils 5, Platelet Estimate Adequate, Platelet Morphology Normal, Hypochromasia 1+, Anisocytosis 1+, Total Bilirubin 0.3, Aspartate Amino Transf ( AST/SGOT) 21, Alanine Aminotransferase (ALT/SGPT) 34H, Alkaline Phosphatase 61, Total Protein 5.1L, Albumin 2.1L, Globulin 3.0, Albumin/Globulin Ratio 0.7L 09/01/16 04:46: White Blood Count 18.3H, Red Blood Count 2.89L, Hemoglobin 8.5L, Hematocrit 25.9L, Mean Corpuscular Volume 90, Mean Corpuscular Hemoglobin 29.4, Mean Corpuscular Hemoglobin Concent 32.8, Red Cell Distribution Width 13.5, Platelet Count 211, Mean Platelet Volume 7.0, Neutrophils (%) (Auto) , Lymphocytes (%) ( Auto) , Monocytes (%) (Auto) , Eosinophils (%) (Auto) , Basophils (%) (Auto) , Differential Total Cells Counted 100, Neutrophils % (Manual) 83H, Lymphocytes % (Manual) 12L, Monocytes % (Manual) 4, Eosinophils % (Manual) 1, Basophils % ( Manual) 0, Band Neutrophils 0, Platelet Estimate Adequate, Platelet Morphology Normal, Hypochromasia 1+, Sodium Level 133L, Potassium Level 5.8H, Chloride Level 100, Carbon Dioxide Level 26, Anion Gap 7, Blood Urea Nitrogen 11, Creatinine 0.4L, Estimat Glomerular Filtration Rate , Glucose Level 444#H, Calcium Level 7.5L, Ionized Calcium (Measured) 1.08L, Phosphorus Level 2.3L, Magnesium Level 1.8 09/01/16 08:10: Arterial Blood pH 7.495H, Arterial Blood Partial Pressure CO2 34.3L, Arterial Blood Partial Pressure O2 159.1H, Arterial Blood HCO3 25.8, Arterial Blood Oxygen Saturation 99.4H, Arterial Blood Base Excess 2.6, Ed Test Positive Height (Feet): 5 Height (Inches): 4.00 Weight (Pounds): 123 Objective General Appearance: WD/WN, alert, confused Neck: supple Cardiovascular: regular rhythm Respiratory/Chest: normal breath sounds Abdomen: normal bowel sounds, non tender, soft, no organomegaly Edema: no edema noted Arm (L), no edema noted Arm (R), no edema noted Leg (L), no edema noted Leg (R), no edema noted Pedal (L), no edema noted Pedal (R), no edema noted Generalized JUSTIN IRVIN September 01, 2016 08:55
[2016-09-01] MEDS ORDERED: D5NS 1,000 ML IV SCH (09:00)
--- NOTE | 2016-09-01 09:06 | 48 Hour Post Anesthesia Eval ---
Post Anesthesia Evaluation Procedure: VATS, Bronchoscopy Date of Evaluation: September 01, 2016 Time of Evaluation: 07:00 Blood Pressure Systolic: 117 0: 45 Pulse Rate: 103 Respiratory Rate: 31 O2 Sat by Pulse Oximetry: 100 Airway: other - intubated, on mechanical ventilator Nausea: No Vomiting: No Pain Intensity: 0 Hydration Status: adequate Cardiopulmonary Status: at baseline Mental Status/LOC: patient returned to baseline Post-Anesthesia Complications: 0 Follow-up care needed: N/A - critically ill patient, further care as per primary team BUSTER UGARTE M.D. September 01, 2016 09:06
[2016-09-01 10:02] LABS: ANION GAP 10 (5-15); CALCIUM 8.1 mg/dL (8.6-10.2); CARBON DIOXIDE 28 mEQ/L (20-30); CHLORIDE 100 mEQ/L (98-107); CREATININE 0.4 mg/dL (0.5-0.9); HEMOLYSIS 3; POTASSIUM 4.3 mEQ/L (3.4-4.9); SODIUM 138 mEQ/L (135-145)
[2016-09-01 10:25] LABS: IONIZED CALCIUM 1.07 mmol/L (1.10-1.35)
[2016-09-01 10:51] LABS: MEAN CORPUSCULAR HEMOGLOBIN 28.9 PG (27.0-31.0); MEAN CORPUSCULAR HGB CONC 32.7 G/DL (32.0-36.0); MEAN CORPUSCULAR VOLUME 88 FL (80-99); MEAN PLATELET VOLUME 6.6 FL (6.5-10.1); PLATELET COUNT 232 K/UL (150-450); RED BLOOD COUNT 2.86 M/UL (4.20-5.40); RED CELL DISTRIBUTION WIDTH 13.2 % (11.6-14.8); WHITE BLOOD COUNT 20.3 K/UL (4.8-10.8)
[2016-09-01 11:49] LABS: BAND NEUTROPHILS % (MANUAL) 0 % (0-8); BASOPHILS % (MANUAL) 0 % (0-2); EOSINOPHILS % (MANUAL) 0 % (0-3); LYMPHOCYTES % (MANUAL) 16 % (20-45); NEUTROPHILS % (MANUAL) 79 % (45-75); PLATELET ESTIMATE ADEQUATE; PLATELET MORPHOLOGY NORMAL; TOTAL CELLS COUNTED 100
[2016-09-01 11:50] LABS: HYPOCHROMASIA 1+
--- NOTE | 2016-09-01 12:08 | Infectious Diseases Prog Note ---
"Assessment/Plan Assessment/Plan antibiotics : ceftriaxone, ancef A 1. proteus sepsis secondary to UTI 2. proteus | providencia UTI 3. postobstructive klebsiella pneumonia 4. leucocytosis 5. respiratory failure resolved 6. lung mass s/p bronchoscopy | VATS | wedge resection with lung cancer P 1. continue ceftriaxone 2. will follow up cultures Subjective ROS Limited/Unobtainable: Yes Allergies: Coded Allergies: No Known Allergies (Unverified , 12/10/15) Objective Vital Signs Last 24 Hour Vital Signs Date Time Temp Pulse Resp B/P Pulse Ox O2 Delivery O2 Flow Rate FiO2 09/01/16 11:32 108 34 100 Mechanical Ventilator 09/01/16 11:28 107 36 30 09/01/16 11:24 106 36 100 Mechanical Ventilator 30 09/01/16 11:00 105 26 116/66 98 Mechanical Ventilator 30 09/01/16 10:00 108 28 113/65 98 Mechanical Ventilator 30 09/01/16 09:20 106 28 30 09/01/16 09:19 100 09/01/16 09:06 103 31 100 09/01/16 09:00 30 09/01/16 09:00 98.9 104 28 115/59 100 Mechanical Ventilator 30 09/01/16 08:00 108 09/01/16 08:00 50 09/01/16 08:00 99.0 108 28 118/54 100 Mechanical Ventilator 50 09/01/16 07:14 104 28 100 Mechanical Ventilator 09/01/16 07:11 103 34 50 09/01/16 07:00 103 31 117/45 100 Mechanical Ventilator 80 09/01/16 07:00 103 34 100 Mechanical Ventilator 50 09/01/16 06:00 106 31 138/81 100 Mechanical Ventilator 80 09/01/16 05:19 101 28 50 09/01/16 05:00 102 30 120/51 100 Mechanical Ventilator 80 09/01/16 04:00 104 09/01/16 04:00 60 09/01/16 04:00 98.7 103 29 111/48 100 Mechanical Ventilator 80 09/01/16 03:45 104 40 100 Mechanical Ventilator 09/01/16 03:30 102 41 50 09/01/16 03:30 102 41 100 Mechanical Ventilator 50 09/01/16 03:00 100 25 110/50 100 Mechanical Ventilator 80 09/01/16 02:00 101 28 117/53 100 Mechanical Ventilator 80 5/3/17 01:51 100 23 50 5/3/17 01:00 102 26 115/48 100 Mechanical Ventilator 80 5/3/17 00:00 60 5/3/17 00:00 103 5/3/17 00:00 99.0 103 26 114/43 100 Mechanical Ventilator 80 5/2/17 23:45 102 16 100 Mechanical Ventilator 5/2/17 23:30 100 15 100 Mechanical Ventilator 50 5/2/17 23:30 100 19 50 5/2/17 23:00 101 25 107/51 100 Mechanical Ventilator 80 5/2/17 22:00 102 27 100/48 99 Mechanical Ventilator 80 5/2/17 21:24 102 31 50 5/2/17 21:00 104 24 94/53 100 Mechanical Ventilator 80 5/2/17 20:00 99.3 105 25 119/44 100 Mechanical Ventilator 80 /2/17 20:00 105 /2/17 19:30 Mechanical Ventilator 2/17 19:30 Mechanical Ventilator 2/17 19:30 Mechanical Ventilator 2/17 19:30 Mechanical Ventilator 5/2/17 19:30 104 26 50 5/2/17 19:03 103 28 125/58 100 Mechanical Ventilator 60 5/2/17 18:16 60 5/2/17 18:00 106 28 97/58 100 Mechanical Ventilator 60 5/2/17 17:30 100 30 50 5/2/17 17:00 103 28 100/65 100 Mechanical Ventilator 60 5/2/17 17:00 60 5/2/17 16:00 80 5/2/17 16:00 98.2 105 24 97/69 100 Mechanical Ventilator 80 5/2/17 16:00 103 5/2/17 15:12 101 37 94 Mechanical Ventilator 100 5/2/17 15:03 98 34 96 Mechanical Ventilator 50 5/2/17 15:03 101 39 50 5/2/17 15:00 95 25 106/55 98 Mechanical Ventilator 100 5/2/17 15:00 100 5/2/17 14:00 94 18 100/89 97 Mechanical Ventilator 100 5/2/17 13:15 95 30 50 5/2/17 13:00 95 18 130/59 97 Mechanical Ventilator 50 5/2/17 13:00 50 Height (Feet): 5 Height (Inches): 4.00 Weight (Pounds): 123 HEENT: other - intubated Respiratory/Chest: lungs clear, other - right VATS Cardiovascular: normal rate, regular rhythm, no gallop/murmur Abdomen: soft, non tender Extremities: no edema, other - left arm PICC Laboratory Tests Test 08/31/16 14:10 08/31/16 18:00 09/01/16 04:46 09/01/16 08:10 Arterial Blood pH 7.460 (7.350-7.450) 7.495 (7.350-7.450) Arterial Blood Partial Pressure CO2 39.0 mmHg (35.0-45.0) 34.3 mmHg (35.0-45.0) L Arterial Blood Partial Pressure O2 85.0 mmHg (75.0-100.0) 159.1 mmHg (75.0-100.0) H Arterial Blood HCO3 27.2 mmol/L (22.0-26.0) H 25.8 mmol/L (22.0-26.0) Arterial Blood Oxygen Saturation 96.0 % (92.0-98.0) 99.4 % (92.0-98.0) H Arterial Blood Base Excess 3.3 2.6 Ed Test Positive White Blood Count 25.1 K/UL (4.8-10.8) #*H 18.3 K/UL (4.8-10.8) H Red Blood Count 2.94 M/UL (4.20-5.40) L 2.89 M/UL (4.20-5.40) L Hemoglobin 9.3 G/DL (12.0-16.0) L 8.5 G/DL (12.0-16.0) L Hematocrit 26.4 % (37.0-47.0) L 25.9 % (37.0-47.0) L Mean Corpuscular Volume 90 FL (80-99) 90 FL (80-99) Mean Corpuscular Hemoglobin 31.6 PG (27.0-31.0) H 29.4 PG (27.0-31.0) Mean Corpuscular Hemoglobin Concent 35.1 G/DL (32.0-36.0) 32.8 G/DL (32.0-36.0) Red Cell Distribution Width 13.3 % (11.6-14.8) 13.5 % (11.6-14.8) Platelet Count 202 K/UL (150-450) 211 K/UL (150-450) Mean Platelet Volume 6.4 FL (6.5-10.1) L 7.0 FL (6.5-10.1) Neutrophils (%) (Auto) % (45.0-75.0) % (45.0-75.0) Lymphocytes (%) (Auto) % (20.0-45.0) % (20.0-45.0) Monocytes (%) (Auto) % (1.0-10.0) % (1.0-10.0) Eosinophils (%) (Auto) % (0.0-3.0) % (0.0-3.0) Basophils (%) (Auto) % (0.0-2.0) % (0.0-2.0) Differential Total Cells Counted 100 100 Neutrophils % (Manual) 85 % (45-75) H 83 % (45-75) H Lymphocytes % (Manual) 6 % (20-45) L 12 % (20-45) L Monocytes % (Manual) 3 % (1-10) 4 % (1-10) Eosinophils % (Manual) 1 % (0-3) 1 % (0-3) Basophils % (Manual) 0 % (0-2) 0 % (0-2) Band Neutrophils 5 % (0-8) 0 % (0-8) Platelet Estimate Adequate Adequate Platelet Morphology Normal Normal Hypochromasia 1+ 1+ Anisocytosis 1+ Sodium Level 135 mEQ/L (135-145) 133 mEQ/L (135-145) L Potassium Level 4.3 mEQ/L (3.4-4.9) 5.8 mEQ/L (3.4-4.9) H Chloride Level 97 mEQ/L (98-107) L 100 mEQ/L (98-107) Carbon Dioxide Level 26 mEQ/L (20-30) 26 mEQ/L (20-30) Anion Gap 12 (5-15) 7 (5-15) Blood Urea Nitrogen 12 mg/dL (7-23) 11 mg/dL (7-23) Creatinine 0.4 mg/dL (0.5-0.9) L 0.4 mg/dL (0.5-0.9) L Estimat Glomerular Filtration Rate mL/min (>60) mL/min (>60) Glucose Level 224 mg/dL (74-106) H 444 mg/dL (74-106) #H Calcium Level 7.9 mg/dL (8.6-10.2) L 7.5 mg/dL (8.6-10.2) L Total Bilirubin 0.3 mg/dL (0.0-1.2) Aspartate Amino Transf (AST/SGOT) 21 U/L (5-40) Alanine Aminotransferase (ALT/SGPT) 34 U/L (3-33) H Alkaline Phosphatase 61 U/L (35-104) Total Protein 5.1 g/dL (6.6-8.7) L Albumin 2.1 g/dL (3.5-5.2) L Globulin 3.0 g/dL Albumin/Globulin Ratio 0.7 (1.0-2.7) L Ionized Calcium (Measured) 1.08 mmol/L (1.10-1.35) L Phosphorus Level 2.3 mg/dL (2.5-4.8) L Magnesium Level 1.8 mg/dL (1.7-2.5) Test 09/01/16 09:00 09/01/16 10:10 Sodium Level 138 mEQ/L (135-145) Potassium Level 4.3 mEQ/L (3.4-4.9) Chloride Level 100 mEQ/L (98-107) Carbon Dioxide Level 28 mEQ/L (20-30) Anion Gap 10 (5-15) Blood Urea Nitrogen 12 mg/dL (7-23) Creatinine 0.4 mg/dL (0.5-0.9) L Estimat Glomerular Filtration Rate mL/min (>60) Glucose Level 201 mg/dL (74-106) #H Calcium Level 8.1 mg/dL (8.6-10.2) L Ionized Calcium (Measured) 1.07 mmol/L (1.10-1.35) L White Blood Count 20.3 K/UL (4.8-10.8) H Red Blood Count 2.86 M/UL (4.20-5.40) L Hemoglobin 8.3 G/DL (12.0-16.0) L Hematocrit 25.2 % (37.0-47.0) L Mean Corpuscular Volume 88 FL (80-99) Mean Corpuscular Hemoglobin 28.9 PG (27.0-31.0) Mean Corpuscular Hemoglobin Concent 32.7 G/DL (32.0-36.0) Red Cell Distribution Width 13.2 % (11.6-14.8) Platelet Count 232 K/UL (150-450) Mean Platelet Volume 6.6 FL (6.5-10.1) Neutrophils (%) (Auto) % (45.0-75.0) Lymphocytes (%) (Auto) % (20.0-45.0) Monocytes (%) (Auto) % (1.0-10.0) Eosinophils (%) (Auto) % (0.0-3.0) Basophils (%) (Auto) % (0.0-2.0) Differential Total Cells Counted 100 Neutrophils % (Manual) 79 % (45-75) H Lymphocytes % (Manual) 16 % (20-45) L Monocytes % (Manual) 5 % (1-10) Eosinophils % (Manual) 0 % (0-3) Basophils % (Manual) 0 % (0-2) Band Neutrophils 0 % (0-8) Platelet Estimate Adequate Platelet Morphology Normal Hypochromasia 1+ SHANNON GO September 01, 2016 12:08"
[2016-09-01 12:51] LABS: INR 1.2 (0.9-1.1); PROTHROMBIN TIME 11.9 SEC (9.30-11.50)
[2016-09-01] MEDS ORDERED: Heparin 5000 units/ml inj IV ONE ×2 (13:00→21:20)
[2016-09-01] MEDS: Heparin 25,000u/D5W 500ml 500 ML IV SCH ×2 (13:08→21:33)
[2016-09-01] MEDS: cefTRIAXone 2 GM in D5W 110 ML IVPB SCH (13:40)
--- NOTE | 2016-09-01 23:09 | Progress Note ---
DATE: 08/31/2016 CARDIOLOGY PROGRESS NOTE SUBJECTIVE: The patient is status post lung biopsy, wedge resection, and VATS. OBJECTIVE: VITAL SIGNS: Blood pressure 123/60, pulse 89, respirations 16, and afebrile. HEENT: Orally intubated. LUNGS: Bilateral rhonchi. HEART: Regular rhythm and rate. Normal S1 and S2. ABDOMEN: Soft. G-tube intact. EXTREMITIES: Trace dependent edema. LABORATORY DATA: White count 25 and hemoglobin 9.3. Sodium 135, potassium 4.3, bicarbonate 26, BUN 12, and creatinine 0.4. Albumin 2.1. ABG, pH is 7.46, pCO2 39, and pO2 85. IMPRESSION: 1. Respiratory failure. 2. Probable lung cancer. 3. Status post video-assisted thoracoscopic surgery. 4. Severe protein-calorie malnutrition. 5. Bilateral lower extremity deep venous thrombosis. 6. Acute and chronic diastolic congestive heart failure. PLAN: 1. Weaning parameters. 2. Antibiotic therapy. 3. Await pathology. 4. Resume anticoagulation once cleared by due to surgery. 5. Monitor electrolytes and replace accordingly. 6. Monitor volume status and trend natriuretic peptide assay to help the diuresis as needed. Giuseppe Muir M.D. DR: KILO JOB#: [id number] CC:
[2016-09-02] VITALS (23 sets, daily range): BP systolic 93–150; BP diastolic 48–95
--- NOTE | 2016-09-02 00:18 | Progress Note ---
DATE: 09/01/2016 CARDIOLOGY PROGRESS NOTE SUBJECTIVE: The patient is status post VATS and wedge biopsy of lung, pathology is positive for non-small cell lung cancer. Monitored rhythm in sinus with occasional atrial ectopics. OBJECTIVE: VITAL SIGNS: Blood pressure 118/54, pulse 108, respirations 28, and temperature 99 degrees. LUNGS: With coarse breath sounds. CARDIAC: Regular rhythm. Rapid rate. Normal S1 and S2. ABDOMEN: Soft and nontender. EXTREMITIES: With trace edema. G-tube intact. LABORATORY DATA: ABG, pH 7.49, pCO2 34, and pO2 159. Sodium 138, potassium 4.3, bicarbonate 28, BUN 12, and creatinine 0.4. White count 20 and hemoglobin 8.3. IMPRESSION: 1. Non-small cell lung cancer, status was video-assisted thoracoscopic surgery. 2. Respiratory failure. 3. Anemia. 4. Leukocytosis. 5. Possible sepsis. 6. Severe protein-calorie malnutrition. 7. Secondary sinus tachycardia. 8. Bilateral lower extremity deep venous thrombosis. PLAN: 1. Antimicrobials ventilator support with weaning followup. 2. Await test clearance for full anticoagulation resumption. 3. Nutritional support by feeding tube. 4. Further recommendations to follow. 5. Remains critical with guarded prognosis. Giuseppe Muir M.D. DR: Kevin JOB#: [id number] CC:
[2016-09-02] MEDS: D5 1/2NS w/KCl 20mEq 1,000 ML IV SCH ×3 (01:30→19:26)
[2016-09-02] MEDS: Albuterol ud Inhalation HHN SCH ×6 (03:06→23:42)
[2016-09-02 03:48] LABS: MEAN CORPUSCULAR HEMOGLOBIN 29.5 PG (27.0-31.0); MEAN CORPUSCULAR VOLUME 89 FL (80-99); MEAN PLATELET VOLUME 6.4 FL (6.5-10.1); PLATELET COUNT 226 K/UL (150-450); RED BLOOD COUNT 2.45 M/UL (4.20-5.40); RED CELL DISTRIBUTION WIDTH 13.5 % (11.6-14.8)
[2016-09-02 04:18] LABS: ALANINE AMINOTRANSFERASE 36 U/L (3-33); ALBUMIN/GLOBULIN RATIO 0.6 (1.0-2.7); ANION GAP 11 (5-15); ASPARTATE AMINO TRANSFERASE 25 U/L (5-40); CALCIUM 7.9 mg/dL (8.6-10.2); CARBON DIOXIDE 26 mEQ/L (20-30); CHLORIDE 100 mEQ/L (98-107); CREATININE 0.3 mg/dL (0.5-0.9); HEMOLYSIS 1; POTASSIUM 4.1 mEQ/L (3.4-4.9); SODIUM 137 mEQ/L (135-145); TOTAL PROTEIN 4.8 g/dL (6.6-8.7)
[2016-09-02 05:27] LABS: MAGNESIUM 1.9 mg/dL (1.7-2.5)
[2016-09-02] MEDS: NovoLOG Insulin Flexpen SUBQ SCH ×4 (06:03→23:51)
--- NOTE | 2016-09-02 08:27 | Critical Care Progress Note ---
Assessment/Plan Assessment/Plan IMPRESSION: 1. Respiratory failure. 2. Metabolic acidosis. 3. s/p VATS biopsy with documented lung cancer 4. Right lung mass, 5. Left lower lobe atelectasis. 6. Severe protein-calorie malnutrition. 7. s/p sepsis and shock. 8. pneumonia. 9. Acute renal failure. 10. Possible urinary tract infection. 11. chest tube PLAN ICU care as is maintain on the ventilator taper oxygen as able antibiotics per ID and monitor supportive care monitor fluid status and avoid positive fluid balance nutrition maintain meds oncology follow up to discuss prognosis reviewed and discussed begin wean as able d/w Dr. Franco and thoracic surgery guarded; assess for wean in am medications/laboratory data/nursing notes/ICU care reviewed in detail note reviewed and edited care discussed with RN and RT ICU time spent 37 minutes Critical Care - Subjective Interval Events: care noted and reviewed on the ventilator remains ill ROS Limited/Unobtainable: Yes Condition: critical EKG Rhythm: Sinus Rhythm I&O: Intake and Output 09/01/16 09/02/16 19:00 07:00 Intake Total 1480.510 ml 1725.236 ml Output Total 595 ml 930 ml Balance 885.510 ml 795.236 ml Intake Free Water 30 ml IV Total 850.510 ml 1175.236 ml Tube Feeding 600 ml 550 ml Output Urine Total 570 ml 875 ml Chest Tube Drainage Total 25 ml 55 ml Critical Care - Objective CXR: reviewed CT in place ET-Tube: 8.0 ET Position: 22 Last 24 Hour Vital Signs Date Time Temp Pulse Resp B/P Pulse Ox O2 Delivery O2 Flow Rate FiO2 09/02/16 07:09 95 27 100 Mechanical Ventilator 30 09/02/16 07:00 100 27 113/64 100 Mechanical Ventilator 30 09/02/16 06:59 95 27 100 Mechanical Ventilator 30 09/02/16 06:59 95 27 30 09/02/16 06:00 97 28 113/64 100 Mechanical Ventilator 30 09/02/16 05:39 97 27 30 09/02/16 04:00 99.0 96 29 116/51 99 Mechanical Ventilator 30 09/02/16 04:00 96 09/02/16 04:00 30 09/02/16 03:16 95 22 100 Mechanical Ventilator 30 09/02/16 03:06 94 29 100 Mechanical Ventilator 30 09/02/16 03:05 99 29 30 09/02/16 03:00 95 28 129/54 99 Mechanical Ventilator 30 09/02/16 02:00 95 28 136/58 99 Mechanical Ventilator 30 09/02/16 01:16 96 27 30 09/02/16 01:00 98 32 118/50 99 Mechanical Ventilator 30 09/02/16 00:00 99.1 97 31 110/48 98 Mechanical Ventilator 30 09/02/16 00:00 30 09/02/16 00:00 96 09/01/16 23:24 96 26 100 Mechanical Ventilator 30 09/01/16 23:16 96 30 99 Mechanical Ventilator 30 09/01/16 23:15 96 30 30 09/01/16 23:00 96 29 134/60 99 Mechanical Ventilator 30 09/01/16 22:00 95 28 117/50 99 Mechanical Ventilator 30 09/01/16 21:03 97 24 30 09/01/16 21:00 97 28 122/53 100 Mechanical Ventilator 30 09/01/16 20:00 98.8 100 30 122/53 98 Mechanical Ventilator 30 09/01/16 20:00 100 09/01/16 19:41 94 20 100 Mechanical Ventilator 30 09/01/16 19:33 94 25 98 Mechanical Ventilator 30 09/01/16 19:30 94 25 30 09/01/16 19:00 98 29 108/64 100 Mechanical Ventilator 30 09/01/16 18:00 105 29 112/54 98 Mechanical Ventilator 30 09/01/16 17:15 30 09/01/16 17:00 108 34 124/62 97 Mechanical Ventilator 30 09/01/16 16:31 106 33 30 09/01/16 16:00 107 09/01/16 16:00 98.9 102 34 132/89 97 Mechanical Ventilator 30 09/01/16 15:45 30 09/01/ 15:17 109 42 30 09/01/17 15:10 109 45 100 Mechanical Ventilator 09/01/17 15:05 103 33 100 Mechanical Ventilator 30 09/01/ 15:00 103 34 126/62 97 Mechanical Ventilator 30 09/01/ 14:05 99.1 09/01/16 14:00 99.1 109 29 119/58 100 Mechanical Ventilator 30 3/17 13:22 111 43 30 09/01/17 13:00 99.8 111 29 113/58 98 Mechanical Ventilator 30 09/01/16 12:00 110 09/01/16 12:00 99.1 110 25 114/51 98 Mechanical Ventilator 30 09/01/16 11:32 108 34 100 Mechanical Ventilator 09/01/16 11:28 107 36 30 09/01/16 11:24 106 36 100 Mechanical Ventilator 30 09/01/16 11:00 105 26 116/66 98 Mechanical Ventilator 30 09/01/16 10:00 108 28 113/65 98 Mechanical Ventilator 30 09/01/16 09:20 106 28 30 09/01/16 09:19 100 09/01/16 09:06 103 31 100 09/01/16 09:00 30 09/01/16 09:00 98.9 104 28 115/59 100 Mechanical Ventilator 30 Labs: Laboratory Tests Test 09/01/16 09:00 09/01/16 10:10 09/01/16 12:00 09/01/16 20:08 Sodium Level 138 mEQ/L (135-145) Potassium Level 4.3 mEQ/L (3.4-4.9) Chloride Level 100 mEQ/L (98-107) Carbon Dioxide Level 28 mEQ/L (20-30) Anion Gap 10 (5-15) Blood Urea Nitrogen 12 mg/dL (7-23) Creatinine 0.4 mg/dL (0.5-0.9) L Estimat Glomerular Filtration Rate mL/min (>60) Glucose Level 201 mg/dL (74-106) #H Calcium Level 8.1 mg/dL (8.6-10.2) L Ionized Calcium (Measured) 1.07 mmol/L (1.10-1.35) L White Blood Count 20.3 K/UL (4.8-10.8) H Red Blood Count 2.86 M/UL (4.20-5.40) L Hemoglobin 8.3 G/DL (12.0-16.0) L Hematocrit 25.2 % (37.0-47.0) L Mean Corpuscular Volume 88 FL (80-99) Mean Corpuscular Hemoglobin 28.9 PG (27.0-31.0) Mean Corpuscular Hemoglobin Concent 32.7 G/DL (32.0-36.0) Red Cell Distribution Width 13.2 % (11.6-14.8) Platelet Count 232 K/UL (150-450) Mean Platelet Volume 6.6 FL (6.5-10.1) Neutrophils (%) (Auto) % (45.0-75.0) Lymphocytes (%) (Auto) % (20.0-45.0) Monocytes (%) (Auto) % (1.0-10.0) Eosinophils (%) (Auto) % (0.0-3.0) Basophils (%) (Auto) % (0.0-2.0) Differential Total Cells Counted 100 Neutrophils % (Manual) 79 % (45-75) H Lymphocytes % (Manual) 16 % (20-45) L Monocytes % (Manual) 5 % (1-10) Eosinophils % (Manual) 0 % (0-3) Basophils % (Manual) 0 % (0-2) Band Neutrophils 0 % (0-8) Platelet Estimate Adequate Platelet Morphology Normal Hypochromasia 1+ Prothrombin Time 11.9 SEC (9.30-11.50) H Prothromb Time International Ratio 1.2 (0.9-1.1) H Activated Partial Thromboplast Time 35 SEC (23-33) H 39 SEC (23-33) H Test 09/02/16 03:00 White Blood Count 19.0 K/UL (4.8-10.8) H Red Blood Count 2.45 M/UL (4.20-5.40) L Hemoglobin 7.2 G/DL (12.0-16.0) L Hematocrit 21.9 % (37.0-47.0) L Mean Corpuscular Volume 89 FL (80-99) Mean Corpuscular Hemoglobin 29.5 PG (27.0-31.0) Mean Corpuscular Hemoglobin Concent 33.0 G/DL (32.0-36.0) Red Cell Distribution Width 13.5 % (11.6-14.8) Platelet Count 226 K/UL (150-450) Mean Platelet Volume 6.4 FL (6.5-10.1) L Neutrophils (%) (Auto) % (45.0-75.0) Lymphocytes (%) (Auto) % (20.0-45.0) Monocytes (%) (Auto) % (1.0-10.0) Eosinophils (%) (Auto) % (0.0-3.0) Basophils (%) (Auto) % (0.0-2.0) Neutrophils % (Manual) Pending Lymphocytes % (Manual) Pending Platelet Estimate Pending Platelet Morphology Pending Activated Partial Thromboplast Time 90 SEC (23-33) H Sodium Level 137 mEQ/L (135-145) Potassium Level 4.1 mEQ/L (3.4-4.9) Chloride Level 100 mEQ/L (98-107) Carbon Dioxide Level 26 mEQ/L (20-30) Anion Gap 11 (5-15) Blood Urea Nitrogen 10 mg/dL (7-23) Creatinine 0.3 mg/dL (0.5-0.9) L Estimat Glomerular Filtration Rate mL/min (>60) Glucose Level 193 mg/dL (74-106) H Calcium Level 7.9 mg/dL (8.6-10.2) L Magnesium Level 1.9 mg/dL (1.7-2.5) Total Bilirubin < 0.2 mg/dL (0.0-1.2) Aspartate Amino Transf (AST/SGOT) 25 U/L (5-40) Alanine Aminotransferase (ALT/SGPT) 36 U/L (3-33) H Alkaline Phosphatase 108 U/L (35-104) H Pro-B-Type Natriuretic Peptide 614 pg/mL (0-450) H Total Protein 4.8 g/dL (6.6-8.7) L Albumin 1.8 g/dL (3.5-5.2) L Globulin 3.0 g/dL Albumin/Globulin Ratio 0.6 (1.0-2.7) L Objective: GENERAL: The patient is well appearing female. The patient is altered; intubated HEENT: Negative. NECK: Supple. The patient is without meningismus LUNGS: symmetric breath sounds. no wheeze with some scattered rhonchi; CT in place CARDIAC: S1, S1 irregular without murmurs, rubs, or gallops. ABDOMEN: Soft. Feeding tube in place. No hepatosplenomegaly. no distrention EXTREMITIES: No cyanosis or clubbing. There is trace edema. NEUROLOGIC: The patient is sedated, nonfocal reviewed and edited Accucheck: 202 MARI JUAN September 02, 2016 08:27
[2016-09-02 08:39] LABS: ANISOCYTOSIS 1+; BAND NEUTROPHILS % (MANUAL) 0 % (0-8); BASOPHILS % (MANUAL) 0 % (0-2); EOSINOPHILS % (MANUAL) 3 % (0-3); HYPOCHROMASIA 3+; LYMPHOCYTES % (MANUAL) 13 % (20-45); NEUTROPHILS % (MANUAL) 80 % (45-75); PLATELET ESTIMATE ADEQUATE; PLATELET MORPHOLOGY NORMAL; SPHEROCYTES 2+; TOTAL CELLS COUNTED 100
--- NOTE | 2016-09-02 08:39 | Diagnostic Imaging Report ---
Indication: Shortness of breath Technique: One view of the chest Comparison: 08/31/2016 Findings: Stable satisfactory positions of endotracheal tube, nasogastric tube, left arm PICC, right chest tube. Previously demonstrated right basilar pneumothorax is not evident currently. No definite pneumothorax visible currently. There is, however, interim development of considerable right chest wall and supraclavicular subcutaneous emphysema. Right lung mass, right basilar atelectasis and consolidation, retrocardiac consolidation, small left pleural effusion all persists and all are unchanged. Impression: New finding of fairly extensive right chest wall and supraclavicular subcutaneous emphysema Previously described small right pneumothorax has resolved. No pneumothorax currently Stable tube and line positions as described Stable bilateral parenchymal disease and right lung mass as described
--- NOTE | 2016-09-02 12:38 | Diagnostic Imaging Report ---
Indications: Cough Technique: Portable AP chest Findings: Comparison: 09/01/2016 Right chest tube remains in place. No pneumothorax identified. Right chest wall subcutaneous emphysema, right midlung mass, right lung base linear opacities, left lung base hazy opacity, bilateral costophrenic angle blunting suggesting small pleural effusions all persist, unchanged. Remaining lines and tubes remain in place. No new abnormality identified. IMPRESSION: No change from one day prior
--- NOTE | 2016-09-02 13:16 | General Progress Note ---
Assessment/Plan Problem List: (1) Pneumonia ICD Codes: J18.9 - Pneumonia, unspecified organism SNOMED: 155248975 (2) DVT (deep vein thrombosis) in ICD Codes: O22.30 - Deep phlebothrombosis in , unspecified trimester; I82.409 - Acute embolism and thrombosis of unspecified deep veins of unspecified lower extremity SNOMED: 32711246, 479496328, 723090313 (3) Hyperkalemia ICD Codes: E87.5 - Hyperkalemia SNOMED: 25357570 (4) Renal failure ICD Codes: N19 - Unspecified kidney failure SNOMED: 89689729 (5) Respiratory failure ICD Codes: J96.90 - Respiratory failure, unspecified, unspecified whether with hypoxia or hypercapnia SNOMED: 402931169 (6) Lung mass ICD Codes: R91.8 - Other nonspecific abnormal finding of lung field SNOMED: 511549494 Status: stable Assessment/Plan o2 resp rx abx transfuse hold heparin drip for now CT management for CTS follow up cultures ngt feeds onc eval called guarded Subjective ROS Limited/Unobtainable: No Constitutional: Reports: malaise, weakness HEENT: Reports: no symptoms Cardiovascular: Reports: no symptoms Respiratory: Reports: shortness of breath Gastrointestinal/Abdominal: Reports: no symptoms Genitourinary: Reports: no symptoms Neurologic/Psychiatric: Reports: no symptoms Endocrine: Reports: no symptoms Hematologic/Lymphatic: Reports: anemia Allergies: Coded Allergies: No Known Allergies (Unverified , 12/10/15) All Systems: reviewed and negative except above Subjective s/p vats, lung biopsy, wedge resention. path positive for nonsmall cell lung ca low h/h. minimal bleeding from ct. not able to wean yet Objective Last 24 Hour Vital Signs Date Time Temp Pulse Resp B/P Pulse Ox O2 Delivery O2 Flow Rate FiO2 09/02/16 12:00 30 09/02/16 12:00 94 26 139/62 100 Mechanical Ventilator 30 09/02/16 12:00 95 09/02/16 11:07 94 22 100 Mechanical Ventilator 30 09/02/16 11:00 92 24 113/50 100 Mechanical Ventilator 30 09/02/16 10:57 94 22 30 09/02/16 10:57 94 22 100 Mechanical Ventilator 30 09/02/16 10:00 93 25 124/51 100 Mechanical Ventilator 30 09/02/16 09:00 96 24 93/70 100 Mechanical Ventilator 30 09/02/16 08:58 92 18 30 09/02/16 08:57 100 09/02/16 08:00 30 09/02/16 08:00 100 09/02/16 08:00 98.0 93 28 122/63 99 Mechanical Ventilator 30 09/02/16 07:09 95 27 100 Mechanical Ventilator 30 09/02/16 07:00 100 27 113/64 100 Mechanical Ventilator 30 09/02/16 06:59 95 27 100 Mechanical Ventilator 30 09/02/16 06:59 95 27 30 09/02/16 06:00 97 28 113/64 100 Mechanical Ventilator 30 09/02/16 05:39 97 27 30 09/02/16 04:00 99.0 96 29 116/51 99 Mechanical Ventilator 30 09/02/16 04:00 96 09/02/16 04:00 30 09/02/16 03:16 95 22 100 Mechanical Ventilator 30 09/02/16 03:06 94 29 100 Mechanical Ventilator 30 09/02/16 03:05 99 29 30 09/02/16 03:00 95 28 129/54 99 Mechanical Ventilator 30 09/02/16 02:00 95 28 136/58 99 Mechanical Ventilator 30 09/02/16 01:16 96 27 30 09/02/16 01:00 98 32 118/50 99 Mechanical Ventilator 30 09/02/16 00:00 99.1 97 31 110/48 98 Mechanical Ventilator 30 09/02/16 00:00 30 09/02/16 00:00 96 09/01/16 23:24 96 26 100 Mechanical Ventilator 30 09/01/16 23:16 96 30 99 Mechanical Ventilator 30 09/01/16 23:15 96 30 30 09/01/16 23:00 96 29 134/60 99 Mechanical Ventilator 30 09/01/16 22:00 95 28 117/50 99 Mechanical Ventilator 30 09/01/16 21:03 97 24 30 09/01/16 21:00 97 28 122/53 100 Mechanical Ventilator 30 09/01/16 20:00 98.8 100 30 122/53 98 Mechanical Ventilator 30 09/01/16 20:00 100 09/01/16 19:41 94 20 100 Mechanical Ventilator 30 09/01/16 19:33 94 25 98 Mechanical Ventilator 30 09/01/16 19:30 94 25 30 09/01/16 19:00 98 29 108/64 100 Mechanical Ventilator 30 09/01/16 18:00 105 29 112/54 98 Mechanical Ventilator 30 09/01/16 17:15 30 09/01/16 17:00 108 34 124/62 97 Mechanical Ventilator 30 09/01/16 16:31 106 33 30 09/01/16 16:00 107 09/01/16 16:00 98.9 102 34 132/89 97 Mechanical Ventilator 30 09/01/16 15:45 30 09/01/16 15:17 109 42 30 09/01/16 15:10 109 45 100 Mechanical Ventilator 09/01/16 15:05 103 33 100 Mechanical Ventilator 30 09/01/16 15:00 103 34 126/62 97 Mechanical Ventilator 30 09/01/16 14:05 99.1 09/01/16 14:00 99.1 109 29 119/58 100 Mechanical Ventilator 30 09/01/16 13:22 111 43 30 Intake and Output 09/01/16 09/02/16 19:00 07:00 Intake Total 1480.510 ml 1725.236 ml Output Total 595 ml 930 ml Balance 885.510 ml 795.236 ml Intake Free Water 30 ml IV Total 850.510 ml 1175.236 ml Tube Feeding 600 ml 550 ml Output Urine Total 570 ml 875 ml Chest Tube Drainage Total 25 ml 55 ml Laboratory Tests 09/01/16 20:08: Activated Partial Thromboplast Time 39H 09/02/16 03:00: Activated Partial Thromboplast Time 90H, White Blood Count 19.0H, Red Blood Count 2.45L, Hemoglobin 7.2L, Hematocrit 21.9L, Mean Corpuscular Volume 89, Mean Corpuscular Hemoglobin 29.5, Mean Corpuscular Hemoglobin Concent 33.0, Red Cell Distribution Width 13.5, Platelet Count 226, Mean Platelet Volume 6.4L, Neutrophils (%) (Auto) , Lymphocytes (%) (Auto) , Monocytes (%) (Auto) , Eosinophils (%) (Auto) , Basophils (%) (Auto) , Differential Total Cells Counted 100, Neutrophils % (Manual) 80H, Lymphocytes % (Manual) 13L, Monocytes % (Manual) 4, Eosinophils % (Manual) 3, Basophils % (Manual) 0, Band Neutrophils 0, Platelet Estimate Adequate, Platelet Morphology Normal, Hypochromasia 3+, Anisocytosis 1+, Spherocytes 2+, Sodium Level 137, Potassium Level 4.1, Chloride Level 100, Carbon Dioxide Level 26, Anion Gap 11, Blood Urea Nitrogen 10, Creatinine 0.3L, Estimat Glomerular Filtration Rate , Glucose Level 193H, Calcium Level 7.9L, Magnesium Level 1.9, Total Bilirubin < 0.2, Aspartate Amino Transf (AST/SGOT) 25, Alanine Aminotransferase (ALT/SGPT) 36H, Alkaline Phosphatase 108H, Pro-B-Type Natriuretic Peptide 614H, Total Protein 4.8L, Albumin 1.8L, Globulin 3.0, Albumin/Globulin Ratio 0.6L Height (Feet): 5 Height (Inches): 4.00 Weight (Pounds): 123 Objective General Appearance: WD/WN, alert, confused Neck: supple Cardiovascular: regular rhythm Respiratory/Chest: normal breath sounds Abdomen: normal bowel sounds, non tender, soft, no organomegaly Edema: no edema noted Arm (L), no edema noted Arm (R), no edema noted Leg (L), no edema noted Leg (R), no edema noted Pedal (L), no edema noted Pedal (R), no edema noted Generalized JUSTIN IRVIN September 02, 2016 13:16
[2016-09-02] MEDS: cefTRIAXone 2 GM in D5W 110 ML IVPB SCH (13:57)
--- NOTE | 2016-09-02 14:07 | Infectious Diseases Prog Note ---
Assessment/Plan Assessment/Plan A: 1. Proteus sepsis secondary to UTI 2. Proteus , Providencia UTI 3. postobstructive pneumonia with Klebsiella 4. leucocytosis improving 5. respiratory failure resolved 6. lung mass s/p VATS, chest tube, resection P 1. continue Rocephin Subjective ROS Limited/Unobtainable: Yes Allergies: Coded Allergies: No Known Allergies (Unverified , 12/10/15) Objective Vital Signs Last 24 Hour Vital Signs Date Time Temp Pulse Resp B/P Pulse Ox O2 Delivery O2 Flow Rate FiO2 09/02/16 13:00 94 26 100/67 100 Mechanical Ventilator 30 09/02/16 12:45 95 23 30 09/02/16 12:00 30 09/02/16 12:00 94 26 139/62 100 Mechanical Ventilator 30 09/02/16 12:00 95 09/02/16 11:07 94 22 100 Mechanical Ventilator 30 09/02/16 11:00 92 24 113/50 100 Mechanical Ventilator 30 09/02/16 10:57 94 22 30 09/02/16 10:57 94 22 100 Mechanical Ventilator 30 09/02/16 10:00 93 25 124/51 100 Mechanical Ventilator 30 09/02/16 09:00 96 24 93/70 100 Mechanical Ventilator 30 09/02/16 08:58 92 18 30 09/02/16 08:57 100 09/02/16 08:00 30 09/02/16 08:00 100 09/02/16 08:00 98.0 93 28 122/63 99 Mechanical Ventilator 30 09/02/16 07:09 95 27 100 Mechanical Ventilator 30 09/02/16 07:00 100 27 113/64 100 Mechanical Ventilator 30 09/02/16 06:59 95 27 100 Mechanical Ventilator 30 09/02/16 06:59 95 27 30 09/02/16 06:00 97 28 113/64 100 Mechanical Ventilator 30 09/02/16 05:39 97 27 30 09/02/16 04:00 99.0 96 29 116/51 99 Mechanical Ventilator 30 09/02/16 04:00 96 09/02/16 04:00 30 09/02/16 03:16 95 22 100 Mechanical Ventilator 30 09/02/16 03:06 94 29 100 Mechanical Ventilator 30 09/02/16 03:05 99 29 30 09/02/16 03:00 95 28 129/54 99 Mechanical Ventilator 30 09/02/16 02:00 95 28 136/58 99 Mechanical Ventilator 30 09/02/16 01:16 96 27 30 09/02/16 01:00 98 32 118/50 99 Mechanical Ventilator 30 09/02/16 00:00 99.1 97 31 110/48 98 Mechanical Ventilator 30 09/02/16 00:00 30 09/02/16 00:00 96 09/01/16 23:24 96 26 100 Mechanical Ventilator 30 09/01/16 23:16 96 30 99 Mechanical Ventilator 30 09/01/16 23:15 96 30 30 09/01/16 23:00 96 29 134/60 99 Mechanical Ventilator 30 09/01/16 22:00 95 28 117/50 99 Mechanical Ventilator 30 09/01/16 21:03 97 24 30 09/01/16 21:00 97 28 122/53 100 Mechanical Ventilator 30 09/01/16 20:00 98.8 100 30 122/53 98 Mechanical Ventilator 30 09/01/16 20:00 100 09/01/16 19:41 94 20 100 Mechanical Ventilator 30 09/01/16 19:33 94 25 98 Mechanical Ventilator 30 09/01/16 19:30 94 25 30 09/01/16 19:00 98 29 108/64 100 Mechanical Ventilator 30 09/01/16 18:00 105 29 112/54 98 Mechanical Ventilator 30 09/01/16 17:15 30 09/01/16 17:00 108 34 124/62 97 Mechanical Ventilator 30 09/01/16 16:31 106 33 30 09/01/16 16:00 107 09/01/16 16:00 98.9 102 34 132/89 97 Mechanical Ventilator 30 09/01/16 15:45 30 09/01/16 15:17 109 42 30 09/01/16 15:10 109 45 100 Mechanical Ventilator 09/01/16 15:05 103 33 100 Mechanical Ventilator 30 09/01/16 15:00 103 34 126/62 97 Mechanical Ventilator 30 09/01/16 14:05 99.1 Height (Feet): 5 Height (Inches): 4.00 Weight (Pounds): 123 HEENT: other - orally intubated Respiratory/Chest: other - R side chest tube, on ventilator, decreased sounds on R side Cardiovascular: normal rate Abdomen: soft, non tender - NG tube Extremities: other - generalized edema, left arm PICC line Neurologic/Psychiatric: other - opens eyes Laboratory Tests Test 09/01/16 20:08 09/02/16 03:00 Activated Partial Thromboplast Time 39 SEC (23-33) H 90 SEC (23-33) H White Blood Count 19.0 K/UL (4.8-10.8) H Red Blood Count 2.45 M/UL (4.20-5.40) L Hemoglobin 7.2 G/DL (12.0-16.0) L Hematocrit 21.9 % (37.0-47.0) L Mean Corpuscular Volume 89 FL (80-99) Mean Corpuscular Hemoglobin 29.5 PG (27.0-31.0) Mean Corpuscular Hemoglobin Concent 33.0 G/DL (32.0-36.0) Red Cell Distribution Width 13.5 % (11.6-14.8) Platelet Count 226 K/UL (150-450) Mean Platelet Volume 6.4 FL (6.5-10.1) L Neutrophils (%) (Auto) % (45.0-75.0) Lymphocytes (%) (Auto) % (20.0-45.0) Monocytes (%) (Auto) % (1.0-10.0) Eosinophils (%) (Auto) % (0.0-3.0) Basophils (%) (Auto) % (0.0-2.0) Differential Total Cells Counted 100 Neutrophils % (Manual) 80 % (45-75) H Lymphocytes % (Manual) 13 % (20-45) L Monocytes % (Manual) 4 % (1-10) Eosinophils % (Manual) 3 % (0-3) Basophils % (Manual) 0 % (0-2) Band Neutrophils 0 % (0-8) Platelet Estimate Adequate Platelet Morphology Normal Hypochromasia 3+ Anisocytosis 1+ Spherocytes 2+ Sodium Level 137 mEQ/L (135-145) Potassium Level 4.1 mEQ/L (3.4-4.9) Chloride Level 100 mEQ/L (98-107) Carbon Dioxide Level 26 mEQ/L (20-30) Anion Gap 11 (5-15) Blood Urea Nitrogen 10 mg/dL (7-23) Creatinine 0.3 mg/dL (0.5-0.9) L Estimat Glomerular Filtration Rate mL/min (>60) Glucose Level 193 mg/dL (74-106) H Calcium Level 7.9 mg/dL (8.6-10.2) L Magnesium Level 1.9 mg/dL (1.7-2.5) Total Bilirubin < 0.2 mg/dL (0.0-1.2) Aspartate Amino Transf (AST/SGOT) 25 U/L (5-40) Alanine Aminotransferase (ALT/SGPT) 36 U/L (3-33) H Alkaline Phosphatase 108 U/L (35-104) H Pro-B-Type Natriuretic Peptide 614 pg/mL (0-450) H Total Protein 4.8 g/dL (6.6-8.7) L Albumin 1.8 g/dL (3.5-5.2) L Globulin 3.0 g/dL Albumin/Globulin Ratio 0.6 (1.0-2.7) L Current Medications Medications (Trade) Dose Ordered Sig/Aaron Route PRN Reason Start Time Stop Time Status Last Admin Dose Admin Acetaminophen (Tylenol) 650 mg Q4H PRN ORAL TEMP>100.5/HEADACHE 08/31/16 15:30 09/30/16 15:29 09/01/16 13:10 Albuterol Sulfate (Proventil) 2.5 mg Q4HRT HHN 08/31/16 19:00 09/05/16 18:59 09/02/16 10:57 Ceftriaxone Sodium/Dextrose (Rocephin/D5W) 110 ml @ 220 mls/hr Q24H IVPB 09/01/16 14:00 09/04/16 13:59 09/02/16 13:57 Dextrose (Dextrose 50%) STAT PRN IV Hypoglycemia 08/31/16 15:30 09/30/16 15:29 Dextrose/ Electrolytes 1,000 ml @ 75 mls/hr [id number] IV 09/01/16 12:00 10/01/16 11:59 09/02/16 01:30 Heparin Sodium/ Dextrose (Heparin) 500 ml @ 24.548 mls/ hr adjust per protocol IV 09/01/16 13:00 10/01/16 12:59 09/01/16 21:33 Insulin Aspart (NovoLOG) EVERY 6 HOURS SUBQ 08/31/16 18:00 09/30/16 17:59 09/02/16 11:51 Ketorolac Tromethamine (Toradol 30mg) 30 mg Q6H PRN IM Moderate Pain (Pain Scale 4-6) 08/31/16 15:45 09/05/16 15:44 Morphine Sulfate 2 mg 2 mg Q4H PRN IVP Severe Pain (Pain Scale 7-10) 08/31/16 15:30 09/07/16 15:29 LARISSA OATES September 02, 2016 14:07
[2016-09-02] MEDS ORDERED: Sterile Water Irrig 1000ml IRRIG ONE (16:32)
--- NOTE | 2016-09-02 16:49 | Progress Note ---
DATE: 09/02/2016 SUBJECTIVE: The patient is on ventilator support. Monitored rhythm, sinus tachycardia. She is status post VATS. OBJECTIVE: VITAL SIGNS: Blood pressure 124/51, earlier 93/70, heart rate 96, and respiratory rate 24. LUNGS: Bilateral breath sounds with rhonchi. HEART: Regular rhythm. Rapid rate. Normal S1, S2. ABDOMEN: Soft. EXTREMITIES: Trace edema. LABORATORY AND DIAGNOSTIC DATA: White count 19 and hemoglobin 7.2. BUN 10 and creatinine 0.3. Pro-natriuretic peptide 614. Albumin 1.8. Chest x-ray yesterday revealed subcutaneous emphysema on the right with resolving pneumothorax. IMPRESSION: 1. Lung cancer, non-small cell, status post VATS. 2. Respiratory failure. 3. Severe protein-calorie malnutrition. 4. Anemia. 5. Acute on chronic diastolic congestive heart failure. 6. Secondary sinus tachycardia. 7. Remains critical and guarded. 8. Bilateral deep venous thromboses. PLAN: 1. Packed red blood cell transfusion. 2. Weaning to be initiated subsequently. 3. Monitor cardiorenal parameters and volume status. 4. Reassess for diuresis. 5. Full anticoagulation once cleared by Surgery. 6. Empiric antibiotics. 7. Respiratory hygiene. Giuseppe Muir M.D. DR: SANDRO JOB#: [id number] CC:
[2016-09-02 20:09] LABS: MEAN CORPUSCULAR HEMOGLOBIN 31.1 PG (27.0-31.0); MEAN CORPUSCULAR HGB CONC 35.1 G/DL (32.0-36.0); MEAN CORPUSCULAR VOLUME 89 FL (80-99); PLATELET COUNT 199 K/UL (150-450); RED BLOOD COUNT 3.39 M/UL (4.20-5.40); RED CELL DISTRIBUTION WIDTH 13.3 % (11.6-14.8)
[2016-09-02 20:58] LABS: ANISOCYTOSIS 1+; BAND NEUTROPHILS % (MANUAL) 2 % (0-8); BASOPHILS % (MANUAL) 0 % (0-2); EOSINOPHILS % (MANUAL) 1 % (0-3); HYPOCHROMASIA 2+; LYMPHOCYTES % (MANUAL) 15 % (20-45); NEUTROPHILS % (MANUAL) 79 % (45-75); PLATELET ESTIMATE ADEQUATE; PLATELET MORPHOLOGY NORMAL; TOTAL CELLS COUNTED 100
[2016-09-03] VITALS (24 sets, daily range): BP systolic 101–152; BP diastolic 47–107
[2016-09-03] MEDS: Albuterol ud Inhalation HHN SCH ×6 (03:11→23:19)
[2016-09-03 05:29] LABS: BASOPHILS % (AUTO) 0.3 % (0.0-2.0); EOSINOPHILS % (AUTO) 0.9 % (0.0-3.0); LYMPHOCYTES % (AUTO) 14.1 % (20.0-45.0); MEAN CORPUSCULAR HGB CONC 33.3 G/DL (32.0-36.0); MEAN CORPUSCULAR VOLUME 87 FL (80-99); MEAN PLATELET VOLUME 6.3 FL (6.5-10.1); MONOCYTES % (AUTO) 4.3 % (1.0-10.0); NEUTROPHILS % (AUTO) 80.4 % (45.0-75.0); PLATELET COUNT 237 K/UL (150-450); RED BLOOD COUNT 3.57 M/UL (4.20-5.40); RED CELL DISTRIBUTION WIDTH 13.6 % (11.6-14.8); WHITE BLOOD COUNT 16.8 K/UL (4.8-10.8)
[2016-09-03] MEDS: NovoLOG Insulin Flexpen SUBQ SCH ×4 (05:57→23:54)
[2016-09-03] MEDS ORDERED: Heparin 5000 units/ml inj IV ONE ×3 (07:00→19:00)
--- NOTE | 2016-09-03 08:20 | Critical Care Progress Note ---
Assessment/Plan Assessment/Plan IMPRESSION: 1. Respiratory failure. 2. Metabolic acidosis. 3. s/p VATS biopsy with documented lung cancer 4. Right lung mass, 5. Left lower lobe atelectasis. 6. Severe protein-calorie malnutrition. 7. s/p sepsis and shock. 8. pneumonia. 9. Acute renal failure. 10. Possible urinary tract infection. 11. chest tube PLAN ICU care as is maintain on the ventilator and wean taper oxygen as able antibiotics per ID and monitor supportive care monitor fluid status and avoid positive fluid balance nutrition maintain meds oncology to reviewe reviewed and discussed wean as able d/w Dr. Franco and thoracic surgery guarded; follow up for extubation medications/laboratory data/nursing notes/ICU care reviewed in detail note reviewed and edited care discussed with RN and RT ICU time spent 36 minutes Critical Care - Subjective Interval Events: on simv care reviewed and discussed ventilator management noted ROS Limited/Unobtainable: Yes Condition: critical EKG Rhythm: Sinus Rhythm Residuals: minimal Tube Feeding Tolerated: yes I&O: Intake and Output 09/02/16 09/03/16 19:00 07:00 Intake Total 1310 ml 1463 ml Output Total 775 ml 1855 ml Balance 535 ml -392 ml IV Total 710 ml 863 ml Tube Feeding 600 ml 600 ml Output Urine Total 775 ml 1805 ml Chest Tube Drainage Total 50 ml Critical Care - Objective CXR: no real change reviewed ET-Tube: 8.0 ET Position: 22 Last 24 Hour Vital Signs Date Time Temp Pulse Resp B/P Pulse Ox O2 Delivery O2 Flow Rate FiO2 09/03/16 08:00 98.1 84 24 107/96 100 Mechanical Ventilator 30 09/03/16 08:00 30 09/03/16 08:00 87 09/03/16 07:20 83 17 100 Mechanical Ventilator 30 09/03/16 07:09 85 24 99 Mechanical Ventilator 30 09/03/16 07:08 85 24 30 09/03/16 07:00 85 23 127/106 99 Mechanical Ventilator 30 09/03/16 06:00 89 21 148/72 100 Mechanical Ventilator 30 09/03/16 05:25 88 24 30 09/03/16 05:00 89 23 101/89 100 Mechanical Ventilator 30 09/03/16 04:00 95 09/03/16 04:00 97.8 97 26 105/94 99 Mechanical Ventilator 30 09/03/16 04:00 30 09/03/16 03:20 89 20 100 Mechanical Ventilator 30 09/03/16 03:11 88 24 100 Mechanical Ventilator 30 09/03/16 03:09 89 24 30 09/03/16 03:00 86 23 106/98 100 Mechanical Ventilator 30 09/03/16 02:00 90 23 113/53 99 Mechanical Ventilator 30 09/03/16 01:01 91 25 30 09/03/16 01:00 95 25 129/64 98 Mechanical Ventilator 30 09/03/16 00:00 93 09/03/16 00:00 30 09/03/16 00:00 98.7 92 24 149/67 100 Mechanical Ventilator 30 09/02/16 23:51 90 20 100 Mechanical Ventilator 30 09/02/16 23:41 86 23 99 Mechanical Ventilator 30 09/02/16 23:25 86 20 30 09/02/16 23:00 91 25 148/69 100 Mechanical Ventilator 30 09/02/16 22:00 85 25 138/63 99 Mechanical Ventilator 30 09/02/16 21:04 90 22 30 09/02/16 21:00 88 24 150/70 100 Mechanical Ventilator 30 09/02/16 20:00 98.4 92 24 136/62 98 Mechanical Ventilator 30 09/02/16 20:00 99 09/02/16 20:00 30 09/02/16 19:10 90 24 100 Mechanical Ventilator 30 09/02/16 19:00 94 24 141/64 99 Mechanical Ventilator 30 09/02/16 18:59 91 24 100 Mechanical Ventilator 30 09/02/16 18:55 91 24 30 09/02/16 18:00 93 24 147/69 100 Mechanical Ventilator 30 09/02/16 17:12 94 27 30 09/02/ 17:00 94 25 131/66 100 Mechanical Ventilator 30 17 16:00 30 17 16:00 97 09/02/16 16:00 96 25 105/95 100 Mechanical Ventilator 30 09/02/16 15:00 97 24 102/90 100 Mechanical Ventilator 30 09/02/17 14:47 91 23 100 Mechanical Ventilator 30 09/02/16 14:37 91 23 100 Mechanical Ventilator 30 09/02/ 14:37 91 23 30 17 14:00 92 25 116/49 100 Mechanical Ventilator 30 09/02/16 13:00 94 26 100/67 100 Mechanical Ventilator 30 09/02/16 12:45 95 23 30 09/02/16 12:00 30 09/02/16 12:00 94 26 139/62 100 Mechanical Ventilator 30 09/02/16 12:00 95 09/02/16 11:07 94 22 100 Mechanical Ventilator 30 09/02/16 11:00 92 24 113/50 100 Mechanical Ventilator 30 09/02/16 10:57 94 22 30 09/02/16 10:57 94 22 100 Mechanical Ventilator 30 09/02/16 10:00 93 25 124/51 100 Mechanical Ventilator 30 09/02/16 09:00 96 24 93/70 100 Mechanical Ventilator 30 09/02/16 08:58 92 18 30 09/02/16 08:57 100 Labs: Laboratory Tests Test 09/02/16 19:50 09/03/16 03:50 White Blood Count 18.0 K/UL (4.8-10.8) H 16.8 K/UL (4.8-10.8) H Red Blood Count 3.39 M/UL (4.20-5.40) L 3.57 M/UL (4.20-5.40) L Hemoglobin 10.6 G/DL (12.0-16.0) #L 10.3 G/DL (12.0-16.0) L Hematocrit 30.1 % (37.0-47.0) #L 31.0 % (37.0-47.0) L Mean Corpuscular Volume 89 FL (80-99) 87 FL (80-99) Mean Corpuscular Hemoglobin 31.1 PG (27.0-31.0) H 29.0 PG (27.0-31.0) Mean Corpuscular Hemoglobin Concent 35.1 G/DL (32.0-36.0) 33.3 G/DL (32.0-36.0) Red Cell Distribution Width 13.3 % (11.6-14.8) 13.6 % (11.6-14.8) Platelet Count 199 K/UL (150-450) 237 K/UL (150-450) Mean Platelet Volume 6.0 FL (6.5-10.1) L 6.3 FL (6.5-10.1) L Neutrophils (%) (Auto) % (45.0-75.0) 80.4 % (45.0-75.0) H Lymphocytes (%) (Auto) % (20.0-45.0) 14.1 % (20.0-45.0) L Monocytes (%) (Auto) % (1.0-10.0) 4.3 % (1.0-10.0) Eosinophils (%) (Auto) % (0.0-3.0) 0.9 % (0.0-3.0) Basophils (%) (Auto) % (0.0-2.0) 0.3 % (0.0-2.0) Differential Total Cells Counted 100 Neutrophils % (Manual) 79 % (45-75) H Lymphocytes % (Manual) 15 % (20-45) L Monocytes % (Manual) 3 % (1-10) Eosinophils % (Manual) 1 % (0-3) Basophils % (Manual) 0 % (0-2) Band Neutrophils 2 % (0-8) Platelet Estimate Adequate Platelet Morphology Normal Hypochromasia 2+ Anisocytosis 1+ Activated Partial Thromboplast Time 33 SEC (23-33) Objective: GENERAL: The patient is well appearing female. The patient is altered; intubated HEENT: Negative. NECK: Supple. The patient is without meningismus LUNGS: symmetric breath sounds. no wheeze with some some rhonchi; CT in place CARDIAC: S1, S1 irregular without murmurs, rubs, or gallops. ABDOMEN: Soft. Feeding tube in place. No hepatosplenomegaly. no distrention EXTREMITIES: No cyanosis or clubbing. There is trace edema. NEUROLOGIC: The patient is sedated, nonfocal reviewed and edited Accucheck: 140 MARI JUAN September 03, 2016 08:20
[2016-09-03] MEDS: Pantoprazole Inj IVP SCH (10:39)
[2016-09-03] MEDS: D5 1/2NS w/KCl 20mEq 1,000 ML IV SCH (10:46)
--- NOTE | 2016-09-03 11:15 | Diagnostic Imaging Report ---
Indication: Dyspnea Comparison: 09/02/16 A single view chest radiograph was obtained. Findings: Tubes and lines are stable without significant change. Heart size is stable. Basilar atelectasis and/or pneumonia present. No pneumothorax is identified. There is a moderate amount of air within the right chest wall. Impression: No significant roll changer the last day
[2016-09-03] MEDS: Heparin 25,000u/D5W 500ml 500 ML IV SCH ×2 (11:43→18:56)
[2016-09-03 13:02] LABS: ABG ALLEN TEST POSITIVE; ABG BASE EXCESS 3.6; ABG PCO2 37.9 mmHg (35.0-45.0)
[2016-09-03 13:09] LABS: OTHERS PATHOLOGIST COMMENT
[2016-09-03] MEDS: cefTRIAXone 2 GM in D5W 110 ML IVPB SCH ×2 (13:14→13:44)
--- NOTE | 2016-09-03 13:14 | Infectious Diseases Prog Note ---
"Assessment/Plan Assessment/Plan antibiotics : ceftriaxone A 1. proteus sepsis secondary to UTI 2. proteus | providencia UTI 3. postobstructive klebsiella pneumonia 4. leucocytosis improving 5. respiratory failure resolved 6. lung mass s/p bronchoscopy | VATS | wedge resection with lung cancer P 1. continue ceftriaxone 2. will follow up cultures Subjective ROS Limited/Unobtainable: Yes Allergies: Coded Allergies: No Known Allergies (Unverified , 12/10/15) Objective Vital Signs Last 24 Hour Vital Signs Date Time Temp Pulse Resp B/P Pulse Ox O2 Delivery O2 Flow Rate FiO2 09/03/16 13:00 89 23 131/57 98 Mechanical Ventilator 30 09/03/16 12:47 92 22 09/03/16 12:00 97.9 90 25 123/60 100 Mechanical Ventilator 30 09/03/16 12:00 95 09/03/16 12:00 30 09/03/16 11:19 86 20 99 Mechanical Ventilator 30 09/03/16 11:09 86 20 99 Mechanical Ventilator 30 09/03/16 11:07 86 20 30 09/03/16 11:00 89 23 152/71 99 Mechanical Ventilator 30 09/03/16 10:00 89 25 109/99 99 Mechanical Ventilator 30 09/03/16 09:24 100 09/03/16 09:23 88 21 30 09/03/16 09:00 89 23 117/107 99 Mechanical Ventilator 30 09/03/16 08:00 98.1 84 24 107/96 100 Mechanical Ventilator 30 09/03/16 08:00 30 09/03/16 08:00 87 09/03/16 07:20 83 17 100 Mechanical Ventilator 30 09/03/16 07:09 85 24 99 Mechanical Ventilator 30 09/03/16 07:08 85 24 30 09/03/16 07:00 85 23 127/106 99 Mechanical Ventilator 30 09/03/16 06:00 89 21 148/72 100 Mechanical Ventilator 30 09/03/16 05:25 88 24 30 09/03/16 05:00 89 23 101/89 100 Mechanical Ventilator 30 09/03/16 04:00 95 09/03/16 04:00 97.8 97 26 105/94 99 Mechanical Ventilator 30 09/03/16 04:00 30 09/03/16 03:20 89 20 100 Mechanical Ventilator 30 09/03/16 03:11 88 24 100 Mechanical Ventilator 30 09/03/16 03:09 89 24 30 09/03/16 03:00 86 23 106/98 100 Mechanical Ventilator 30 09/03/16 02:00 90 23 113/53 99 Mechanical Ventilator 30 09/03/16 01:01 91 25 30 09/03/16 01:00 95 25 129/64 98 Mechanical Ventilator 30 09/03/16 00:00 93 09/03/16 00:00 30 09/03/16 00:00 98.7 92 24 149/67 100 Mechanical Ventilator 30 09/02/16 23:51 90 20 100 Mechanical Ventilator 30 09/02/16 23:41 86 23 99 Mechanical Ventilator 30 09/02/16 23:25 86 20 30 09/02/16 23:00 91 25 148/69 100 Mechanical Ventilator 30 09/02/16 22:00 85 25 138/63 99 Mechanical Ventilator 30 09/02/16 21:04 90 22 30 09/02/16 21:00 88 24 150/70 100 Mechanical Ventilator 30 09/02/16 20:00 98.4 92 24 136/62 98 Mechanical Ventilator 30 09/02/16 20:00 99 09/02/16 20:00 30 09/02/16 19:10 90 24 100 Mechanical Ventilator 30 09/02/16 19:00 94 24 141/64 99 Mechanical Ventilator 30 09/02/16 18:59 91 24 100 Mechanical Ventilator 30 09/02/16 18:55 91 24 30 09/02/16 18:00 93 24 147/69 100 Mechanical Ventilator 30 09/02/16 17:12 94 27 30 09/02/16 17:00 94 25 131/66 100 Mechanical Ventilator 30 09/02/16 16:00 30 09/02/16 16:00 97 09/02/16 16:00 96 25 105/95 100 Mechanical Ventilator 30 09/02/16 15:00 97 24 102/90 100 Mechanical Ventilator 30 09/02/16 14:47 91 23 100 Mechanical Ventilator 30 09/02/16 14:37 91 23 100 Mechanical Ventilator 30 09/02/16 14:37 91 23 30 09/02/16 14:00 92 25 116/49 100 Mechanical Ventilator 30 Height (Feet): 5 Height (Inches): 4.00 Weight (Pounds): 123 HEENT: other - intubated Respiratory/Chest: lungs clear, other - right CT Cardiovascular: normal rate, regular rhythm, no gallop/murmur Abdomen: soft, non tender Extremities: no edema, other - left arm PICC Laboratory Tests Test 09/02/16 19:50 09/03/16 03:50 09/03/16 12:46 White Blood Count 18.0 K/UL (4.8-10.8) H 16.8 K/UL (4.8-10.8) H Red Blood Count 3.39 M/UL (4.20-5.40) L 3.57 M/UL (4.20-5.40) L Hemoglobin 10.6 G/DL (12.0-16.0) #L 10.3 G/DL (12.0-16.0) L Hematocrit 30.1 % (37.0-47.0) #L 31.0 % (37.0-47.0) L Mean Corpuscular Volume 89 FL (80-99) 87 FL (80-99) Mean Corpuscular Hemoglobin 31.1 PG (27.0-31.0) H 29.0 PG (27.0-31.0) Mean Corpuscular Hemoglobin Concent 35.1 G/DL (32.0-36.0) 33.3 G/DL (32.0-36.0) Red Cell Distribution Width 13.3 % (11.6-14.8) 13.6 % (11.6-14.8) Platelet Count 199 K/UL (150-450) 237 K/UL (150-450) Mean Platelet Volume 6.0 FL (6.5-10.1) L 6.3 FL (6.5-10.1) L Neutrophils (%) (Auto) % (45.0-75.0) 80.4 % (45.0-75.0) H Lymphocytes (%) (Auto) % (20.0-45.0) 14.1 % (20.0-45.0) L Monocytes (%) (Auto) % (1.0-10.0) 4.3 % (1.0-10.0) Eosinophils (%) (Auto) % (0.0-3.0) 0.9 % (0.0-3.0) Basophils (%) (Auto) % (0.0-2.0) 0.3 % (0.0-2.0) Differential Total Cells Counted 100 Neutrophils % (Manual) 79 % (45-75) H Lymphocytes % (Manual) 15 % (20-45) L Monocytes % (Manual) 3 % (1-10) Eosinophils % (Manual) 1 % (0-3) Basophils % (Manual) 0 % (0-2) Band Neutrophils 2 % (0-8) Platelet Estimate Adequate Platelet Morphology Normal Hypochromasia 2+ Anisocytosis 1+ Activated Partial Thromboplast Time 33 SEC (23-33) Arterial Blood pH 7.470 (7.350-7.450) Arterial Blood Partial Pressure CO2 37.9 mmHg (35.0-45.0) Arterial Blood Partial Pressure O2 110.6 mmHg (75.0-100.0) H Arterial Blood HCO3 27.3 mmol/L (22.0-26.0) H Arterial Blood Oxygen Saturation 98.3 % (92.0-98.0) H Arterial Blood Base Excess 3.6 Ed Test Positive SHANNON GO September 03, 2016 13:14"
--- NOTE | 2016-09-03 13:26 | General Progress Note ---
Assessment/Plan Problem List: (1) Pneumonia ICD Codes: J18.9 - Pneumonia, unspecified organism SNOMED: 419752984 (2) DVT (deep vein thrombosis) in ICD Codes: O22.30 - Deep phlebothrombosis in , unspecified trimester; I82.409 - Acute embolism and thrombosis of unspecified deep veins of unspecified lower extremity SNOMED: 87892138, 981982912, 712969851 (3) Hyperkalemia ICD Codes: E87.5 - Hyperkalemia SNOMED: 63270182 (4) Renal failure ICD Codes: N19 - Unspecified kidney failure SNOMED: 97378456 (5) Respiratory failure ICD Codes: J96.90 - Respiratory failure, unspecified, unspecified whether with hypoxia or hypercapnia SNOMED: 692073952 (6) Lung mass ICD Codes: R91.8 - Other nonspecific abnormal finding of lung field SNOMED: 516065048 Status: stable, progressing Assessment/Plan o2 resp rx ?extubate abx restart heparin drip- watch for bleeding CT management for CTS follow up cultures ngt feeds onc eval called guarded Subjective ROS Limited/Unobtainable: Yes Constitutional: Reports: malaise, weakness HEENT: Reports: no symptoms Cardiovascular: Reports: no symptoms Respiratory: Reports: no symptoms Gastrointestinal/Abdominal: Reports: no symptoms Genitourinary: Reports: no symptoms Neurologic/Psychiatric: Reports: no symptoms Endocrine: Reports: no symptoms Hematologic/Lymphatic: Reports: anemia Allergies: Coded Allergies: No Known Allergies (Unverified , 12/10/15) All Systems: reviewed and negative except above Subjective s/p vats, lung biopsy, wedge resention. path positive for nonsmall cell lung ca low h/h. minimal bleeding from ct. comfortable on cpap. Objective Last 24 Hour Vital Signs Date Time Temp Pulse Resp B/P Pulse Ox O2 Delivery O2 Flow Rate FiO2 09/03/16 13:00 89 23 131/57 98 Mechanical Ventilator 09/03/16 12:47 92 22 09/03/16 12:00 97.9 90 25 123/60 100 Mechanical Ventilator 09/03/16 12:00 95 09/03/16 12:00 30 09/03/16 11:19 86 20 99 Mechanical Ventilator 30 09/03/16 11:09 86 20 99 Mechanical Ventilator 30 09/03/16 11:07 86 20 30 09/03/16 11:00 89 23 152/71 99 Mechanical Ventilator 30 09/03/16 10:00 89 25 109/99 99 Mechanical Ventilator 30 09/03/16 09:24 100 09/03/16 09:23 88 21 30 09/03/16 09:00 89 23 117/107 99 Mechanical Ventilator 30 09/03/16 08:00 98.1 84 24 107/96 100 Mechanical Ventilator 30 09/03/16 08:00 30 09/03/16 08:00 87 09/03/16 07:20 83 17 100 Mechanical Ventilator 30 09/03/16 07:09 85 24 99 Mechanical Ventilator 30 09/03/16 07:08 85 24 30 09/03/16 07:00 85 23 127/106 99 Mechanical Ventilator 30 09/03/16 06:00 89 21 148/72 100 Mechanical Ventilator 30 09/03/16 05:25 88 24 30 09/03/16 05:00 89 23 101/89 100 Mechanical Ventilator 30 09/03/16 04:00 95 09/03/16 04:00 97.8 97 26 105/94 99 Mechanical Ventilator 30 09/03/16 04:00 30 09/03/16 03:20 89 20 100 Mechanical Ventilator 30 09/03/16 03:11 88 24 100 Mechanical Ventilator 30 09/03/16 03:09 89 24 30 09/03/16 03:00 86 23 106/98 100 Mechanical Ventilator 30 09/03/16 02:00 90 23 113/53 99 Mechanical Ventilator 30 09/03/16 01:01 91 25 30 09/03/16 01:00 95 25 129/64 98 Mechanical Ventilator 30 09/03/16 00:00 93 09/03/16 00:00 30 09/03/16 00:00 98.7 92 24 149/67 100 Mechanical Ventilator 30 09/02/16 23:51 90 20 100 Mechanical Ventilator 30 09/02/16 23:41 86 23 99 Mechanical Ventilator 30 09/02/16 23:25 86 20 30 09/02/16 23:00 91 25 148/69 100 Mechanical Ventilator 30 09/02/16 22:00 85 25 138/63 99 Mechanical Ventilator 30 09/02/16 21:04 90 22 30 09/02/16 21:00 88 24 150/70 100 Mechanical Ventilator 30 09/02/16 20:00 98.4 92 24 136/62 98 Mechanical Ventilator 30 09/02/16 20:00 99 09/02/16 20:00 30 09/02/16 19:10 90 24 100 Mechanical Ventilator 30 09/02/16 19:00 94 24 141/64 99 Mechanical Ventilator 30 09/02/16 18:59 91 24 100 Mechanical Ventilator 30 09/02/16 18:55 91 24 30 09/02/16 18:00 93 24 147/69 100 Mechanical Ventilator 30 09/02/16 17:12 94 27 30 09/02/16 17:00 94 25 131/66 100 Mechanical Ventilator 30 09/02/16 16:00 30 09/02/16 16:00 97 09/02/16 16:00 96 25 105/95 100 Mechanical Ventilator 30 09/02/16 15:00 97 24 102/90 100 Mechanical Ventilator 30 09/02/16 14:47 91 23 100 Mechanical Ventilator 30 09/02/16 14:37 91 23 100 Mechanical Ventilator 30 09/02/16 14:37 91 23 30 09/02/16 14:00 92 25 116/49 100 Mechanical Ventilator 30 Intake and Output 09/02/16 09/03/16 19:00 07:00 Intake Total 1310 ml 1463 ml Output Total 775 ml 1855 ml Balance 535 ml -392 ml IV Total 710 ml 863 ml Tube Feeding 600 ml 600 ml Output Urine Total 775 ml 1805 ml Chest Tube Drainage Total 50 ml Laboratory Tests 09/02/16 19:50: White Blood Count 18.0H, Red Blood Count 3.39L, Hemoglobin 10.6#L, Hematocrit 30.1#L, Mean Corpuscular Volume 89, Mean Corpuscular Hemoglobin 31.1H, Mean Corpuscular Hemoglobin Concent 35.1, Red Cell Distribution Width 13.3, Platelet Count 199, Mean Platelet Volume 6.0L, Neutrophils (%) (Auto) , Lymphocytes (%) ( Auto) , Monocytes (%) (Auto) , Eosinophils (%) (Auto) , Basophils (%) (Auto) , Differential Total Cells Counted 100, Neutrophils % (Manual) 79H, Lymphocytes % (Manual) 15L, Monocytes % (Manual) 3, Eosinophils % (Manual) 1, Basophils % ( Manual) 0, Band Neutrophils 2, Platelet Estimate Adequate, Platelet Morphology Normal, Hypochromasia 2+, Anisocytosis 1+ 09/03/16 03:50: White Blood Count 16.8H, Red Blood Count 3.57L, Hemoglobin 10.3L, Hematocrit 31.0L, Mean Corpuscular Volume 87, Mean Corpuscular Hemoglobin 29.0, Mean Corpuscular Hemoglobin Concent 33.3, Red Cell Distribution Width 13.6, Platelet Count 237, Mean Platelet Volume 6.3L, Neutrophils (%) (Auto) 80.4H, Lymphocytes (%) (Auto) 14.1L, Monocytes (%) (Auto) 4.3, Eosinophils (%) (Auto) 0.9, Basophils (%) (Auto) 0.3, Activated Partial Thromboplast Time 33 09/03/16 12:46: Arterial Blood pH 7.470H, Arterial Blood Partial Pressure CO2 37.9, Arterial Blood Partial Pressure O2 110.6H, Arterial Blood HCO3 27.3H, Arterial Blood Oxygen Saturation 98.3H, Arterial Blood Base Excess 3.6, Ed Test Positive Height (Feet): 5 Height (Inches): 4.00 Weight (Pounds): 123 Objective General Appearance: WD/WN, alert, confused Neck: supple Cardiovascular: regular rhythm Respiratory/Chest: normal breath sounds Abdomen: normal bowel sounds, non tender, soft, no organomegaly Edema: no edema noted Arm (L), no edema noted Arm (R), no edema noted Leg (L), no edema noted Leg (R), no edema noted Pedal (L), no edema noted Pedal (R), no edema noted Generalized JUSTIN IRVIN September 03, 2016 13:26
[2016-09-03] MEDS ORDERED: Tubing Blood Filter IV ONE (15:47)
[2016-09-03] MEDS ORDERED: Tubing IV Secondary IV ONE (15:47)
[2016-09-03] MEDS ORDERED: NS 275ml ONE (15:47)
--- NOTE | 2016-09-03 18:14 | Wound Nurse Progress Note ---
Wound RN Progress Note Wound Consult #1 Sacral Stage III pressure ulcer. Sacral pressure ulcer wound bed 50% purple and 50% pink in color will cont same wound care treatment. #2 Left trochanter DTI pressure ulcer. Still intact with 100% hagan brown color. Cont same treatment. #3 Left temporal bone area DTI pressure ulcer. Still intact #4 Left Ischial tuberosity scar tissue hard to touch. Sill intact #5 Left ear DTI pressure ulcer. still intact #6 Right ear DTI scar tissue.still intact Reassessed this pt today no further deterioration noted. Will cont same wound and recommendation. RUDI BISHOP RN September 03, 2016 18:14
[2016-09-04] VITALS (20 sets, daily range): BP systolic 125–154; BP diastolic 53–90
[2016-09-04] MEDS: D5 1/2NS w/KCl 20mEq 1,000 ML IV SCH ×3 (00:01→13:00)
[2016-09-04] MEDS: Albuterol ud Inhalation HHN SCH ×6 (03:22→23:02)
[2016-09-04] MEDS: NovoLOG Insulin Flexpen SUBQ SCH ×4 (05:55→23:10)
[2016-09-04 06:19] LABS: BASOPHILS % (AUTO) 0.3 % (0.0-2.0); EOSINOPHILS % (AUTO) 1.3 % (0.0-3.0); MEAN CORPUSCULAR HEMOGLOBIN 29.7 PG (27.0-31.0); MEAN CORPUSCULAR HGB CONC 33.6 G/DL (32.0-36.0); MEAN CORPUSCULAR VOLUME 88 FL (80-99); MEAN PLATELET VOLUME 5.6 FL (6.5-10.1); MONOCYTES % (AUTO) 4.9 % (1.0-10.0); NEUTROPHILS % (AUTO) 77.6 % (45.0-75.0); PLATELET COUNT 239 K/UL (150-450); RED BLOOD COUNT 3.71 M/UL (4.20-5.40); RED CELL DISTRIBUTION WIDTH 13.7 % (11.6-14.8); WHITE BLOOD COUNT 14.4 K/UL (4.8-10.8)
[2016-09-04] MEDS: Pantoprazole Inj IVP SCH (08:25)
--- NOTE | 2016-09-04 08:26 | General Progress Note ---
Assessment/Plan Problem List: (1) Pneumonia ICD Codes: J18.9 - Pneumonia, unspecified organism SNOMED: 492644944 (2) DVT (deep vein thrombosis) in ICD Codes: O22.30 - Deep phlebothrombosis in , unspecified trimester; I82.409 - Acute embolism and thrombosis of unspecified deep veins of unspecified lower extremity SNOMED: 25978795, 219842258, 635216939 (3) Hyperkalemia ICD Codes: E87.5 - Hyperkalemia SNOMED: 94551914 (4) Renal failure ICD Codes: N19 - Unspecified kidney failure SNOMED: 44231645 (5) Respiratory failure ICD Codes: J96.90 - Respiratory failure, unspecified, unspecified whether with hypoxia or hypercapnia SNOMED: 289813465 (6) Lung mass ICD Codes: R91.8 - Other nonspecific abnormal finding of lung field SNOMED: 440822756 Status: stable, progressing Assessment/Plan o2 resp care check swallow ngt feeds ok for tele chest tube management per CTS onc eval called. await input Subjective ROS Limited/Unobtainable: No Constitutional: Reports: malaise, weakness HEENT: Reports: no symptoms Cardiovascular: Reports: no symptoms Respiratory: Reports: no symptoms Gastrointestinal/Abdominal: Reports: no symptoms Genitourinary: Reports: no symptoms Neurologic/Psychiatric: Reports: pre-existing deficit Endocrine: Reports: no symptoms Hematologic/Lymphatic: Reports: no symptoms Allergies: Coded Allergies: No Known Allergies (Unverified , 12/10/15) All Systems: reviewed and negative except above Subjective extubated. on ngt. no distress. awake. confused but follows commands. Objective Last 24 Hour Vital Signs Date Time Temp Pulse Resp B/P Pulse Ox O2 Delivery O2 Flow Rate FiO2 09/04/16 08:00 98.2 98 18 125/60 98 Nasal Cannula 3.0 09/04/16 08:00 98 09/04/16 07:10 90 18 100 Nasal Cannula 2.0 28 09/04/16 07:05 Nasal Cannula 2.0 28 09/04/16 07:05 88 18 100 Nasal Cannula 2.0 28 09/04/16 07:05 100 Nasal Cannula 2.0 28 09/04/16 07:00 83 17 128/55 100 Nasal Cannula 3.0 09/04/16 06:00 88 17 132/59 100 Nasal Cannula 3.0 09/04/16 05:00 90 18 154/69 100 Nasal Cannula 3.0 09/04/16 04:00 98.6 89 18 139/73 100 Nasal Cannula 3.0 09/04/16 04:00 97 09/04/16 03:35 90 18 100 Nasal Cannula 3.0 32 09/04/16 03:22 88 18 100 Nasal Cannula 3.0 32 09/04/16 03:00 89 18 151/74 100 Nasal Cannula 3.0 09/04/16 02:00 91 18 138/61 100 Nasal Cannula 3.0 09/04/16 01:00 98 20 141/65 100 Nasal Cannula 3.0 09/04/16 00:00 98.0 103 19 130/54 99 Nasal Cannula 3.0 09/04/16 00:00 101 09/03/16 23:30 93 18 100 Nasal Cannula 3.0 32 09/03/16 23:19 85 18 99 Nasal Cannula 3.0 32 09/03/16 23:00 87 18 140/69 99 Nasal Cannula 3.0 09/03/16 22:00 90 18 138/72 99 Nasal Cannula 3.0 09/03/16 21:00 94 20 130/53 99 Nasal Cannula 3.0 09/03/16 20:00 99 09/03/16 20:00 98.2 102 19 116/63 98 Nasal Cannula 3.0 09/03/16 19:20 82 20 100 Nasal Cannula 3.0 32 09/03/16 19:04 Nasal Cannula 3.0 32 09/03/16 19:03 99 Nasal Cannula 3.0 32 09/03/16 19:03 88 20 99 Nasal Cannula 3.0 32 09/03/16 19:00 89 23 125/58 98 Nasal Cannula 3.0 09/03/16 18:00 98.1 88 20 135/59 98 Nasal Cannula 3.0 09/03/16 17:00 94 23 127/58 98 Nasal Cannula 3.0 09/03/16 16:00 90 09/03/16 16:00 97.2 95 24 123/47 98 Nasal Cannula 3.0 09/03/17 15:37 94 19 100 Nasal Cannula 17 15:20 87 23 99 Nasal Cannula 3.0 09/03/16 15:00 85 25 128/61 98 Nasal Cannula 3.0 09/03/16 14:47 99 Nasal Cannula 3.0 09/03/16 14:46 Nasal Cannula 3.0 09/03/16 14:45 Nasal Cannula 3.0 09/03/16 14:00 88 23 124/57 98 Mechanical Ventilator 30 09/03/16 13:00 89 23 131/57 98 Mechanical Ventilator 30 09/03/16 12:47 92 22 09/03/16 12:00 97.9 90 25 123/60 100 Mechanical Ventilator 30 09/03/16 12:00 95 09/03/16 12:00 30 09/03/16 11:19 86 20 99 Mechanical Ventilator 30 09/03/16 11:09 86 20 99 Mechanical Ventilator 30 09/03/16 11:07 86 20 30 09/03/16 11:00 89 23 152/71 99 Mechanical Ventilator 30 09/03/16 10:00 89 25 109/99 99 Mechanical Ventilator 30 09/03/16 09:24 100 09/03/16 09:23 88 21 30 09/03/16 09:00 89 23 117/107 99 Mechanical Ventilator 30 Intake and Output 09/03/16 09/04/16 19:00 07:00 Intake Total 1580.510 ml 1941.020 ml Output Total 1250 ml 2745 ml Balance 330.510 ml -803.980 ml Intake Free Water 200 ml IV Total 980.510 ml 1141.020 ml Tube Feeding 600 ml 600 ml Output Urine Total 1170 ml 2625 ml Chest Tube Drainage Total 80 ml 120 ml # Bowel Movements 1 Laboratory Tests 09/03/16 12:46: Arterial Blood pH 7.470H, Arterial Blood Partial Pressure CO2 37.9, Arterial Blood Partial Pressure O2 110.6H, Arterial Blood HCO3 27.3H, Arterial Blood Oxygen Saturation 98.3H, Arterial Blood Base Excess 3.6, Ed Test Positive 09/03/16 18:00: Activated Partial Thromboplast Time 45H 09/04/16 01:00: Activated Partial Thromboplast Time 77H 09/04/16 04:00: White Blood Count 14.4H, Red Blood Count 3.71L, Hemoglobin 11.0L, Hematocrit 32.8L, Mean Corpuscular Volume 88, Mean Corpuscular Hemoglobin 29.7, Mean Corpuscular Hemoglobin Concent 33.6, Red Cell Distribution Width 13.7, Platelet Count 239, Mean Platelet Volume 5.6L, Neutrophils (%) (Auto) 77.6H, Lymphocytes (%) (Auto) 16.0L, Monocytes (%) (Auto) 4.9, Eosinophils (%) (Auto) 1.3, Basophils (%) (Auto) 0.3 Height (Feet): 5 Height (Inches): 4.00 Weight (Pounds): 123 Objective General Appearance: WD/WN, alert, confused Neck: supple Cardiovascular: regular rhythm Respiratory/Chest: normal breath sounds Abdomen: normal bowel sounds, non tender, soft, no organomegaly Edema: no edema noted Arm (L), no edema noted Arm (R), no edema noted Leg (L), no edema noted Leg (R), no edema noted Pedal (L), no edema noted Pedal (R), no edema noted Generalized JUSTIN IRVIN September 04, 2016 08:26
[2016-09-04] MEDS: Heparin 25,000u/D5W 500ml 500 ML IV SCH (08:27)
--- NOTE | 2016-09-04 09:18 | Critical Care Progress Note ---
Assessment/Plan Assessment/Plan IMPRESSION: 1. Respiratory failure. 2. Metabolic acidosis. 3. s/p VATS biopsy with documented lung cancer 4. Right lung mass, 5. Left lower lobe atelectasis. 6. Severe protein-calorie malnutrition. 7. s/p sepsis and shock. 8. pneumonia. 9. Acute renal failure. 10. Possible urinary tract infection. 11. chest tube PLAN ICU care as is off the ventilator taper oxygen as able encourage cough and clearance antibiotics per ID and monitor supportive care monitor fluid status and avoid positive fluid balance nutrition maintain meds oncology follow up reviewed and discussed guarded; follow up after extubation medications/laboratory data/nursing notes/ICU care reviewed in detail note reviewed and edited care discussed with RN and RT ICU time spent 37 minutes Critical Care - Subjective Interval Events: extubated on oxygen ROS Limited/Unobtainable: Yes Condition: critical EKG Rhythm: Sinus Rhythm I&O: Intake and Output 09/03/16 09/04/16 19:00 07:00 Intake Total 1580.510 ml 1941.020 ml Output Total 1250 ml 2745 ml Balance 330.510 ml -803.980 ml Intake Free Water 200 ml IV Total 980.510 ml 1141.020 ml Tube Feeding 600 ml 600 ml Output Urine Total 1170 ml 2625 ml Chest Tube Drainage Total 80 ml 120 ml # Bowel Movements 1 Critical Care - Objective CXR: reviewed ET-Tube: 8.0 ET Position: 22 Last 24 Hour Vital Signs Date Time Temp Pulse Resp B/P Pulse Ox O2 Delivery O2 Flow Rate FiO2 09/04/16 09:00 88 17 126/53 100 Nasal Cannula 3.0 09/04/16 08:00 98.2 98 18 125/60 98 Nasal Cannula 3.0 09/04/16 08:00 98 09/04/16 07:10 90 18 100 Nasal Cannula 2.0 28 09/04/16 07:05 Nasal Cannula 2.0 28 09/04/16 07:05 88 18 100 Nasal Cannula 2.0 28 09/04/16 07:05 100 Nasal Cannula 2.0 28 09/04/16 07:00 83 17 128/55 100 Nasal Cannula 3.0 09/04/16 06:00 88 17 132/59 100 Nasal Cannula 3.0 09/04/16 05:00 90 18 154/69 100 Nasal Cannula 3.0 09/04/16 04:00 98.6 89 18 139/73 100 Nasal Cannula 3.0 09/04/16 04:00 97 09/04/16 03:35 90 18 100 Nasal Cannula 3.0 32 617 03:22 88 18 100 Nasal Cannula 3.0 32 17 03:00 89 18 151/74 100 Nasal Cannula 3.0 09/04/16 02:00 91 18 138/61 100 Nasal Cannula 3.0 09/04/16 01:00 98 20 141/65 100 Nasal Cannula 3.0 09/04/16 00:00 98.0 103 19 130/54 99 Nasal Cannula 3.0 09/04/16 00:00 101 09/03/16 23:30 93 18 100 Nasal Cannula 3.0 32 09/03/16 23:19 85 18 99 Nasal Cannula 3.0 32 09/03/16 23:00 87 18 140/69 99 Nasal Cannula 3.0 09/03/16 22:00 90 18 138/72 99 Nasal Cannula 3.0 09/03/16 21:00 94 20 130/53 99 Nasal Cannula 3.0 09/03/16 20:00 99 09/03/16 20:00 98.2 102 19 116/63 98 Nasal Cannula 3.0 09/03/16 19:20 82 20 100 Nasal Cannula 3.0 32 09/03/16 19:04 Nasal Cannula 3.0 32 09/03/16 19:03 99 Nasal Cannula 3.0 32 09/03/16 19:03 88 20 99 Nasal Cannula 3.0 32 09/03/16 19:00 89 23 125/58 98 Nasal Cannula 3.0 09/03/16 18:00 98.1 88 20 135/59 98 Nasal Cannula 3.0 09/03/16 17:00 94 23 127/58 98 Nasal Cannula 3.0 09/03/16 16:00 90 09/03/16 16:00 97.2 95 24 123/47 98 Nasal Cannula 3.0 17 15:37 94 19 100 Nasal Cannula 17 15:20 87 23 99 Nasal Cannula 3.0 17 15:00 85 25 128/61 98 Nasal Cannula 3.0 517 14:47 99 Nasal Cannula 3.0 09/03/16 14:46 Nasal Cannula 3.0 5/5/17 14:45 Nasal Cannula 3.0 09/03/16 14:00 88 23 124/57 98 Mechanical Ventilator 30 09/03/16 13:00 89 23 131/57 98 Mechanical Ventilator 30 09/03/16 12:47 92 22 09/03/16 12:00 97.9 90 25 123/60 100 Mechanical Ventilator 30 09/03/16 12:00 95 09/03/16 12:00 30 09/03/16 11:19 86 20 99 Mechanical Ventilator 30 09/03/16 11:09 86 20 99 Mechanical Ventilator 30 09/03/16 11:07 86 20 30 09/03/16 11:00 89 23 152/71 99 Mechanical Ventilator 30 09/03/16 10:00 89 25 109/99 99 Mechanical Ventilator 30 09/03/16 09:24 100 09/03/16 09:23 88 21 30 Labs: Labs Test 09/01/16 10:10 09/01/16 12:00 09/01/16 20:08 09/02/16 03:00 White Blood Count 20.3 K/UL (4.8-10.8) 19.0 K/UL (4.8-10.8) Red Blood Count 2.86 M/UL (4.20-5.40) 2.45 M/UL (4.20-5.40) Hemoglobin 8.3 G/DL (12.0-16.0) 7.2 G/DL (12.0-16.0) Hematocrit 25.2 % (37.0-47.0) 21.9 % (37.0-47.0) Mean Corpuscular Volume 88 FL (80-99) 89 FL (80-99) Mean Corpuscular Hemoglobin 28.9 PG (27.0-31.0) 29.5 PG (27.0-31.0) Mean Corpuscular Hemoglobin Concent 32.7 G/DL (32.0-36.0) 33.0 G/DL (32.0-36.0) Red Cell Distribution Width 13.2 % (11.6-14.8) 13.5 % (11.6-14.8) Platelet Count 232 K/UL (150-450) 226 K/UL (150-450) Mean Platelet Volume 6.6 FL (6.5-10.1) 6.4 FL (6.5-10.1) Neutrophils (%) (Auto) % (45.0-75.0) % (45.0-75.0) Lymphocytes (%) (Auto) % (20.0-45.0) % (20.0-45.0) Monocytes (%) (Auto) % (1.0-10.0) % (1.0-10.0) Eosinophils (%) (Auto) % (0.0-3.0) % (0.0-3.0) Basophils (%) (Auto) % (0.0-2.0) % (0.0-2.0) Differential Total Cells Counted 100 100 Neutrophils % (Manual) 79 % (45-75) 80 % (45-75) Lymphocytes % (Manual) 16 % (20-45) 13 % (20-45) Monocytes % (Manual) 5 % (1-10) 4 % (1-10) Eosinophils % (Manual) 0 % (0-3) 3 % (0-3) Basophils % (Manual) 0 % (0-2) 0 % (0-2) Band Neutrophils 0 % (0-8) 0 % (0-8) Platelet Estimate Adequate Adequate Platelet Morphology Normal Normal Hypochromasia 1+ 3+ Prothrombin Time 11.9 SEC (9.30-11.50) Prothromb Time International Ratio 1.2 (0.9-1.1) Activated Partial Thromboplast Time 35 SEC (23-33) 39 SEC (23-33) 90 SEC (23-33) Anisocytosis 1+ Spherocytes 2+ Sodium Level 137 mEQ/L (135-145) Potassium Level 4.1 mEQ/L (3.4-4.9) Chloride Level 100 mEQ/L (98-107) Carbon Dioxide Level 26 mEQ/L (20-30) Anion Gap 11 (5-15) Blood Urea Nitrogen 10 mg/dL (7-23) Creatinine 0.3 mg/dL (0.5-0.9) Estimat Glomerular Filtration Rate mL/min (>60) Glucose Level 193 mg/dL (74-106) Calcium Level 7.9 mg/dL (8.6-10.2) Magnesium Level 1.9 mg/dL (1.7-2.5) Total Bilirubin < 0.2 mg/dL (0.0-1.2) Aspartate Amino Transf (AST/SGOT) 25 U/L (5-40) Alanine Aminotransferase (ALT/SGPT) 36 U/L (3-33) Alkaline Phosphatase 108 U/L (35-104) Pro-B-Type Natriuretic Peptide 614 pg/mL (0-450) Total Protein 4.8 g/dL (6.6-8.7) Albumin 1.8 g/dL (3.5-5.2) Globulin 3.0 g/dL Albumin/Globulin Ratio 0.6 (1.0-2.7) Test 09/02/16 19:50 09/03/16 03:50 09/03/16 12:46 09/03/16 18:00 White Blood Count 18.0 K/UL (4.8-10.8) 16.8 K/UL (4.8-10.8) Red Blood Count 3.39 M/UL (4.20-5.40) 3.57 M/UL (4.20-5.40) Hemoglobin 10.6 G/DL (12.0-16.0) 10.3 G/DL (12.0-16.0) Hematocrit 30.1 % (37.0-47.0) 31.0 % (37.0-47.0) Mean Corpuscular Volume 89 FL (80-99) 87 FL (80-99) Mean Corpuscular Hemoglobin 31.1 PG (27.0-31.0) 29.0 PG (27.0-31.0) Mean Corpuscular Hemoglobin Concent 35.1 G/DL (32.0-36.0) 33.3 G/DL (32.0-36.0) Red Cell Distribution Width 13.3 % (11.6-14.8) 13.6 % (11.6-14.8) Platelet Count 199 K/UL (150-450) 237 K/UL (150-450) Mean Platelet Volume 6.0 FL (6.5-10.1) 6.3 FL (6.5-10.1) Neutrophils (%) (Auto) % (45.0-75.0) 80.4 % (45.0-75.0) Lymphocytes (%) (Auto) % (20.0-45.0) 14.1 % (20.0-45.0) Monocytes (%) (Auto) % (1.0-10.0) 4.3 % (1.0-10.0) Eosinophils (%) (Auto) % (0.0-3.0) 0.9 % (0.0-3.0) Basophils (%) (Auto) % (0.0-2.0) 0.3 % (0.0-2.0) Differential Total Cells Counted 100 Neutrophils % (Manual) 79 % (45-75) Lymphocytes % (Manual) 15 % (20-45) Monocytes % (Manual) 3 % (1-10) Eosinophils % (Manual) 1 % (0-3) Basophils % (Manual) 0 % (0-2) Band Neutrophils 2 % (0-8) Platelet Estimate Adequate Platelet Morphology Normal Hypochromasia 2+ Anisocytosis 1+ Activated Partial Thromboplast Time 33 SEC (23-33) 45 SEC (23-33) Arterial Blood pH 7.470 (7.350-7.450) Arterial Blood Partial Pressure CO2 37.9 mmHg (35.0-45.0) Arterial Blood Partial Pressure O2 110.6 mmHg (75.0-100.0) Arterial Blood HCO3 27.3 mmol/L (22.0-26.0) Arterial Blood Oxygen Saturation 98.3 % (92.0-98.0) Arterial Blood Base Excess 3.6 De Test Positive Test 09/04/16 01:00 09/04/16 04:00 Activated Partial Thromboplast Time 77 SEC (23-33) White Blood Count 14.4 K/UL (4.8-10.8) Red Blood Count 3.71 M/UL (4.20-5.40) Hemoglobin 11.0 G/DL (12.0-16.0) Hematocrit 32.8 % (37.0-47.0) Mean Corpuscular Volume 88 FL (80-99) Mean Corpuscular Hemoglobin 29.7 PG (27.0-31.0) Mean Corpuscular Hemoglobin Concent 33.6 G/DL (32.0-36.0) Red Cell Distribution Width 13.7 % (11.6-14.8) Platelet Count 239 K/UL (150-450) Mean Platelet Volume 5.6 FL (6.5-10.1) Neutrophils (%) (Auto) 77.6 % (45.0-75.0) Lymphocytes (%) (Auto) 16.0 % (20.0-45.0) Monocytes (%) (Auto) 4.9 % (1.0-10.0) Eosinophils (%) (Auto) 1.3 % (0.0-3.0) Basophils (%) (Auto) 0.3 % (0.0-2.0) Objective: GENERAL: The patient is well appearing female. The patient is altered; extubated HEENT: Negative. NECK: Supple. The patient is without meningismus LUNGS: symmetric breath sounds. no wheeze with some some rhonchi; CARDIAC: S1, S1 irregular without murmurs, rubs, or gallops. ABDOMEN: Soft. Feeding tube in place. No hepatosplenomegaly. no distrention EXTREMITIES: No cyanosis or clubbing. There is trace edema. NEUROLOGIC: The patient is sedated, nonfocal reviewed and edited Accucheck: 154 MARI JUAN September 04, 2016 09:18
--- NOTE | 2016-09-04 11:09 | Infectious Diseases Prog Note ---
"Assessment/Plan Assessment/Plan antibiotics : ceftriaxone A 1. proteus sepsis secondary to UTI 2. proteus | providencia UTI 3. postobstructive klebsiella pneumonia 4. leucocytosis improving 5. respiratory failure resolved 6. lung mass s/p bronchoscopy | VATS | wedge resection with lung cancer P 1. continue ceftriaxone 2. will follow up cultures Subjective ROS Limited/Unobtainable: Yes Allergies: Coded Allergies: No Known Allergies (Unverified , 12/10/15) Objective Vital Signs Last 24 Hour Vital Signs Date Time Temp Pulse Resp B/P Pulse Ox O2 Delivery O2 Flow Rate FiO2 09/04/16 10:00 87 17 143/60 100 Nasal Cannula 3.0 09/04/16 09:00 88 17 126/53 100 Nasal Cannula 3.0 09/04/16 08:00 98.2 98 18 125/60 98 Nasal Cannula 3.0 09/04/16 08:00 98 09/04/16 07:10 90 18 100 Nasal Cannula 2.0 28 09/04/16 07:05 Nasal Cannula 2.0 28 09/04/16 07:05 88 18 100 Nasal Cannula 2.0 28 09/04/16 07:05 100 Nasal Cannula 2.0 28 09/04/16 07:00 83 17 128/55 100 Nasal Cannula 3.0 09/04/16 06:00 88 17 132/59 100 Nasal Cannula 3.0 09/04/16 05:00 90 18 154/69 100 Nasal Cannula 3.0 09/04/16 04:00 98.6 89 18 139/73 100 Nasal Cannula 3.0 09/04/16 04:00 97 09/04/16 03:35 90 18 100 Nasal Cannula 3.0 32 09/04/16 03:22 88 18 100 Nasal Cannula 3.0 32 09/04/16 03:00 89 18 151/74 100 Nasal Cannula 3.0 09/04/16 02:00 91 18 138/61 100 Nasal Cannula 3.0 09/04/16 01:00 98 20 141/65 100 Nasal Cannula 3.0 09/04/16 00:00 98.0 103 19 130/54 99 Nasal Cannula 3.0 09/04/16 00:00 101 09/03/16 23:30 93 18 100 Nasal Cannula 3.0 32 09/03/16 23:19 85 18 99 Nasal Cannula 3.0 32 09/03/16 23:00 87 18 140/69 99 Nasal Cannula 3.0 09/03/16 22:00 90 18 138/72 99 Nasal Cannula 3.0 09/03/16 21:00 94 20 130/53 99 Nasal Cannula 3.0 09/03/16 20:00 99 09/03/16 20:00 98.2 102 19 116/63 98 Nasal Cannula 3.0 09/03/16 19:20 82 20 100 Nasal Cannula 3.0 32 09/03/16 19:04 Nasal Cannula 3.0 32 09/03/16 19:03 99 Nasal Cannula 3.0 32 09/03/16 19:03 88 20 99 Nasal Cannula 3.0 32 09/03/16 19:00 89 23 125/58 98 Nasal Cannula 3.0 09/03/16 18:00 98.1 88 20 135/59 98 Nasal Cannula 3.0 09/03/16 17:00 94 23 127/58 98 Nasal Cannula 3.0 09/03/16 16:00 90 09/03/16 16:00 97.2 95 24 123/47 98 Nasal Cannula 3.0 09/03/16 15:37 94 19 100 Nasal Cannula 09/03/16 15:20 87 23 99 Nasal Cannula 3.0 09/03/16 15:00 85 25 128/61 98 Nasal Cannula 3.0 09/03/16 14:47 99 Nasal Cannula 3.0 09/03/16 14:46 Nasal Cannula 3.0 09/03/16 14:45 Nasal Cannula 3.0 09/03/16 14:00 88 23 124/57 98 Mechanical Ventilator 30 09/03/16 13:00 89 23 131/57 98 Mechanical Ventilator 30 09/03/16 12:47 92 22 09/03/16 12:00 97.9 90 25 123/60 100 Mechanical Ventilator 30 09/03/16 12:00 95 09/03/16 12:00 30 09/03/16 11:19 86 20 99 Mechanical Ventilator 30 09/03/16 11:09 86 20 99 Mechanical Ventilator 30 Height (Feet): 5 Height (Inches): 4.00 Weight (Pounds): 123 Respiratory/Chest: lungs clear, other - right CT Cardiovascular: normal rate, regular rhythm, no gallop/murmur Abdomen: soft, non tender Extremities: no edema, other - left arm PICC Laboratory Tests Test 09/03/16 12:46 09/03/16 18:00 09/04/16 01:00 09/04/16 04:00 Arterial Blood pH 7.470 (7.350-7.450) Arterial Blood Partial Pressure CO2 37.9 mmHg (35.0-45.0) Arterial Blood Partial Pressure O2 110.6 mmHg (75.0-100.0) H Arterial Blood HCO3 27.3 mmol/L (22.0-26.0) H Arterial Blood Oxygen Saturation 98.3 % (92.0-98.0) H Arterial Blood Base Excess 3.6 Ed Test Positive Activated Partial Thromboplast Time 45 SEC (23-33) H 77 SEC (23-33) H White Blood Count 14.4 K/UL (4.8-10.8) H Red Blood Count 3.71 M/UL (4.20-5.40) L Hemoglobin 11.0 G/DL (12.0-16.0) L Hematocrit 32.8 % (37.0-47.0) L Mean Corpuscular Volume 88 FL (80-99) Mean Corpuscular Hemoglobin 29.7 PG (27.0-31.0) Mean Corpuscular Hemoglobin Concent 33.6 G/DL (32.0-36.0) Red Cell Distribution Width 13.7 % (11.6-14.8) Platelet Count 239 K/UL (150-450) Mean Platelet Volume 5.6 FL (6.5-10.1) L Neutrophils (%) (Auto) 77.6 % (45.0-75.0) H Lymphocytes (%) (Auto) 16.0 % (20.0-45.0) L Monocytes (%) (Auto) 4.9 % (1.0-10.0) Eosinophils (%) (Auto) 1.3 % (0.0-3.0) Basophils (%) (Auto) 0.3 % (0.0-2.0) SHANNON GO September 04, 2016 11:09"
--- NOTE | 2016-09-04 11:55 | Diagnostic Imaging Report ---
Indication: Dyspnea Comparison: 09/03/16 A single view chest radiograph was obtained. Findings: Patient's been extubated. Other tubes and lines are stable. Heart is enlarged but stable. Hazy basilar opacities likely atelectasis and/or infiltrate again noted. Impression: Post extubation. No significant change otherwise
--- NOTE | 2016-09-04 12:06 | General Progress Note ---
Progress Note Progress Note Right chest tube with minimal drainage CXR shoed no pneumothorax Will remove chest tube removed and cxr showed no ptx Path: right upper lobe adenocarcinoma, awaiting molecular testing Awaiting oncology recommendation Will sign off Remove chestwall drs in 72 hr and leave open to air Reconsult RAZA Shirley M.D. September 04, 2016 12:06
[2016-09-04] MEDS ORDERED: Heparin 25,000u/D5W 500ml 500 ML IV SCH (12:30)
[2016-09-04] MEDS ORDERED: cefTRIAXone 2 GM in D5W 110 ML IVPB SCH (14:00)
[2016-09-04] MEDS: cefTRIAXone 2 GM in D5W 110 ML IVPB SCH ×2 (14:07→14:26)
[2016-09-04] MEDS ORDERED: Morphine Sulfate 2mg/ml Inj IVP PRN (15:00)
[2016-09-05] VITALS (12 sets, daily range): BP systolic 135–157; BP diastolic 71–92
[2016-09-05] MEDS: D5 1/2NS w/KCl 20mEq 1,000 ML IV SCH (02:20)
[2016-09-05] MEDS: Albuterol ud Inhalation HHN SCH ×6 (03:30→23:50)
[2016-09-05 04:10] LABS: BASOPHILS % (AUTO) 0.5 % (0.0-2.0); EOSINOPHILS % (AUTO) 1.1 % (0.0-3.0); LYMPHOCYTES % (AUTO) 13.7 % (20.0-45.0); MEAN CORPUSCULAR HEMOGLOBIN 28.8 PG (27.0-31.0); MEAN CORPUSCULAR HGB CONC 32.4 G/DL (32.0-36.0); MEAN CORPUSCULAR VOLUME 89 FL (80-99); MONOCYTES % (AUTO) 4.3 % (1.0-10.0); NEUTROPHILS % (AUTO) 80.2 % (45.0-75.0); PLATELET COUNT 259 K/UL (150-450); RED BLOOD COUNT 3.93 M/UL (4.20-5.40); RED CELL DISTRIBUTION WIDTH 14.4 % (11.6-14.8); WHITE BLOOD COUNT 13.6 K/UL (4.8-10.8)
--- NOTE | 2016-09-05 04:18 | Progress Note ---
DATE: 09/04/2016 CARDIOLOGY PROGRESS NOTE SUBJECTIVE: The patient's right chest tube was removed. No residual pneumothorax noted. The patient remains on nasal cannula. OBJECTIVE: VITAL SIGNS: Blood pressure 125/60, pulse 98, and respirations 18. Monitored rhythm is sinus with sinus tachycardia. LUNGS: Coarse breath sounds. Few rhonchi. HEART: Regular rhythm and rate. Normal S1, S2. ABDOMEN: Soft. EXTREMITIES: With trace edema. LABORATORY DATA: White count 14.4, hemoglobin 11. PTT is 77. IMPRESSION: 1. Adenocarcinoma of the lung, status post video-assisted thoracoscopic surgery pleurodesis. 2. Status post respiratory failure. 3. Bilateral deep venous thrombosis. 4. Klebsiella pneumoniae urinary tract infection. 5. Status post sepsis with shock. 6. Secondary sinus tachycardia. 7. Paroxysmal atrial ectopy. 8. Acute on chronic diastolic congestive heart failure compensated. PLAN: 1. Respiratory hygiene. 2. Antibiotics. 3. Full anticoagulation with intravenous heparin. Consider resumption of warfarin. 4. Oncology consult pending. 5. Monitor volume status and cardiorenal parameters. 6. Further recommendations will follow. Giuseppe Muir M.D. DR: CHRIS JOB#: [id number] CC:
[2016-09-05 04:28] LABS: ALANINE AMINOTRANSFERASE 101 U/L (3-33); ALBUMIN/GLOBULIN RATIO 0.5 (1.0-2.7); ANION GAP 11 (5-15); ASPARTATE AMINO TRANSFERASE 44 U/L (5-40); CALCIUM 8.4 mg/dL (8.6-10.2); CARBON DIOXIDE 29 mEQ/L (20-30); CHLORIDE 99 mEQ/L (98-107); CREATININE 0.3 mg/dL (0.5-0.9); HEMOLYSIS 1; POTASSIUM 4.2 mEQ/L (3.4-4.9); SODIUM 139 mEQ/L (135-145); TOTAL PROTEIN 5.6 g/dL (6.6-8.7)
[2016-09-05] MEDS ORDERED: Heparin 25,000u/D5W 500ml 500 ML IV SCH (05:32)
[2016-09-05] MEDS: NovoLOG Insulin Flexpen SUBQ SCH ×3 (05:37→18:08)
[2016-09-05] MEDS ORDERED: Heparin 5000 units/ml inj IV ONE (05:45)
--- NOTE | 2016-09-05 08:35 | Critical Care Progress Note ---
Assessment/Plan Assessment/Plan IMPRESSION: 1. Respiratory failure. 2. Metabolic acidosis. 3. s/p VATS biopsy with documented lung cancer 4. Right lung mass, 5. Left lower lobe atelectasis. 6. Severe protein-calorie malnutrition. 7. s/p sepsis and shock. 8. pneumonia. 9. Acute renal failure. 10. Possible urinary tract infection. 11. chest tube PLAN advance care taper oxygen as able encourage cough and clearance antibiotics as needed supportive care monitor fluid status and avoid positive fluid balance nutrition maintain meds oncology follow up reviewed and discussed appears comfortable at present medications/laboratory data/nursing notes reviewed in detail note reviewed and edited care discussed with RN and RT Critical Care - Subjective Interval Events: transferred to floor stable CT removed Condition: improving EKG Rhythm: Sinus Rhythm I&O: Intake and Output 09/04/16 09/05/16 19:00 07:00 Intake Total 1097.740 ml 600 ml Output Total 1165 ml Balance -67.260 ml 600 ml IV Total 497.740 ml Tube Feeding 600 ml 600 ml Output Urine Total 1110 ml Chest Tube Drainage Total 55 ml Critical Care - Objective ET-Tube: 8.0 ET Position: 22 Last 24 Hour Vital Signs Date Time Temp Pulse Resp B/P Pulse Ox O2 Delivery O2 Flow Rate FiO2 09/05/16 08:27 97.3 85 20 157/76 96 Nasal Cannula 3.0 09/05/16 07:33 84 18 100 Nasal Cannula 2.0 28 09/05/16 07:31 Nasal Cannula 2.0 28 09/05/16 07:24 80 18 Nasal Cannula 2.0 09/05/16 07:22 81 18 100 Nasal Cannula 2.0 28 09/05/16 07:21 100 Nasal Cannula 2.0 28 09/05/16 07:00 98.8 84 17 143/92 98 Nasal Cannula 2.0 09/05/16 06:00 98.8 84 143/92 98 Nasal Cannula 2.0 09/05/16 05:00 98.8 84 143/92 98 Nasal Cannula 2.0 09/05/16 04:00 81 09/05/16 03:57 98.8 84 17 143/92 98 Nasal Cannula 2.0 09/05/16 03:31 86 17 98 Nasal Cannula 2.0 28 09/05/16 00:00 84 09/04/16 23:53 97.3 89 17 136/90 97 Nasal Cannula 09/04/16 23:15 85 18 100 Nasal Cannula 2.0 28 09/04/16 23:02 85 17 98 Nasal Cannula 2.0 28 09/04/16 20:21 98.4 96 19 141/74 96 Nasal Cannula 09/04/16 20:00 96 09/04/16 19:30 87 18 100 Nasal Cannula 2.0 28 09/04/16 19:11 97 Nasal Cannula 2.0 28 09/04/16 19:11 Nasal Cannula 2.0 28 09/04/16 19:09 88 18 100 Nasal Cannula 2.0 09/04/16 19:00 97.9 90 20 148/80 95 Nasal Cannula 2.0 09/04/16 18:00 97.9 90 20 148/80 95 Nasal Cannula 2.0 09/04/16 17:00 97.9 90 20 148/80 95 Room Air 09/04/16 16:00 85 09/04/16 16:00 97.9 90 20 148/80 95 Nasal Cannula 2.0 09/04/16 15:35 86 18 100 Nasal Cannula 2.0 09/04/16 15:30 84 18 100 Nasal Cannula 2.0 09/04/16 13:00 97.9 90 20 153/75 97 Nasal Cannula 2.0 09/04/16 12:00 98.7 86 18 128/69 98 Nasal Cannula 3.0 09/04/16 12:00 97 09/04/16 11:10 88 18 100 Nasal Cannula 2.0 09/04/16 11:05 87 18 100 Nasal Cannula 2.0 09/04/16 11:00 87 17 134/87 100 Nasal Cannula 3.0 09/04/16 10:00 87 17 143/60 100 Nasal Cannula 3.0 09/04/16 09:00 88 17 126/53 100 Nasal Cannula 3.0 Labs: Labs Test 09/02/16 19:50 09/03/16 03:50 09/03/16 12:46 09/03/16 18:00 White Blood Count 18.0 K/UL (4.8-10.8) 16.8 K/UL (4.8-10.8) Red Blood Count 3.39 M/UL (4.20-5.40) 3.57 M/UL (4.20-5.40) Hemoglobin 10.6 G/DL (12.0-16.0) 10.3 G/DL (12.0-16.0) Hematocrit 30.1 % (37.0-47.0) 31.0 % (37.0-47.0) Mean Corpuscular Volume 89 FL (80-99) 87 FL (80-99) Mean Corpuscular Hemoglobin 31.1 PG (27.0-31.0) 29.0 PG (27.0-31.0) Mean Corpuscular Hemoglobin Concent 35.1 G/DL (32.0-36.0) 33.3 G/DL (32.0-36.0) Red Cell Distribution Width 13.3 % (11.6-14.8) 13.6 % (11.6-14.8) Platelet Count 199 K/UL (150-450) 237 K/UL (150-450) Mean Platelet Volume 6.0 FL (6.5-10.1) 6.3 FL (6.5-10.1) Neutrophils (%) (Auto) % (45.0-75.0) 80.4 % (45.0-75.0) Lymphocytes (%) (Auto) % (20.0-45.0) 14.1 % (20.0-45.0) Monocytes (%) (Auto) % (1.0-10.0) 4.3 % (1.0-10.0) Eosinophils (%) (Auto) % (0.0-3.0) 0.9 % (0.0-3.0) Basophils (%) (Auto) % (0.0-2.0) 0.3 % (0.0-2.0) Differential Total Cells Counted 100 Neutrophils % (Manual) 79 % (45-75) Lymphocytes % (Manual) 15 % (20-45) Monocytes % (Manual) 3 % (1-10) Eosinophils % (Manual) 1 % (0-3) Basophils % (Manual) 0 % (0-2) Band Neutrophils 2 % (0-8) Platelet Estimate Adequate Platelet Morphology Normal Hypochromasia 2+ Anisocytosis 1+ Activated Partial Thromboplast Time 33 SEC (23-33) 45 SEC (23-33) Arterial Blood pH 7.470 (7.350-7.450) Arterial Blood Partial Pressure CO2 37.9 mmHg (35.0-45.0) Arterial Blood Partial Pressure O2 110.6 mmHg (75.0-100.0) Arterial Blood HCO3 27.3 mmol/L (22.0-26.0) Arterial Blood Oxygen Saturation 98.3 % (92.0-98.0) Arterial Blood Base Excess 3.6 Ed Test Positive Test 09/04/16 01:00 09/04/16 04:00 09/05/16 03:50 Activated Partial Thromboplast Time 77 SEC (23-33) 57 SEC (23-33) White Blood Count 14.4 K/UL (4.8-10.8) 13.6 K/UL (4.8-10.8) Red Blood Count 3.71 M/UL (4.20-5.40) 3.93 M/UL (4.20-5.40) Hemoglobin 11.0 G/DL (12.0-16.0) 11.3 G/DL (12.0-16.0) Hematocrit 32.8 % (37.0-47.0) 34.9 % (37.0-47.0) Mean Corpuscular Volume 88 FL (80-99) 89 FL (80-99) Mean Corpuscular Hemoglobin 29.7 PG (27.0-31.0) 28.8 PG (27.0-31.0) Mean Corpuscular Hemoglobin Concent 33.6 G/DL (32.0-36.0) 32.4 G/DL (32.0-36.0) Red Cell Distribution Width 13.7 % (11.6-14.8) 14.4 % (11.6-14.8) Platelet Count 239 K/UL (150-450) 259 K/UL (150-450) Mean Platelet Volume 5.6 FL (6.5-10.1) 6.0 FL (6.5-10.1) Neutrophils (%) (Auto) 77.6 % (45.0-75.0) 80.2 % (45.0-75.0) Lymphocytes (%) (Auto) 16.0 % (20.0-45.0) 13.7 % (20.0-45.0) Monocytes (%) (Auto) 4.9 % (1.0-10.0) 4.3 % (1.0-10.0) Eosinophils (%) (Auto) 1.3 % (0.0-3.0) 1.1 % (0.0-3.0) Basophils (%) (Auto) 0.3 % (0.0-2.0) 0.5 % (0.0-2.0) Sodium Level 139 mEQ/L (135-145) Potassium Level 4.2 mEQ/L (3.4-4.9) Chloride Level 99 mEQ/L (98-107) Carbon Dioxide Level 29 mEQ/L (20-30) Anion Gap 11 (5-15) Blood Urea Nitrogen 10 mg/dL (7-23) Creatinine 0.3 mg/dL (0.5-0.9) Estimat Glomerular Filtration Rate mL/min (>60) Glucose Level 168 mg/dL (74-106) Calcium Level 8.4 mg/dL (8.6-10.2) Total Bilirubin 0.2 mg/dL (0.0-1.2) Aspartate Amino Transf (AST/SGOT) 44 U/L (5-40) Alanine Aminotransferase (ALT/SGPT) 101 U/L (3-33) Alkaline Phosphatase 98 U/L (35-104) Pro-B-Type Natriuretic Peptide 1423 pg/mL (0-450) Total Protein 5.6 g/dL (6.6-8.7) Albumin 2.0 g/dL (3.5-5.2) Globulin 3.6 g/dL Albumin/Globulin Ratio 0.5 (1.0-2.7) Objective: GENERAL: The patient is well appearing female. The patient is altered; extubated and comfortable HEENT: Negative. NECK: Supple. The patient is without meningismus LUNGS: symmetric breath sounds. no wheeze with some mild rhonchi; CARDIAC: S1, S1 irregular without murmurs, rubs, or gallops. ABDOMEN: Soft. Feeding tube in place. No hepatosplenomegaly. no distrention EXTREMITIES: No cyanosis or clubbing. There is trace edema. NEUROLOGIC: The patient is comfortable but confused reviewed and edited Accucheck: 155 MARI JUAN September 05, 2016 08:35
--- NOTE | 2016-09-05 08:50 | General Progress Note ---
Assessment/Plan Problem List: (1) Pneumonia ICD Codes: J18.9 - Pneumonia, unspecified organism SNOMED: 487153550 (2) DVT (deep vein thrombosis) in ICD Codes: O22.30 - Deep phlebothrombosis in , unspecified trimester; I82.409 - Acute embolism and thrombosis of unspecified deep veins of unspecified lower extremity SNOMED: 90536371, 034499675, 656590112 (3) Hyperkalemia ICD Codes: E87.5 - Hyperkalemia SNOMED: 96142603 (4) Renal failure ICD Codes: N19 - Unspecified kidney failure SNOMED: 56237618 (5) Respiratory failure ICD Codes: J96.90 - Respiratory failure, unspecified, unspecified whether with hypoxia or hypercapnia SNOMED: 860879196 (6) Lung mass ICD Codes: R91.8 - Other nonspecific abnormal finding of lung field SNOMED: 378151609 Status: stable, progressing Assessment/Plan o2 resp care check swallow ngt feeds ok for tele monitor o2 sats and volume status Subjective ROS Limited/Unobtainable: No Constitutional: Reports: malaise, weakness HEENT: Reports: no symptoms Cardiovascular: Reports: no symptoms Respiratory: Reports: cough, shortness of breath Gastrointestinal/Abdominal: Reports: no symptoms Genitourinary: Reports: no symptoms Neurologic/Psychiatric: Reports: pre-existing deficit Endocrine: Reports: no symptoms Hematologic/Lymphatic: Reports: anemia Allergies: Coded Allergies: No Known Allergies (Unverified , 12/10/15) All Systems: reviewed and negative except above Subjective extubated. on ngt. no distress. awake. confused but follows commands. on 3l. Objective Last 24 Hour Vital Signs Date Time Temp Pulse Resp B/P Pulse Ox O2 Delivery O2 Flow Rate FiO2 09/05/16 08:27 97.3 85 20 157/76 96 Nasal Cannula 3.0 09/05/16 07:33 84 18 100 Nasal Cannula 2.0 28 09/05/16 07:31 Nasal Cannula 2.0 28 09/05/16 07:24 80 18 Nasal Cannula 2.0 09/05/16 07:22 81 18 100 Nasal Cannula 2.0 28 09/05/16 07:21 100 Nasal Cannula 2.0 28 09/05/16 07:00 98.8 84 17 143/92 98 Nasal Cannula 2.0 09/05/16 06:00 98.8 84 17 143/92 98 Nasal Cannula 2.0 09/05/16 05:00 98.8 84 17 143/92 98 Nasal Cannula 2.0 09/05/16 04:00 81 09/05/16 03:57 98.8 84 17 143/92 98 Nasal Cannula 2.0 09/05/16 03:31 86 17 98 Nasal Cannula 2.0 28 09/05/16 00:00 84 09/04/16 23:53 97.3 89 17 136/90 97 Nasal Cannula 09/04/16 23:15 85 18 100 Nasal Cannula 2.0 28 09/04/16 23:02 85 17 98 Nasal Cannula 2.0 28 09/04/16 20:21 98.4 96 19 141/74 96 Nasal Cannula 09/04/16 20:00 96 09/04/16 19:30 87 18 100 Nasal Cannula 2.0 28 09/04/16 19:11 97 Nasal Cannula 2.0 28 09/04/16 19:11 Nasal Cannula 2.0 28 09/04/16 19:09 88 18 100 Nasal Cannula 2.0 28 09/04/16 19:00 97.9 90 20 148/80 95 Nasal Cannula 2.0 09/04/16 18:00 97.9 90 20 148/80 95 Nasal Cannula 2.0 09/04/16 17:00 97.9 90 20 148/80 95 Room Air 09/04/16 16:00 85 09/04/16 16:00 97.9 90 20 148/80 95 Nasal Cannula 2.0 09/04/16 15:35 86 18 100 Nasal Cannula 2.0 28 09/04/16 15:30 84 18 100 Nasal Cannula 2.0 28 09/04/16 13:00 97.9 90 20 153/75 97 Nasal Cannula 2.0 09/04/16 12:00 98.7 86 18 128/69 98 Nasal Cannula 3.0 09/04/16 12:00 97 09/04/16 11:10 88 18 100 Nasal Cannula 2.0 28 09/04/16 11:05 87 18 100 Nasal Cannula 2.0 28 09/04/16 11:00 87 17 134/87 100 Nasal Cannula 3.0 09/04/16 10:00 87 17 143/60 100 Nasal Cannula 3.0 09/04/16 09:00 88 17 126/53 100 Nasal Cannula 3.0 Intake and Output 09/04/16 09/05/16 19:00 07:00 Intake Total 1097.740 ml 600 ml Output Total 1165 ml Balance -67.260 ml 600 ml IV Total 497.740 ml Tube Feeding 600 ml 600 ml Output Urine Total 1110 ml Chest Tube Drainage Total 55 ml Laboratory Tests 09/05/16 03:50: White Blood Count 13.6H, Red Blood Count 3.93L, Hemoglobin 11.3L, Hematocrit 34.9L, Mean Corpuscular Volume 89, Mean Corpuscular Hemoglobin 28.8, Mean Corpuscular Hemoglobin Concent 32.4, Red Cell Distribution Width 14.4, Platelet Count 259, Mean Platelet Volume 6.0L, Neutrophils (%) (Auto) 80.2H, Lymphocytes (%) (Auto) 13.7L, Monocytes (%) (Auto) 4.3, Eosinophils (%) (Auto) 1.1, Basophils (%) (Auto) 0.5, Activated Partial Thromboplast Time 57H, Sodium Level 139, Potassium Level 4.2, Chloride Level 99, Carbon Dioxide Level 29, Anion Gap 11, Blood Urea Nitrogen 10, Creatinine 0.3L, Estimat Glomerular Filtration Rate , Glucose Level 168H, Calcium Level 8.4L, Total Bilirubin 0.2, Aspartate Amino Transf (AST/SGOT) 44H, Alanine Aminotransferase (ALT/SGPT) 101H, Alkaline Phosphatase 98, Pro-B-Type Natriuretic Peptide 1423H, Total Protein 5.6L, Albumin 2.0L, Globulin 3.6, Albumin/Globulin Ratio 0.5L Height (Feet): 5 Height (Inches): 4.00 Weight (Pounds): 123 Objective General Appearance: WD/WN, alert, confused Neck: supple Cardiovascular: regular rhythm Respiratory/Chest: normal breath sounds Abdomen: normal bowel sounds, non tender, soft, no organomegaly Edema: no edema noted Arm (L), no edema noted Arm (R), no edema noted Leg (L), no edema noted Leg (R), no edema noted Pedal (L), no edema noted Pedal (R), no edema noted Generalized JUSTIN IRVIN September 05, 2016 08:50
[2016-09-05] MEDS: Pantoprazole Inj IVP SCH (08:53)
--- NOTE | 2016-09-05 10:11 | Infectious Diseases Prog Note ---
Assessment/Plan Assessment/Plan A: 1. Proteus sepsis secondary to UTI 2. Proteus , Providencia UTI 3. postobstructive pneumonia with Klebsiella 4. leucocytosis improving 5. respiratory failure resolved 6. lung cancer, adenocarcinoma P 1. continue Rocephin Subjective ROS Limited/Unobtainable: Yes Constitutional: Reports: other - doing better, transferred from ICU to the floor Allergies: Coded Allergies: No Known Allergies (Unverified , 12/10/15) Objective Vital Signs Last 24 Hour Vital Signs Date Time Temp Pulse Resp B/P Pulse Ox O2 Delivery O2 Flow Rate FiO2 09/05/16 08:27 97.3 85 20 157/76 96 Nasal Cannula 3.0 09/05/16 07:33 84 18 100 Nasal Cannula 2.0 09/05/16 07:31 Nasal Cannula 2.0 28 09/05/16 07:24 80 18 Nasal Cannula 2.0 09/05/16 07:22 81 18 100 Nasal Cannula 2.0 09/05/16 07:21 100 Nasal Cannula 2.0 09/05/16 07:00 98.8 84 17 143/92 98 Nasal Cannula 2.0 09/05/16 06:00 98.8 84 17 143/92 98 Nasal Cannula 2.0 09/05/16 05:00 98.8 84 17 143/92 98 Nasal Cannula 2.0 09/05/16 04:00 81 09/05/16 03:57 98.8 84 17 143/92 98 Nasal Cannula 2.0 09/05/16 03:31 86 17 98 Nasal Cannula 2.0 09/05/16 00:00 84 09/04/16 23:53 97.3 89 17 136/90 97 Nasal Cannula 09/04/16 23:15 85 18 100 Nasal Cannula 2.0 09/04/16 23:02 85 17 98 Nasal Cannula 2.0 09/04/16 20:21 98.4 96 19 141/74 96 Nasal Cannula 09/04/16 20:00 96 09/04/16 19:30 87 18 100 Nasal Cannula 2.0 09/04/16 19:11 97 Nasal Cannula 2.0 09/04/16 19:11 Nasal Cannula 2.0 28 09/04/16 19:09 88 18 100 Nasal Cannula 2.0 09/04/16 19:00 97.9 90 20 148/80 95 Nasal Cannula 2.0 09/04/16 18:00 97.9 90 20 148/80 95 Nasal Cannula 2.0 09/04/16 17:00 97.9 90 20 148/80 95 Room Air 09/04/16 16:00 85 09/04/16 16:00 97.9 90 20 148/80 95 Nasal Cannula 2.0 09/04/16 15:35 86 18 100 Nasal Cannula 2.0 28 09/04/16 15:30 84 18 100 Nasal Cannula 2.0 28 09/04/16 13:00 97.9 90 20 153/75 97 Nasal Cannula 2.0 09/04/16 12:00 98.7 86 18 128/69 98 Nasal Cannula 3.0 09/04/16 12:00 97 09/04/16 11:10 88 18 100 Nasal Cannula 2.0 28 09/04/16 11:05 87 18 100 Nasal Cannula 2.0 28 09/04/16 11:00 87 17 134/87 100 Nasal Cannula 3.0 Height (Feet): 5 Height (Inches): 4.00 Weight (Pounds): 123 General Appearance: no acute distress HEENT: other - NG tube Respiratory/Chest: lungs clear Cardiovascular: normal rate Abdomen: soft, non tender Extremities: no edema Neurologic/Psychiatric: other - awake, poorly communicative Laboratory Tests Test 09/05/16 03:50 White Blood Count 13.6 K/UL (4.8-10.8) H Red Blood Count 3.93 M/UL (4.20-5.40) L Hemoglobin 11.3 G/DL (12.0-16.0) L Hematocrit 34.9 % (37.0-47.0) L Mean Corpuscular Volume 89 FL (80-99) Mean Corpuscular Hemoglobin 28.8 PG (27.0-31.0) Mean Corpuscular Hemoglobin Concent 32.4 G/DL (32.0-36.0) Red Cell Distribution Width 14.4 % (11.6-14.8) Platelet Count 259 K/UL (150-450) Mean Platelet Volume 6.0 FL (6.5-10.1) L Neutrophils (%) (Auto) 80.2 % (45.0-75.0) H Lymphocytes (%) (Auto) 13.7 % (20.0-45.0) L Monocytes (%) (Auto) 4.3 % (1.0-10.0) Eosinophils (%) (Auto) 1.1 % (0.0-3.0) Basophils (%) (Auto) 0.5 % (0.0-2.0) Activated Partial Thromboplast Time 57 SEC (23-33) H Sodium Level 139 mEQ/L (135-145) Potassium Level 4.2 mEQ/L (3.4-4.9) Chloride Level 99 mEQ/L (98-107) Carbon Dioxide Level 29 mEQ/L (20-30) Anion Gap 11 (5-15) Blood Urea Nitrogen 10 mg/dL (7-23) Creatinine 0.3 mg/dL (0.5-0.9) L Estimat Glomerular Filtration Rate mL/min (>60) Glucose Level 168 mg/dL (74-106) H Calcium Level 8.4 mg/dL (8.6-10.2) L Total Bilirubin 0.2 mg/dL (0.0-1.2) Aspartate Amino Transf (AST/SGOT) 44 U/L (5-40) H Alanine Aminotransferase (ALT/SGPT) 101 U/L (3-33) H Alkaline Phosphatase 98 U/L (35-104) Pro-B-Type Natriuretic Peptide 1423 pg/mL (0-450) H Total Protein 5.6 g/dL (6.6-8.7) L Albumin 2.0 g/dL (3.5-5.2) L Globulin 3.6 g/dL Albumin/Globulin Ratio 0.5 (1.0-2.7) L Current Medications Medications (Trade) Dose Ordered Sig/Aaron Route PRN Reason Start Time Stop Time Status Last Admin Dose Admin Acetaminophen (Tylenol) 650 mg Q4H PRN ORAL TEMP>100.5/HEADACHE 09/04/16 14:00 10/04/16 13:59 Albuterol Sulfate (Proventil) 2.5 mg Q4HRT HHN 09/04/16 15:00 09/09/16 14:59 09/05/16 07:28 Ceftriaxone Sodium/Dextrose (Rocephin/D5W) 110 ml @ 220 mls/hr Q24H IVPB 09/04/16 14:00 09/11/16 13:59 09/04/16 14:26 Dextrose (Dextrose 50%) STAT PRN IV Hypoglycemia 09/04/16 14:00 10/04/16 13:59 Insulin Aspart (NovoLOG) EVERY 6 HOURS SUBQ 09/04/16 18:00 10/04/16 17:59 09/05/16 05:37 Morphine Sulfate (Morphine Sulfate) 2 mg Q4H PRN IVP Severe Pain (Pain Scale 7-10) 09/04/16 15:00 09/11/16 14:59 Pantoprazole (Protonix) 40 mg DAILY IVP 09/05/16 09:00 10/05/16 08:59 09/05/16 08:53 Rivaroxaban (Xarelto) 15 mg BID ORAL 09/05/16 09:00 10/05/16 08:59 LARISSA SHEPHERD September 05, 2016 10:11
--- NOTE | 2016-09-05 10:53 | Diagnostic Imaging Report ---
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 The left upper extremity was prepped with alcohol. All elements of maximal sterile barrier technique were followed including usage of a cap, mask, sterile gown, sterile gloves, hand hygiene and a large sterile sheet. Sonographic evaluation of the upper extremity was performed demonstrating a patent and compressible basilic vein. Access was obtained under real-time ultrasound guidance and digital image was saved and archived. An .018 wire was introduced. Needle exchanged for a 5 [place] peel-away sheath. Measurements were obtained. A 5 [place] dual-lumen Power PICC line catheter was cut to 40 cm and introduced over the wire. Peel-away sheath and wire were removed.Catheter was secured to the skin using 2-0 Prolene suture. Both ports aspirate and flush easily. Post procedure chest x-ray demonstrates good position of the PICC line catheter within the SVC. Impression: Successful placement of an upper extremity PICC line catheter
--- NOTE | 2016-09-05 12:10 | Diagnostic Imaging Report ---
Indication: Status post chest tube removal Comparison: Earlier the same day A single view chest radiograph was obtained. Findings: Right chest tube was removed. No pneumothorax is identified. Right pulmonary mass again noted. Basilar atelectasis versus infiltrates again noted unchanged. Other tubes and lines are stable. Impression: Status post right chest tube removal. No pneumothorax identified. No change otherwise
[2016-09-05] MEDS: Xarelto 10mg tab ORAL SCH ×3 (13:29→21:45)
[2016-09-05] MEDS: cefTRIAXone 2 GM in D5W 110 ML IVPB SCH (15:26)
--- NOTE | 2016-09-05 21:58 | Progress Note ---
DATE: 09/05/2016 CARDIOLOGY PROGRESS NOTE SUBJECTIVE: The patient remains extubated in no distress, confused, but following commands. Chest tube was removed yesterday. Monitored sinus rhythm. OBJECTIVE: VITAL SIGNS: Blood pressure 157/76, pulse 85, and respirations 20. LUNGS: Bilateral breath sounds. No wheezing. Few rhonchi heard left greater than right. HEART: Regular rhythm and rate. Normal S1 and S2 with a fourth heart sound. ABDOMEN: Soft and nontender. NG tube in place. EXTREMITIES: Without edema. LABORATORY DATA: White count 13.6 and hemoglobin 11.3. Potassium 4.2, BUN 10, and creatinine 0.3. Pro-natriuretic peptide is 1400. Albumin is 2.0. IMPRESSION: 1. Adenocarcinoma of the lung status post video-assisted thoracoscopic surgery pleurodesis. 2. Acute deep venous thrombosis of the lower extremities. 3. Secondary sinus tachycardia. 4. Type 2 diabetes mellitus. 5. Postobstructive pneumonia, recovering. 6. Sepsis. 7. Severe protein-calorie malnutrition. 8. Acute on chronic diastolic congestive heart failure. PLAN: 1. Discontinue intravenous fluids. 2. Nutrition by feeding tube. 3. Full anticoagulation with rivaroxaban. 4. Await oncology input. At this time, performance status is too poor in my opinion for chemotherapy. 5. We will follow and adjust cardiovascular regimen, based on clinical parameters. Giuseppe Muir M.D. DR: BURKE JOB#: [id number] CC:
[2016-09-06] VITALS: BP_SYST 139; BP_SYST 147; BP_DIAS 77; BP_DIAS 87
[2016-09-06] MEDS: NovoLOG Insulin Flexpen SUBQ SCH ×4 (00:01→17:49)
[2016-09-06 04:00] VITALS: BP 135/70
[2016-09-06] MEDS: Albuterol ud Inhalation HHN SCH ×6 (04:06→23:43)
[2016-09-06 07:28] LABS: BASOPHILS % (AUTO) 0.6 % (0.0-2.0); EOSINOPHILS % (AUTO) 1.2 % (0.0-3.0); LYMPHOCYTES % (AUTO) 15.8 % (20.0-45.0); MEAN CORPUSCULAR HEMOGLOBIN 29.3 PG (27.0-31.0); MEAN CORPUSCULAR HGB CONC 32.8 G/DL (32.0-36.0); MEAN CORPUSCULAR VOLUME 89 FL (80-99); MEAN PLATELET VOLUME 5.9 FL (6.5-10.1); MONOCYTES % (AUTO) 4.9 % (1.0-10.0); NEUTROPHILS % (AUTO) 77.5 % (45.0-75.0); PLATELET COUNT 247 K/UL (150-450); RED BLOOD COUNT 3.79 M/UL (4.20-5.40); RED CELL DISTRIBUTION WIDTH 14.2 % (11.6-14.8); WHITE BLOOD COUNT 11.5 K/UL (4.8-10.8)
[2016-09-06 08:00] VITALS: BP 140/67
--- NOTE | 2016-09-06 08:08 | Diagnostic Imaging Report ---
Indication: Followup after chest tube removal Comparison: 09/04/2016 A single view chest radiograph was obtained. Findings: No pneumothorax seen. Dense left basilar consolidation versus atelectasis noted. Heart size is stable. NG tube remains satisfactory. PICC line is stable. Impression: Somewhat increasing left basilar consolidation versus atelectasis. No pneumothorax on the right. Tubes and lines satisfactory
--- NOTE | 2016-09-06 08:12 | Critical Care Progress Note ---
Assessment/Plan Assessment/Plan IMPRESSION: 1. Respiratory failure. 2. Metabolic acidosis. 3. s/p VATS biopsy with documented lung cancer 4. Right lung mass, 5. Left lower lobe atelectasis. 6. Severe protein-calorie malnutrition. 7. s/p sepsis and shock. 8. pneumonia. 9. Acute renal failure. 10. treated urinary tract infection. 11. chest tube- removed PLAN Low oxygen as able encourage cough and clearance antibiotics as needed supportive care monitor fluid status for change nutrition maintain meds oncology follow up still pending consider dc planning appears comfortable at present medications/laboratory data/nursing notes reviewed in detail note reviewed and edited care discussed with RN and RT Critical Care - Subjective Interval Events: improved CT out no distress ROS Limited/Unobtainable: Yes Condition: improving EKG Rhythm: Sinus Rhythm I&O: Intake and Output 09/05/16 09/06/16 19:00 07:00 Intake Total 600 ml 2530 ml Output Total 1600 ml 1755 ml Balance -1000 ml 775 ml Intake Free Water 200 ml IV Total 1700 ml Tube Feeding 600 ml 600 ml Other 30 ml Output Urine Total 1600 ml 1650 ml Chest Tube Drainage Total 55 ml Estimated Blood Loss 50 ml # Bowel Movements 1 Critical Care - Objective CXR: lung mass CT out otherwise stable ET-Tube: 8.0 ET Position: 22 Last 24 Hour Vital Signs Date Time Temp Pulse Resp B/P Pulse Ox O2 Delivery O2 Flow Rate FiO2 09/06/16 08:04 28 09/06/16 08:04 Room Air 2.0 28 09/06/16 08:04 94 Nasal Cannula 2.0 28 09/06/16 08:04 83 18 94 Nasal Cannula 2.0 28 09/06/16 04:00 97.5 84 18 135/70 99 Room Air 09/06/16 04:00 83 09/06/16 03:45 82 20 95 Nasal Cannula 2.0 28 09/06/16 03:30 80 20 94 Nasal Cannula 2.0 28 09/06/16 00:00 84 09/06/16 00:00 97.2 88 20 147/77 99 Room Air 09/06/16 00:00 97.5 59 18 139/87 99 Room Air 09/05/16 23:45 88 20 99 Nasal Cannula 2.0 28 09/05/16 23:30 83 20 96 Nasal Cannula 2.0 28 09/05/16 20:00 97.8 89 20 135/77 100 Room Air 2.0 28 09/05/16 20:00 83 09/05/16 20:00 97.8 89 20 135/77 100 Room Air 09/05/16 19:48 98.1 87 20 137/73 98 Nasal Cannula 2.0 28 09/05/16 19:30 Nasal Cannula 2.0 28 09/05/16 19:30 90 20 100 Nasal Cannula 2.0 09/05/16 19:30 100 Nasal Cannula 2.0 28 09/05/16 19:30 86 20 100 Nasal Cannula 2.0 28 09/05/16 16:01 92 09/05/16 16:00 98.1 87 20 137/73 98 Nasal Cannula 2.0 09/05/16 16:00 84 09/05/16 15:40 85 18 100 Nasal Cannula 2.0 28 09/05/16 15:30 83 18 100 Nasal Cannula 2.0 09/05/16 12:00 84 09/05/16 12:00 97.9 86 20 143/71 97 Nasal Cannula 2.0 09/05/16 11:29 82 18 100 Nasal Cannula 2.0 09/05/16 11:18 80 18 100 Nasal Cannula 2.0 28 Labs: Laboratory Tests Test 09/06/16 05:05 White Blood Count 11.5 K/UL (4.8-10.8) H Red Blood Count 3.79 M/UL (4.20-5.40) L Hemoglobin 11.1 G/DL (12.0-16.0) L Hematocrit 33.8 % (37.0-47.0) L Mean Corpuscular Volume 89 FL (80-99) Mean Corpuscular Hemoglobin 29.3 PG (27.0-31.0) Mean Corpuscular Hemoglobin Concent 32.8 G/DL (32.0-36.0) Red Cell Distribution Width 14.2 % (11.6-14.8) Platelet Count 247 K/UL (150-450) Mean Platelet Volume 5.9 FL (6.5-10.1) L Neutrophils (%) (Auto) 77.5 % (45.0-75.0) H Lymphocytes (%) (Auto) 15.8 % (20.0-45.0) L Monocytes (%) (Auto) 4.9 % (1.0-10.0) Eosinophils (%) (Auto) 1.2 % (0.0-3.0) Basophils (%) (Auto) 0.6 % (0.0-2.0) Sodium Level Pending Potassium Level Pending Chloride Level Pending Carbon Dioxide Level Pending Blood Urea Nitrogen Pending Creatinine Pending Estimat Glomerular Filtration Rate Pending Glucose Level Pending Calcium Level Pending Total Bilirubin Pending Aspartate Amino Transf (AST/SGOT) Pending Alanine Aminotransferase (ALT/SGPT) Pending Alkaline Phosphatase Pending Total Protein Pending Albumin Pending Globulin Pending Objective: GENERAL: The patient is chronically ill appearing female. The patient is comfortable HEENT: Negative. NECK: Supple. The patient is without meningismus LUNGS: symmetric breath sounds. no wheeze with some mild rhonchi; CARDIAC: S1, S1 irregular without murmurs, rubs, or gallops. ABDOMEN: Soft. NABS. No hepatosplenomegaly. no distention EXTREMITIES: No cyanosis or clubbing. There is trace edema. NEUROLOGIC: The patient is nonfocal reviewed and edited Accucheck: 129 MARI JUAN September 06, 2016 08:12
--- NOTE | 2016-09-06 08:19 | General Progress Note ---
Assessment/Plan Problem List: (1) Pneumonia ICD Codes: J18.9 - Pneumonia, unspecified organism SNOMED: 511457729 (2) DVT (deep vein thrombosis) in ICD Codes: O22.30 - Deep phlebothrombosis in , unspecified trimester; I82.409 - Acute embolism and thrombosis of unspecified deep veins of unspecified lower extremity SNOMED: 45333675, 542039973, 997327648 (3) Hyperkalemia ICD Codes: E87.5 - Hyperkalemia SNOMED: 64599102 (4) Renal failure ICD Codes: N19 - Unspecified kidney failure SNOMED: 02671290 (5) Respiratory failure ICD Codes: J96.90 - Respiratory failure, unspecified, unspecified whether with hypoxia or hypercapnia SNOMED: 942701376 (6) Lung mass ICD Codes: R91.8 - Other nonspecific abnormal finding of lung field SNOMED: 080019644 Status: stable, progressing Assessment/Plan o2 resp care check swallow ngt feeds ok for tele monitor o2 sats and volume status Subjective ROS Limited/Unobtainable: No Constitutional: Reports: malaise, weakness HEENT: Reports: no symptoms Cardiovascular: Reports: no symptoms Respiratory: Reports: cough Gastrointestinal/Abdominal: Reports: no symptoms Genitourinary: Reports: no symptoms Neurologic/Psychiatric: Reports: pre-existing deficit Endocrine: Reports: no symptoms Hematologic/Lymphatic: Reports: anemia Allergies: Coded Allergies: No Known Allergies (Unverified , 12/10/15) All Systems: reviewed and negative except above Subjective no events. awake. on ngt feeds. no distress. awaiting swallow eval. Objective Last 24 Hour Vital Signs Date Time Temp Pulse Resp B/P Pulse Ox O2 Delivery O2 Flow Rate FiO2 09/06/16 08:04 28 09/06/16 08:04 Room Air 2.0 28 09/06/16 08:04 94 Nasal Cannula 2.0 28 09/06/16 08:04 83 18 94 Nasal Cannula 2.0 28 09/06/16 04:00 97.5 84 18 135/70 99 Room Air 09/06/16 04:00 83 09/06/16 03:45 82 20 95 Nasal Cannula 2.0 28 09/06/16 03:30 80 20 94 Nasal Cannula 2.0 28 09/06/16 00:00 84 09/06/16 00:00 97.2 88 20 147/77 99 Room Air 09/06/16 00:00 97.5 59 18 139/87 99 Room Air 09/05/16 23:45 88 20 99 Nasal Cannula 2.0 28 09/05/16 23:30 83 20 96 Nasal Cannula 2.0 28 09/05/16 20:00 97.8 89 20 135/77 100 Room Air 2.0 09/05/16 20:00 83 09/05/16 20:00 97.8 89 20 135/77 100 Room Air 09/05/16 19:48 98.1 87 20 137/73 98 Nasal Cannula 2.0 09/05/16 19:30 Nasal Cannula 2.0 09/05/16 19:30 90 20 100 Nasal Cannula 2.0 09/05/16 19:30 100 Nasal Cannula 2.0 09/05/16 19:30 86 20 100 Nasal Cannula 2.0 09/05/16 16:01 92 09/05/16 16:00 98.1 87 20 137/73 98 Nasal Cannula 2.0 09/05/16 16:00 84 09/05/16 15:40 85 18 100 Nasal Cannula 2.0 09/05/16 15:30 83 18 100 Nasal Cannula 2.0 09/05/16 12:00 84 09/05/16 12:00 97.9 86 20 143/71 97 Nasal Cannula 2.0 09/05/16 11:29 82 18 100 Nasal Cannula 2.0 09/05/16 11:18 80 18 100 Nasal Cannula 2.0 28 Intake and Output 09/05/16 09/06/16 19:00 07:00 Intake Total 600 ml 2530 ml Output Total 1600 ml 1755 ml Balance -1000 ml 775 ml Intake Free Water 200 ml IV Total 1700 ml Tube Feeding 600 ml 600 ml Other 30 ml Output Urine Total 1600 ml 1650 ml Chest Tube Drainage Total 55 ml Estimated Blood Loss 50 ml # Bowel Movements 1 Laboratory Tests 09/06/16 05:05: White Blood Count 11.5H, Red Blood Count 3.79L, Hemoglobin 11.1L, Hematocrit 33.8L, Mean Corpuscular Volume 89, Mean Corpuscular Hemoglobin 29.3, Mean Corpuscular Hemoglobin Concent 32.8, Red Cell Distribution Width 14.2, Platelet Count 247, Mean Platelet Volume 5.9L, Neutrophils (%) (Auto) 77.5H, Lymphocytes (%) (Auto) 15.8L, Monocytes (%) (Auto) 4.9, Eosinophils (%) (Auto) 1.2, Basophils (%) (Auto) 0.6, Sodium Level [Pending], Potassium Level [Pending], Chloride Level [Pending], Carbon Dioxide Level [Pending], Blood Urea Nitrogen [ Pending], Creatinine [Pending], Estimat Glomerular Filtration Rate [Pending], Glucose Level [Pending], Calcium Level [Pending], Total Bilirubin [Pending], Aspartate Amino Transf (AST/SGOT) [Pending], Alanine Aminotransferase (ALT/SGPT ) [Pending], Alkaline Phosphatase [Pending], Total Protein [Pending], Albumin [ Pending], Globulin [Pending] Height (Feet): 5 Height (Inches): 4.00 Weight (Pounds): 123 Objective General Appearance: WD/WN, alert, confused. +ngt Neck: supple Cardiovascular: regular rhythm Respiratory/Chest: normal breath sounds Abdomen: normal bowel sounds, non tender, soft, no organomegaly Edema: no edema noted Arm (L), no edema noted Arm (R), no edema noted Leg (L), no edema noted Leg (R), no edema noted Pedal (L), no edema noted Pedal (R), no edema noted Generalized JUSTIN IRVIN September 06, 2016 08:19
[2016-09-06] MEDS: Pantoprazole Inj IVP SCH (08:29)
[2016-09-06] MEDS: Xarelto 10mg tab ORAL SCH ×2 (08:29→22:00)
[2016-09-06 08:31] LABS: ALANINE AMINOTRANSFERASE 71 U/L (3-33); ALBUMIN/GLOBULIN RATIO 0.6 (1.0-2.7); ANION GAP 12 (5-15); ASPARTATE AMINO TRANSFERASE 24 U/L (5-40); CARBON DIOXIDE 30 mEQ/L (20-30); CHLORIDE 98 mEQ/L (98-107); CREATININE 0.3 mg/dL (0.5-0.9); HEMOLYSIS 2; POTASSIUM 3.9 mEQ/L (3.4-4.9); SODIUM 140 mEQ/L (135-145); TOTAL PROTEIN 5.6 g/dL (6.6-8.7)
--- NOTE | 2016-09-06 10:23 | Cardiology Report ---
APPROVED REPORT EXAM: Two-dimensional and M-mode echocardiogram with Doppler and color Doppler. INDICATION Congestive Heart Failure M-Mode DIMENSIONS IVSd1.2 (0.7-1.1cm)Left Atrium (MM)3.3 (1.6-4.0cm) LVDd5.0 (3.5-5.6cm)Aortic Root3.3 (2.0-3.7cm) PWd1.2 (0.7-1.1cm)Aortic Cusp Exc.1.9 (1.5-2.0cm) LVDs3.3 (2.5-4.0cm) PWs1.8 cm Normal left ventricular chamber size, systolic function and wall motion. Left ventricular ejection fraction estimated to be 65 %. Mild left ventricular hypertrophy. No evidence of pericardial effusion. Anterior Echo-free space, may be due to pericardial fat or effusion. All other cardiac chamber sizes are within normal limits. Moderate fFocal aortic valve sclerosis with adequate cusp excursion. Thickened mitral valve leaflets with normal excursion. Mitral annulus and aortic root calcification. Normal pulmonic valve structure. Normal tricuspid valve structure. IVC dilated at 2.2 cm with slight physiologic collapse. A color flow and spectral Doppler study was performed and revealed: No aortic regurgitation. Trace to mild mitral regurgitation. Mitral diastolic velocities suggest reduced left ventricular relaxation c/w mild LV diastolic dysfunction (Grade I). Mild tricuspid regurgitation. Tricuspid systolic velocities suggests peak right ventricular systolic pressure of 28 mmHg No pulmonic regurgitation present.
--- NOTE | 2016-09-06 10:39 | Consultation ---
DATE OF CONSULTATION: 09/03/2016 REFERRING PHYSICIAN: Rajesh Franco M.D. REASON FOR CONSULTATION: Lung cancer. The patient is currently quite ill in the intensive care unit, status post extubation today. The patient was first evaluated by myself here at the hospital on 09/03/2016. HISTORY OF PRESENT ILLNESS: Unfortunately, I am unable to obtain any history from the patient. I discussed the care with the nursing staff here in the intensive care unit. The patient's medical records have been reviewed. The patient is an unfortunate 81-year-old female with past medical history of depression, hypertension, hyperlipidemia, and dementia. The patient has been transferred to [facility] under the care of Dr. Franco and seen on 08/24/2016. She also has significant shortness of breath. In the emergency room, the patient was found to have acute respiratory distress and immediately intubated with mechanical ventilatory support. The patient also had episodes of hypotension. During hospitalization, the patient has undergone multiple chest x-rays. A CT scan of the chest on 08/26/2016 has demonstrated a 5.5 x 6 x 5.4 cm right perihilar mass within the posterior right upper lobe with satellite nodules and possibly some adjacent postobstructive pneumonia, apparently slightly suspicious for primary pulmonary malignancy. Bilateral vascular parenchymal interstitial infiltrates noted. Small bilateral pleural effusion noted. Small focus of scarring versus less likely neoplasm in the immediate left upper lobe noted. No definite adenopathy noted; however, evaluation of such in the absence of IV contrast. Possible 15-mm left adrenal mass, nonspecific, which could indicate a possible metastatic lesion was noted. Based on these findings, the patient apparently did undergo VATS procedure. The patient's pathology collected on 08/31/2016, pathology case #[id number] demonstrated lung upper lobe white thoracoscopic specimen consistent with adenocarcinoma with differentiated lymphovascular invasion not identified. Molecular testing for lung cancer mutation is pending. ____ right resection demonstrated negative for malignancy. The patient's pleural effusion, I cannot find at this point in time, it needs to be reviewed. It should be noted the patient has undergone a venous duplex bilateral lower extremities on 08/25/2016. She has no evidence of acute thrombus proximal popliteal veins. She has acute thrombus on the right and left side. The patient has been placed on IV heparin. The patient has been extubated today. PAST MEDICAL HISTORY: Lung cancer, , history of hypertension, and history of dementia. History of respiratory failure, post intubation. She has cachexia. MEDICATIONS: Per electronic medical records. ALLERGIES: Per electronic medical records. SOCIAL HISTORY: The patient . FAMILY HISTORY: Unable to obtain. REVIEW OF SYSTEMS: Unable to obtain. PHYSICAL EXAMINATION: GENERAL: The patient is nonverbal at this point in time. VITAL SIGNS: Heart rate of 102, blood pressure 125/59, O2 saturation 98%, and temperature 98.3. HEAD AND NECK: Sclerae anicteric. CHEST: Rhonchi bilaterally. Chest tube present. CARDIAC: Regular. S1 and S2. ABDOMEN: Soft, nontender, nondistended. No hepatosplenomegaly. The patient does have NG tube in place. EXTREMITIES: Edema. There is footdrop bilaterally. Skin: There is multiple decubitus. 05:52 NEUROLOGIC: The patient is minimally responsive; however, unable to answer my questions. has been noted. ASSESSMENT AND PLAN: 1. Documented adenocarcinoma of the lung, exact staging and workup is not clear at this point in time. The patient clearly does have postobstructive pneumonia. The patient's molecular staging for EGFR, ALK mutation, and PD-L1 is to be evaluated carefully. Staging workup will be done. At this point in time, the patient's performance is extremely poor. After the patient 06:40 patient is not a candidate for any oncologic therapy whether it is target therapy such as Tarceva versus immunotherapy versus chemotherapy. the patient is improved. The patient has however significant improvement in performance status. The patient has full imaging studies including MRI of the brain, whole body PET scan, imaging studies, rule out evidence of stage IV disease. radiation might have to be made at some point. The patient is status post at this point in time. Therefore, I will hold off on any active oncologic management till the patient's overall status improves in terms of her respiratory failure and underlying infection. 2. Please contact me when overall the patient's status is improved and the patient can be fully staged and at that point in time, consideration for further therapy will be made depending on the patient's molecular genetic findings on her lung cancer including EGFR and ALK as well as PDL-1. 3. Deep venous thrombosis prophylaxis. The patient is currently on IV heparin, being managed by ICU team. 4. Respiratory failure. Continue status post extubation. 5. Malnutrition. 6. Dementia. 7. Code status. The patient has overall poor prognosis, unexplained extremely poor performance and aggressive lung cancer. Consideration for making the patient DNR should be made. Consideration for hospice care needs are also be made as well. Racheal Alexis M.D. DR: CARINE JOB#: [id number] CC:
[2016-09-06 12:00] VITALS: BP 112/65
--- NOTE | 2016-09-06 12:43 | Infectious Diseases Prog Note ---
"Assessment/Plan Assessment/Plan antibiotics : ceftriaxone A 1. proteus sepsis secondary to UTI 2. proteus | providencia UTI 3. postobstructive klebsiella pneumonia 4. leucocytosis improving 5. respiratory failure resolved 6. lung mass s/p bronchoscopy | VATS | wedge resection with lung cancer P 1. continue ceftriaxone 2 more days 2. will follow up cultures Subjective ROS Limited/Unobtainable: Yes Allergies: Coded Allergies: No Known Allergies (Unverified , 12/10/15) Objective Vital Signs Last 24 Hour Vital Signs Date Time Temp Pulse Resp B/P Pulse Ox O2 Delivery O2 Flow Rate FiO2 09/06/16 12:00 96.8 90 18 112/65 Nasal Cannula 3.0 97 09/06/16 12:00 91 09/06/16 11:17 80 16 95 Nasal Cannula 3.0 32 09/06/16 11:17 28 09/06/16 08:19 83 19 98 Nasal Cannula 2.0 28 09/06/16 08:04 28 09/06/16 08:04 Room Air 2.0 28 09/06/16 08:04 94 Nasal Cannula 2.0 28 09/06/16 08:04 83 18 94 Nasal Cannula 2.0 28 09/06/16 08:04 28 09/06/16 08:04 85 18 95 Nasal Cannula 2.0 28 09/06/16 08:00 83 09/06/16 08:00 97.9 92 18 140/67 Nasal Cannula 2.0 96 09/06/16 04:00 97.5 84 18 135/70 99 Room Air 09/06/16 04:00 83 09/06/16 03:45 82 20 95 Nasal Cannula 2.0 28 09/06/16 03:30 80 20 94 Nasal Cannula 2.0 28 09/06/16 00:00 84 09/06/16 00:00 97.2 88 20 147/77 99 Room Air 09/06/16 00:00 97.5 59 18 139/87 99 Room Air 09/05/16 23:45 88 20 99 Nasal Cannula 2.0 28 09/05/16 23:30 83 20 96 Nasal Cannula 2.0 28 09/05/16 20:00 97.8 89 20 135/77 100 Room Air 2.0 28 09/05/16 20:00 83 09/05/16 20:00 97.8 89 20 135/77 100 Room Air 09/05/16 19:48 98.1 87 20 137/73 98 Nasal Cannula 2.0 28 09/05/16 19:30 Nasal Cannula 2.0 28 09/05/16 19:30 90 20 100 Nasal Cannula 2.0 28 09/05/16 19:30 100 Nasal Cannula 2.0 28 09/05/16 19:30 86 20 100 Nasal Cannula 2.0 28 09/05/16 16:01 92 09/05/16 16:00 98.1 87 20 137/73 98 Nasal Cannula 2.0 09/05/16 16:00 84 09/05/16 15:40 85 18 100 Nasal Cannula 2.0 28 09/05/16 15:30 83 18 100 Nasal Cannula 2.0 28 Height (Feet): 5 Height (Inches): 4.00 Weight (Pounds): 123 Respiratory/Chest: lungs clear Cardiovascular: normal rate, regular rhythm, no gallop/murmur Abdomen: soft, non tender Extremities: no edema, other - left arm PICC Laboratory Tests Test 09/06/16 05:05 White Blood Count 11.5 K/UL (4.8-10.8) H Red Blood Count 3.79 M/UL (4.20-5.40) L Hemoglobin 11.1 G/DL (12.0-16.0) L Hematocrit 33.8 % (37.0-47.0) L Mean Corpuscular Volume 89 FL (80-99) Mean Corpuscular Hemoglobin 29.3 PG (27.0-31.0) Mean Corpuscular Hemoglobin Concent 32.8 G/DL (32.0-36.0) Red Cell Distribution Width 14.2 % (11.6-14.8) Platelet Count 247 K/UL (150-450) Mean Platelet Volume 5.9 FL (6.5-10.1) L Neutrophils (%) (Auto) 77.5 % (45.0-75.0) H Lymphocytes (%) (Auto) 15.8 % (20.0-45.0) L Monocytes (%) (Auto) 4.9 % (1.0-10.0) Eosinophils (%) (Auto) 1.2 % (0.0-3.0) Basophils (%) (Auto) 0.6 % (0.0-2.0) Sodium Level 140 mEQ/L (135-145) Potassium Level 3.9 mEQ/L (3.4-4.9) Chloride Level 98 mEQ/L (98-107) Carbon Dioxide Level 30 mEQ/L (20-30) Anion Gap 12 (5-15) Blood Urea Nitrogen 15 mg/dL (7-23) Creatinine 0.3 mg/dL (0.5-0.9) L Estimat Glomerular Filtration Rate mL/min (>60) Glucose Level 139 mg/dL (74-106) H Calcium Level 9.0 mg/dL (8.6-10.2) Total Bilirubin 0.3 mg/dL (0.0-1.2) Aspartate Amino Transf (AST/SGOT) 24 U/L (5-40) Alanine Aminotransferase (ALT/SGPT) 71 U/L (3-33) H Alkaline Phosphatase 96 U/L (35-104) Total Protein 5.6 g/dL (6.6-8.7) L Albumin 2.2 g/dL (3.5-5.2) L Globulin 3.4 g/dL Albumin/Globulin Ratio 0.6 (1.0-2.7) L SHANNON GO September 06, 2016 12:43"
[2016-09-06] MEDS: cefTRIAXone 2 GM in D5W 110 ML IVPB SCH (14:28)
[2016-09-06 16:00] VITALS: BP 142/66
[2016-09-06 20:00] VITALS: BP 144/57
[2016-09-07] VITALS: BP 145/68
[2016-09-07] MEDS: NovoLOG Insulin Flexpen SUBQ SCH ×5 (00:21→23:47)
[2016-09-07] MEDS: Albuterol ud Inhalation HHN SCH ×6 (02:25→23:48)
[2016-09-07 04:00] VITALS: BP 139/75
--- NOTE | 2016-09-07 07:00 | Progress Note ---
DATE: 09/06/2016 CARDIOLOGY PROGRESS NOTE: SUBJECTIVE: The patient is awake, alert, and tolerating NG tube feedings. Swallow evaluation is pending today. OBJECTIVE: VITAL SIGNS: Blood pressure 135/70, heart rate 84, respiratory rate 18, and afebrile. Monitored rhythm sinus with atrial ectopics. LUNGS: Bilateral breath sounds. Few rhonchi. HEART: Regular rhythm and rate. Normal S1, S2. ABDOMEN: Soft. EXTREMITIES: Trace edema. LABORATORY DATA: White count 11.5 and hemoglobin 11.1. Sodium 140, potassium 3.9, bicarbonate 30, BUN 15, and creatinine 0.3. Albumin 2.2. IMPRESSION: 1. Non-small cell lung cancer status post video-assisted thoracoscopic surgery pleurodesis. 2. Status post respiratory failure. 3. Status post sepsis with shock. 4. Status post lactic acidosis. 5. Status post acute myocardial ischemia. 6. Paroxysmal atrial ectopy. 7. Anemia due to chronic disease. 8. Severe protein-calorie malnutrition. 9. Bilateral lower extremity deep venous thrombosis. 10. Healthcare-acquired pneumonia. PLAN: Respiratory hygiene. Swallow evaluation. Nutrition by NG tube for now. Cardiac monitoring. Full anticoagulation. for consideration for chemotherapy until improved comorbidities. Antimicrobials per Infectious Disease data integrity consultant. Giuseppe Muir M.D. DR: Najma JOB#: [id number] CC:
[2016-09-07 08:00] VITALS: BP 141/76
[2016-09-07] MEDS: Xarelto 10mg tab ORAL SCH (08:17)
[2016-09-07] MEDS: Pantoprazole Inj IVP SCH (08:18)
--- NOTE | 2016-09-07 09:23 | Critical Care Progress Note ---
Assessment/Plan Assessment/Plan IMPRESSION: 1. Respiratory failure. 2. Metabolic acidosis. 3. s/p VATS biopsy with documented lung cancer 4. Right lung mass, 5. Left lower lobe atelectasis. 6. Severe protein-calorie malnutrition. 7. s/p sepsis and shock. 8. pneumonia. 9. Acute renal failure. 10. treated urinary tract infection. 11. chest tube- removed PLAN Low oxygen flow as needed encourage cough and clearance to avoid atelectasis antibiotics as needed- taper to off supportive care monitor fluid status for change nutrition maintain meds oncology follow up consider dc planning to snf ? hospice care appears comfortable at present medications/laboratory data/nursing notes reviewed in detail note reviewed and edited care discussed with RN and RT Critical Care - Subjective Interval Events: care noted and reviewed tele reviewed oxygen needs noted ROS Limited/Unobtainable: Yes Condition: stable EKG Rhythm: Sinus Rhythm I&O: Intake and Output 09/06/16 09/07/16 19:00 07:00 Intake Total 980 ml Output Total 500 ml Balance 980 ml -500 ml Intake Free Water 160 ml IV Total 220 ml Tube Feeding 600 ml Output Urine Total 500 ml Critical Care - Objective ET-Tube: 8.0 ET Position: 22 Last 24 Hour Vital Signs Date Time Temp Pulse Resp B/P Pulse Ox O2 Delivery O2 Flow Rate FiO2 09/07/16 08:00 97.9 96 18 141/76 Nasal Cannula 2.0 97 09/07/16 07:14 Nasal Cannula 2.0 28 09/07/16 07:14 84 18 100 Nasal Cannula 2.0 28 09/07/16 07:03 81 20 98 Nasal Cannula 2.0 28 09/07/16 07:01 98 Nasal Cannula 2.0 09/07/16 04:00 81 09/07/16 04:00 97.9 86 18 139/75 97 Nasal Cannula 3.0 09/07/16 02:26 78 20 97 Nasal Cannula 2.0 09/07/16 02:25 72 20 95 Nasal Cannula 2.0 09/07/16 00:00 98.4 84 20 145/68 98 Nasal Cannula 3.0 09/07/16 00:00 82 09/06/16 23:44 74 20 98 Nasal Cannula 2.0 28 09/06/16 23:30 70 20 97 Nasal Cannula 2.0 28 09/06/16 20:00 85 09/06/16 20:00 98.1 85 18 144/57 98 Nasal Cannula 2.0 98 09/06/16 19:40 80 20 96 Nasal Cannula 2.0 28 09/06/16 19:30 Nasal Cannula 2.0 28 09/06/16 19:30 93 Nasal Cannula 2.0 28 09/06/16 19:30 78 20 94 Nasal Cannula 2.0 28 09/06/16 16:00 82 09/06/16 16:00 96.0 84 18 142/66 Nasal Cannula 2.0 98 09/06/16 15:59 90 19 97 Nasal Cannula 3.0 32 09/06/16 15:44 32 09/06/16 15:44 90 19 97 Nasal Cannula 3.0 32 09/06/16 12:00 96.8 90 18 112/65 Nasal Cannula 3.0 97 09/06/16 12:00 91 09/06/16 11:30 80 16 95 Nasal Cannula 3.0 32 09/06/16 11:17 80 16 95 Nasal Cannula 3.0 32 09/06/16 11:17 28 Labs: Labs Test 09/05/16 03:50 09/06/16 05:05 White Blood Count 13.6 K/UL (4.8-10.8) 11.5 K/UL (4.8-10.8) Red Blood Count 3.93 M/UL (4.20-5.40) 3.79 M/UL (4.20-5.40) Hemoglobin 11.3 G/DL (12.0-16.0) 11.1 G/DL (12.0-16.0) Hematocrit 34.9 % (37.0-47.0) 33.8 % (37.0-47.0) Mean Corpuscular Volume 89 FL (80-99) 89 FL (80-99) Mean Corpuscular Hemoglobin 28.8 PG (27.0-31.0) 29.3 PG (27.0-31.0) Mean Corpuscular Hemoglobin Concent 32.4 G/DL (32.0-36.0) 32.8 G/DL (32.0-36.0) Red Cell Distribution Width 14.4 % (11.6-14.8) 14.2 % (11.6-14.8) Platelet Count 259 K/UL (150-450) 247 K/UL (150-450) Mean Platelet Volume 6.0 FL (6.5-10.1) 5.9 FL (6.5-10.1) Neutrophils (%) (Auto) 80.2 % (45.0-75.0) 77.5 % (45.0-75.0) Lymphocytes (%) (Auto) 13.7 % (20.0-45.0) 15.8 % (20.0-45.0) Monocytes (%) (Auto) 4.3 % (1.0-10.0) 4.9 % (1.0-10.0) Eosinophils (%) (Auto) 1.1 % (0.0-3.0) 1.2 % (0.0-3.0) Basophils (%) (Auto) 0.5 % (0.0-2.0) 0.6 % (0.0-2.0) Activated Partial Thromboplast Time 57 SEC (23-33) Sodium Level 139 mEQ/L (135-145) 140 mEQ/L (135-145) Potassium Level 4.2 mEQ/L (3.4-4.9) 3.9 mEQ/L (3.4-4.9) Chloride Level 99 mEQ/L (98-107) 98 mEQ/L (98-107) Carbon Dioxide Level 29 mEQ/L (20-30) 30 mEQ/L (20-30) Anion Gap 11 (5-15) 12 (5-15) Blood Urea Nitrogen 10 mg/dL (7-23) 15 mg/dL (7-23) Creatinine 0.3 mg/dL (0.5-0.9) 0.3 mg/dL (0.5-0.9) Estimat Glomerular Filtration Rate mL/min (>60) mL/min (>60) Glucose Level 168 mg/dL (74-106) 139 mg/dL (74-106) Calcium Level 8.4 mg/dL (8.6-10.2) 9.0 mg/dL (8.6-10.2) Total Bilirubin 0.2 mg/dL (0.0-1.2) 0.3 mg/dL (0.0-1.2) Aspartate Amino Transf (AST/SGOT) 44 U/L (5-40) 24 U/L (5-40) Alanine Aminotransferase (ALT/SGPT) 101 U/L (3-33) 71 U/L (3-33) Alkaline Phosphatase 98 U/L (35-104) 96 U/L (35-104) Pro-B-Type Natriuretic Peptide 1423 pg/mL (0-450) Total Protein 5.6 g/dL (6.6-8.7) 5.6 g/dL (6.6-8.7) Albumin 2.0 g/dL (3.5-5.2) 2.2 g/dL (3.5-5.2) Globulin 3.6 g/dL 3.4 g/dL Albumin/Globulin Ratio 0.5 (1.0-2.7) 0.6 (1.0-2.7) Objective: GENERAL: The patient is chronically ill appearing female. The patient is comfortable HEENT: Negative. NECK: Supple. The patient is without meningismus LUNGS: symmetric breath sounds. no wheeze with some mild rhonchi; no change; tubes out CARDIAC: S1, S1 irregular without murmurs, rubs, or gallops. ABDOMEN: Soft. NABS. No hepatosplenomegaly. no distention EXTREMITIES: No cyanosis or clubbing. There is trace edema.without change NEUROLOGIC: The patient is nonfocal reviewed and edited Accucheck: 105 MARI JUAN September 07, 2016 09:23
--- NOTE | 2016-09-07 11:39 | Infectious Diseases Prog Note ---
"Assessment/Plan Assessment/Plan antibiotics : ceftriaxone A 1. proteus sepsis secondary to UTI 2. proteus | providencia UTI 3. postobstructive klebsiella pneumonia 4. leucocytosis improving 5. respiratory failure resolved 6. lung mass s/p bronchoscopy | VATS | wedge resection with lung cancer P 1. continue ceftriaxone 1 more day 2. will follow up cultures Subjective ROS Limited/Unobtainable: Yes Allergies: Coded Allergies: No Known Allergies (Unverified , 12/10/15) Objective Vital Signs Last 24 Hour Vital Signs Date Time Temp Pulse Resp B/P Pulse Ox O2 Delivery O2 Flow Rate FiO2 09/07/16 11:02 5 18 100 Nasal Cannula 2.0 28 09/07/16 10:52 80 20 98 Nasal Cannula 2.0 28 09/07/16 08:00 97.9 96 18 141/76 Nasal Cannula 2.0 97 09/07/16 08:00 93 09/07/16 07:14 Nasal Cannula 2.0 28 09/07/16 07:14 84 18 100 Nasal Cannula 2.0 28 09/07/16 07:03 81 20 98 Nasal Cannula 2.0 28 09/07/16 07:01 98 Nasal Cannula 2.0 28 09/07/16 04:00 81 09/07/16 04:00 97.9 86 18 139/75 97 Nasal Cannula 3.0 09/07/16 02:26 78 20 97 Nasal Cannula 2.0 28 09/07/16 02:25 72 20 95 Nasal Cannula 2.0 28 09/07/16 00:00 98.4 84 20 145/68 98 Nasal Cannula 3.0 09/07/16 00:00 82 09/06/16 23:44 74 20 98 Nasal Cannula 2.0 28 09/06/16 23:30 70 20 97 Nasal Cannula 2.0 28 09/06/16 20:00 85 09/06/16 20:00 98.1 85 18 144/57 98 Nasal Cannula 2.0 98 09/06/16 19:40 80 20 96 Nasal Cannula 2.0 28 09/06/16 19:30 Nasal Cannula 2.0 28 09/06/16 19:30 93 Nasal Cannula 2.0 28 09/06/16 19:30 78 20 94 Nasal Cannula 2.0 28 09/06/16 16:00 82 09/06/16 16:00 96.0 84 18 142/66 Nasal Cannula 2.0 98 09/06/16 15:59 90 19 97 Nasal Cannula 3.0 32 09/06/16 15:44 32 09/06/16 15:44 90 19 97 Nasal Cannula 3.0 32 09/06/16 12:00 96.8 90 18 112/65 Nasal Cannula 3.0 97 09/06/16 12:00 91 Height (Feet): 5 Height (Inches): 4.00 Weight (Pounds): 123 Respiratory/Chest: lungs clear Cardiovascular: normal rate, regular rhythm, no gallop/murmur Abdomen: soft, non tender Extremities: no edema, other - left arm PICC SHANNON GO September 07, 2016 11:39"
[2016-09-07 12:00] VITALS: BP 150/56
[2016-09-07] MEDS: cefTRIAXone 2 GM in D5W 110 ML IVPB SCH (14:02)
[2016-09-07 16:00] VITALS: BP 135/73
--- NOTE | 2016-09-07 16:01 | Cardiology Report ---
APPROVED REPORT EKG Measurement Heart [id number] MA [id number] Sinus tachycardia Left anterior fascicular block Inferior infarct, age undetermined Anterior infarct, age undetermined Abnormal ECG
[2016-09-07 20:00] VITALS: BP 132/89
[2016-09-07] MEDS ORDERED: Xarelto 15mg tab ORAL SCH (21:00)
[2016-09-08] VITALS: BP 147/75
[2016-09-08] MEDS: Albuterol ud Inhalation HHN SCH ×6 (03:31→22:59)
[2016-09-08 04:00] VITALS: BP 152/80
[2016-09-08] MEDS: NovoLOG Insulin Flexpen SUBQ SCH ×3 (06:00→17:45)
--- NOTE | 2016-09-08 06:09 | Progress Note ---
DATE: 09/07/2016 CARDIOLOGY PROGRESS NOTE: SUBJECTIVE: The patient remains with requirements for aggressive respiratory hygiene. She has a poor cough reflex. She has moderate secretions. The patient's swallow evaluation was inadequate and significant aspiration was detected. OBJECTIVE: VITAL SIGNS: The patient remains afebrile. Blood pressure 141/76, heart rate 96, and respiratory rate 18. Monitored rhythm is sinus with atrial ectopy. LUNGS: Coarse breath sounds. Scattered rhonchi. HEART: Regular rhythm and rate. Normal S1, S2. Fourth heart sound. ABDOMEN: Soft. EXTREMITIES: Trace edema. IMPRESSION: 1. Lung cancer, status post respiratory failure. 2. Recovered sepsis with shock. 3. Healthcare-acquired pneumonia. 4. Lactic acidosis, resolved. 5. Paroxysmal atrial ectopy. 6. Severe protein-calorie malnutrition. 7. Bilateral lower extremity deep venous thrombosis. 8. Dysphagia. PLAN: 1. Respiratory hygiene. 2. Antimicrobials. 3. Nutrition by feeding tube. 4. Considered permanent G-tube. 5. Defer chemotherapy consideration. 6. Full anticoagulation with rivaroxaban. Giuseppe Muir M.D. DR: MICHAEL JOB#: [id number] CC:
--- NOTE | 2016-09-08 06:13 | Critical Care Progress Note ---
Assessment/Plan Assessment/Plan IMPRESSION: 1. Respiratory failure. 2. Metabolic acidosis. 3. s/p VATS biopsy with documented lung cancer 4. Right lung mass, 5. Left lower lobe atelectasis. 6. Severe protein-calorie malnutrition. 7. s/p sepsis and shock. 8. pneumonia. 9. Acute renal failure. 10. treated urinary tract infection. 11. chest tube- removed PLAN Low oxygen encourage cough and clearance to avoid atelectasis antibiotics as needed- taper to off supportive care monitor fluid status for change nutrition maintain meds oncology follow up reviewed dc planning to snf appears comfortable at present medications/laboratory data/nursing notes reviewed in detail note reviewed and edited care discussed with RN and RT Critical Care - Subjective Interval Events: minimal congestion cough ROS Limited/Unobtainable: Yes Condition: stable EKG Rhythm: Sinus Rhythm I&O: Intake and Output 09/07/16 09/08/16 19:00 07:00 Intake Total 980 ml 650 ml Output Total 900 ml Balance 980 ml -250 ml Intake Free Water 160 ml 150 ml IV Total 220 ml Tube Feeding 600 ml 500 ml Output Urine Total 900 ml Critical Care - Objective ET-Tube: 8.0 ET Position: 22 Last 24 Hour Vital Signs Date Time Temp Pulse Resp B/P Pulse Ox O2 Delivery O2 Flow Rate FiO2 09/08/16 04:00 85 09/08/16 04:00 98.2 85 18 152/80 98 Nasal Cannula 2.0 09/08/16 03:39 91 18 100 Nasal Cannula 2.0 28 09/08/16 03:30 89 20 96 Nasal Cannula 2.0 28 09/08/16 00:00 98.2 94 18 147/75 97 Nasal Cannula 2.0 28 09/08/16 00:00 94 09/07/16 23:10 85 18 99 Nasal Cannula 2.0 28 09/07/16 23:00 91 20 95 Nasal Cannula 2.0 28 09/07/16 20:00 86 09/07/16 20:00 97.5 90 20 132/89 98 Room Air 09/07/16 19:59 91 18 100 Nasal Cannula 2.0 28 09/07/16 19:49 95 Nasal Cannula 2.0 28 09/07/16 19:49 Nasal Cannula 2.0 28 09/07/16 19:49 97 20 95 Nasal Cannula 2.0 28 09/07/16 16:00 96.8 93 18 135/73 Nasal Cannula 2.0 97 09/07/16 16:00 92 09/07/16 15:48 85 18 100 Nasal Cannula 2.0 28 09/07/16 15:37 82 20 98 Nasal Cannula 2.0 28 09/07/16 12:00 95 09/07/16 12:00 97.9 101 20 150/56 Nasal Cannula 2.0 97 09/07/16 11:02 82 18 100 Nasal Cannula 2.0 28 09/07/16 10:52 80 20 98 Nasal Cannula 2.0 28 09/07/16 08:00 97.9 96 18 141/76 Nasal Cannula 2.0 97 09/07/16 08:00 93 09/07/16 07:14 Nasal Cannula 2.0 28 09/07/16 07:14 84 18 100 Nasal Cannula 2.0 28 09/07/16 07:03 81 20 98 Nasal Cannula 2.0 28 09/07/16 07:01 98 Nasal Cannula 2.0 28 Labs: Labs Test 09/06/16 05:05 White Blood Count 11.5 K/UL (4.8-10.8) Red Blood Count 3.79 M/UL (4.20-5.40) Hemoglobin 11.1 G/DL (12.0-16.0) Hematocrit 33.8 % (37.0-47.0) Mean Corpuscular Volume 89 FL (80-99) Mean Corpuscular Hemoglobin 29.3 PG (27.0-31.0) Mean Corpuscular Hemoglobin Concent 32.8 G/DL (32.0-36.0) Red Cell Distribution Width 14.2 % (11.6-14.8) Platelet Count 247 K/UL (150-450) Mean Platelet Volume 5.9 FL (6.5-10.1) Neutrophils (%) (Auto) 77.5 % (45.0-75.0) Lymphocytes (%) (Auto) 15.8 % (20.0-45.0) Monocytes (%) (Auto) 4.9 % (1.0-10.0) Eosinophils (%) (Auto) 1.2 % (0.0-3.0) Basophils (%) (Auto) 0.6 % (0.0-2.0) Sodium Level 140 mEQ/L (135-145) Potassium Level 3.9 mEQ/L (3.4-4.9) Chloride Level 98 mEQ/L (98-107) Carbon Dioxide Level 30 mEQ/L (20-30) Anion Gap 12 (5-15) Blood Urea Nitrogen 15 mg/dL (7-23) Creatinine 0.3 mg/dL (0.5-0.9) Estimat Glomerular Filtration Rate mL/min (>60) Glucose Level 139 mg/dL (74-106) Calcium Level 9.0 mg/dL (8.6-10.2) Total Bilirubin 0.3 mg/dL (0.0-1.2) Aspartate Amino Transf (AST/SGOT) 24 U/L (5-40) Alanine Aminotransferase (ALT/SGPT) 71 U/L (3-33) Alkaline Phosphatase 96 U/L (35-104) Total Protein 5.6 g/dL (6.6-8.7) Albumin 2.2 g/dL (3.5-5.2) Globulin 3.4 g/dL Albumin/Globulin Ratio 0.6 (1.0-2.7) Objective: GENERAL: The patient is chronically ill appearing female. The patient is comfortable HEENT: Negative. NECK: Supple. The patient is without meningismus LUNGS: symmetric breath sounds. no wheeze with some rhonchi; no change; tubes out CARDIAC: S1, S1 irregular without murmurs, rubs, or gallops. ABDOMEN: Soft. NABS. No hepatosplenomegaly. no distention EXTREMITIES: No cyanosis or clubbing. There is trace edema.without change NEUROLOGIC: The patient is nonfocal reviewed and edited Accucheck: 136 MARI JUAN September 08, 2016 06:13
[2016-09-08 07:59] VITALS: BP 141/73
[2016-09-08 08:09] LABS: BASOPHILS % (AUTO) 0.7 % (0.0-2.0); EOSINOPHILS % (AUTO) 1.5 % (0.0-3.0); LYMPHOCYTES % (AUTO) 16.5 % (20.0-45.0); MEAN CORPUSCULAR HEMOGLOBIN 28.8 PG (27.0-31.0); MEAN CORPUSCULAR HGB CONC 32.1 G/DL (32.0-36.0); MEAN CORPUSCULAR VOLUME 90 FL (80-99); MONOCYTES % (AUTO) 6.4 % (1.0-10.0); NEUTROPHILS % (AUTO) 74.8 % (45.0-75.0); PLATELET COUNT 279 K/UL (150-450); RED BLOOD COUNT 3.82 M/UL (4.20-5.40); RED CELL DISTRIBUTION WIDTH 14.1 % (11.6-14.8); WHITE BLOOD COUNT 9.2 K/UL (4.8-10.8)
--- NOTE | 2016-09-08 08:33 | General Progress Note ---
Assessment/Plan Problem List: (1) Pneumonia ICD Codes: J18.9 - Pneumonia, unspecified organism SNOMED: 804253850 (2) DVT (deep vein thrombosis) in ICD Codes: O22.30 - Deep phlebothrombosis in , unspecified trimester; I82.409 - Acute embolism and thrombosis of unspecified deep veins of unspecified lower extremity SNOMED: 92479279, 121010616, 244694280 (3) Hyperkalemia ICD Codes: E87.5 - Hyperkalemia SNOMED: 40970342 (4) Renal failure ICD Codes: N19 - Unspecified kidney failure SNOMED: 28181655 (5) Respiratory failure ICD Codes: J96.90 - Respiratory failure, unspecified, unspecified whether with hypoxia or hypercapnia SNOMED: 985118156 (6) Lung mass ICD Codes: R91.8 - Other nonspecific abnormal finding of lung field SNOMED: 652956874 Status: stable, progressing Assessment/Plan o2 resp care dc xarelto for gt placement heparin drip while off xarelto ngt feeds tele restraints if needed d/w . family wants to proceed with gt monitor o2 sats and volume status dc planning when stable d/w heme/onc. poor candidate for any rx. pt will follow up as outpt Subjective ROS Limited/Unobtainable: No Constitutional: Reports: malaise, weakness HEENT: Reports: no symptoms Cardiovascular: Reports: no symptoms Respiratory: Reports: cough, shortness of breath Gastrointestinal/Abdominal: Reports: difficulty swallowing Genitourinary: Reports: no symptoms Neurologic/Psychiatric: Reports: pre-existing deficit Endocrine: Reports: no symptoms Hematologic/Lymphatic: Reports: anemia Allergies: Coded Allergies: No Known Allergies (Unverified , 12/10/15) All Systems: reviewed and negative except above Subjective failed with video swallow. Family wants to proceed with gt. otherwise remains withdrawn, mild congestion and sob. still with ngt. tolerating feeds. Objective Last 24 Hour Vital Signs Date Time Temp Pulse Resp B/P Pulse Ox O2 Delivery O2 Flow Rate FiO2 09/08/16 07:59 99.0 90 20 141/73 98 Nasal Cannula 2.0 09/08/16 07:32 Nasal Cannula 2.0 28 09/08/16 07:32 85 16 97 Nasal Cannula 2.0 28 09/08/16 07:32 97 Nasal Cannula 2.0 28 09/08/16 04:00 85 09/08/16 04:00 98.2 85 18 152/80 98 Nasal Cannula 2.0 28 09/08/16 03:39 91 18 100 Nasal Cannula 2.0 28 09/08/16 03:30 89 20 96 Nasal Cannula 2.0 28 09/08/16 00:00 98.2 94 18 147/75 97 Nasal Cannula 2.0 09/08/16 00:00 94 09/07/16 23:10 85 18 99 Nasal Cannula 2.0 28 09/07/16 23:00 91 20 95 Nasal Cannula 2.0 09/07/16 20:00 86 09/07/16 20:00 97.5 90 20 132/89 98 Room Air 09/07/16 19:59 91 18 100 Nasal Cannula 2.0 09/07/16 19:49 95 Nasal Cannula 2.0 09/07/16 19:49 Nasal Cannula 2.0 09/07/16 19:49 97 20 95 Nasal Cannula 2.0 09/07/16 16:00 96.8 93 18 135/73 Nasal Cannula 2.0 97 09/07/16 16:00 92 09/07/16 15:48 85 18 100 Nasal Cannula 2.0 09/07/16 15:37 82 20 98 Nasal Cannula 2.0 09/07/16 12:00 95 09/07/16 12:00 97.9 101 20 150/56 Nasal Cannula 2.0 97 09/07/16 11:02 82 18 100 Nasal Cannula 2.0 09/07/16 10:52 80 20 98 Nasal Cannula 2.0 28 Intake and Output 09/07/16 09/08/16 19:00 07:00 Intake Total 980 ml 750 ml Output Total 1500 ml Balance 980 ml -750 ml Intake Free Water 160 ml 150 ml IV Total 220 ml Tube Feeding 600 ml 600 ml Output Urine Total 1500 ml Laboratory Tests 09/08/16 07:30: White Blood Count 9.2, Red Blood Count 3.82L, Hemoglobin 11.0L, Hematocrit 34.3L , Mean Corpuscular Volume 90, Mean Corpuscular Hemoglobin 28.8, Mean Corpuscular Hemoglobin Concent 32.1, Red Cell Distribution Width 14.1, Platelet Count 279, Mean Platelet Volume 6.0L, Neutrophils (%) (Auto) 74.8, Lymphocytes ( %) (Auto) 16.5L, Monocytes (%) (Auto) 6.4, Eosinophils (%) (Auto) 1.5, Basophils (%) (Auto) 0.7, Activated Partial Thromboplast Time 31 Height (Feet): 5 Height (Inches): 4.00 Weight (Pounds): 123 Objective General Appearance: WD/WN, alert, confused. +ngt Neck: supple Cardiovascular: regular rhythm Respiratory/Chest: normal breath sounds. few rhonchi Abdomen: normal bowel sounds, non tender, soft, no organomegaly Edema: no edema noted Arm (L), no edema noted Arm (R), no edema noted Leg (L), no edema noted Leg (R), no edema noted Pedal (L), no edema noted Pedal (R), no edema noted Generalized JUSTIN IRVIN September 08, 2016 08:33
[2016-09-08] MEDS ORDERED: Heparin 25,000u/D5W 500ml 500 ML IV SCH ×3 (09:15→17:34)
[2016-09-08 11:39] VITALS: BP 133/60
[2016-09-08] MEDS: cefTRIAXone 2 GM in D5W 110 ML IVPB SCH (14:00)
--- NOTE | 2016-09-08 14:39 | Infectious Diseases Prog Note ---
Assessment/Plan Assessment/Plan A: 1. Proteus sepsis secondary to UTI s/p RX 2. Proteus , Providencia UTI s/p Rx 3. postobstructive pneumonia with Klebsiella s/p Rx 4. leucocytosis improving 5. respiratory failure resolved 6. lung cancer, adenocarcinoma P 1.discontinue Rocephin Subjective ROS Limited/Unobtainable: Yes Allergies: Coded Allergies: No Known Allergies (Unverified , 12/10/15) Objective Vital Signs Last 24 Hour Vital Signs Date Time Temp Pulse Resp B/P Pulse Ox O2 Delivery O2 Flow Rate FiO2 09/08/16 11:39 97.9 86 20 133/60 98 Nasal Cannula 2.0 09/08/16 11:29 89 18 98 Nasal Cannula 2.0 28 09/08/16 11:19 88 16 98 Nasal Cannula 2.0 28 09/08/16 07:59 99.0 90 20 141/73 98 Nasal Cannula 2.0 09/08/16 07:44 88 18 99 Nasal Cannula 2.0 28 09/08/16 07:32 Nasal Cannula 2.0 28 09/08/16 07:32 85 16 97 Nasal Cannula 2.0 28 09/08/16 07:32 97 Nasal Cannula 2.0 28 09/08/16 04:00 85 09/08/16 04:00 98.2 85 18 152/80 98 Nasal Cannula 2.0 28 09/08/16 03:39 91 18 100 Nasal Cannula 2.0 28 09/08/16 03:30 89 20 96 Nasal Cannula 2.0 28 09/08/16 00:00 98.2 94 18 147/75 97 Nasal Cannula 2.0 28 09/08/16 00:00 94 09/07/16 23:10 85 18 99 Nasal Cannula 2.0 28 09/07/16 23:00 91 20 95 Nasal Cannula 2.0 28 09/07/16 20:00 86 09/07/16 20:00 97.5 90 20 132/89 98 Room Air 09/07/16 19:59 91 18 100 Nasal Cannula 2.0 28 09/07/16 19:49 95 Nasal Cannula 2.0 28 09/07/16 19:49 Nasal Cannula 2.0 28 09/07/16 19:49 97 20 95 Nasal Cannula 2.0 28 09/07/16 16:00 96.8 93 18 135/73 Nasal Cannula 2.0 97 09/07/16 16:00 92 09/07/16 15:48 85 18 100 Nasal Cannula 2.0 28 09/07/16 15:37 82 20 98 Nasal Cannula 2.0 28 Height (Feet): 5 Height (Inches): 4.00 Weight (Pounds): 123 General Appearance: no acute distress HEENT: mucous membranes moist Respiratory/Chest: lungs clear, other - O2 by cannula Cardiovascular: normal rate Abdomen: soft, non tender, other - NG tube Extremities: no edema Neurologic/Psychiatric: other - sleeping Laboratory Tests Test 09/08/16 07:30 White Blood Count 9.2 K/UL (4.8-10.8) Red Blood Count 3.82 M/UL (4.20-5.40) L Hemoglobin 11.0 G/DL (12.0-16.0) L Hematocrit 34.3 % (37.0-47.0) L Mean Corpuscular Volume 90 FL (80-99) Mean Corpuscular Hemoglobin 28.8 PG (27.0-31.0) Mean Corpuscular Hemoglobin Concent 32.1 G/DL (32.0-36.0) Red Cell Distribution Width 14.1 % (11.6-14.8) Platelet Count 279 K/UL (150-450) Mean Platelet Volume 6.0 FL (6.5-10.1) L Neutrophils (%) (Auto) 74.8 % (45.0-75.0) Lymphocytes (%) (Auto) 16.5 % (20.0-45.0) L Monocytes (%) (Auto) 6.4 % (1.0-10.0) Eosinophils (%) (Auto) 1.5 % (0.0-3.0) Basophils (%) (Auto) 0.7 % (0.0-2.0) Activated Partial Thromboplast Time 31 SEC (23-33) Current Medications Medications (Trade) Dose Ordered Sig/Aaron Route PRN Reason Start Time Stop Time Status Last Admin Dose Admin Acetaminophen (Tylenol) 650 mg Q4H PRN ORAL TEMP>100.5/HEADACHE 09/04/16 14:00 10/04/16 13:59 Albuterol Sulfate (Proventil) 2.5 mg Q4HRT HHN 09/04/16 15:00 09/09/16 14:59 09/08/16 11:19 Ceftriaxone Sodium/Dextrose (Rocephin/D5W) 110 ml @ 220 mls/hr Q24H IVPB 09/04/16 14:00 09/11/16 13:59 09/07/16 14:02 Dextrose (Dextrose 50%) STAT PRN IV Hypoglycemia 09/04/16 14:00 10/04/16 13:59 Heparin Sodium/ Dextrose (Heparin) 500 ml @ 20.085 mls/ hr adjust per protocol IV 09/08/16 09:15 10/08/16 09:14 09/08/16 09:25 Insulin Aspart (NovoLOG) EVERY 6 HOURS SUBQ 09/04/16 18:00 10/04/16 17:59 09/07/16 23:47 Lansoprazole 30 mg 30 mg DAILY GT 09/08/16 09:00 10/08/16 08:59 09/08/16 08:49 Morphine Sulfate (Morphine Sulfate) 2 mg Q4H PRN IVP Severe Pain (Pain Scale 7-10) 09/04/16 15:00 09/11/16 14:59 LARISSA OATES September 08, 2016 14:39
[2016-09-08 15:37] VITALS: BP 131/66
[2016-09-08] MEDS ORDERED: Heparin 5000 units/ml inj IV ONE (18:00)
[2016-09-08 20:00] VITALS: BP 148/67
--- NOTE | 2016-09-08 20:22 | General Progress Note ---
Assessment/Plan Assessment/Plan GI Consult Dictated Will place PEG in am Thank you Margarita Perez MD Subjective Allergies: Coded Allergies: No Known Allergies (Unverified , 12/10/15) Objective Last 24 Hour Vital Signs Date Time Temp Pulse Resp B/P Pulse Ox O2 Delivery O2 Flow Rate FiO2 09/08/16 20:00 98.0 83 22 148/67 100 Room Air 09/08/16 19:34 79 18 98 Nasal Cannula 2.0 28 09/08/16 19:26 79 16 95 Nasal Cannula 2.0 28 09/08/16 19:25 95 Nasal Cannula 2.0 28 09/08/16 19:25 Nasal Cannula 2.0 28 09/08/16 16:00 92 09/08/16 15:54 86 19 98 Nasal Cannula 2.0 28 09/08/16 15:44 86 16 98 Nasal Cannula 2.0 09/08/16 15:37 98.1 93 20 131/66 99 Nasal Cannula 2.0 09/08/16 12:00 84 09/08/16 11:39 97.9 86 20 133/60 98 Nasal Cannula 2.0 09/08/16 11:29 89 18 98 Nasal Cannula 2.0 28 09/08/16 11:19 88 16 98 Nasal Cannula 2.0 09/08/16 08:00 89 09/08/16 07:59 99.0 90 20 141/73 98 Nasal Cannula 2.0 09/08/16 07:44 88 18 99 Nasal Cannula 2.0 28 09/08/16 07:32 Nasal Cannula 2.0 09/08/16 07:32 85 16 97 Nasal Cannula 2.0 09/08/16 07:32 97 Nasal Cannula 2.0 09/08/16 04:00 85 09/08/16 04:00 98.2 85 18 152/80 98 Nasal Cannula 2.0 09/08/16 03:39 91 18 100 Nasal Cannula 2.0 28 09/08/16 03:30 89 20 96 Nasal Cannula 2.0 28 09/08/16 00:00 98.2 94 18 147/75 97 Nasal Cannula 2.0 28 09/08/16 00:00 94 09/07/16 23:10 85 18 99 Nasal Cannula 2.0 28 09/07/16 23:00 91 20 95 Nasal Cannula 2.0 28 Intake and Output 09/07/16 09/08/16 19:00 07:00 Intake Total 980 ml 750 ml Output Total 1500 ml Balance 980 ml -750 ml Intake Free Water 160 ml 150 ml IV Total 220 ml Tube Feeding 600 ml 600 ml Output Urine Total 1500 ml Laboratory Tests 09/08/16 07:30: White Blood Count 9.2, Red Blood Count 3.82L, Hemoglobin 11.0L, Hematocrit 34.3L , Mean Corpuscular Volume 90, Mean Corpuscular Hemoglobin 28.8, Mean Corpuscular Hemoglobin Concent 32.1, Red Cell Distribution Width 14.1, Platelet Count 279, Mean Platelet Volume 6.0L, Neutrophils (%) (Auto) 74.8, Lymphocytes ( %) (Auto) 16.5L, Monocytes (%) (Auto) 6.4, Eosinophils (%) (Auto) 1.5, Basophils (%) (Auto) 0.7, Activated Partial Thromboplast Time 31 09/08/16 15:25: Activated Partial Thromboplast Time 43H Height (Feet): 5 Height (Inches): 4.00 Weight (Pounds): 123 SHEILAMARGARITA ALARCON September 08, 2016 20:22
[2016-09-09] VITALS (12 sets, daily range): BP systolic 123–154; BP diastolic 53–79
[2016-09-09] MEDS ORDERED: Heparin 5000 units/ml inj IV ONE (00:30)
[2016-09-09] MEDS ORDERED: Heparin 25,000u/D5W 500ml 500 ML IV SCH ×3 (00:30→18:00)
--- NOTE | 2016-09-09 01:09 | Progress Note ---
DATE: 09/08/2016 CARDIOLOGY PROGRESS NOTE SUBJECTIVE: The patient continues to have dysphagia. NG tube is in place for nutrition. G-tube is planned. The patient has moderate secretions, but has improved. She is on nasal cannula. She still requires suctioning. OBJECTIVE: LUNGS: Coarse breath sounds with rhonchi. HEART: Regular rhythm and rate. Normal S1 and S2 with a fourth heart sound. ABDOMEN: Soft. EXTREMITIES: Trace edema. LABORATORY AND DIAGNOSTIC DATA: White count 9.2 and hemoglobin 11. Potassium 3.9, BUN 15, creatinine 0.3, glucose 139, and albumin 2.2. These are the labs from 09/06/2016. IMPRESSION: 1. Dysphasia. 2. Lung cancer. 3. Status post respiratory failure. 4. Status post sepsis with shock and lactic acidosis. 5. Paroxysmal sinus tachycardia. 6. Severe anemia. 7. Severe protein-calorie malnutrition. 8. Acute on chronic diastolic congestive heart failure due to third spacing from low colloid osmotic pressure gradient. PLAN: Recheck laboratory studies, hold diuresis, and maintenance hydration once NPO. Stable for G-tube. She will require aggressive respiratory suctioning perioperatively. Giuseppe Muir M.D. DR: Chauncey JOB#: [id number] CC:
--- NOTE | 2016-09-09 02:29 | Consultation ---
DATE OF CONSULTATION: 09/08/2016 NOTE: POOR AUDIO QUALITY GASTROLOGY CONSULTATION CHIEF COMPLAINT: I was asked to see this patient by Dr. Giuseppe Muir for evaluation of dysphagia and gastrostomy tube placement in a patient with lung cancer. HISTORY OF PRESENT ILLNESS: The patient is an unfortunate 81-year-old woman, who is very frail and debilitated in the hospital. She has been in the ICU, intubated and subsequently extubated. She is dependent on the nasogastric tube feeding at this time since she is unable to swallow. Although, she has been found recently with lung mass with biopsy showing lung cancer. She has been felt to be a poor candidate for any aggressive therapy. This was all discussed with the patient's daughter, who understand the and mother illness and probably the feeding was explained and she agreed to have a gastrostomy tube placement for long-term enteral access for nutrition. However, she is also aware that the patient's condition . The patient does have a recent diagnosis of thrombosis and she is not Xarelto. This was held and switched to heparin for bridge therapy and the purpose of placing the gastrostomy tube. PAST MEDICAL HISTORY: History of lung cancer, hypertension, debilitation, dementia, respiratory failure, dysphagia, cachexia and deep vein thrombosis. MEDICATIONS: See chart for details. ALLERGIES: Noted. FAMILY HISTORY: Noncontributory and unavailable. SOCIAL HISTORY: The patient has a daughter, who looks after her affairs and make some decisions. REVIEW OF SYSTEMS: Otherwise negative. PHYSICAL EXAMINATION: GENERAL: The patient is a debilitated woman, seen in her room. HEENT: Normocephalic and atraumatic. Sclerae anicteric. Oropharynx clear. NECK: Supple. CHEST: Clear to auscultation. CARDIOVASCULAR: Regular rhythm and rate. ABDOMEN: Soft and flat with good bowel sounds. EXTREMITIES: No edema. LABORATORY DATA: Noted. ASSESSMENT: This patient presents with deep vein thrombosis of legs, which is presumably related to her mobility and also her tumor. Her Xarelto will be held and she will be switched to intravenous heparin, which did not help procedure. The indications, risks, alternatives, and possible complications of procedure were explained to the patient's daughter and informed consent was obtained. This can be placed tomorrow. The patient has a degree of anemia, which is improving. I will have the workup as necessary. She also has an elevated liver panel in the past several months of unclear etiology. The differential diagnosis is somewhat varied that would include medications. Her medications, however, has been reviewed with no significant assessment medications were identified. The mass lesions were seen. The patient stated that she had an ultrasound, which was unrevealing. In addition, she may have hepatic congestion, which was reviewed and a cardiac untreated can be followed. other contributing factors, although in her age at this time will be relevant. Metastatic cancer is another consideration, but this could not be seen on abdominal ultrasound. RECOMMENDATIONS: 1. Follow liver panel for now. 2. Check hepatitis serology. 3. Heparin intravenously for bridge conversion. 4. Gastrostomy tube placement tomorrow. Thank you for asking me to participate in the care of this patient. Margarita Perez M.D. DR: RUFINO JOB#: [id number] CC:
[2016-09-09] MEDS: Albuterol ud Inhalation HHN SCH ×4 (03:14→14:37)
[2016-09-09] MEDS: NovoLOG Insulin Flexpen SUBQ SCH ×4 (06:00→17:07)
[2016-09-09 06:43] LABS: LYMPHOCYTES % (AUTO) 21.1 % (20.0-45.0); MEAN CORPUSCULAR HEMOGLOBIN 29.1 PG (27.0-31.0); MEAN CORPUSCULAR HGB CONC 32.5 G/DL (32.0-36.0); MEAN CORPUSCULAR VOLUME 90 FL (80-99); MEAN PLATELET VOLUME 6.4 FL (6.5-10.1); MONOCYTES % (AUTO) 7.5 % (1.0-10.0); NEUTROPHILS % (AUTO) 68.4 % (45.0-75.0); PLATELET COUNT 274 K/UL (150-450); RED BLOOD COUNT 3.72 M/UL (4.20-5.40); RED CELL DISTRIBUTION WIDTH 13.5 % (11.6-14.8); WHITE BLOOD COUNT 7.8 K/UL (4.8-10.8)
[2016-09-09 06:52] LABS: ANION GAP 10 (5-15); CARBON DIOXIDE 31 mEQ/L (20-30); CHLORIDE 99 mEQ/L (98-107); CREATININE 0.2 mg/dL (0.5-0.9); HEMOLYSIS 2; POTASSIUM 3.9 mEQ/L (3.4-4.9); SODIUM 140 mEQ/L (135-145)
[2016-09-09 06:58] LABS: INR 1.2 (0.9-1.1); PROTHROMBIN TIME 11.8 SEC (9.30-11.50)
[2016-09-09] MEDS ORDERED: ceFAZolin sod 1 GM in D5W 55 ML IVPB ONE (08:00)
--- NOTE | 2016-09-09 08:05 | Critical Care Progress Note ---
Assessment/Plan Assessment/Plan IMPRESSION: 1. Respiratory failure. 2. Metabolic acidosis. 3. s/p VATS biopsy with documented lung cancer 4. Right lung mass, 5. Left lower lobe atelectasis. 6. Severe protein-calorie malnutrition. 7. s/p sepsis and shock. 8. pneumonia. 9. Acute renal failure. 10. treated urinary tract infection. 11. chest tube- removed PLAN Low oxygen flow encourage cough and clearance to avoid pneumonia monitor fluid status for change nutrition noted maintain meds oncology follow up reviewed dc planning to snf per PMD appears comfortable at present and no respiratory distress medications/laboratory data/nursing notes reviewed in detail note reviewed and edited care discussed with RN and RT Critical Care - Subjective Interval Events: findings noted and reviewed in detail minimal congestion ROS Limited/Unobtainable: Yes Condition: stable EKG Rhythm: Sinus Rhythm I&O: Intake and Output 09/08/16 09/09/16 19:00 07:00 Intake Total 213.692 ml 407.84 ml Output Total 600 ml 750 ml Balance -386.308 ml -342.16 ml Intake Free Water 0 ml IV Total 163.692 ml 207.84 ml Tube Feeding 50 ml 200 ml Output Urine Total 600 ml 750 ml Critical Care - Objective ET-Tube: 8.0 ET Position: 22 Last 24 Hour Vital Signs Date Time Temp Pulse Resp B/P Pulse Ox O2 Delivery O2 Flow Rate FiO2 09/09/16 07:29 79 18 99 Nasal Cannula 2.0 28 09/09/16 07:19 98 Nasal Cannula 2.0 28 09/09/16 07:19 78 16 98 Nasal Cannula 2.0 28 09/09/16 07:19 Nasal Cannula 2.0 28 09/09/16 04:00 97.9 90 20 123/53 96 Nasal Cannula 2.0 09/09/16 04:00 85 09/09/16 03:22 85 18 99 Nasal Cannula 2.0 28 09/09/16 03:14 85 16 98 Nasal Cannula 2.0 28 09/09/16 00:00 98.2 83 22 132/63 98 Room Air 09/09/16 00:00 78 09/08/16 23:07 82 18 99 Nasal Cannula 2.0 28 09/08/16 22:59 88 16 97 Nasal Cannula 2.0 28 09/08/16 20:00 70 09/08/16 20:00 98.0 83 22 148/67 100 Room Air 09/08/16 19:34 79 18 98 Nasal Cannula 2.0 09/08/16 19:26 79 16 95 Nasal Cannula 2.0 09/08/16 19:25 95 Nasal Cannula 2.0 09/08/16 19:25 Nasal Cannula 2.0 09/08/16 16:00 92 09/08/16 15:54 86 19 98 Nasal Cannula 2.0 09/08/16 15:44 86 16 98 Nasal Cannula 2.0 09/08/16 15:37 98.1 93 20 131/66 99 Nasal Cannula 2.0 09/08/16 12:00 84 09/08/16 11:39 97.9 86 20 133/60 98 Nasal Cannula 2.0 09/08/16 11:29 89 18 98 Nasal Cannula 2.0 09/08/16 11:19 88 16 98 Nasal Cannula 2.0 Labs: Labs Test 09/08/16 07:30 09/08/16 15:25 09/08/16 23:30 09/09/16 06:00 White Blood Count 9.2 K/UL (4.8-10.8) 7.8 K/UL (4.8-10.8) Red Blood Count 3.82 M/UL (4.20-5.40) 3.72 M/UL (4.20-5.40) Hemoglobin 11.0 G/DL (12.0-16.0) 10.8 G/DL (12.0-16.0) Hematocrit 34.3 % (37.0-47.0) 33.3 % (37.0-47.0) Mean Corpuscular Volume 90 FL (80-99) 90 FL (80-99) Mean Corpuscular Hemoglobin 28.8 PG (27.0-31.0) 29.1 PG (27.0-31.0) Mean Corpuscular Hemoglobin Concent 32.1 G/DL (32.0-36.0) 32.5 G/DL (32.0-36.0) Red Cell Distribution Width 14.1 % (11.6-14.8) 13.5 % (11.6-14.8) Platelet Count 279 K/UL (150-450) 274 K/UL (150-450) Mean Platelet Volume 6.0 FL (6.5-10.1) 6.4 FL (6.5-10.1) Neutrophils (%) (Auto) 74.8 % (45.0-75.0) 68.4 % (45.0-75.0) Lymphocytes (%) (Auto) 16.5 % (20.0-45.0) 21.1 % (20.0-45.0) Monocytes (%) (Auto) 6.4 % (1.0-10.0) 7.5 % (1.0-10.0) Eosinophils (%) (Auto) 1.5 % (0.0-3.0) 2.0 % (0.0-3.0) Basophils (%) (Auto) 0.7 % (0.0-2.0) 1.0 % (0.0-2.0) Activated Partial Thromboplast Time 31 SEC (23-33) 43 SEC (23-33) 40 SEC (23-33) 37 SEC (23-33) Prothrombin Time 11.8 SEC (9.30-11.50) Prothromb Time International Ratio 1.2 (0.9-1.1) Sodium Level 140 mEQ/L (135-145) Potassium Level 3.9 mEQ/L (3.4-4.9) Chloride Level 99 mEQ/L (98-107) Carbon Dioxide Level 31 mEQ/L (20-30) Anion Gap 10 (5-15) Blood Urea Nitrogen 19 mg/dL (7-23) Creatinine 0.2 mg/dL (0.5-0.9) Estimat Glomerular Filtration Rate mL/min (>60) Glucose Level 100 mg/dL (74-106) Calcium Level 9.0 mg/dL (8.6-10.2) Objective: GENERAL: The patient is chronically ill appearing female. NAD HEENT: Negative. NECK: Supple. The patient is without meningismus LUNGS: symmetric breath sounds. no wheeze with some rhonchi; no change; comfortable CARDIAC: S1, S1 irregular without murmurs, rubs, or gallops. ABDOMEN: Soft. NABS. No hepatosplenomegaly. no distention EXTREMITIES: No cyanosis or clubbing. There is trace edema.without change NEUROLOGIC: The patient is nonfocal reviewed and edited Accucheck: 96 ISHAAYA,MARI September 09, 2016 08:05
[2016-09-09] MEDS ORDERED: Propofol 10mg/ml 20ml IV ONE (09:00)
[2016-09-09] MEDS ORDERED: LR 1000ml ONE (09:00)
[2016-09-09] MEDS ORDERED: Tubing IV Secondary IV ONE (09:24)
[2016-09-09] MEDS ORDERED: Sterile Water Irrig 1000ml IRRIG ONE (09:24)
[2016-09-09] MEDS ORDERED: NS 275ml ONE (09:24)
[2016-09-09] MEDS ORDERED: NS 550ML IV ONE (09:30)
--- NOTE | 2016-09-09 09:34 | Anethesia Preoperative Eval ---
Anesthesia Pre-op PMH/ROS General Date of Evaluation: September 09, 2016 Time of Evaluation: 09:00 Anesthesiologist: serenity ASA Score: ASA 3 Mallampati Score Class I : Soft palate, uvula, fauces, pillars visible Class II: Soft palate, uvula, fauces visible Class III: Soft palate, base of uvula visible Class IV: Only hard plate visible Mallampati Classification: Class II Allergies: Coded Allergies: No Known Allergies (Unverified , 12/10/15) Anesthesia Pre-op Phys. Exam Physician Exam Last Vital Signs Date Time Temp Pulse Resp B/P Pulse Ox O2 Delivery O2 Flow Rate FiO2 09/09/16 08:46 96.5 84 17 125/75 93 Nasal Cannula 2.0 09/09/16 07:29 28 Airway Exam Mallampati Score: Class II Anesthesia Pre-op A/P Labs Hematology Test 09/09/16 06:00 White Blood Count 7.8 K/UL (4.8-10.8) Red Blood Count 3.72 M/UL (4.20-5.40) L Hemoglobin 10.8 G/DL (12.0-16.0) L Hematocrit 33.3 % (37.0-47.0) L Mean Corpuscular Volume 90 FL (80-99) Mean Corpuscular Hemoglobin 29.1 PG (27.0-31.0) Mean Corpuscular Hemoglobin Concent 32.5 G/DL (32.0-36.0) Red Cell Distribution Width 13.5 % (11.6-14.8) Platelet Count 274 K/UL (150-450) Mean Platelet Volume 6.4 FL (6.5-10.1) L Neutrophils (%) (Auto) 68.4 % (45.0-75.0) Lymphocytes (%) (Auto) 21.1 % (20.0-45.0) Monocytes (%) (Auto) 7.5 % (1.0-10.0) Eosinophils (%) (Auto) 2.0 % (0.0-3.0) Basophils (%) (Auto) 1.0 % (0.0-2.0) Coagulation Test 09/08/16 15:25 09/08/16 23:30 09/09/16 06:00 Activated Partial Thromboplast Time 43 SEC (23-33) H 40 SEC (23-33) H 37 SEC (23-33) H Prothrombin Time 11.8 SEC (9.30-11.50) H Prothromb Time International Ratio 1.2 (0.9-1.1) H Chemistry Test 09/09/16 06:00 Sodium Level 140 mEQ/L (135-145) Potassium Level 3.9 mEQ/L (3.4-4.9) Chloride Level 99 mEQ/L (98-107) Carbon Dioxide Level 31 mEQ/L (20-30) H Anion Gap 10 (5-15) Blood Urea Nitrogen 19 mg/dL (7-23) Creatinine 0.2 mg/dL (0.5-0.9) L Estimat Glomerular Filtration Rate mL/min (>60) Glucose Level 100 mg/dL (74-106) Calcium Level 9.0 mg/dL (8.6-10.2) Praveena Infante MD September 09, 2016 09:34
--- NOTE | 2016-09-09 09:34 | Pre-Procedure Note/Attestation ---
Pre-Procedure Note/Attestation Complete Prior to Procedure Planned Procedure: not applicable Procedure Narrative: PEG Indications for Procedure Pre-Operative Diagnosis: dysphagia Attestation I attest that I discussed the nature of the procedure; its benefits; risks and complications; and alternatives (and the risks and benefits of such alternatives ), prior to the procedure, with the patient (or the patient's legal credit and collections representative). I attest that, if there was a reasonable possibility of needing a blood transfusion, the patient (or the patient's legal credit and collections representative) was given the [facility] standardized written summary, pursuant to the [place] Blood Safety Act ([place] Health and Safety Code # 1645, as amended). I attest that I re-evaluated the patient just prior to the surgery and that there has been no change in the patient's H&P, except as documented below: MERCEDEZ FORTUNE September 09, 2016 09:34
[2016-09-09] MEDS ORDERED: D5 1/2NS 1,000 ML IV SCH (11:00)
--- NOTE | 2016-09-09 12:12 | Infectious Diseases Prog Note ---
Assessment/Plan Assessment/Plan A: 1. Proteus sepsis secondary to UTI s/p RX 2. Proteus , Providencia UTI s/p Rx 3. postobstructive pneumonia with Klebsiella s/p Rx 4. leucocytosis improving 5. respiratory failure resolved 6. lung cancer, adenocarcinoma 7. s/p GT placement P 1.observe off antibiotic Subjective ROS Limited/Unobtainable: Yes Allergies: Coded Allergies: No Known Allergies (Unverified , 12/10/15) Objective Vital Signs Last 24 Hour Vital Signs Date Time Temp Pulse Resp B/P Pulse Ox O2 Delivery O2 Flow Rate FiO2 09/09/16 11:05 81 18 99 Nasal Cannula 2.0 28 09/09/16 10:55 80 16 98 Nasal Cannula 2.0 28 09/09/16 10:10 79 17 145/75 99 Nasal Cannula 2.0 09/09/16 10:05 77 18 154/79 98 Nasal Cannula 2.0 09/09/16 10:00 78 19 149/72 96 Nasal Cannula 2.0 09/09/16 09:50 80 17 145/74 100 Nasal Cannula 2.0 09/09/16 09:45 98.3 79 20 148/78 98 Nasal Cannula 2.0 09/09/16 08:46 96.5 84 17 125/75 93 Nasal Cannula 2.0 09/09/16 08:00 82 09/09/16 07:29 79 18 99 Nasal Cannula 2.0 28 09/09/16 07:19 98 Nasal Cannula 2.0 28 09/09/16 07:19 78 16 98 Nasal Cannula 2.0 28 09/09/16 07:19 Nasal Cannula 2.0 28 09/09/16 04:00 97.9 90 20 123/53 96 Nasal Cannula 2.0 09/09/16 04:00 85 09/09/16 03:22 85 18 99 Nasal Cannula 2.0 28 09/09/16 03:14 85 16 98 Nasal Cannula 2.0 28 09/09/16 00:00 98.2 83 22 132/63 98 Room Air 09/09/16 00:00 78 09/08/16 23:07 82 18 99 Nasal Cannula 2.0 28 09/08/16 22:59 88 16 97 Nasal Cannula 2.0 28 09/08/16 20:00 70 09/08/16 20:00 98.0 83 22 148/67 100 Room Air 09/08/16 19:34 79 18 98 Nasal Cannula 2.0 28 09/08/16 19:26 79 16 95 Nasal Cannula 2.0 28 09/08/16 19:25 95 Nasal Cannula 2.0 09/08/16 19:25 Nasal Cannula 2.0 28 09/08/16 16:00 92 09/08/16 15:54 86 19 98 Nasal Cannula 2.0 09/08/16 15:44 86 16 98 Nasal Cannula 2.0 28 09/08/16 15:37 98.1 93 20 131/66 99 Nasal Cannula 2.0 Height (Feet): 5 Height (Inches): 4.00 Weight (Pounds): 123 General Appearance: no acute distress HEENT: mucous membranes moist Respiratory/Chest: lungs clear Cardiovascular: normal rate Abdomen: soft, non tender, other - GT in place Extremities: no edema, other - left arm picc line Neurologic/Psychiatric: alert, disoriented Laboratory Tests Test 09/08/16 15:25 09/08/16 23:30 09/09/16 06:00 09/09/16 10:45 Activated Partial Thromboplast Time 43 SEC (23-33) H 40 SEC (23-33) H 37 SEC (23-33) H 30 SEC (23-33) White Blood Count 7.8 K/UL (4.8-10.8) Red Blood Count 3.72 M/UL (4.20-5.40) L Hemoglobin 10.8 G/DL (12.0-16.0) L Hematocrit 33.3 % (37.0-47.0) L Mean Corpuscular Volume 90 FL (80-99) Mean Corpuscular Hemoglobin 29.1 PG (27.0-31.0) Mean Corpuscular Hemoglobin Concent 32.5 G/DL (32.0-36.0) Red Cell Distribution Width 13.5 % (11.6-14.8) Platelet Count 274 K/UL (150-450) Mean Platelet Volume 6.4 FL (6.5-10.1) L Neutrophils (%) (Auto) 68.4 % (45.0-75.0) Lymphocytes (%) (Auto) 21.1 % (20.0-45.0) Monocytes (%) (Auto) 7.5 % (1.0-10.0) Eosinophils (%) (Auto) 2.0 % (0.0-3.0) Basophils (%) (Auto) 1.0 % (0.0-2.0) Prothrombin Time 11.8 SEC (9.30-11.50) H Prothromb Time International Ratio 1.2 (0.9-1.1) H Sodium Level 140 mEQ/L (135-145) Potassium Level 3.9 mEQ/L (3.4-4.9) Chloride Level 99 mEQ/L (98-107) Carbon Dioxide Level 31 mEQ/L (20-30) H Anion Gap 10 (5-15) Blood Urea Nitrogen 19 mg/dL (7-23) Creatinine 0.2 mg/dL (0.5-0.9) L Estimat Glomerular Filtration Rate mL/min (>60) Glucose Level 100 mg/dL (74-106) Calcium Level 9.0 mg/dL (8.6-10.2) Hepatitis A IgM Antibody Pending Hepatitis B Surface Antigen Pending Hepatitis B Core IgM Antibody Pending Hepatitis C Antibody Pending Current Medications Medications (Trade) Dose Ordered Sig/Aaron Route PRN Reason Start Time Stop Time Status Last Admin Dose Admin Acetaminophen (Tylenol) 650 mg Q4H PRN ORAL TEMP>100.5/HEADACHE 09/04/16 14:00 10/04/16 13:59 Albuterol Sulfate (Proventil) 2.5 mg Q4HRT HHN 09/04/16 15:00 09/09/16 14:59 09/09/16 10:55 Dextrose (Dextrose 50%) STAT PRN IV Hypoglycemia 09/04/16 14:00 10/04/16 13:59 Dextrose/Sodium Chloride (D5 0.45% NS) 1,000 ml @ 100 mls/hr Q10H IV 09/09/16 11:00 10/09/16 10:59 09/09/16 11:07 Heparin Sodium/ Dextrose 500 ml @ 20.085 mls/ hr adjust per protocol IV 09/09/16 18:00 10/09/16 17:59 Insulin Aspart (NovoLOG) EVERY 6 HOURS SUBQ 09/04/16 18:00 10/04/16 17:59 09/07/16 23:47 Lansoprazole 30 mg 30 mg DAILY GT 09/08/16 09:00 10/08/16 08:59 09/09/16 08:08 Morphine Sulfate (Morphine Sulfate) 2 mg Q4H PRN IVP Severe Pain (Pain Scale 7-10) 09/04/16 15:00 09/11/16 14:59 LARISSA OATES September 09, 2016 12:12
[2016-09-09] MEDS: D5 1/2NS 1,000 ML IV SCH (15:30)
[2016-09-09] MEDS ORDERED: Morphine Sulfate 2mg/ml Inj IVP PRN (16:00)
[2016-09-09] MEDS ORDERED: D5 1/2NS 1000ml IV ONE (16:13)
--- NOTE | 2016-09-09 22:58 | Endoscopy Procedure Note ---
Endoscopy Procedure Note Indication for Procedure: dysphagia Procedures Performed: EGD, PEG Operative Findings/Diagnosis: gastritis/gastropathy - diffuse, bx, s/p PEG Specimen: yes Pt Tolerated Procedure Well: Yes Estimated Blood Loss: none Anesthesiologist: see report Anesthesia: MAC Medication Given: see anesthesia record Implant(s) used?: No 50 yrs or older w/o bx or poly: Not Applicable 10yrs. F/U not recommended: Not Applicable If not recommended, why?: MERCEDEZ FORTUNE September 09, 2016 22:58
--- NOTE | 2016-09-09 23:00 | Brief Operative Note ---
Immediate Post Operative Note Operative Note Chief Complaint: dysphagia Pre-op Diagnosis: dysphagia Procedure: PEG, Bx Post-op Diagnosis: gastritis/gastropathy - diffuse, bx, s/p PEG Surgeon: arcelia Anesthesiologist: Arelis Anesthesia: MAC Specimen: yes Complications: none Condition: stable Estimated Blood Loss: none Implant(s) used?: No MERCEDEZ FORTUNE September 09, 2016 23:00
[2016-09-10] MEDS ORDERED: Heparin 25,000u/D5W 500ml 500 ML IV SCH (00:11)
[2016-09-10] MEDS ORDERED: Heparin 5000 units/ml inj IV ONE ×2 (00:30→15:30)
[2016-09-10 00:48] VITALS: BP 170/84
[2016-09-10] MEDS: D5 1/2NS 1,000 ML IV SCH ×3 (00:48→19:15)
[2016-09-10 04:38] VITALS: BP 148/80
[2016-09-10] MEDS: NovoLOG Insulin Flexpen SUBQ SCH ×5 (05:35→23:41)
[2016-09-10 07:48] VITALS: BP 161/77
--- NOTE | 2016-09-10 08:20 | General Progress Note ---
Assessment/Plan Problem List: (1) Pneumonia ICD Codes: J18.9 - Pneumonia, unspecified organism SNOMED: 018511421 (2) DVT (deep vein thrombosis) in ICD Codes: O22.30 - Deep phlebothrombosis in , unspecified trimester; I82.409 - Acute embolism and thrombosis of unspecified deep veins of unspecified lower extremity SNOMED: 85187014, 788692400, 718522022 (3) Hyperkalemia ICD Codes: E87.5 - Hyperkalemia SNOMED: 89547946 (4) Renal failure ICD Codes: N19 - Unspecified kidney failure SNOMED: 75412899 (5) Respiratory failure ICD Codes: J96.90 - Respiratory failure, unspecified, unspecified whether with hypoxia or hypercapnia SNOMED: 106149930 (6) Lung mass ICD Codes: R91.8 - Other nonspecific abnormal finding of lung field SNOMED: 746944357 Status: stable, progressing Assessment/Plan gt feeds when cleared by gi resp care outpt onc follow up resume xarelto dc planning when tolerating feeds. Possibly tomorrow Subjective ROS Limited/Unobtainable: No Constitutional: Reports: malaise, weakness HEENT: Reports: no symptoms Cardiovascular: Reports: no symptoms Respiratory: Reports: cough Gastrointestinal/Abdominal: Reports: difficulty swallowing Genitourinary: Reports: no symptoms Neurologic/Psychiatric: Reports: pre-existing deficit Endocrine: Reports: no symptoms Hematologic/Lymphatic: Reports: anemia Allergies: Coded Allergies: No Known Allergies (Unverified , 12/10/15) All Systems: reviewed and negative except above Subjective s/p uncomplicated gt. not on feeds yet. awake and alert. answers simple questions. Objective Last 24 Hour Vital Signs Date Time Temp Pulse Resp B/P Pulse Ox O2 Delivery O2 Flow Rate FiO2 09/10/16 07:48 97.9 68 19 161/77 100 Room Air 09/10/16 04:38 97.0 75 19 148/80 92 Room Air 09/10/16 00:48 97.5 74 15 170/84 100 Room Air 09/09/16 20:57 97.7 76 20 152/73 100 Room Air 09/09/16 19:29 Nasal Cannula 2.0 28 09/09/16 19:29 97 Nasal Cannula 2.0 28 09/09/16 16:00 98.8 69 17 134/67 95 Nasal Cannula 2.0 09/09/16 14:47 83 18 99 Nasal Cannula 2.0 28 09/09/16 14:37 82 16 98 Nasal Cannula 2.0 28 09/09/16 12:00 84 09/09/16 12:00 95.9 88 17 125/78 95 Nasal Cannula 2.0 09/09/16 11:05 81 18 99 Nasal Cannula 2.0 28 09/09/16 10:55 80 16 98 Nasal Cannula 2.0 28 09/09/16 10:30 97.6 77 15 140/70 96 Nasal Cannula 2.0 09/09/16 10:10 79 17 145/75 99 Nasal Cannula 2.0 09/09/16 10:05 77 18 154/79 98 Nasal Cannula 2.0 09/09/16 10:00 78 19 149/72 96 Nasal Cannula 2.0 09/09/16 09:50 80 17 145/74 100 Nasal Cannula 2.0 09/09/16 09:45 98.3 79 20 148/78 98 Nasal Cannula 2.0 09/09/16 08:46 96.5 84 17 125/75 93 Nasal Cannula 2.0 Intake and Output 09/09/16 09/10/16 19:00 07:00 Intake Total 20.085 ml 249.096 ml Output Total 350 ml 1250 ml Balance -329.915 ml -1000.904 ml IV Total 20.085 ml 249.096 ml Output Urine Total 350 ml 1250 ml Laboratory Tests 09/09/16 10:45: Activated Partial Thromboplast Time 30 09/09/16 23:30: Activated Partial Thromboplast Time 50H 09/10/16 06:30: Activated Partial Thromboplast Time 135H Height (Feet): 5 Height (Inches): 4.00 Weight (Pounds): 123 Objective General Appearance: WD/WN, alert, confused. +ngt Neck: supple Cardiovascular: regular rhythm Respiratory/Chest: normal breath sounds. few rhonchi Abdomen: normal bowel sounds, non tender, soft, no organomegaly Edema: no edema noted Arm (L), no edema noted Arm (R), no edema noted Leg (L), no edema noted Leg (R), no edema noted Pedal (L), no edema noted Pedal (R), no edema noted Generalized UOMOTO,JUSTIN September 10, 2016 08:20
[2016-09-10] MEDS: Heparin 25,000u/D5W 500ml 500 ML IV SCH ×3 (08:31→23:57)
--- NOTE | 2016-09-10 11:56 | Infectious Diseases Prog Note ---
"Assessment/Plan Assessment/Plan antibiotics : none A 1. proteus sepsis secondary to UTI 2. proteus | providencia UTI 3. postobstructive klebsiella pneumonia 4. leucocytosis improving 5. respiratory failure resolved 6. lung mass s/p bronchoscopy | VATS | wedge resection with lung cancer P 1. observe off antibiotics Subjective ROS Limited/Unobtainable: Yes Allergies: Coded Allergies: No Known Allergies (Unverified , 12/10/15) Objective Vital Signs Last 24 Hour Vital Signs Date Time Temp Pulse Resp B/P Pulse Ox O2 Delivery O2 Flow Rate FiO2 09/10/16 07:48 97.9 68 19 161/77 100 Room Air 09/10/16 04:38 97.0 75 19 148/80 92 Room Air 09/10/16 00:48 97.5 74 15 170/84 100 Room Air 09/09/16 20:57 97.7 76 20 152/73 100 Room Air 09/09/16 19:29 Nasal Cannula 2.0 28 09/09/16 19:29 97 Nasal Cannula 2.0 28 09/09/16 16:00 98.8 69 17 134/67 95 Nasal Cannula 2.0 09/09/16 14:47 83 18 99 Nasal Cannula 2.0 28 09/09/16 14:37 82 16 98 Nasal Cannula 2.0 28 09/09/16 12:00 84 09/09/16 12:00 95.9 88 17 125/78 95 Nasal Cannula 2.0 Height (Feet): 5 Height (Inches): 4.00 Weight (Pounds): 123 Respiratory/Chest: lungs clear Cardiovascular: normal rate, regular rhythm, no gallop/murmur Abdomen: soft, non tender, other - GT Extremities: no edema, other - left arm PICC Laboratory Tests Test 09/09/16 23:30 09/10/16 06:30 Activated Partial Thromboplast Time 50 SEC (23-33) H 135 SEC (23-33) H SHANNON GO September 10, 2016 11:56"
[2016-09-10 12:00] VITALS: BP 157/77
--- NOTE | 2016-09-10 12:46 | Critical Care Progress Note ---
Assessment/Plan Assessment/Plan IMPRESSION: 1. Respiratory failure. 2. Metabolic acidosis. 3. s/p VATS biopsy with documented lung cancer 4. Right lung mass, 5. Left lower lobe atelectasis. 6. Severe protein-calorie malnutrition. 7. s/p sepsis and shock. 8. pneumonia. 9. Acute renal failure. 10. treated urinary tract infection. 11. chest tube- removed PLAN Low oxygen flow encourage cough and clearance to avoid pneumonia nutrition noted maintain meds oncology follow up reviewed dc planning pending appears comfortable at present and no respiratory distress medications/laboratory data/nursing notes reviewed in detail note reviewed and edited care discussed with RN and RT Critical Care - Subjective Interval Events: care noted and reviewed minimal congestion EKG Rhythm: Sinus Rhythm I&O: Intake and Output 09/09/16 09/10/16 19:00 07:00 Intake Total 20.085 ml 249.096 ml Output Total 350 ml 1250 ml Balance -329.915 ml -1000.904 ml IV Total 20.085 ml 249.096 ml Output Urine Total 350 ml 1250 ml Critical Care - Objective ET-Tube: 8.0 ET Position: 22 Last 24 Hour Vital Signs Date Time Temp Pulse Resp B/P Pulse Ox O2 Delivery O2 Flow Rate FiO2 09/10/16 07:48 97.9 68 19 161/77 100 Room Air 09/10/16 04:38 97.0 75 19 148/80 92 Room Air 09/10/16 00:48 97.5 74 15 170/84 100 Room Air 09/09/16 20:57 97.7 76 20 152/73 100 Room Air 09/09/16 19:29 Nasal Cannula 2.0 28 09/09/16 19:29 97 Nasal Cannula 2.0 28 09/09/16 16:00 98.8 69 17 134/67 95 Nasal Cannula 2.0 09/09/16 14:47 83 18 99 Nasal Cannula 2.0 28 09/09/16 14:37 82 16 98 Nasal Cannula 2.0 28 Labs: Labs Test 09/08/16 07:30 09/08/16 15:25 09/08/16 23:30 09/09/16 06:00 White Blood Count 9.2 K/UL (4.8-10.8) 7.8 K/UL (4.8-10.8) Red Blood Count 3.82 M/UL (4.20-5.40) 3.72 M/UL (4.20-5.40) Hemoglobin 11.0 G/DL (12.0-16.0) 10.8 G/DL (12.0-16.0) Hematocrit 34.3 % (37.0-47.0) 33.3 % (37.0-47.0) Mean Corpuscular Volume 90 FL (80-99) 90 FL (80-99) Mean Corpuscular Hemoglobin 28.8 PG (27.0-31.0) 29.1 PG (27.0-31.0) Mean Corpuscular Hemoglobin Concent 32.1 G/DL (32.0-36.0) 32.5 G/DL (32.0-36.0) Red Cell Distribution Width 14.1 % (11.6-14.8) 13.5 % (11.6-14.8) Platelet Count 279 K/UL (150-450) 274 K/UL (150-450) Mean Platelet Volume 6.0 FL (6.5-10.1) 6.4 FL (6.5-10.1) Neutrophils (%) (Auto) 74.8 % (45.0-75.0) 68.4 % (45.0-75.0) Lymphocytes (%) (Auto) 16.5 % (20.0-45.0) 21.1 % (20.0-45.0) Monocytes (%) (Auto) 6.4 % (1.0-10.0) 7.5 % (1.0-10.0) Eosinophils (%) (Auto) 1.5 % (0.0-3.0) 2.0 % (0.0-3.0) Basophils (%) (Auto) 0.7 % (0.0-2.0) 1.0 % (0.0-2.0) Activated Partial Thromboplast Time 31 SEC (23-33) 43 SEC (23-33) 40 SEC (23-33) 37 SEC (23-33) Prothrombin Time 11.8 SEC (9.30-11.50) Prothromb Time International Ratio 1.2 (0.9-1.1) Sodium Level 140 mEQ/L (135-145) Potassium Level 3.9 mEQ/L (3.4-4.9) Chloride Level 99 mEQ/L (98-107) Carbon Dioxide Level 31 mEQ/L (20-30) Anion Gap 10 (5-15) Blood Urea Nitrogen 19 mg/dL (7-23) Creatinine 0.2 mg/dL (0.5-0.9) Estimat Glomerular Filtration Rate mL/min (>60) Glucose Level 100 mg/dL (74-106) Calcium Level 9.0 mg/dL (8.6-10.2) Hepatitis A IgM Antibody Negative (Negative) Hepatitis B Surface Antigen Negative (Negative) Hepatitis B Core IgM Antibody Negative (Negative) Hepatitis C Antibody 0.1 s/co ratio (0.0-0.9) Test 09/09/16 10:45 09/09/16 23:30 09/10/16 06:30 Activated Partial Thromboplast Time 30 SEC (23-33) 50 SEC (23-33) 135 SEC (23-33) Objective: GENERAL: The patient is chronically ill appearing female. NAD HEENT: Negative. NECK: Supple. The patient is without meningismus LUNGS: symmetric breath sounds. no wheeze with some rhonchi; no change; comfortable CARDIAC: S1, S1 irregular without murmurs, rubs, or gallops. ABDOMEN: Soft. NABS. No hepatosplenomegaly. no distention EXTREMITIES: No cyanosis or clubbing. There is trace edema.without change NEUROLOGIC: The patient is nonfocal reviewed and edited Accucheck: 101 MARI JUAN September 10, 2016 12:46
--- NOTE | 2016-09-10 15:00 | Diagnostic Imaging Report ---
Indications: Dysphagia Technique: Multiphasic barium dysphagia study was performed under fluoroscopic control with Nikki Sotomayor speech pathologist. Cinegraphic images were obtained. Total fluoroscopy time: 189 sec Dose-area product: 0.24 mGy-m2 Findings: Comparison: None Oral and pharyngeal phases of swallowing demonstrate multiple mechanical abnormalities, as enumerated on speech pathology evaluation form. The patient demonstrates both laryngeal penetration and tracheal aspiration of thin and nectar thickness barium, variably injected. There is moderate barium coating of pharyngeal structures after swallowing.. Esophageal phase of swallowing demonstrates no obvious barium pooling. IMPRESSION: Abnormal oropharyngeal mechanics with laryngeal penetration and tracheal aspiration of thin and nectar thickness barium. Thicker consistencies of barium not tested. Moderate post swallow pharyngeal residue No obvious esophageal dysmotility. Recommendation per speech pathology evaluation form.
[2016-09-10 16:00] VITALS: BP 145/71
--- NOTE | 2016-09-10 16:05 | General Progress Note ---
Assessment/Plan Assessment/Plan Assessment - dysphagia - s/p PEG - abnormal LFT - resolving - OBS Recommendations - TF - follow labs - [facility] - I will return Mon to see pt Subjective Allergies: Coded Allergies: No Known Allergies (Unverified , 12/10/15) Subjective above note POD # 1 after PEG Objective Last 24 Hour Vital Signs Date Time Temp Pulse Resp B/P Pulse Ox O2 Delivery O2 Flow Rate FiO2 09/10/16 12:00 96.8 76 21 157/77 96 Nasal Cannula 09/10/16 07:48 97.9 68 19 161/77 100 Room Air 09/10/16 04:38 97.0 75 19 148/80 92 Room Air 09/10/16 00:48 97.5 74 15 170/84 100 Room Air 09/09/16 20:57 97.7 76 20 152/73 100 Room Air 09/09/16 19:29 Nasal Cannula 2.0 28 09/09/16 19:29 97 Nasal Cannula 2.0 28 09/09/16 16:00 98.8 69 17 134/67 95 Nasal Cannula 2.0 Intake and Output 09/09/16 09/10/16 19:00 07:00 Intake Total 20.085 ml 249.096 ml Output Total 350 ml 1250 ml Balance -329.915 ml -1000.904 ml IV Total 20.085 ml 249.096 ml Output Urine Total 350 ml 1250 ml Laboratory Tests 09/09/16 23:30: Activated Partial Thromboplast Time 50H 09/10/16 06:30: Activated Partial Thromboplast Time 135H 09/10/16 14:35: Activated Partial Thromboplast Time 47H Height (Feet): 5 Height (Inches): 4.00 Weight (Pounds): 123 Objective Elderly AA woman NCAT supple CTA RRR abd soft ND, (+) PEG no edema OBS MERCEDEZ FORTUNE September 10, 2016 16:05
[2016-09-10 20:00] VITALS: BP 161/79
[2016-09-11] VITALS: BP 144/92
--- NOTE | 2016-09-11 03:09 | Progress Note ---
DATE: 09/09/2016 CARDIOLOGY PROGRESS NOTE SUBJECTIVE: The patient is scheduled for G-tube placement today. She is in no distress. She failed the swallow evaluation earlier this week and has not improved since. Prior cardiac rhythm sinus. OBJECTIVE: VITAL SIGNS: Blood pressure 123/53, pulse 90, and respirations 20. LUNGS: Bilateral breath sounds. HEART: Regular rhythm and rate. Normal S1 and S2. ABDOMEN: Soft. EXTREMITIES: No edema. LABORATORY DATA: White count 7.8 and hemoglobin 10.8. Potassium 3.9, BUN 19, and creatinine 0.2. IMPRESSION: 1. Lung cancer status post video-assisted thoracoscopic surgery pleurodesis status post respiratory failure. 2. Dysphagia. 3. Severe protein-calorie malnutrition. 4. Paroxysmal atrial ectopy. 5. Chronic diastolic congestive heart failure. PLAN: 1. Await G-tube placement. 2. Reassess cardiovascular regimen type. 3. Optimize filling pressures as colloid osmotic pressure improves with nutrition. Giuseppe Muir M.D. DR: BURKE JOB#: [id number] CC:
[2016-09-11 04:00] VITALS: BP 146/85
--- NOTE | 2016-09-11 04:29 | Progress Note ---
DATE: 09/10/2016 CARDIOLOGY PROGRESS NOTE SUBJECTIVE: The patient is status post G-tube placement yesterday without complications. Feedings were initiated today. OBJECTIVE: VITAL SIGNS: Blood pressure 157/77, pulse 76, respirations 21, and afebrile. LUNGS: Bilateral breath sounds. Scattered rhonchi. HEART: Regular rhythm and rate. Normal S1 and S2. ABDOMEN: Soft. No edema. G-tube intact. IMPRESSION: 1. Status post G-tube. 2. Lung cancer. 3. Status post urinary tract infection. 4. Status post respiratory failure. 5. Paroxysmal atrial ectopy. 6. Chronic diastolic congestive heart failure. 7. Severe protein-calorie malnutrition. 8. Elevated blood pressure likely due to missed doses of blood pressure therapy over the past 12 to 24 hours. PLAN: 1. Initiate adequate pain control. 2. Full anticoagulation for bilateral DVT. 3. Recheck laboratory studies. 4. Optimize cardiovascular regimen based on clinical parameters. 5. Taper intravenous fluids as intake by G-tube is advanced. Giuseppe Muir M.D. DR: KEIKO JOB#: [id number] CC:
[2016-09-11] MEDS: D5 1/2NS 1,000 ML IV SCH ×2 (04:58→23:43)
[2016-09-11] MEDS: NovoLOG Insulin Flexpen SUBQ SCH ×4 (05:36→23:47)
[2016-09-11 06:59] LABS: BASOPHILS % (AUTO) 0.6 % (0.0-2.0); EOSINOPHILS % (AUTO) 1.3 % (0.0-3.0); MEAN CORPUSCULAR HEMOGLOBIN 29.2 PG (27.0-31.0); MEAN CORPUSCULAR VOLUME 89 FL (80-99); MEAN PLATELET VOLUME 6.1 FL (6.5-10.1); MONOCYTES % (AUTO) 6.2 % (1.0-10.0); NEUTROPHILS % (AUTO) 74.9 % (45.0-75.0); PLATELET COUNT 295 K/UL (150-450); RED BLOOD COUNT 4.18 M/UL (4.20-5.40); RED CELL DISTRIBUTION WIDTH 13.3 % (11.6-14.8); WHITE BLOOD COUNT 10.9 K/UL (4.8-10.8)
[2016-09-11] MEDS ORDERED: Heparin 5000 units/ml inj IV ONE (08:00)
[2016-09-11] MEDS: Heparin 25,000u/D5W 500ml 500 ML IV SCH (08:04)
[2016-09-11 08:14] VITALS: BP 152/99
--- NOTE | 2016-09-11 08:18 | General Progress Note ---
Assessment/Plan Problem List: (1) Feeding by G-tube ICD Codes: Z93.1 - Gastrostomy status SNOMED: 863709796, 892199942 (2) Respiratory failure ICD Codes: J96.90 - Respiratory failure, unspecified, unspecified whether with hypoxia or hypercapnia SNOMED: 957263823 (3) Pneumonia ICD Codes: J18.9 - Pneumonia, unspecified organism SNOMED: 974765800 (4) Lung mass ICD Codes: R91.8 - Other nonspecific abnormal finding of lung field SNOMED: 792665661 Assessment/Plan GTF GT care fu labs pend placement Subjective ROS Limited/Unobtainable: No Allergies: Coded Allergies: No Known Allergies (Unverified , 12/10/15) Objective Last 24 Hour Vital Signs Date Time Temp Pulse Resp B/P Pulse Ox O2 Delivery O2 Flow Rate FiO2 09/11/16 08:14 98.8 81 20 152/99 95 Nasal Cannula 2.0 09/11/16 04:00 98.5 95 18 146/85 99 Nasal Cannula 09/11/16 00:00 98.4 80 20 144/92 93 Nasal Cannula 09/10/16 20:00 98.6 98 18 161/79 Nasal Cannula 09/10/16 19:53 99 Nasal Cannula 2.0 28 09/10/16 19:53 Nasal Cannula 2.0 28 09/10/16 19:53 82 18 Nasal Cannula 2.0 28 09/10/16 16:00 97.7 77 19 145/71 97 Nasal Cannula 09/10/16 12:00 96.8 76 21 157/77 96 Nasal Cannula Intake and Output 09/10/16 09/11/16 19:00 07:00 Intake Total 1806.600 ml 1827.968 ml Output Total 600 ml 750 ml Balance 1206.600 ml 1077.968 ml Intake Free Water 100 ml 60 ml IV Total 1446.600 ml 1207.968 ml Tube Feeding 260 ml 560 ml Output Urine Total 600 ml 750 ml # Bowel Movements 1 Laboratory Tests 09/10/16 14:35: Activated Partial Thromboplast Time 47H 09/10/16 21:45: Activated Partial Thromboplast Time 83H 09/11/16 05:15: Activated Partial Thromboplast Time 55H, White Blood Count 10.9H, Red Blood Count 4.18L, Hemoglobin 12.2, Hematocrit 37.1, Mean Corpuscular Volume 89, Mean Corpuscular Hemoglobin 29.2, Mean Corpuscular Hemoglobin Concent 33.0, Red Cell Distribution Width 13.3, Platelet Count 295, Mean Platelet Volume 6.1L, Neutrophils (%) (Auto) 74.9, Lymphocytes (%) (Auto) 17.0L, Monocytes (%) (Auto) 6.2, Eosinophils (%) (Auto) 1.3, Basophils (%) (Auto) 0.6 Height (Feet): 5 Height (Inches): 4.00 Weight (Pounds): 123 General Appearance: no apparent distress EENT: normal ENT inspection Neck: supple Cardiovascular: normal rate Respiratory/Chest: decreased breath sounds Abdomen: normal bowel sounds, non tender, soft Extremities: non-tender DANIELITO RODRIGUEZ September 11, 2016 08:18
[2016-09-11 09:07] LABS: ALANINE AMINOTRANSFERASE 30 U/L (3-33); ALBUMIN/GLOBULIN RATIO 0.5 (1.0-2.7); ANION GAP 16 (5-15); ASPARTATE AMINO TRANSFERASE 19 U/L (5-40); CALCIUM 9.2 mg/dL (8.6-10.2); CARBON DIOXIDE 26 mEQ/L (20-30); CHLORIDE 94 mEQ/L (98-107); CREATININE 0.3 mg/dL (0.5-0.9); HEMOLYSIS 16; MAGNESIUM 1.7 mg/dL (1.7-2.5); POTASSIUM 3.7 mEQ/L (3.4-4.9); SODIUM 136 mEQ/L (135-145); TOTAL PROTEIN 6.8 g/dL (6.6-8.7)
[2016-09-11] MEDS ORDERED: LANSOPRAZOLE30 MG GT (11:17)
[2016-09-11] MEDS ORDERED: XARELTO20 MG ORAL (11:17)
--- NOTE | 2016-09-11 11:21 | General Progress Note ---
Assessment/Plan Problem List: (1) Pneumonia ICD Codes: J18.9 - Pneumonia, unspecified organism SNOMED: 752678582 (2) DVT (deep vein thrombosis) in ICD Codes: O22.30 - Deep phlebothrombosis in , unspecified trimester; I82.409 - Acute embolism and thrombosis of unspecified deep veins of unspecified lower extremity SNOMED: 17847208, 187840010, 263630428 (3) Hyperkalemia ICD Codes: E87.5 - Hyperkalemia SNOMED: 32779687 (4) Renal failure ICD Codes: N19 - Unspecified kidney failure SNOMED: 73347097 (5) Respiratory failure ICD Codes: J96.90 - Respiratory failure, unspecified, unspecified whether with hypoxia or hypercapnia SNOMED: 337145556 (6) Lung mass ICD Codes: R91.8 - Other nonspecific abnormal finding of lung field SNOMED: 023959008 Status: stable Assessment/Plan gt feeds resp care outpt onc follow up resume xarelto cxr culture drainage from chest tube site dc planning when tolerating feeds. Possibly tomorrow Subjective ROS Limited/Unobtainable: Yes Constitutional: Reports: malaise, weakness HEENT: Reports: no symptoms Cardiovascular: Reports: no symptoms Respiratory: Reports: cough Gastrointestinal/Abdominal: Reports: difficulty swallowing Genitourinary: Reports: no symptoms Neurologic/Psychiatric: Reports: pre-existing deficit, seizure Endocrine: Reports: no symptoms Hematologic/Lymphatic: Reports: anemia Allergies: Coded Allergies: No Known Allergies (Unverified , 12/10/15) All Systems: reviewed and negative except above Subjective s/p uncomplicated gt. tolerating feeds. no residual. noted by staff to have increase drainage from left chest tube site. Objective Last 24 Hour Vital Signs Date Time Temp Pulse Resp B/P Pulse Ox O2 Delivery O2 Flow Rate FiO2 09/11/16 08:14 98.8 81 20 152/99 95 Nasal Cannula 2.0 09/11/16 04:00 98.5 95 18 146/85 99 Nasal Cannula 09/11/16 00:00 98.4 80 20 144/92 93 Nasal Cannula 09/10/16 20:00 98.6 98 18 161/79 Nasal Cannula 09/10/16 19:53 99 Nasal Cannula 2.0 28 09/10/16 19:53 Nasal Cannula 2.0 28 09/10/16 19:53 82 18 Nasal Cannula 2.0 28 09/10/16 16:00 97.7 77 19 145/71 97 Nasal Cannula 09/10/16 12:00 96.8 76 21 157/77 96 Nasal Cannula Intake and Output 09/10/16 09/11/16 19:00 07:00 Intake Total 1806.600 ml 1827.968 ml Output Total 600 ml 750 ml Balance 1206.600 ml 1077.968 ml Intake Free Water 100 ml 60 ml IV Total 1446.600 ml 1207.968 ml Tube Feeding 260 ml 560 ml Output Urine Total 600 ml 750 ml # Bowel Movements 1 Laboratory Tests 09/10/16 14:35: Activated Partial Thromboplast Time 47H 09/10/16 21:45: Activated Partial Thromboplast Time 83H 09/11/16 05:15: Activated Partial Thromboplast Time 55H, White Blood Count 10.9H, Red Blood Count 4.18L, Hemoglobin 12.2, Hematocrit 37.1, Mean Corpuscular Volume 89, Mean Corpuscular Hemoglobin 29.2, Mean Corpuscular Hemoglobin Concent 33.0, Red Cell Distribution Width 13.3, Platelet Count 295, Mean Platelet Volume 6.1L, Neutrophils (%) (Auto) 74.9, Lymphocytes (%) (Auto) 17.0L, Monocytes (%) (Auto) 6.2, Eosinophils (%) (Auto) 1.3, Basophils (%) (Auto) 0.6, Sodium Level 136, Potassium Level 3.7, Chloride Level 94L, Carbon Dioxide Level 26, Anion Gap 16H , Blood Urea Nitrogen 9, Creatinine 0.3L, Estimat Glomerular Filtration Rate , Glucose Level 131H, Calcium Level 9.2, Magnesium Level 1.7, Total Bilirubin 0.4 , Aspartate Amino Transf (AST/SGOT) 19, Alanine Aminotransferase (ALT/SGPT) 30, Alkaline Phosphatase 100, Pro-B-Type Natriuretic Peptide 729H, Total Protein 6.8 , Albumin 2.5L, Globulin 4.3, Albumin/Globulin Ratio 0.5L Height (Feet): 5 Height (Inches): 4.00 Weight (Pounds): 123 Objective General Appearance: WD/WN, alert, confused. +ngt Neck: supple Cardiovascular: regular rhythm Respiratory/Chest: normal breath sounds. few rhonchi Abdomen: normal bowel sounds, non tender, soft, no organomegaly Edema: no edema noted Arm (L), no edema noted Arm (R), no edema noted Leg (L), no edema noted Leg (R), no edema noted Pedal (L), no edema noted Pedal (R), no edema noted Generalized JUSTIN IRVIN September 11, 2016 11:21
--- NOTE | 2016-09-11 11:57 | Critical Care Progress Note ---
Assessment/Plan Assessment/Plan IMPRESSION: 1. Respiratory failure. 2. Metabolic acidosis. resolved 3. s/p VATS biopsy with documented lung cancer 4. Right lung mass, 5. Left lower lobe atelectasis. 6. Severe protein-calorie malnutrition. 7. s/p sepsis and shock. 8. pneumonia. 9. Acute renal failure. 10. treated urinary tract infection. 11. chest tube- removed PLAN O2 as needed encourage cough and clearance to avoid pneumonia nutrition noted maintain meds oncology noted dc planning no respiratory distress medications/laboratory data/nursing notes reviewed in detail note reviewed and edited care discussed with RN and RT Critical Care - Subjective Interval Events: findings noted care reviewed ROS Limited/Unobtainable: Yes Condition: stable EKG Rhythm: Sinus Rhythm I&O: Intake and Output 09/10/16 09/11/16 19:00 07:00 Intake Total 1806.600 ml 1827.968 ml Output Total 600 ml 750 ml Balance 1206.600 ml 1077.968 ml Intake Free Water 100 ml 60 ml IV Total 1446.600 ml 1207.968 ml Tube Feeding 260 ml 560 ml Output Urine Total 600 ml 750 ml # Bowel Movements 1 Critical Care - Objective ET-Tube: 8.0 ET Position: 22 Last 24 Hour Vital Signs Date Time Temp Pulse Resp B/P Pulse Ox O2 Delivery O2 Flow Rate FiO2 09/11/16 08:14 98.8 81 20 152/99 95 Nasal Cannula 2.0 09/11/16 04:00 98.5 95 18 146/85 99 Nasal Cannula 09/11/16 00:00 98.4 80 20 144/92 93 Nasal Cannula 09/10/16 20:00 98.6 98 18 161/79 Nasal Cannula 09/10/16 19:53 99 Nasal Cannula 2.0 28 09/10/16 19:53 Nasal Cannula 2.0 28 09/10/16 19:53 82 18 Nasal Cannula 2.0 28 09/10/16 16:00 97.7 77 19 145/71 97 Nasal Cannula 09/10/16 12:00 96.8 76 21 157/77 96 Nasal Cannula Labs: Labs Test 09/08/16 15:25 09/08/16 23:30 09/09/16 06:00 09/09/16 10:45 Activated Partial Thromboplast Time 43 SEC (23-33) 40 SEC (23-33) 37 SEC (23-33) 30 SEC (23-33) White Blood Count 7.8 K/UL (4.8-10.8) Red Blood Count 3.72 M/UL (4.20-5.40) Hemoglobin 10.8 G/DL (12.0-16.0) Hematocrit 33.3 % (37.0-47.0) Mean Corpuscular Volume 90 FL (80-99) Mean Corpuscular Hemoglobin 29.1 PG (27.0-31.0) Mean Corpuscular Hemoglobin Concent 32.5 G/DL (32.0-36.0) Red Cell Distribution Width 13.5 % (11.6-14.8) Platelet Count 274 K/UL (150-450) Mean Platelet Volume 6.4 FL (6.5-10.1) Neutrophils (%) (Auto) 68.4 % (45.0-75.0) Lymphocytes (%) (Auto) 21.1 % (20.0-45.0) Monocytes (%) (Auto) 7.5 % (1.0-10.0) Eosinophils (%) (Auto) 2.0 % (0.0-3.0) Basophils (%) (Auto) 1.0 % (0.0-2.0) Prothrombin Time 11.8 SEC (9.30-11.50) Prothromb Time International Ratio 1.2 (0.9-1.1) Sodium Level 140 mEQ/L (135-145) Potassium Level 3.9 mEQ/L (3.4-4.9) Chloride Level 99 mEQ/L (98-107) Carbon Dioxide Level 31 mEQ/L (20-30) Anion Gap 10 (5-15) Blood Urea Nitrogen 19 mg/dL (7-23) Creatinine 0.2 mg/dL (0.5-0.9) Estimat Glomerular Filtration Rate mL/min (>60) Glucose Level 100 mg/dL (74-106) Calcium Level 9.0 mg/dL (8.6-10.2) Hepatitis A IgM Antibody Negative (Negative) Hepatitis B Surface Antigen Negative (Negative) Hepatitis B Core IgM Antibody Negative (Negative) Hepatitis C Antibody 0.1 s/co ratio (0.0-0.9) Test 09/09/16 23:30 5/12/17 06:30 09/10/16 14:35 09/10/16 21:45 Activated Partial Thromboplast Time 50 SEC (23-33) 135 SEC (23-33) 47 SEC (23-33) 83 SEC (23-33) Test 09/11/16 05:15 White Blood Count 10.9 K/UL (4.8-10.8) Red Blood Count 4.18 M/UL (4.20-5.40) Hemoglobin 12.2 G/DL (12.0-16.0) Hematocrit 37.1 % (37.0-47.0) Mean Corpuscular Volume 89 FL (80-99) Mean Corpuscular Hemoglobin 29.2 PG (27.0-31.0) Mean Corpuscular Hemoglobin Concent 33.0 G/DL (32.0-36.0) Red Cell Distribution Width 13.3 % (11.6-14.8) Platelet Count 295 K/UL (150-450) Mean Platelet Volume 6.1 FL (6.5-10.1) Neutrophils (%) (Auto) 74.9 % (45.0-75.0) Lymphocytes (%) (Auto) 17.0 % (20.0-45.0) Monocytes (%) (Auto) 6.2 % (1.0-10.0) Eosinophils (%) (Auto) 1.3 % (0.0-3.0) Basophils (%) (Auto) 0.6 % (0.0-2.0) Activated Partial Thromboplast Time 55 SEC (23-33) Sodium Level 136 mEQ/L (135-145) Potassium Level 3.7 mEQ/L (3.4-4.9) Chloride Level 94 mEQ/L (98-107) Carbon Dioxide Level 26 mEQ/L (20-30) Anion Gap 16 (5-15) Blood Urea Nitrogen 9 mg/dL (7-23) Creatinine 0.3 mg/dL (0.5-0.9) Estimat Glomerular Filtration Rate mL/min (>60) Glucose Level 131 mg/dL (74-106) Calcium Level 9.2 mg/dL (8.6-10.2) Magnesium Level 1.7 mg/dL (1.7-2.5) Total Bilirubin 0.4 mg/dL (0.0-1.2) Aspartate Amino Transf (AST/SGOT) 19 U/L (5-40) Alanine Aminotransferase (ALT/SGPT) 30 U/L (3-33) Alkaline Phosphatase 100 U/L (35-104) Pro-B-Type Natriuretic Peptide 729 pg/mL (0-450) Total Protein 6.8 g/dL (6.6-8.7) Albumin 2.5 g/dL (3.5-5.2) Globulin 4.3 g/dL Albumin/Globulin Ratio 0.5 (1.0-2.7) Objective: GENERAL: The patient is chronically ill appearing female. NAD HEENT: Negative. NECK: Supple. The patient is without meningismus LUNGS: symmetric breath sounds. no wheeze with some rhonchi; no change; comfortable CARDIAC: S1, S1 irregular without murmurs, rubs, or gallops. ABDOMEN: Soft. NABS. No hepatosplenomegaly. no distention EXTREMITIES: No cyanosis or clubbing. There is trace edema.without change NEUROLOGIC: The patient is nonfocal reviewed and edited Accucheck: 120 MARI JUAN September 11, 2016 11:57
[2016-09-11 12:01] VITALS: BP 156/70
[2016-09-11 15:36] VITALS: BP 141/61
[2016-09-11] MEDS: Xarelto 10mg tab ORAL SCH (16:34)
[2016-09-11 20:00] VITALS: BP 108/57
[2016-09-12] VITALS (7 sets, daily range): BP systolic 122–145; BP diastolic 63–73
--- NOTE | 2016-09-12 04:39 | Progress Note ---
DATE: 09/11/2016 CARDIOLOGY PROGRESS NOTE: SUBJECTIVE: The patient is apparently more uncomfortable at times. There seems to be increasing drainage from the old left chest tubes entry site. She is tolerating feedings from the new G-tube. OBJECTIVE: VITAL SIGNS: The patient is afebrile, blood pressure 152/99, heart rate 81, respiratory rate 20, and monitored rhythm sinus. LUNGS: With coarse breath sounds, rhonchi, and rales. HEART: Regular rhythm and rate. Normal S1, S2 with a fourth heart sound. CHEST: The old chest tube site has scant drainage noted. ABDOMEN: Soft. EXTREMITIES: With trace edema. LABORATORY DATA: Potassium 3.7, BUN 9, and creatinine 0.2. Albumin 2.5. Pro-natriuretic peptide decreased to 729. White count is 10.9 and hemoglobin 12.2. IMPRESSION: 1. Lung cancer status post video-assisted thoracoscopic surgery. 2. Bilateral deep venous thrombosis. 3. Severe protein-calorie malnutrition. 4. Dysphagia status post gastrostomy tube. 5. Hypertensive heart disease with increasing blood pressure trend, but possible . PLAN: P.r.n. antihypertensives for now in addition to baseline regimen. Culture for drainage from the old chest tube site. Follow up white blood count. Protein supplement per feeding tube. Respiratory hygiene. Full anticoagulation. Giuseppe Muir M.D. DR: Najma JOB#: [id number] CC:
[2016-09-12] MEDS: NovoLOG Insulin Flexpen SUBQ SCH ×4 (06:18→23:35)
[2016-09-12 06:36] LABS: BASOPHILS % (AUTO) 0.6 % (0.0-2.0); EOSINOPHILS % (AUTO) 1.4 % (0.0-3.0); LYMPHOCYTES % (AUTO) 15.5 % (20.0-45.0); MEAN CORPUSCULAR HEMOGLOBIN 29.4 PG (27.0-31.0); MEAN CORPUSCULAR HGB CONC 33.4 G/DL (32.0-36.0); MEAN CORPUSCULAR VOLUME 88 FL (80-99); MEAN PLATELET VOLUME 6.8 FL (6.5-10.1); MONOCYTES % (AUTO) 7.7 % (1.0-10.0); NEUTROPHILS % (AUTO) 74.8 % (45.0-75.0); PLATELET COUNT 289 K/UL (150-450); RED BLOOD COUNT 3.61 M/UL (4.20-5.40); RED CELL DISTRIBUTION WIDTH 13.3 % (11.6-14.8); WHITE BLOOD COUNT 10.4 K/UL (4.8-10.8)
--- NOTE | 2016-09-12 07:32 | General Progress Note ---
Assessment/Plan Problem List: (1) Feeding by G-tube ICD Codes: Z93.1 - Gastrostomy status SNOMED: 020864283, 613436461 (2) Respiratory failure ICD Codes: J96.90 - Respiratory failure, unspecified, unspecified whether with hypoxia or hypercapnia SNOMED: 617050601 (3) Pneumonia ICD Codes: J18.9 - Pneumonia, unspecified organism SNOMED: 381434471 (4) Lung mass ICD Codes: R91.8 - Other nonspecific abnormal finding of lung field SNOMED: 556037386 Assessment/Plan GTF GT care fu labs pend placement Subjective ROS Limited/Unobtainable: No Allergies: Coded Allergies: No Known Allergies (Unverified , 12/10/15) Objective Last 24 Hour Vital Signs Date Time Temp Pulse Resp B/P Pulse Ox O2 Delivery O2 Flow Rate FiO2 09/12/16 04:00 98.8 87 20 145/67 97 Nasal Cannula 2.0 09/12/16 00:00 98.9 87 20 137/63 95 Nasal Cannula 2.0 09/11/16 20:00 97.7 60 20 108/57 97 Room Air 09/11/16 15:36 98.0 78 20 141/61 98 Nasal Cannula 2.0 09/11/16 12:01 98.5 77 20 156/70 95 Nasal Cannula 2.0 09/11/16 08:14 98.8 81 20 152/99 95 Nasal Cannula 2.0 Intake and Output 09/11/16 09/12/16 19:00 07:00 Intake Total 1433.688 ml 1150 ml Output Total 700 ml Balance 733.688 ml 1150 ml Intake Free Water 100 ml 50 ml IV Total 733.688 ml 550 ml Tube Feeding 600 ml 550 ml Output Urine Total 700 ml # Bowel Movements 1 Laboratory Tests 09/12/16 05:30: White Blood Count 10.4, Red Blood Count 3.61L, Hemoglobin 10.6L, Hematocrit 31.8L, Mean Corpuscular Volume 88, Mean Corpuscular Hemoglobin 29.4, Mean Corpuscular Hemoglobin Concent 33.4, Red Cell Distribution Width 13.3, Platelet Count 289, Mean Platelet Volume 6.8, Neutrophils (%) (Auto) 74.8, Lymphocytes (% ) (Auto) 15.5L, Monocytes (%) (Auto) 7.7, Eosinophils (%) (Auto) 1.4, Basophils (%) (Auto) 0.6 Height (Feet): 5 Height (Inches): 4.00 Weight (Pounds): 123 General Appearance: no apparent distress EENT: normal ENT inspection Neck: supple Cardiovascular: normal rate Respiratory/Chest: decreased breath sounds Abdomen: normal bowel sounds, non tender, soft Extremities: non-tender DANIELITO RODRIGUEZ September 12, 2016 07:32
--- NOTE | 2016-09-12 08:44 | General Progress Note ---
Assessment/Plan Problem List: (1) Pneumonia ICD Codes: J18.9 - Pneumonia, unspecified organism SNOMED: 641763315 (2) DVT (deep vein thrombosis) in ICD Codes: O22.30 - Deep phlebothrombosis in , unspecified trimester; I82.409 - Acute embolism and thrombosis of unspecified deep veins of unspecified lower extremity SNOMED: 47223144, 151918475, 431550108 (3) Hyperkalemia ICD Codes: E87.5 - Hyperkalemia SNOMED: 05010054 (4) Renal failure ICD Codes: N19 - Unspecified kidney failure SNOMED: 42734246 (5) Respiratory failure ICD Codes: J96.90 - Respiratory failure, unspecified, unspecified whether with hypoxia or hypercapnia SNOMED: 525446839 (6) Lung mass ICD Codes: R91.8 - Other nonspecific abnormal finding of lung field SNOMED: 530315646 Status: stable, progressing Assessment/Plan gt feeds resp care outpt onc follow up resume xarelto cxr results pending culture drainage from chest tube site will ask CT surgery to check site Subjective ROS Limited/Unobtainable: Yes Constitutional: Reports: malaise, weakness HEENT: Reports: no symptoms Cardiovascular: Reports: no symptoms Respiratory: Reports: no symptoms Gastrointestinal/Abdominal: Reports: difficulty swallowing Genitourinary: Reports: no symptoms Neurologic/Psychiatric: Reports: no symptoms Endocrine: Reports: no symptoms Hematologic/Lymphatic: Reports: no symptoms Allergies: Coded Allergies: No Known Allergies (Unverified , 12/10/15) Subjective s/p uncomplicated gt. tolerating feeds. no residual. noted by staff to have increase drainage from right chest tube site. saturating dressing. changed every short. cxr pending. Objective Last 24 Hour Vital Signs Date Time Temp Pulse Resp B/P Pulse Ox O2 Delivery O2 Flow Rate FiO2 09/12/16 08:00 98.2 83 19 142/66 97 Nasal Cannula 09/12/16 04:00 98.8 87 20 145/67 97 Nasal Cannula 2.0 09/12/16 00:00 98.9 87 20 137/63 95 Nasal Cannula 2.0 09/11/16 20:00 97.7 60 20 108/57 97 Room Air 09/11/16 15:36 98.0 78 20 141/61 98 Nasal Cannula 2.0 09/11/16 12:01 98.5 77 20 156/70 95 Nasal Cannula 2.0 Intake and Output 09/11/16 09/12/16 19:00 07:00 Intake Total 1433.688 ml 1150 ml Output Total 700 ml Balance 733.688 ml 1150 ml Intake Free Water 100 ml 50 ml IV Total 733.688 ml 550 ml Tube Feeding 600 ml 550 ml Output Urine Total 700 ml # Bowel Movements 1 Laboratory Tests 09/12/16 05:30: White Blood Count 10.4, Red Blood Count 3.61L, Hemoglobin 10.6L, Hematocrit 31.8L, Mean Corpuscular Volume 88, Mean Corpuscular Hemoglobin 29.4, Mean Corpuscular Hemoglobin Concent 33.4, Red Cell Distribution Width 13.3, Platelet Count 289, Mean Platelet Volume 6.8, Neutrophils (%) (Auto) 74.8, Lymphocytes (% ) (Auto) 15.5L, Monocytes (%) (Auto) 7.7, Eosinophils (%) (Auto) 1.4, Basophils (%) (Auto) 0.6 Height (Feet): 5 Height (Inches): 4.00 Weight (Pounds): 123 Objective General Appearance: WD/WN, alert, confused. +ngt Neck: supple Cardiovascular: regular rhythm Respiratory/Chest: normal breath sounds. few rhonchi Abdomen: normal bowel sounds, non tender, soft, no organomegaly Edema: no edema noted Arm (L), no edema noted Arm (R), no edema noted Leg (L), no edema noted Leg (R), no edema noted Pedal (L), no edema noted Pedal (R), no edema noted Generalized JUSTIN IRVIN September 12, 2016 08:44
--- NOTE | 2016-09-12 08:46 | Critical Care Progress Note ---
Assessment/Plan Assessment/Plan IMPRESSION: 1. Respiratory failure. 2. Metabolic acidosis. resolved 3. s/p VATS biopsy with documented lung cancer 4. Right lung mass, 5. Left lower lobe atelectasis. 6. Severe protein-calorie malnutrition. 7. s/p sepsis and shock. 8. pneumonia. 9. Acute renal failure. 10. treated urinary tract infection. 11. chest tube- removed PLAN O2 as needed encourage cough and monitor for pneumonia nutrition noted maintain meds oncology noted dc planning pending placement no respiratory distress medications/laboratory data/nursing notes reviewed in detail note reviewed and edited care discussed with RN and RT Critical Care - Subjective ROS Limited/Unobtainable: Yes Condition: stable I&O: Intake and Output 09/11/16 09/12/16 19:00 07:00 Intake Total 1433.688 ml 1150 ml Output Total 700 ml Balance 733.688 ml 1150 ml Intake Free Water 100 ml 50 ml IV Total 733.688 ml 550 ml Tube Feeding 600 ml 550 ml Output Urine Total 700 ml # Bowel Movements 1 Critical Care - Objective ET-Tube: 8.0 ET Position: 22 Last 24 Hour Vital Signs Date Time Temp Pulse Resp B/P Pulse Ox O2 Delivery O2 Flow Rate FiO2 09/12/16 08:00 98.2 83 19 142/66 97 Nasal Cannula 09/12/16 04:00 98.8 87 20 145/67 97 Nasal Cannula 2.0 09/12/16 00:00 98.9 87 20 137/63 95 Nasal Cannula 2.0 09/11/16 20:00 97.7 60 20 108/57 97 Room Air 09/11/16 15:36 98.0 78 20 141/61 98 Nasal Cannula 2.0 09/11/16 12:01 98.5 77 20 156/70 95 Nasal Cannula 2.0 Labs: Labs Test 09/09/16 10:45 09/09/16 23:30 09/10/16 06:30 09/10/16 14:35 Activated Partial Thromboplast Time 30 SEC (23-33) 50 SEC (23-33) 135 SEC (23-33) 47 SEC (23-33) Test 09/10/16 21:45 09/11/16 05:15 09/12/16 05:30 Activated Partial Thromboplast Time 83 SEC (23-33) 55 SEC (23-33) White Blood Count 10.9 K/UL (4.8-10.8) 10.4 K/UL (4.8-10.8) Red Blood Count 4.18 M/UL (4.20-5.40) 3.61 M/UL (4.20-5.40) Hemoglobin 12.2 G/DL (12.0-16.0) 10.6 G/DL (12.0-16.0) Hematocrit 37.1 % (37.0-47.0) 31.8 % (37.0-47.0) Mean Corpuscular Volume 89 FL (80-99) 88 FL (80-99) Mean Corpuscular Hemoglobin 29.2 PG (27.0-31.0) 29.4 PG (27.0-31.0) Mean Corpuscular Hemoglobin Concent 33.0 G/DL (32.0-36.0) 33.4 G/DL (32.0-36.0) Red Cell Distribution Width 13.3 % (11.6-14.8) 13.3 % (11.6-14.8) Platelet Count 295 K/UL (150-450) 289 K/UL (150-450) Mean Platelet Volume 6.1 FL (6.5-10.1) 6.8 FL (6.5-10.1) Neutrophils (%) (Auto) 74.9 % (45.0-75.0) 74.8 % (45.0-75.0) Lymphocytes (%) (Auto) 17.0 % (20.0-45.0) 15.5 % (20.0-45.0) Monocytes (%) (Auto) 6.2 % (1.0-10.0) 7.7 % (1.0-10.0) Eosinophils (%) (Auto) 1.3 % (0.0-3.0) 1.4 % (0.0-3.0) Basophils (%) (Auto) 0.6 % (0.0-2.0) 0.6 % (0.0-2.0) Sodium Level 136 mEQ/L (135-145) Potassium Level 3.7 mEQ/L (3.4-4.9) Chloride Level 94 mEQ/L (98-107) Carbon Dioxide Level 26 mEQ/L (20-30) Anion Gap 16 (5-15) Blood Urea Nitrogen 9 mg/dL (7-23) Creatinine 0.3 mg/dL (0.5-0.9) Estimat Glomerular Filtration Rate mL/min (>60) Glucose Level 131 mg/dL (74-106) Calcium Level 9.2 mg/dL (8.6-10.2) Magnesium Level 1.7 mg/dL (1.7-2.5) Total Bilirubin 0.4 mg/dL (0.0-1.2) Aspartate Amino Transf (AST/SGOT) 19 U/L (5-40) Alanine Aminotransferase (ALT/SGPT) 30 U/L (3-33) Alkaline Phosphatase 100 U/L (35-104) Pro-B-Type Natriuretic Peptide 729 pg/mL (0-450) Total Protein 6.8 g/dL (6.6-8.7) Albumin 2.5 g/dL (3.5-5.2) Globulin 4.3 g/dL Albumin/Globulin Ratio 0.5 (1.0-2.7) Objective: GENERAL: The patient is chronically ill appearing female. NAD HEENT: Negative. NECK: Supple. The patient is without meningismus LUNGS: symmetric breath sounds. no wheeze with some rhonchi; no change; comfortable CARDIAC: S1, S1 irregular without murmurs, rubs, or gallops. ABDOMEN: Soft. NABS. No hepatosplenomegaly. no distention EXTREMITIES: No cyanosis or clubbing. There is trace edema.without change NEUROLOGIC: The patient is nonfocal reviewed and edited stable exam Micro: Microbiology Date/Time Source Procedure Growth Status 09/11/16 13:30 Pleural Fluid Gram Stain - Final Resulted 09/11/16 13:30 Pleural Fluid Body Fluid Culture Pending Resulted Accucheck: 140 MARI JUAN September 12, 2016 08:46
[2016-09-12] MEDS ORDERED: D5 1/2NS 1000ml IV ONE (09:32)
[2016-09-12] MEDS ORDERED: Sterile Water For Irrig 2000ml IRRIG ONE (09:32)
--- NOTE | 2016-09-12 09:51 | Infectious Diseases Prog Note ---
Assessment/Plan Assessment/Plan A: 1. Proteus sepsis secondary to UTI s/p RX 2. Proteus , Providencia UTI s/p Rx 3. postobstructive pneumonia with Klebsiella s/p Rx 4. leucocytosis improving 5. respiratory failure resolved 6. lung cancer, adenocarcinoma 7. s/p GT placement P 1.observe off antibiotic 2. remove PICC line before discharge Subjective ROS Limited/Unobtainable: Yes Allergies: Coded Allergies: No Known Allergies (Unverified , 12/10/15) Objective Vital Signs Last 24 Hour Vital Signs Date Time Temp Pulse Resp B/P Pulse Ox O2 Delivery O2 Flow Rate FiO2 09/12/16 08:00 98.2 83 19 142/66 97 Nasal Cannula 09/12/16 04:00 98.8 87 20 145/67 97 Nasal Cannula 2.0 09/12/16 00:00 98.9 87 20 137/63 95 Nasal Cannula 2.0 09/11/16 20:00 97.7 60 20 108/57 97 Room Air 09/11/16 15:36 98.0 78 20 141/61 98 Nasal Cannula 2.0 09/11/16 12:01 98.5 77 20 156/70 95 Nasal Cannula 2.0 Height (Feet): 5 Height (Inches): 4.00 Weight (Pounds): 123 General Appearance: no acute distress HEENT: mucous membranes moist Respiratory/Chest: lungs clear Cardiovascular: normal rate Abdomen: soft, non tender, other - GT feeding Extremities: other - Left arm PICC line Neurologic/Psychiatric: alert Microbiology Date/Time Source Procedure Growth Status 09/11/16 13:30 Pleural Fluid Gram Stain - Final Resulted 09/11/16 13:30 Pleural Fluid Body Fluid Culture Pending Resulted Laboratory Tests Test 09/12/16 05:30 White Blood Count 10.4 K/UL (4.8-10.8) Red Blood Count 3.61 M/UL (4.20-5.40) L Hemoglobin 10.6 G/DL (12.0-16.0) L Hematocrit 31.8 % (37.0-47.0) L Mean Corpuscular Volume 88 FL (80-99) Mean Corpuscular Hemoglobin 29.4 PG (27.0-31.0) Mean Corpuscular Hemoglobin Concent 33.4 G/DL (32.0-36.0) Red Cell Distribution Width 13.3 % (11.6-14.8) Platelet Count 289 K/UL (150-450) Mean Platelet Volume 6.8 FL (6.5-10.1) Neutrophils (%) (Auto) 74.8 % (45.0-75.0) Lymphocytes (%) (Auto) 15.5 % (20.0-45.0) L Monocytes (%) (Auto) 7.7 % (1.0-10.0) Eosinophils (%) (Auto) 1.4 % (0.0-3.0) Basophils (%) (Auto) 0.6 % (0.0-2.0) Current Medications Medications (Trade) Dose Ordered Sig/Aaron Route PRN Reason Start Time Stop Time Status Last Admin Dose Admin Acetaminophen (Tylenol) 650 mg Q4H PRN ORAL TEMP>100.5/HEADACHE 09/09/16 15:30 10/09/16 15:29 Dextrose (Dextrose 50%) STAT PRN IV Hypoglycemia 09/09/16 15:30 10/09/16 15:29 Dextrose/Sodium Chloride (D5 0.45% NS) 1,000 ml @ 50 mls/hr Q20H IV 09/11/16 05:00 10/11/16 04:59 09/11/16 23:43 Insulin Aspart (NovoLOG) EVERY 6 HOURS SUBQ 09/09/16 18:00 10/09/16 17:59 09/12/16 06:18 Lansoprazole (Prevacid) 30 mg DAILY GT 09/10/16 09:00 10/10/16 08:59 09/12/16 07:57 Morphine Sulfate 2 mg 2 mg Q4H PRN IVP Severe Pain (Pain Scale 7-10) 09/09/16 16:00 09/16/16 15:59 Rivaroxaban (Xarelto) 20 mg QPM ORAL 09/11/16 16:30 10/11/16 16:29 09/11/16 16:34 LARISSA OATES September 12, 2016 09:51
--- NOTE | 2016-09-12 10:53 | Diagnostic Imaging Report ---
Indication: Pneumothorax Technique: XRAY CHEST 1 V Comparison: 09/05/16 Findings: Left PICC line is unchanged. Nasogastric tube is been removed. The cardiomediastinal silhouette is stable. There is atelectasis in the bilateral lung bases. Right perihilar mass is unchanged. Osseous structures are stable. Right chest subcutaneous emphysema is decreased. There is no gross pneumothorax. Impression: Interval removal of nasogastric tube. Decreased right chest subcutaneous emphysema. Otherwise stable chest.
[2016-09-12] MEDS: Xarelto 10mg tab ORAL SCH (16:15)
[2016-09-12] MEDS: D5 1/2NS 1,000 ML IV SCH (20:40)
--- NOTE | 2016-09-13 00:38 | Progress Note ---
DATE: 09/12/2016 CARDIOLOGY PROGRESS NOTE SUBJECTIVE: The patient has no respiratory distress. She is tolerating nutrition by G-tube. She is on full anticoagulation with oral medications. Chest x-ray yesterday revealed decreasing right subcutaneous emphysema with no other acute process. OBJECTIVE: VITAL SIGNS: Blood pressure 144/71, pulse 77, respirations 18, and afebrile. She is on 2-1/2 liters nasal cannula saturating 98%. LUNGS: Bilateral breath sounds. Scattered rhonchi. HEART: Regular rhythm and rate. Normal S1, S2. ABDOMEN: Soft. EXTREMITIES: No edema. LABORATORY DATA: Old chest tube site has minimal . Cultures negative. IMPRESSION: 1. Lung cancer status post video-assisted thoracoscopic surgery. 2. Bilateral deep venous thrombosis, on anticoagulation. 3. Acute and chronic diastolic congestive heart failure, compensated. 4. Severe protein-calorie malnutrition. 5. Dysphagia, status post gastrostomy tube. 6. Severe functional decline. 7. Paroxysmal atrial ectopy. PLAN: 1. Begin discharge planning. 2. Continue current medication regimen. 3. Nutritional support via feeding tube. 4. Medications reviewed. Giuseppe Muir M.D. DR: KILO JOB#: [id number] CC:
[2016-09-13 04:00] VITALS: BP 142/70
[2016-09-13] MEDS: NovoLOG Insulin Flexpen SUBQ SCH ×3 (06:14→17:56)
--- NOTE | 2016-09-13 07:43 | General Progress Note ---
Assessment/Plan Problem List: (1) Pneumonia ICD Codes: J18.9 - Pneumonia, unspecified organism SNOMED: 185138325 (2) DVT (deep vein thrombosis) in ICD Codes: O22.30 - Deep phlebothrombosis in , unspecified trimester; I82.409 - Acute embolism and thrombosis of unspecified deep veins of unspecified lower extremity SNOMED: 02192510, 818860057, 746239320 (3) Hyperkalemia ICD Codes: E87.5 - Hyperkalemia SNOMED: 01204988 (4) Renal failure ICD Codes: N19 - Unspecified kidney failure SNOMED: 74259927 (5) Respiratory failure ICD Codes: J96.90 - Respiratory failure, unspecified, unspecified whether with hypoxia or hypercapnia SNOMED: 585650398 (6) Lung mass ICD Codes: R91.8 - Other nonspecific abnormal finding of lung field SNOMED: 230489231 Status: stable Assessment/Plan gt feeds resp care outpt onc follow up resume xarelto culture drainage from chest tube site will ask CT surgery to check site dc planning today after CT surgery eval. Subjective ROS Limited/Unobtainable: Yes Constitutional: Reports: malaise, weakness HEENT: Reports: no symptoms Cardiovascular: Reports: no symptoms Respiratory: Reports: cough, shortness of breath Gastrointestinal/Abdominal: Reports: difficulty swallowing Genitourinary: Reports: no symptoms Neurologic/Psychiatric: Reports: emotional problems Endocrine: Reports: no symptoms Hematologic/Lymphatic: Reports: anemia Allergies: Coded Allergies: No Known Allergies (Unverified , 12/10/15) All Systems: reviewed and negative except above Subjective no events. tolerating feeds. awake and alert. confused but able to answer simple questions and follow commands. still with leaking from chest tube site. dressing saturated and has to be changed several times a day. cxr no ptx. less subcut air Objective Last 24 Hour Vital Signs Date Time Temp Pulse Resp B/P Pulse Ox O2 Delivery O2 Flow Rate FiO2 09/13/16 04:00 99.0 83 18 142/70 97 Nasal Cannula 2.5 09/12/16 23:26 98.2 77 18 144/71 98 Nasal Cannula 2.5 09/12/16 20:00 99.1 79 18 130/69 98 Nasal Cannula 2.5 09/12/16 19:53 98 Nasal Cannula 2.0 28 5/14/17 19:53 Nasal Cannula 2.0 28 09/12/16 16:00 99.0 104 23 140/73 97 Nasal Cannula 09/12/16 12:00 98.4 80 14 122/68 98 Nasal Cannula 09/12/16 08:00 98.2 83 19 142/66 97 Nasal Cannula Intake and Output 09/12/16 09/13/16 19:00 07:00 Intake Total 1300 ml 1050 ml Output Total 400 ml 1400 ml Balance 900 ml -350 ml Intake Free Water 50 ml 50 ml IV Total 600 ml 500 ml Tube Feeding 650 ml 500 ml Output Urine Total 400 ml 1400 ml # Bowel Movements 1 Height (Feet): 5 Height (Inches): 4.00 Weight (Pounds): 123 Objective General Appearance: WD/WN, alert, confused. +ngt Neck: supple Cardiovascular: regular rhythm Respiratory/Chest: normal breath sounds. few rhonchi Abdomen: normal bowel sounds, non tender, soft, no organomegaly Edema: no edema noted Arm (L), no edema noted Arm (R), no edema noted Leg (L), no edema noted Leg (R), no edema noted Pedal (L), no edema noted Pedal (R), no edema noted Generalized JUSTIN IRVIN September 13, 2016 07:43
[2016-09-13 08:54] VITALS: BP 144/72
--- NOTE | 2016-09-13 09:13 | Critical Care Progress Note ---
Assessment/Plan Assessment/Plan IMPRESSION: 1. Respiratory failure. 2. Metabolic acidosis. resolved 3. s/p VATS biopsy with documented lung cancer 4. Right lung mass, 5. Left lower lobe atelectasis. 6. Severe protein-calorie malnutrition. 7. s/p sepsis and shock. 8. pneumonia. 9. Acute renal failure. 10. treated urinary tract infection. 11. chest tube- removed PLAN O2 as needed encourage cough and monitor for pneumonia nutrition noted maintain meds oncology noted thoracic reevaluation obtain chest XR medications/laboratory data/nursing notes reviewed in detail note reviewed and edited care discussed with RN and RT Critical Care - Subjective Interval Events: care noted some leakage from CT site ROS Limited/Unobtainable: Yes Condition: stable EKG Rhythm: Sinus Rhythm I&O: Intake and Output 09/12/16 09/13/16 19:00 07:00 Intake Total 1300 ml 1150 ml Output Total 400 ml 1400 ml Balance 900 ml -250 ml Intake Free Water 50 ml 50 ml IV Total 600 ml 550 ml Tube Feeding 650 ml 550 ml Output Urine Total 400 ml 1400 ml # Bowel Movements 1 Critical Care - Objective ET-Tube: 8.0 ET Position: 22 Last 24 Hour Vital Signs Date Time Temp Pulse Resp B/P Pulse Ox O2 Delivery O2 Flow Rate FiO2 09/13/16 08:54 98.0 77 18 144/72 100 Nasal Cannula 2.0 09/13/16 07:43 Nasal Cannula 2.0 28 09/13/16 07:42 98 Nasal Cannula 2.0 28 09/13/16 04:00 99.0 83 18 142/70 97 Nasal Cannula 2.5 09/12/16 23:26 98.2 77 18 144/71 98 Nasal Cannula 2.5 09/12/16 20:00 99.1 79 18 130/69 98 Nasal Cannula 2.5 09/12/16 19:53 98 Nasal Cannula 2.0 28 09/12/16 19:53 Nasal Cannula 2.0 28 09/12/16 16:00 99.0 104 23 140/73 97 Nasal Cannula 09/12/16 12:00 98.4 80 14 122/68 98 Nasal Cannula Labs: Labs Test 09/10/16 14:35 09/10/16 21:45 09/11/16 05:15 09/12/16 05:30 Activated Partial Thromboplast Time 47 SEC (23-33) 83 SEC (23-33) 55 SEC (23-33) White Blood Count 10.9 K/UL (4.8-10.8) 10.4 K/UL (4.8-10.8) Red Blood Count 4.18 M/UL (4.20-5.40) 3.61 M/UL (4.20-5.40) Hemoglobin 12.2 G/DL (12.0-16.0) 10.6 G/DL (12.0-16.0) Hematocrit 37.1 % (37.0-47.0) 31.8 % (37.0-47.0) Mean Corpuscular Volume 89 FL (80-99) 88 FL (80-99) Mean Corpuscular Hemoglobin 29.2 PG (27.0-31.0) 29.4 PG (27.0-31.0) Mean Corpuscular Hemoglobin Concent 33.0 G/DL (32.0-36.0) 33.4 G/DL (32.0-36.0) Red Cell Distribution Width 13.3 % (11.6-14.8) 13.3 % (11.6-14.8) Platelet Count 295 K/UL (150-450) 289 K/UL (150-450) Mean Platelet Volume 6.1 FL (6.5-10.1) 6.8 FL (6.5-10.1) Neutrophils (%) (Auto) 74.9 % (45.0-75.0) 74.8 % (45.0-75.0) Lymphocytes (%) (Auto) 17.0 % (20.0-45.0) 15.5 % (20.0-45.0) Monocytes (%) (Auto) 6.2 % (1.0-10.0) 7.7 % (1.0-10.0) Eosinophils (%) (Auto) 1.3 % (0.0-3.0) 1.4 % (0.0-3.0) Basophils (%) (Auto) 0.6 % (0.0-2.0) 0.6 % (0.0-2.0) Sodium Level 136 mEQ/L (135-145) Potassium Level 3.7 mEQ/L (3.4-4.9) Chloride Level 94 mEQ/L (98-107) Carbon Dioxide Level 26 mEQ/L (20-30) Anion Gap 16 (5-15) Blood Urea Nitrogen 9 mg/dL (7-23) Creatinine 0.3 mg/dL (0.5-0.9) Estimat Glomerular Filtration Rate mL/min (>60) Glucose Level 131 mg/dL (74-106) Calcium Level 9.2 mg/dL (8.6-10.2) Magnesium Level 1.7 mg/dL (1.7-2.5) Total Bilirubin 0.4 mg/dL (0.0-1.2) Aspartate Amino Transf (AST/SGOT) 19 U/L (5-40) Alanine Aminotransferase (ALT/SGPT) 30 U/L (3-33) Alkaline Phosphatase 100 U/L (35-104) Pro-B-Type Natriuretic Peptide 729 pg/mL (0-450) Total Protein 6.8 g/dL (6.6-8.7) Albumin 2.5 g/dL (3.5-5.2) Globulin 4.3 g/dL Albumin/Globulin Ratio 0.5 (1.0-2.7) Objective: GENERAL: The patient is chronically ill appearing female. NAD HEENT: Negative. NECK: Supple. The patient is without meningismus LUNGS: symmetric breath sounds. no wheeze with some rhonchi; no change; comfortable; no crepitus; CT site covered CARDIAC: S1, S1 irregular without murmurs, rubs, or gallops. ABDOMEN: Soft. NABS. No hepatosplenomegaly. no distention EXTREMITIES: No cyanosis or clubbing. There is trace edema.without change NEUROLOGIC: The patient is nonfocal reviewed and edited stable exam Micro: Microbiology Date/Time Source Procedure Growth Status 09/11/16 13:30 Pleural Fluid Gram Stain - Final Resulted 09/11/16 13:30 Pleural Fluid Body Fluid Culture - Preliminary NO GROWTH AFTER 24 HOURS Resulted Accucheck: 125 MARI JUAN September 13, 2016 09:13
--- NOTE | 2016-09-13 11:16 | Diagnostic Imaging Report ---
Indication: Dyspnea Comparison: 09/11/16 A single view chest radiograph was obtained. Findings: There is a large right lung mass again demonstrated. Right basilar atelectasis suspected. Left basilar atelectasis also suspected. The heart is enlarged but stable. PICC line is stable. Impression: No significant interval change
--- NOTE | 2016-09-13 11:58 | Infectious Diseases Prog Note ---
"Assessment/Plan Assessment/Plan antibiotics : none A 1. proteus sepsis secondary to UTI 2. proteus | providencia UTI s/p rx 3. postobstructive klebsiella pneumonia s/p rx 4. leucocytosis improving 5. respiratory failure resolved 6. lung mass s/p bronchoscopy | VATS | wedge resection with lung cancer 7. right CT site infection with gram positive cocci P 1. start iv vancomycin 2. will follow up cultures Subjective ROS Limited/Unobtainable: Yes Allergies: Coded Allergies: No Known Allergies (Unverified , 12/10/15) Objective Vital Signs Last 24 Hour Vital Signs Date Time Temp Pulse Resp B/P Pulse Ox O2 Delivery O2 Flow Rate FiO2 09/13/16 08:54 98.0 77 18 144/72 100 Nasal Cannula 2.0 09/13/16 07:43 Nasal Cannula 2.0 28 09/13/16 07:42 98 Nasal Cannula 2.0 28 09/13/16 04:00 99.0 83 18 142/70 97 Nasal Cannula 2.5 09/12/16 23:26 98.2 77 18 144/71 98 Nasal Cannula 2.5 09/12/16 20:00 99.1 79 18 130/69 98 Nasal Cannula 2.5 09/12/16 19:53 98 Nasal Cannula 2.0 28 09/12/16 19:53 Nasal Cannula 2.0 28 09/12/16 16:00 99.0 104 23 140/73 97 Nasal Cannula 09/12/16 12:00 98.4 80 14 122/68 98 Nasal Cannula Height (Feet): 5 Height (Inches): 4.00 Weight (Pounds): 123 Respiratory/Chest: lungs clear Cardiovascular: normal rate, regular rhythm, no gallop/murmur Abdomen: soft, non tender, other - GT Extremities: no edema, other - left arm PICC Microbiology Date/Time Source Procedure Growth Status 09/11/16 13:30 Pleural Fluid Gram Stain - Final Resulted 09/11/16 13:30 Body Fluid Culture - Preliminary Gram Positive Cocci Resulted SHANNON GO September 13, 2016 11:58"
[2016-09-13] MEDS: D5 1/2NS 1,000 ML IV SCH (12:04)
[2016-09-13] MEDS: Neosporin Oint 15gm TOPIC SCH ×3 (12:04→21:54)
[2016-09-13 12:06] VITALS: BP 136/65
[2016-09-13] MEDS ORDERED: Vancomycin 1.25 GM in NS 275 ML IVPB ONE (15:00)
--- NOTE | 2016-09-13 15:51 | Wound Care Consultation ---
Wound Assessment Wound Assessment #1: Wound Present on Admission: Yes New Wound: No Status Change of Wound: No Wound Location Body Site Modif: mid Wound Location Body Site: sacral Wound Type: pressure ulcer Francisco Test: Does not Francisco Pressure Ulcer Stage: III Wound Thickness: Full Thickness Wound Length: 5.0 Wound Width: 2.0 Wound Depth: 0.3 Percent of Wound [place]/Red: 100 Wound Drainage Description: Serosanguineous Wound Drainage Amount: Scant Wound Drainage Odor: None/Absent Tissue Surrounding Wound: Macerated Wound General Appearance: Reddened, Draining Wound Assessment #2: Wound Number: #2 Wound Present on Admission: Yes New Wound: No Status Change of Wound: No Wound Location Body Site Modif: left Wound Location Body Site: trochanter Wound Type: pressure ulcer Francisco Test: Does not Francisco Pressure Ulcer Stage: deep tissue injury - still intact Wound Thickness: Full Thickness Wound Length: 5.0 Wound Width: 3.0 Wound Depth: utd Other Colors Identified: hagan brown Wound Drainage Amount: None Wound Drainage Odor: None/Absent Tissue Surrounding Wound: Intact Wound General Appearance: Asymptomatic Wound Comment #1 Sacral Stage III pressure ulcer. Sacral area 100% pink. #2 Left trochanter DTI pressure ulcer. Still intact with 100% hagan brown color. Cont same treatment. #3 Left temporal bone area DTI pressure ulcer. Still intact #4 Left Ischial tuberosity scar tissue hard to touch. Sill intact #5 Left ear DTI pressure ulcer. still intact #6 Right ear DTI scar tissue.still intact Reassessed this pt today no further deterioration noted. Will cont same treatment and care plan. RUDI BISHOP RN September 13, 2016 15:51
[2016-09-13 16:02] VITALS: BP 140/83
[2016-09-13] MEDS: Xarelto 10mg tab ORAL SCH (16:14)
[2016-09-13 20:00] VITALS: BP 134/84
[2016-09-13] MEDS ORDERED: Tubing IV Secondary IV ONE (21:35)
[2016-09-13] MEDS ORDERED: D5 1/2NS 1000ml IV ONE (21:35)
--- NOTE | 2016-09-13 22:05 | General Progress Note ---
Assessment/Plan Assessment/Plan Assessment - dysphagia - s/p PEG - possible GT site infection - abnormal LFT - resolving - OBS Recommendations - TF - follow labs - Elevate HOB - topica abx ointment Subjective Allergies: Coded Allergies: No Known Allergies (Unverified , 12/10/15) Subjective above noted tolerating TF non communicative d/w RN re GT site d/c Objective Last 24 Hour Vital Signs Date Time Temp Pulse Resp B/P Pulse Ox O2 Delivery O2 Flow Rate FiO2 09/13/16 20:06 Nasal Cannula 2.0 28 09/13/16 20:05 97 Nasal Cannula 2.0 28 09/13/16 20:00 97.9 82 18 134/84 100 Nasal Cannula 2.5 09/13/16 16:02 98.2 83 19 140/83 96 Room Air 09/13/16 12:06 97.7 67 18 136/65 100 Nasal Cannula 2.0 09/13/16 08:54 98.0 77 18 144/72 100 Nasal Cannula 2.0 09/13/16 07:43 Nasal Cannula 2.0 28 09/13/16 07:42 98 Nasal Cannula 2.0 28 09/13/16 04:00 99.0 83 18 142/70 97 Nasal Cannula 2.5 09/12/16 23:26 98.2 77 18 144/71 98 Nasal Cannula 2.5 Intake and Output 09/12/16 09/13/16 19:00 07:00 Intake Total 1300 ml 1150 ml Output Total 400 ml 1400 ml Balance 900 ml -250 ml Intake Free Water 50 ml 50 ml IV Total 600 ml 550 ml Tube Feeding 650 ml 550 ml Output Urine Total 400 ml 1400 ml # Bowel Movements 1 Height (Feet): 5 Height (Inches): 4.00 Weight (Pounds): 123 Objective Elderly AA woman NCAT supple CTA RRR abd soft ND, (+) PEG - slight d/c at GT site no edema OBS MERCEDEZ FORTUNE September 13, 2016 22:05
[2016-09-14] VITALS: BP 128/70
[2016-09-14] MEDS: NovoLOG Insulin Flexpen SUBQ SCH ×3 (00:06→12:00)
[2016-09-14 04:00] VITALS: BP 144/55
[2016-09-14] MEDS: Neosporin Oint 15gm TOPIC SCH (06:00)
[2016-09-14 07:57] VITALS: BP 140/71
--- NOTE | 2016-09-14 09:31 | Critical Care Progress Note ---
Assessment/Plan Assessment/Plan IMPRESSION: 1. Respiratory failure. 2. Metabolic acidosis. resolved 3. s/p VATS biopsy with documented lung cancer 4. Right lung mass, 5. Left lower lobe atelectasis. 6. Severe protein-calorie malnutrition. 7. s/p sepsis and shock. 8. pneumonia. 9. Acute renal failure. 10. treated urinary tract infection. 11. chest tube- removed PLAN O2 as needed encourage cough and monitor for pneumonia nutrition noted maintain meds oncology noted thoracic reevaluation pending; care discussed reviewed chest XR medications/laboratory data/nursing notes reviewed in detail note reviewed and edited care discussed with RN and RT Critical Care - Subjective Interval Events: d/w thoracic imaging reviewed ROS Limited/Unobtainable: Yes EKG Rhythm: Sinus Rhythm I&O: Intake and Output 09/13/16 09/14/16 19:00 07:00 Intake Total 1425.00 ml 1200 ml Balance 1425.00 ml 1200 ml Intake Free Water 100 ml IV Total 725.00 ml 600 ml Tube Feeding 600 ml 600 ml Critical Care - Objective CXR: no real change no ptx ET-Tube: 8.0 ET Position: 22 Last 24 Hour Vital Signs Date Time Temp Pulse Resp B/P Pulse Ox O2 Delivery O2 Flow Rate FiO2 09/14/16 07:57 97.9 82 18 140/71 97 Nasal Cannula 2.0 09/14/16 07:51 Nasal Cannula 2.0 28 09/14/16 07:50 97 Nasal Cannula 2.0 28 09/14/16 04:00 97.6 82 21 144/55 100 Nasal Cannula 2.0 09/14/16 00:00 98.1 79 18 128/70 98 Room Air 09/13/16 20:06 Nasal Cannula 2.0 28 09/13/16 20:05 97 Nasal Cannula 2.0 28 09/13/16 20:00 97.9 82 18 134/84 100 Nasal Cannula 2.5 09/13/16 16:02 98.2 83 19 140/83 96 Room Air 09/13/16 12:06 97.7 67 18 136/65 100 Nasal Cannula 2.0 Labs: Labs Test 09/12/16 05:30 White Blood Count 10.4 K/UL (4.8-10.8) Red Blood Count 3.61 M/UL (4.20-5.40) Hemoglobin 10.6 G/DL (12.0-16.0) Hematocrit 31.8 % (37.0-47.0) Mean Corpuscular Volume 88 FL (80-99) Mean Corpuscular Hemoglobin 29.4 PG (27.0-31.0) Mean Corpuscular Hemoglobin Concent 33.4 G/DL (32.0-36.0) Red Cell Distribution Width 13.3 % (11.6-14.8) Platelet Count 289 K/UL (150-450) Mean Platelet Volume 6.8 FL (6.5-10.1) Neutrophils (%) (Auto) 74.8 % (45.0-75.0) Lymphocytes (%) (Auto) 15.5 % (20.0-45.0) Monocytes (%) (Auto) 7.7 % (1.0-10.0) Eosinophils (%) (Auto) 1.4 % (0.0-3.0) Basophils (%) (Auto) 0.6 % (0.0-2.0) Objective: GENERAL: The patient is chronically ill appearing female. NAD HEENT: Negative. NECK: Supple. The patient is without meningismus LUNGS: symmetric breath sounds. no wheeze with some rhonchi; no change; comfortable; no crepitus; CT site covered CARDIAC: S1, S1 irregular without murmurs, rubs, or gallops. ABDOMEN: Soft. NABS. No hepatosplenomegaly. no distention EXTREMITIES: No cyanosis or clubbing. There is trace edema.without change NEUROLOGIC: The patient is nonfocal reviewed and edited stable exam Micro: Microbiology Date/Time Source Procedure Growth Status 09/11/16 13:30 Pleural Fluid Gram Stain - Final Resulted 09/11/16 13:30 Body Fluid Culture - Preliminary Gram Positive Cocci Resulted 09/13/16 10:30 Abdomen Gram Stain - Final Resulted 09/13/16 10:30 Abdomen Wound Culture Pending Resulted Accucheck: 127 MARI JUAN September 14, 2016 09:30
[2016-09-14] MEDS ORDERED: VIBRAMYCIN100 MG ORAL (10:24)
--- NOTE | 2016-09-14 10:49 | Infectious Diseases Prog Note ---
"Assessment/Plan Assessment/Plan antibiotics : vancomycin iv A 1. proteus sepsis secondary to UTI 2. proteus | providencia UTI s/p rx 3. postobstructive klebsiella pneumonia s/p rx 4. leucocytosis improving 5. respiratory failure resolved 6. lung mass s/p bronchoscopy | VATS | wedge resection with lung cancer 7. right CT site infection P 1. continue iv vancomycin 8 more days 2. start and continue po levoquin 10 more days 3. will follow up cultures Subjective ROS Limited/Unobtainable: Yes Allergies: Coded Allergies: No Known Allergies (Unverified , 12/10/15) Objective Vital Signs Last 24 Hour Vital Signs Date Time Temp Pulse Resp B/P Pulse Ox O2 Delivery O2 Flow Rate FiO2 09/14/16 07:57 97.9 82 18 140/71 97 Nasal Cannula 2.0 09/14/16 07:51 Nasal Cannula 2.0 28 09/14/16 07:50 97 Nasal Cannula 2.0 28 09/14/16 04:00 97.6 82 21 144/55 100 Nasal Cannula 2.0 09/14/16 00:00 98.1 79 18 128/70 98 Room Air 09/13/16 20:06 Nasal Cannula 2.0 28 09/13/16 20:05 97 Nasal Cannula 2.0 28 09/13/16 20:00 97.9 82 18 134/84 100 Nasal Cannula 2.5 09/13/16 16:02 98.2 83 19 140/83 96 Room Air 09/13/16 12:06 97.7 67 18 136/65 100 Nasal Cannula 2.0 Height (Feet): 5 Height (Inches): 4.00 Weight (Pounds): 123 Respiratory/Chest: lungs clear, other - right chest drinage Cardiovascular: normal rate, regular rhythm, no gallop/murmur Abdomen: soft, non tender, other - GT Extremities: no edema, other - left arm PICC Microbiology Date/Time Source Procedure Growth Status 09/11/16 13:30 Pleural Fluid Gram Stain - Final Resulted 09/11/16 13:30 Body Fluid Culture - Preliminary Staphylococcus Epidermidis Gram Negative Bacillus 1 Resulted 09/13/16 10:30 Abdomen Gram Stain - Final Resulted 09/13/16 10:30 Abdomen Wound Culture Pending Resulted SHANNON GO September 14, 2016 10:49"
[2016-09-14] MEDS ORDERED: VANCOMYCIN1 GM/2502 IVPB (10:53)
[2016-09-14] MEDS ORDERED: LEVOFLOXACIN500 MG ORAL (10:54)
[2016-09-14] MEDS ORDERED: Levofloxacin 500mg tab ORAL SCH (11:00)
--- NOTE | 2016-09-14 11:29 | Operative Note - Dictated ---
GASTROENTEROLOGY PROCEDURE REPORT: DATE OF PROCEDURE: 09/09/2016 PROCEDURE: Upper gastroendoscopy with biopsy as well as gastrostomy tube placement. SURGEON: Margarita Perez M.D. ANESTHESIA: Please see the separate anesthesiologist notes for details. PRE-ENDOSCOPIC DIAGNOSIS: Dysphagia. POST-ENDOSCOPIC DIAGNOSES: 1. Diffuse gastritis. 2. Status post gastrostomy tube placement. PROCEDURE: The procedure, its risks, indications, alternatives, and possible complications were explained. Informed consent was obtained. The patient was then sedated in supine position and a diagnostic upper endoscope was introduced through the oropharynx and advanced to the duodenum. Examination was notable for diffuse gastritis. Biopsies were sent to pathology for review. The location for placement of gastrostomy tube was identified by palpation and transillumination and a trocar needle was used to place the gastrostomy tube using the standard pull technique. The position was verified and the patient was sent to recovery room in good condition. COMPLICATIONS: None. RECOMMENDATIONS: 1. Observe overnight. 2. Begin tube feedings tomorrow. Margarita Perez M.D. DR: Symone JOB#: [id number] CC: LAUREN
[2016-09-14] MEDS: D5 1/2NS 1,000 ML IV SCH (11:36)
[2016-09-14 11:43] VITALS: BP 148/74
[2016-09-14] MEDS ORDERED: D5 1/2NS 1000ml IV ONE (13:29)
[2016-09-14] MEDS ORDERED: Vancomycin 1gm/D5W 275ml IVPB SCH ×4 (15:00)
--- NOTE | 2016-09-14 18:34 | General Progress Note ---
Assessment/Plan Assessment/Plan Assessment - dysphagia - s/p PEG - mild GT site infection - abnormal LFT - resolving - OBS Recommendations - TF - follow labs - Elevate HOB - topical abx ointment Subjective Allergies: Coded Allergies: No Known Allergies (Unverified , 12/10/15) Subjective above noted tolerating TF more interactive Objective Last 24 Hour Vital Signs Date Time Temp Pulse Resp B/P Pulse Ox O2 Delivery O2 Flow Rate FiO2 09/14/16 11:43 99.3 18 148/74 96 Nasal Cannula 2.0 09/14/16 07:57 97.9 82 18 140/71 97 Nasal Cannula 2.0 09/14/16 07:51 Nasal Cannula 2.0 28 09/14/16 07:50 97 Nasal Cannula 2.0 28 09/14/16 04:00 97.6 82 21 144/55 100 Nasal Cannula 2.0 09/14/16 00:00 98.1 79 18 128/70 98 Room Air 09/13/16 20:06 Nasal Cannula 2.0 28 09/13/16 20:05 97 Nasal Cannula 2.0 28 09/13/16 20:00 97.9 82 18 134/84 100 Nasal Cannula 2.5 Intake and Output 09/13/16 09/14/16 18:59 06:59 Intake Total 1425.00 ml 1200 ml Balance 1425.00 ml 1200 ml Intake Free Water 100 ml IV Total 725.00 ml 600 ml Tube Feeding 600 ml 600 ml Height (Feet): 5 Height (Inches): 4.00 Weight (Pounds): 123 Objective Elderly AA woman NCAT supple CTA RRR abd soft ND, (+) PEG - slight induration, no discharge no edema OBS MERCEDEZ FORTUNE September 14, 2016 18:34
--- NOTE | 2016-09-15 04:01 | Progress Note ---
DATE: 09/13/2016 CARDIOLOGY PROGRESS NOTE SUBJECTIVE: The patient is tolerating feedings. No nausea or vomiting. G-tube was placed over two days ago. OBJECTIVE: VITAL SIGNS: Her temperature max 99.1 degrees, blood pressure 130/69, pulse 79, and respirations 18. LUNGS: Coarse breath sounds. Few rhonchi. HEART: Regular rhythm and rate. Normal S1 and S2. ABDOMEN: Soft. G-tube intact. EXTREMITIES: Trace edema. IMPRESSIONS: 1. Lung cancer status post video-assisted thoracoscopic surgery status post respiratory failure. 2. Dysphagia status post gastrostomy tube. 3. Severe protein-calorie malnutrition. 4. Chronic diastolic congestive heart failure. 5. Bilateral lower extremity deep venous thrombosis. PLAN: 1. Nutritional support by G-tube. 2. Aspiration precautions. 3. Monitor cardiorenal parameters. 4. Continue full anticoagulation. 5. No present role for chronic diuretic therapy. Giuseppe Muir M.D. DR: BURKE JOB#: [id number] CC:
--- NOTE | 2016-09-15 04:01 | Progress Note ---
DATE: 09/13/2016 CARDIOLOGY PROGRESS NOTE SUBJECTIVE: The patient is without distress. No congestion. Tolerating feedings without nausea or vomiting. OBJECTIVE: LUNGS: Coarse breath sounds. Few rhonchi. HEART: Regular rhythm and rate. Normal S1, S2. ABDOMEN: Soft. EXTREMITIES: Trace edema. IMPRESSION: 1. Stable from a cardiovascular standpoint for a lower level of care. 2. Lung cancer therapy to be deferred until improved performance status. 3. Bilateral deep venous thrombosis, on full anticoagulation. 4. Hypertensive heart disease with controlled blood pressure and no signs of acute congestive heart failure. 5. Severe protein-calorie malnutrition with dysphagia, on gastrostomy tube feedings. PLAN: Plan of care in place with medication regimen reviewed for discharge to longterm facility. Giuseppe Muir M.D. DR: KILO JOB#: [id number] CC:
--- NOTE | 2016-09-15 06:01 | Discharge Summary ---
DATE OF ADMISSION: 08/24/2016 DATE OF DISCHARGE: 09/14/2016 ADMISSION DIAGNOSES: 1. Respiratory failure. 2. Postobstructive pneumonia. 3. Dementia. 4. Sepsis. DISCHARGE DIAGNOSES: 1. Respiratory failure. 2. Postobstructive pneumonia. 3. Dementia. 4. Sepsis. 5. Lung cancer. HOSPITAL COURSE: The patient is an 81-year-old female who presents with complaints of respiratory failure. She was intubated in the emergency room and was diagnosed with postobstructive pneumonia. Her x-ray and CAT scan showed evidence of a mass. She was weaned off the ventilator and extubated. She received broad-spectrum IV antibiotics. She had an NG tube feeding. The results of her CAT scan were discussed with family members who wanted to proceed with a biopsy. She underwent a VATS . Her postoperative course was complicated by respiratory failure requiring intubation and ventilatory support. She was gradually weaned over the course of four to five days and eventually extubated. She had a swallow evaluation, which she failed. She underwent placement of an uncomplicated G-tube she was doing well. She will be discharged back to the senior care facility. The case discussed with Hematology/Oncology, who currently recommended an outpatient Hematology/Oncology followup for discussion about possible therapeutic options for her lung cancer. DISCHARGE MEDICATIONS: Please see discharge medication list for discharge medications. DIET: G-tube feedings. ACTIVITY: Ad-dorothea. FOLLOWUP: The patient is to follow up in one to two days at the senior care facility. Rajesh Franco M.D. DR: Sandra JOB#: [id number] CC:
[2016-09-22] MEDS ORDERED: Xarelto 10mg tab ORAL SCH (11:30)
== END 2016-09-14 13:30 | DRG 853 ==
LOC: EDBD 15:10 → EMR 16:10 → ICU 16:16 → EDBEDREQ 08-25 03:58 → 2W 08-28 18:45 → 2E 08-30 21:50 → ICU 08-31 11:20 → 2E 09-04 12:59 → 4W 09-09 15:15
PROC: 0BH17EZ Insertion of Endotracheal Airway into Trachea, Via Natural or Artificial Opening (ICD-10-PCS; principal; 2016-08-24)
PROC: 5A1945Z Respiratory Ventilation, 24-96 Consecutive Hours (ICD-10-PCS; principal; 2016-08-24)
PROC: 06HM33Z Insertion of Infusion Device into Right Femoral Vein, Percutaneous Approach (ICD-10-PCS; principal; 2016-08-24)
PROC: B548ZZA Ultrasonography of Superior Vena Cava, Guidance (ICD-10-PCS; 2016-08-27)
PROC: 02HV33Z Insertion of Infusion Device into Superior Vena Cava, Percutaneous Approach (ICD-10-PCS; 2016-08-27)
PROC: 0BTC4ZZ Resection of Right Upper Lung Lobe, Percutaneous Endoscopic Approach (ICD-10-PCS; 2016-08-31)
PROC: 0BNN4ZZ Release Right Pleura, Percutaneous Endoscopic Approach (ICD-10-PCS; 2016-08-31)
PROC: 3E0L3GC Introduction of Other Therapeutic Substance into Pleural Cavity, Percutaneous Approach (ICD-10-PCS; 2016-08-31)
PROC: 0BJ08ZZ Inspection of Tracheobronchial Tree, Via Natural or Artificial Opening Endoscopic (ICD-10-PCS; 2016-08-31)
PROC: 0B5 Respiratory System, Destruction (ICD-10-PCS; 2016-08-31)
PROC: 0BBN4ZZ Excision of Right Pleura, Percutaneous Endoscopic Approach (ICD-10-PCS; 2016-08-31)
PROC: 0DH63UZ Insertion of Feeding Device into Stomach, Percutaneous Approach (ICD-10-PCS; 2016-09-09)
PROC: 0DB68ZX Excision of Stomach, Via Natural or Artificial Opening Endoscopic, Diagnostic (ICD-10-PCS; 2016-09-09)
DX: A41.59 Other Gram-negative sepsis (principal); R65.21 Severe sepsis with septic shock; J96.01 Acute respiratory failure with hypoxia; E43 Unspecified severe protein-calorie malnutrition; J15.0 Pneumonia due to Klebsiella pneumoniae; I50.33 Acute on chronic diastolic (congestive) heart failure; N17.9 Acute kidney failure, unspecified; R13.10 Dysphagia, unspecified; J90 Pleural effusion, not elsewhere classified; E87.5 Hyperkalemia; E87.3 Alkalosis; L89.153 Pressure ulcer of sacral region, stage 3; C34.11 Malignant neoplasm of upper lobe, right bronchus or lung; J98.11 Atelectasis; N39.0 Urinary tract infection, site not specified; I82.403 Acute embolism and thrombosis of unspecified deep veins of lower extremity, bilateral; K94.22 Gastrostomy infection; J95.811 Postprocedural pneumothorax; Z68.21 Body mass index [BMI] 21.0-21.9, adult; Z79.4 Long term (current) use of insulin; K29.70 Gastritis, unspecified, without bleeding; E11.9 Type 2 diabetes mellitus without complications; I11.0 Hypertensive heart disease with heart failure; F32.9 Major depressive disorder, single episode, unspecified; E78.5 Hyperlipidemia, unspecified; F03.90 Unspecified dementia, unspecified severity, without behavioral disturbance, psychotic disturbance, mood disturbance, and anxiety; E86.0 Dehydration; F31.9 Bipolar disorder, unspecified; E86.1 Hypovolemia; D63.8 Anemia in other chronic diseases classified elsewhere; T81.82XA Emphysema (subcutaneous) resulting from a procedure, initial encounter
CPT/HCPCS: 31500; 36415; 36569; 36600; 71010; 71250; 74000; 74230; 76700; 76937; 80048; 80053; 81003; 82330; 82550; 82553; 82803; 82962; 83605; 83735; 83880; 84100; 84443; 84484; 85007; 85025; 85610; 85730; 86705; 86709; 86803; 86850; 86900; 86901; 86920; 87040; 87070; 87081; 87086; 87181; 87205; 87340; 93005; 93306; 93970; 94002; 94003; 94150; 94640; 94664; 94760; J1815; J2250; J7620